=== PATIENT | male | born 1945 | race Caucasian/White ===

== ENCOUNTER → 2020-08-27 10:46 | Outpatient (BNVA) | payer MEDICARE, SELFPAY | PROVIDERS: PCP Internal Medicine; Referring Provider Internal Medicine; Visit Provider Hospitalist | DX: J84.9 Interstitial pulmonary disease, unspecified (principal); R06.00 Dyspnea, unspecified; R91.8 Other nonspecific abnormal finding of lung field; M06.1 Adult-onset Still's disease | CPT/HCPCS: 94618; 99214 ==

== ENCOUNTER 2021-01-03 10:47 | Outpatient (REF) | payer MEDICARE, SELFPAY ==
--- NOTE | 2021-01-03 17:05 | PFT_ITS ---
INDICATION: Interstitial lung disease. SPIROMETRY: The FEV1 to FVC 86% with an FEV1 of 2.63 L, which is 91% predicted and an FVC of 3.07 L, which is 77% predicted. No significant response to bronchodilators noted. Maximum voluntary ventilation 126% predicted. LUNG VOLUMES: Total lung capacity 72% predicted with an expiratory reserve volume of 37% predicted. DIFFUSION CAPACITY: DLCO 46% predicted. COMPARISONS: PFTs from January 2020. INTERPRETATION: There is no obstructive ventilatory defect. No significant response to bronchodilators noted and normal maximum voluntary ventilation. The patient does have a mild restrictive ventilatory defect in addition to a moderate to severe diffusion impairment. It does correct to 64% predicted when correcting for the alveolar volume. When comparing to January 2020, there is a trend increase in the total lung capacity and the trend increase in the diffusion capacity. Clinical correlation warranted. MD ANDRE Hall/MODL / [id number]
== END 2021-01-03 10:48 | disposition home or self-care (01) ==
LOC: HO.RESP 10:47
PROVIDERS: Visit Provider Hospitalist
DX: J84.9 Interstitial pulmonary disease, unspecified (principal)
CPT/HCPCS: 94060; 94727; 94729; 99212

== ENCOUNTER → 2021-08-25 10:42 | Outpatient (BNVA) | payer MEDICARE, SELFPAY | PROVIDERS: PCP Internal Medicine; Visit Provider Hospitalist | DX: J84.9 Interstitial pulmonary disease, unspecified (principal); R91.8 Other nonspecific abnormal finding of lung field; R06.00 Dyspnea, unspecified; M06.1 Adult-onset Still's disease | CPT/HCPCS: 99212 ==

== ENCOUNTER → 2022-02-10 09:14 | Outpatient (BNVA) | payer MEDICARE, SELFPAY | PROVIDERS: PCP Internal Medicine; Visit Provider Hospitalist | DX: J84.9 Interstitial pulmonary disease, unspecified (principal); R91.8 Other nonspecific abnormal finding of lung field; R06.00 Dyspnea, unspecified; M06.1 Adult-onset Still's disease | CPT/HCPCS: 99212 ==

== ENCOUNTER → 2022-05-10 09:48 | Outpatient (BNVA) | payer MEDICARE, SELFPAY | PROVIDERS: PCP Internal Medicine; Visit Provider Hospitalist | DX: J84.9 Interstitial pulmonary disease, unspecified (principal); R91.8 Other nonspecific abnormal finding of lung field; R06.00 Dyspnea, unspecified; M06.1 Adult-onset Still's disease | CPT/HCPCS: 99212 ==

== ENCOUNTER 2023-05-22 09:34 | Outpatient (AMB) | payer MEDICARE, SELFPAY ==
[2023-05-22 09:38] VITALS: BP 128/64; PULSE 54; O2SAT 94; BMI 29.7
--- NOTE | 2023-05-22 09:38 | MHC.OFFVIS ---
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 He had developed significant pleuritis with a pleural effusion in significant pleuritic pain. At that time he responded well to prednisone. He was then tried on an IL 1 inhibitor. After no significant improvement he was referred to [facility]. There he had had a gamma testing including CT scans and PFTs which I do not have the results. But the recommendation was for him to start methotrexate. The patient has been on methotrexate 6 tablets weekly and has felt much better. Recently signs histotechnologist supervisor and he was able to decrease his prednisone from 5 mg to 2.5. The last time that he had a CT scan available that I could appreciate was back in April 2018. It did demonstrate evidence of ground-glass opacities and interstitial lung disease. At this point the patient is re-imaging and further lung testing to assess his lung capacity. His chest pain overall is a lot better. 11/06/2019. The patient is here for pulmonary follow-up visit. Overall doing well. Continues on the methotrexate 6 tablets weekly. Today his histotechnologist supervisor decrease his prednisone from 2.5-1 mg. His chest discomfort is a lot better. Still having some pleuritic discomfort mild in severity. He is also getting some shortness of breath with increased activity specially when going up a couple flights of stairs. We did review his CT scan of the chest from 2017 in out November 04, 2019. There's significant interval improvement of the airspace disease it interstitial lung disease at the bases. His pleural thickening appears to be also decreasing thickness which is reassuring. No evidence of any effusions. Still pulmonary nodules measuring 2 mm in diameter still present. No significant changes. To do need follow-up. Otherwise the patient is without any other complaints. He did not have his pulmonary function studies. However, will plan to do them prior to his next visit and around 6-8 months. 05/2020 The patient is here for pulmonary follow-up visit. Since we last spoke he does state that he has been a little more short of breath with activity. His also complains that he has been coughing more. [id number] severity. His pleuritic chest pain has subsided to some degree. He still continues on the 6 tablets of methotrexate without any difficulties. He recently saw his histotechnologist supervisor felt that his blood work was reassuring that he was tolerating the medicine well. We did briefly talk about the side effects of methotrexate 1 being cough and interstitial lung disease. But, we looked at his CT scan of the chest that he had back in October 2019 it was reassuring that the interstitial lung conditions and pneumonitis that he has has really stabilized. Unfortunate with worsening symptoms he did have pulmonary function studies and appears that his total lung capacity decreased to 65% predicted. His diffusing capacity also decreased to 41% predicted. The patient has also gained some weight in the march as well. At this time will have him continue the current therapy with increased exercise and try to have some weight management. Plan to repeat the CT scan in October unless the patient's symptoms do not improve or if they worsen or there is any other concerning symptoms. 08/27/2020 the patient is here for pulmonary follow-up visit. He has been complaining of worsening dyspnea on exertion moderate severity. Apparently back in July he was found to have coronary artery disease and underwent a cardiac bypass surgery at [facility]. The surgery went well without any complications. 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 While the prednisone he did feel better. Subsequently after that the symptoms returned. He has been noticing worsening pleuritic discomfort primarily to the right chest and also shortness of breath. He did undergo a repeat CT scan of the chest in August demonstrating interval worsening of the interstitial lung disease at the bases compared to previous. No significant effusions noted. It is likely that the surgery aggravated his underlying interstitial lung process. He still on the methotrexate. Will go ahead and treat him with prednisone at this time. He did have a 6 minutes walk test in the office in the patient did desaturate down to 92% with activity, but, does not require oxygen at this time. 01/03/2021 the patient is here for pulmonary follow-up visit. Overall the patient has been doing well. He has been exercising regularly and walking up to 1.5 miles daily. He is also doing weight training. He is able to lose weight which has been intentional. His cardiac status has been stable after his bypass surgery. The patient did have pulmonary function studies today. We did compared to them to the previous pulmonary function studies from last year. It appears that he had a trend improvement in his total lung capacity and a slight improvement in his diffusing capacity. No evidence of obstruction. Overall the patient has been doing well from a respiratory status. Wean although his CT scan of the chest from the fall 2019 demonstrating some interval worsening of the interstitial lung process. However, the fact that he is feeling clinically well and the fact that his PFTs were reassuring I am hoping that the CT scans actually stabilizes or improved. Will plan to repeat the CT scan the fall 2020. In the meantime he continues with the methotrexate. He continues with other respiratory medications. If the patient has any issues between the patient is to call for an appointment otherwise will follow up after the CT scan in the fall. 08/25/2021 the patient is here for a pulmonary follow-up visit. Overall he continues to do very well. He still continues to recover from his cardiac bypass surgery. The patient has continued to use the methotrexate medication as prescribed by Rheumatology and recommended from [facility]. This is treating the adult onset Still's disease. It appears to be providing him some relief no significant pleuritic discomfort. He did have a recent CT scan of the chest done [facility] July 2021 that appears to that show stable pulmonary nodules and interstitial basilar changes when compared to 2017. Therefore this point there appears to be stability of disease and we will not continue to get serial CT scans unless the patient develops any worsening symptoms. Will have the patient return in a year's time with pulmonary function studies. Is any new or worsening symptoms arise the patient is to call quickly so we can further address those issues. The patient needs to follow-up with his histotechnologist supervisor regarding the possibility of weaning down some of the methotrexate to the lowest most effective dose. 02/10/2022 the patient is here for a pulmonary follow-up visit. Overall the patient has been doing well. Denies any shortness of breath or cough. He denies any further pleuritic discomfort which was 1 of his major symptoms when he was having significant pleuritis with evidence of pleural effusion in addition to the interstitial lung conditions. The patient did undergo bronchoscopy with transbronchial biopsy demonstrating areas of nonspecific inflammation. 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 While on the methotrexate the patient has been doing much better. The patient has not had any evidence of active disease. He is taking 6 tablets of the methotrexate. He is wondering if he can cut down. In the meantime he did undergo a recent cardiac CT for further evaluation from a cardiac standpoint. He was reassuring that his static aorta was stable. Although date did comment on his areas of ground-glass densities in addition to the interstitial changes in addition to the pulmonary nodules. One of the nodules was documented to be 8 mm in size. We did review previous CAT scans where the nodule had been 6 mm in size. He had other stable nodules. Unfortunately these to CT scans were not compared [id number] it is unclear if they were the same way. Therefore, I will request CT images from both CT scans from 2021 and also 2020 to be able to compared [id number] this nodule. In the meantime in view of the enlarging 8 mm nodule will repeat the CT scan in 3 months time with hopes that it does not continue to increase. If this nodule increases in size, then additional diagnostic interventions will be warranted. 05/10/2022 the patient is here for a pulmonary follow-up visit. Overall the patient has been doing well. Denies any significant chest discomfort or shortness of breath. Denies any significant coughing. He is hoping to meet his new histotechnologist supervisor soon. He continues on the methotrexate 6 tablets weekly. His primary care doctor has been prescribing it for now. The methotrexate appears to be hoping with the pleuritic discomfort that he had in the past suggesting that it was also related to the inflammatory process. In addition to that he did have a repeat CT scan of the chest done at [facility]. This CT scan was compared to a CT scan had back in July 2021. There appears that he has multiple pulmonary nodules in based on therapies his P has been 2020 there is no significant changes in the pulmonary nodules measuring 7 mm. Initially had a cardiac CT scan demonstrating a pulmonary nodule measuring 8 mm. Therefore likely that this was all related to the technique and the measuring of the nodules. Ideally a volumetric approach we more effective. 05/22/2023 the patient is here for pulmonary follow-up visit. It has been bout a year since we last spoke. The patient describes dyspnea on exertion. [id number] severity. Specially with going up a flight of stairs. He does continue on the methotrexate for his Still's disease. The patient did have crackles before examination he still has not. We did go for brief walking oximetry is oxygen did drop to the low 90s on 91-92% with activity. It quickly improves when he rested. His last CT scan of the chest was done at [facility] demonstrating interstitial changes at the bases. The patient also has pulmonary nodules. Will go ahead and repeat his CT scan now in view of the worsening symptoms. In addition to that will go ahead and request pulmonary function studies to further address his lung capacity at this time. [facility] Medical History (Updated 02/10/22 @ 11:13 by Aleshia Tejada PA-C) CAD (coronary artery disease) CMML (chronic myelomonocytic leukemia) (~2013) Dyspnea HLD (hyperlipidemia) HTN (hypertension) ILD (interstitial lung disease) Personal history of nicotine dependence Pulmonary nodules Still's disease of adult (~2017) Thoracic aortic aneurysm Surgical History (Updated 02/10/22 @ 11:09 by Aleshia Tejada PA-C) History of coronary artery bypass graft x 3 (~2019) Social History Patient Tobacco Use Status: Former Tobacco user Tobacco use type: Cigarette Years Smoked: 15 years Review of Systems Const Denies night sweats ENT Denies change in voice, Denies mouth pain, Reports nasal congestion and Reports nasal discharge Card Denies chest pain and Reports dyspnea on exertion Resp Reports cough, Denies pain on inspiration and Reports dyspnea on exertion GI Denies abdominal pain Musc Denies no additional complaints Neuro Denies Neuro-related abnormal movements Psych Denies no additional complaints Chris/Lymph Denies easy bleeding and Denies lymphadenopathy Physical Exam Vital Signs: Last Vital Signs Pulse 54 05/22/23 09:38 BP 128/64 05/22/23 09:38 Pulse Ox 94 05/22/23 09:38 Oxygen Delivery Method Room Air 05/22/23 09:38 BMI result Body Mass Index 29.7 Const General: alert Neck Neck: Yes normal visual inspection, Yes full ROM and Yes no lymphadenopathy Chest Chest palpation & inspection: normal inspection of the chest Resp Auscultation: crackles bilateral at the base and diminished lung sounds Cardio Rate: regular rate Rhythm: regular rhythm Heart sounds: S1 normal heart sound present and S2 normal heart sound present GI Palpation (GI): Soft to palpation and nontender Auscultation: normal bowel sounds General: Yes no CVA tenderness Back/Spine/Pelvis Back: no CVA tenderness Skin General skin exam: rashes and/or lesions noted Office Procedures 6 Minute Walk Time:: 22:15 SPO2 % at rest: 96 Pulse at rest: 89 SPO2 % during excercise: 91 Pulse during excercise: 105 Distance in yards walked: 300 Heather Score: 5 [id number] - 6 Minute Walk Assessment & Plan Assessment & Plan (1) Pulmonary nodules: Code(s): R91.8 - Other nonspecific abnormal finding of lung field (2) ILD (interstitial lung disease): Comment: Interval worsening after his CABG Code(s): J84.9 - Interstitial pulmonary disease, unspecified (3) Dyspnea: Code(s): R06.00 - Dyspnea, unspecified Qualifiers: Dyspnea type: dyspnea on exertion Qualified Code(s): R06.00 - Dyspnea, unspecified (4) Still's disease of adult: Onset Date: ~2017 Code(s): M06.1 - Adult-onset Still's disease Plan PFTs CT chest continue immunomodulator therapy unless evidence of progression on the CT/PFTs Rheumatology Dr Allred Follow-up in 3-4 months Coding Level of Care Code Est Pt Level 4 (40932) Diagnoses Pulmonary nodules R91.8 ILD (interstitial lung disease) J84.9 Dyspnea R06.00 Dyspnea type: dyspnea on exertion Still's disease of adult M06.1 CPT Codes Coding ([id number]) Time Spent (min) 19
[2023-05-22 22:14] VITALS: PULSE 89; O2SAT 96
== END 2023-05-22 10:02 | disposition home or self-care (01) ==
PROVIDERS: PCP Internal Medicine; Visit Provider Hospitalist
DX: R91.8 Other nonspecific abnormal finding of lung field (principal); J84.9 Interstitial pulmonary disease, unspecified; R06.00 Dyspnea, unspecified; M06.1 Adult-onset Still's disease
CPT/HCPCS: 94618; 99214

== ENCOUNTER → 2023-05-22 09:34 | Outpatient (BNVA) | payer MEDICARE, SELFPAY | PROVIDERS: Visit Provider Hospitalist | DX: J44.9 Chronic obstructive pulmonary disease, unspecified (principal); C93.10 Chronic 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; M06.1 Adult-onset Still's disease; J84.9 Interstitial pulmonary disease, unspecified; J90 Pleural effusion, not elsewhere classified; R06.00 Dyspnea, unspecified; R91.8 Other nonspecific abnormal finding of lung field; Z87.891 Personal history of nicotine dependence; Z79.631 Long term (current) use of antimetabolite agent | CPT/HCPCS: 94618; 99212 ==

== ENCOUNTER 2023-07-17 09:17 | Outpatient (REF) | payer MEDICARE, SELFPAY ==
--- NOTE | 2023-07-17 10:10 | PFT_ITS ---
INDICATION: COPD, interstitial lung disease. SPIROMETRY: FEV1 to FVC of 89% with an FEV1 of 2.8 L, which is 96% predicted and FVC of 3.15 L, which is 77% predicted. Maximum voluntary ventilation 114% predicted. LUNG VOLUMES: Total lung capacity 63% predicted. DIFFUSION CAPACITY: DLCO 45% predicted. PFTs comparison from 2020. INTERPRETATION: No obstructive ventilatory defect. No significant response to bronchodilators noted. Normal maximum voluntary ventilation. There is a restrictive ventilatory defect consistent with moderate restrictive lung disease consistent with his underlying interstitial lung disease. He also has a moderate to severe diffusion impairment. When compared to 2020, there is a trend increase in the FVC and trend increasing the FEV1, significant decreased in the total lung capacity and no significant change in the diffusion capacity. Clinical correlation warranted. Matthew Fonseca MD MR/MODL / [id number]
== END 2023-07-17 09:18 | disposition home or self-care (01) ==
LOC: HO.RESP 09:17
PROVIDERS: PCP Internal Medicine; Visit Provider Hospitalist
DX: R91.8 Other nonspecific abnormal finding of lung field (principal); J84.9 Interstitial pulmonary disease, unspecified; R06.00 Dyspnea, unspecified
CPT/HCPCS: 94010; 94727; 94729

== ENCOUNTER → 2023-07-17 10:10 | Outpatient (BNV) | payer MEDICARE, SELFPAY | PROVIDERS: PCP Internal Medicine; Visit Provider Hospitalist | DX: J44.9 Chronic obstructive pulmonary disease, unspecified (principal) | CPT/HCPCS: 94060; 94727; 94729 ==

== ENCOUNTER 2023-08-22 09:37 | Outpatient (AMB) | payer MEDICARE, SELFPAY ==
--- NOTE | 2023-08-22 09:48 | A.OFFVIS_ITS ---
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 He had de veloped significant pleuritis with a pleural effusion in significant pleuritic pain. At that time he responded well to prednisone. He was then tried on an IL 1 inhibitor. After no significant improvement he was referred to [facility]. There he had had a gamma testing including CT scans and PFTs which I do not have the results. But the recommendation was for him to start methotrexate. The patient has been on methotrexate 6 tablets weekly and has felt much better. Recently signs event promotions coordinator and he was able to decrease his prednisone from 5 mg to 2.5. The last time that he had a CT scan available that I could appreciate was back in April 2018. It did demonstrate evidence of ground-glass opacities and interstitial lung disease. At this point the patient is re-imaging and further lung testing to assess his lung capacity. His chest pain overall is a lot better. 11/06/2019. The patient is here for pulmonary follow-up visit. Overall doing well. Continues on the methotrexate 6 tablets weekly. Today his event promotions coordinator decrease his prednisone from 2.5-1 mg. His chest discomfort is a lot better. Still having some pleuritic discomfort mild in severity. He is also getting some shortness of breath with increased activity specially when going up a couple flights of stairs. We did review his CT scan of the chest from 2017 in out November 04, 2019. There's significant interval improvement of the airspace disease it interstitial lung disease at the bases. His pleural thickening appears to be also decreasing thickness which is reassuring. No evidence of any effusions. Still pulmonary nodules measuring 2 mm in diameter still present. No significant changes. To do need follow-up. Otherwise the patient is without any other complaints. He did not have his pulmonary function studies. However, will plan to do them prior to his next visit and around 6-8 months. 05/2020 The patient is here for pulmonary follow-up visit. Since we last spoke he does state that he has been a little more short of breath with activity. His also complains that he has been coughing more. [id number] severity. His pleuritic chest pain has subsided to some degree. He still continues on the 6 tablets of methotrexate without any difficulties. He recently saw his event promotions coordinator felt that his blood work was reassuring that he was tolerating the medicine well. We did briefly talk about the side effects of methotrexate 1 being cough and interstitial lung disease. But, we looked at his CT scan of the chest that he had back in October 2019 it was reassuring that the interstitial lung conditions and pneumonitis that he has has really stabilized. Unfortunate with worsening symptoms he did have pulmonary function studies and appears that his total lung capacity decreased to 65% predicted. His diffusing capacity also decreased to 41% predicted. The patient has also gained some weight in the march as well. At this time will have him continue the current therapy with increased exercise and try to have some weight management. Plan to repeat the CT scan in October unless the patient's symptoms do not improve or if they worsen or there is any other concerning symptoms. 08/27/2020 the patient is here for pulmonary follow-up visit. He has been complaining of worsening dyspnea on exertion moderate severity. Apparently back in July he was found to have coronary artery disease and underwent a cardiac bypass surgery at [facility]. The surgery went well without any complications. 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 While the prednisone he did feel better. Subsequently after that the symptoms returned. He has been noticing worsening pleuritic discomfort primarily to the right chest and also shortness of breath. He did undergo a repeat CT scan of the chest in August demonstrating interval worsening of the interstitial lung disease at the bases compared to previous. No significant effusions noted. It is likely that the surgery aggravated his underlying interstitial lung process. He still on the methotrexate. Will go ahead and treat him with prednisone at this time. He did have a 6 minutes walk test in the office in the patient did desaturate down to 92% with activity, but, does not require oxygen at this time. 01/03/2021 the patient is here for pulmonary follow-up visit. Overall the patient has been doing well. He has been exercising regularly and walking up to 1.5 miles daily. He is also doing weight training. He is able to lose weight which has been intentional. His cardiac status has been stable after his bypass surgery. The patient did have pulmonary function studies today. We did compared to them to the previous pulmonary function studies from last year. It appears that he had a trend improvement in his total lung capacity and a slight improvement in his diffusing capacity. No evidence of obstruction. Overall the patient has been doing well from a respiratory status. Wean although his CT scan of the chest from the fall 2019 demonstrating some interval worsening of the interstitial lung process. However, the fact that he is feeling clinically well and the fact that his PFTs were reassuring I am hoping that the CT scans actually stabilizes or improved. Will plan to repeat the CT scan the fall 2020. In the meantime he continues with the methotrexate. He continues with other respiratory medications. If the patient has any issues between the patient is to call for an appointment otherwise will follow up after the CT scan in the fall. 08/25/2021 the patient is here for a pulmonary follow-up visit. Overall he continues to do very well. He still continues to recover from his cardiac bypass surgery. The patient has continued to use the methotrexate medication as prescribed by Rheumatology and recommended from [facility]. This is treating the adult onset Still's disease. It appears to be providing him some relief no significant pleuritic discomfort. He did have a recent CT scan of the chest done [facility] July 2021 that appears to that show stable pulmonary nodules and interstitial basilar changes when compared to 2017. Therefore this point there appears to be stability of disease and we will not continue to get serial CT scans unless the patient develops any worsening symptoms. Will have the patient return in a year's time with pulmonary function studies. Is any new or worsening symptoms arise the patient is to call quickly so we can further address those issues. The patient needs to follow-up with his event promotions coordinator regarding the possibility of weaning down some of the methotrexate to the lowest most effective dose. 02/10/2022 the patient is here for a pulmonary follow-up visit. Overall the patient has been doing well. Denies any shortness of breath or cough. He denies any further pleuritic discomfort which was 1 of his major symptoms when he was having significant pleuritis with evidence of pleural effusion in addition to the interstitial lung conditions. The patient did undergo bronchoscopy with transbronchial biopsy demonstrating areas of nonspecific inflammation. 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 While on the methotrexate the patient has been doing much better. The patient has not had any evidence of active disease. He is taking 6 tablets of the methotrexate. He is wondering if he can cut down. In the meantime he did undergo a recent cardiac CT for further evaluation from a cardiac standpoint. He was reassuring that his static aorta was stable. Although date did comment on his areas of ground-glass densities in addition to the interstitial changes in addition to the pulmonary nodules. One of the nodules was documented to be 8 mm in size. We did review previous CAT scans where the nodule had been 6 mm in size. He had other stable nodules. Unfortunately these to CT scans were not compared [id number] it is unclear if they were the same way. Therefore, I will request CT images from both CT scans from 2021 and also 2020 to be able to compared [id number] this nodule. In the meantime in view of the enlarging 8 mm nodule will repeat the CT scan in 3 months time with hopes that it does not continue to increase. If this nodule increases in size, then additional diagnostic interventions will be warranted. 05/10/2022 the patient is here for a pulmonary follow-up visit. Overall the patient has been doing well. Denies any significant chest discomfort or shortness of breath. Denies any significant coughing. He is hoping to meet his new event promotions coordinator soon. He continues on the methotrexate 6 tablets weekly. His primary care doctor has been prescribing it for now. The methotrexate appears to be hoping with the pleuritic discomfort that he had in the past suggesting that it was also related to the inflammatory process. In addition to that he did have a repeat CT scan of the chest done at [facility]. This CT scan was compared to a CT scan had back in July 2021. There appears that he has multiple pulmonary nodules in based on therapies his P has been 2020 there is no significant changes in the pulmonary nodules measuring 7 mm. Initially had a cardiac CT scan demonstrating a pulmonary nodule measuring 8 mm. Therefore likely that this was all related to the technique and the measuring of the nodules. Ideally a volumetric approach we more effective. 05/22/2023 the patient is here for pulmonary follow-up visit. It has been bout a year since we last spoke. The patient describes dyspnea on exertion. [id number] severity. Specially with going up a flight of stairs. He does continue on the methotrexate for his Still's disease. The patient did have crackles before examination he still has not. We did go for brief walking oximetry is oxygen did drop to the low 90s on 91-92% with activity. It quickly improves when he rested. His last CT scan of the chest was done at [facility] demonstrating interstitial changes at the bases. The patient also has pulmonary nodules. Will go ahead and repeat his CT scan now in view of the worsening symptoms. In addition to that will go ahead and request pulmonary function studies to further address his lung capacity at this time. 08/22/2023 the patient is here for pulmonary follow-up visit. The patient continues to be about the same. Still complaining of dyspnea on exertion. Moderate severity. He does not use any inhalers. The patient did undergo pulmonary function studies. Demonstrates that he has a slight interval worsening of the restrictive ventilatory defect. He did have a CT scan of the chest demonstrating that his pulmonary fibrosis has not progressed which is reassuring. Still with worsening findings on PFTs need to monitor closely. He is on the methotrexate that he uses for his inflammatory arthritis. No evidence of any methotrexate induced pulmonary toxicity. Then be a component of body habitus as he is gained weight and that possibly is also affecting his total lung capacity. Still the patient will benefit from pulmonary rehabilitation. He is willing to start rehab at this time. Although he is driving from [place] so he rather go to [facility]. Will also provide him with a short- acting beta agonist that he can use as needed. [facility] Medical History (Updated 02/10/22 @ 11:13 by Aleshia Tejada PA-C) Personal history of nicotine dependence Thoracic aortic aneurysm HLD (hyperlipidemia) HTN (hypertension) CAD (coronary artery disease) CMML (chronic myelomonocytic leukemia) (~2013) Still's disease of adult (~2018) Dyspnea Pulmonary nodules ILD (interstitial lung disease) Surgical History (Updated 02/10/22 @ 11:09 by Aleshia Tejada PA-C) History of coronary artery bypass graft x 3 (~2019) Social History Patient Tobacco Use Status: Former Tobacco user Tobacco use type: Cigarette Years Smoked: 15 years Review of Systems Const Denies night sweats ENT Denies change in voice, Denies mouth pain, Reports nasal congestion and Reports nasal discharge Card Denies chest pain and Reports dyspnea on exertion Resp Reports cough, Denies pain on inspiration and Reports dyspnea on exertion GI Denies abdominal pain Musc Denies no additional complaints Neuro Denies Neuro-related abnormal movements Psych Denies no additional complaints Chris/Lymph Denies easy bleeding and Denies lymphadenopathy Physical Exam Vital Signs: Last Vital Signs Pulse 60 08/22/23 09:49 Pulse Ox 93 08/22/23 09:49 Oxygen Delivery Method Room Air 08/22/23 09:49 BMI result Body Mass Index 29.7 Const General: alert Neck Neck: Yes normal visual inspection, Yes full ROM and Yes no lymphadenopathy Chest Chest palpation & inspection: normal inspection of the chest Resp Effort & Inspection: normal respiratory effort Auscultation: crackles bilateral at the base and diminished lung sounds Cardio Rate: regular rate Rhythm: regular rhythm Heart sounds: S1 normal heart sound present and S2 normal heart sound present GI Palpation (GI): Soft to palpation and nontender Auscultation: normal bowel sounds General: Yes no CVA tenderness Back/Spine/Pelvis Back: no CVA tenderness Skin General skin exam: rashes and/or lesions noted Assessment & Plan Assessment & Plan (1) Pulmonary nodules: Code(s): R91.8 - Other nonspecific abnormal finding of lung field (2) ILD (interstitial lung disease): Comment: Interval worsening after his CABG Code(s): J84.9 - Interstitial pulmonary disease, unspecified (3) Dyspnea: Code(s): R06.00 - Dyspnea, unspecified Qualifiers: Dyspnea type: dyspnea on exertion Qualified Code(s): R06.00 - Dyspnea, unspecified (4) Still's disease of adult: Onset Date: ~2017 Code(s): M06.1 - Adult-onset Still's disease Plan start MARQUES as needed start Pulmonary rehab ([facility]) CT chest 07/2023 unchanged continue immunomodulator therapy Rheumatology Dr Allred Follow-up in 6 months Orders: Orders Pulmonary Rehab Today J84.9 - Interstitial pulmonary disease, unspecified Medications: New albuterol sulfate 90 mcg/actuation 2 inhalations inhalation Q6H 30 days PRN 18 grams 12RF shortness of breath or wheezing J44.9 - Chronic obstructive pulmonary disease, unspecified Coding Level of Care Code Est Pt Level 4 (01232) Diagnoses Pulmonary nodules R91.8 ILD (interstitial lung disease) J84.9 Dyspnea on exertion R06.00 Dyspnea type: dyspnea on exertion Still's disease of adult M06.1 Time Spent (min) 18
[2023-08-22 09:49] VITALS: PULSE 60; O2SAT 93; BMI 29.7
== END 2023-08-22 10:09 | disposition home or self-care (01) ==
PROVIDERS: PCP Internal Medicine; Visit Provider Hospitalist
DX: R91.8 Other nonspecific abnormal finding of lung field (principal); J84.9 Interstitial pulmonary disease, unspecified; R06.00 Dyspnea, unspecified; M06.1 Adult-onset Still's disease
CPT/HCPCS: 99214

== ENCOUNTER → 2023-08-22 09:37 | Outpatient (BNVA) | payer MEDICARE, SELFPAY | PROVIDERS: PCP Internal Medicine; Visit Provider Hospitalist | DX: R91.8 Other nonspecific abnormal finding of lung field (principal); J84.9 Interstitial pulmonary disease, unspecified; R06.00 Dyspnea, unspecified; M06.1 Adult-onset Still's disease | CPT/HCPCS: 99212 ==

== ENCOUNTER 2023-10-08 13:04 | Outpatient (AMB) | payer MEDICARE, SELFPAY ==
--- NOTE | 2023-10-08 13:18 | A.OFFVIS_ITS ---
Intake Vital Signs 10/08/23 13:21 Height 5 ft 9 in Weight 202 lb BMI 29.8 Pulse 71 Pulse Source Pulse Oximeter Pulse Oximetry (%) 94 Oxygen Delivery Method Room Air Intake Visit Reasons: COPD/Hosp DC Follow Up ([facility]) Objective C Developer Required: No Allergies aspirin Allergy (Mild, Verified 10/08/23 13:22) Swollen HPI HPI Comments History of Present Illness Details The patient is a 77-year-old gentleman known CMML in addition to adult onset Still's disease with some underlying interstitial lung disease. He had developed significant pleuritis with a pleural effusion in significant pleuritic pain. At that time he responded well to prednisone. He was then tried on an IL 1 inhibitor. After no significant improvement he was referred to [place]. There he had had a gamma testing including CT scans and PFTs which I do not have the results. But the recommendation was for him to start methotrexate. The patient has been on methotrexate 6 tablets weekly and has felt much better. Recently signs computer repair engineer and he was able to decrease his prednisone from 5 mg to 2.5. The last time that he had a CT scan available that I could appreciate was back in April 2018. It did demonstrate evidence of ground-glass opacities and interstitial lung disease. At this point the patient is re-imaging and further lung testing to assess his lung capacity. His chest pain overall is a lot better. 05/10/2022 the patient is here for a pulmo nary follow-up visit. Overall the patient has been doing well. Denies any significant chest discomfort or shortness of breath. Denies any significant coughing. He is hoping to meet his new computer repair engineer soon. He continues on the methotrexate 6 tablets weekly. His primary care doctor has been prescribing it for now. The methotrexate appears to be hoping with the pleuritic discomfort that he had in the past suggesting that it was also related to the inflammatory process. In addition to that he did have a repeat CT scan of the chest done at [facility]. This CT scan was compared to a CT scan had back in July 2021. There appears that he has multiple pulmonary nodules in based on therapies his P has been 2020 there is no significant changes in the pulmonary nodules measuring 7 mm. Initially had a cardiac CT scan demonstrating a pulmonary nodule measuring 8 mm. Therefore likely that this was all related to the technique and the measuring of the nodules. Ideally a volumetric approach we more effective. 05/22/2023 the patient is here for puljayde pierce follow-up visit. It has been bout a year since we last spoke. The patient describes dyspnea on exertion. Kvep-av-kiubbhbj severity. Specially with going up a flight of stairs. He does continue on the methotrexate for his Still's disease. The patient did have crackles before examination he still has not. We did go for brief walking oximetry is oxygen did drop to the low 90s on 91-92% with activity. It quickly improves when he rested. His last CT scan of the chest was done at [facility] demonstrating interstitial changes at the bases. The patient also has pulmonary nodules. Will go ahead and repeat his CT scan now in view of the worsening symptoms. In addition to that will go ahead and request pulmonary function studies to further address his lung capacity at this time. 08/22/2023 the patient is here for pultai dacosta follow-up visit. The patient continues to be about the same. Still complaining of dyspnea on exertion. Moderate severity. He does not use any inhalers. The patient did undergo pulmonary function studies. Demonstrates that he has a slight interval worsening of the restrictive ventilatory defect. He did have a CT scan of the chest demonstrating that his pulmonary fibrosis has not progressed which is reassuring. Still with worsening findings on PFTs need to monitor closely. He is on the methotrexate that he uses for his inflammatory arthritis. No evidence of any methotrexate induced pulmonary toxicity. Then be a component of body habitus as he is gained weight and that possibly is also affecting his total lung capacity. Still the patient will benefit from pulmonary rehabilitation. He is willing to start rehab at this time. Although he is driving from [place] so he rather go to [facility]. Will also provide him with a short- acting beta agonist that he can use as needed. 10/08/2023 the patient is here for hospit al follow-up visit. The patient has been doing well. We had evaluated him just in August and he was at baseline. Have been new methotrexate. Unfortunately developed acute respiratory failure. The patient was taken to [facility] where he was admitted to the hospital requiring oxygen. The patient did have a CT scan of the chest demonstrating significant ground-glass opacities consistent with an alveolar filling process. He did undergo an echocardiogram with a dilated left atrium although normal ejection fraction. The patient was evaluated by Pulmonary and also Infectious Disease. The question of Pneumocystis pulmonary infection was brought up. Although felt to be less likely. An LDH was done in a beta D glucan was also checked although I do not have those results. The patient was placed on prednisone taper in addition to Levaquin. He was subsequently discharged on room air. He still feels short of breath and winded. During the evaluation he was also noted to be anemic. Therefore he will be following up with his practical nurse and I believe he is going to undergo a bone marrow biopsy to make sure that there is no worsening of the CMML. on further questioning he was exposed to sick contacts. My suspicion that based on the reports that this is likely viral syndrome that manifested with significant viral pneumonitis. Clinically the patient has been improving. We did go for brief walking oximetry the patient does not require any additional oxygen supplementation at this time I do believe that he is getting better. He does have some lower extremity edema. 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 After the diuresis and additional prednisone I did request the patient get an x-ray done next week. If there is any persistent opacities or any worsening opacities further intervention should take place. Otherwise if things are getting better likely this was just an infectious process that resulted in the acute changes. 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) Dyspnea Pulmonary nodules ILD (interstitial lung disease) Surgical History (Updated 02/10/22 @ 11:09 by Aleshia Tejada PA-C) History of coronary artery bypass graft x 3 (~2019) Social History Patient Tobacco Use Status: Former Tobacco user Tobacco use type: Cigarette Years Smoked: 15 years Review of Systems Const Reports fatigue and Denies night sweats ENT Denies change in voice, Denies mouth pain, Reports nasal congestion and Reports nasal discharge Card Denies chest pain and Reports dyspnea on exertion Resp Reports cough, Denies pain on inspiration and Reports dyspnea on exertion GI Denies abdominal pain Musc Denies no additional complaints Neuro Denies Neuro-related abnormal movements Psych Denies no additional complaints Endo Reports fatigue Chris/Lymph Denies easy bleeding and Denies lymphadenopathy Physical Exam Vital Signs: Last Vital Signs Pulse 71 10/08/23 13:21 Pulse Ox 94 10/08/23 13:21 Oxygen Delivery Method Room Air 10/08/23 13:21 BMI result Body Mass Index 29.8 Const General: alert Neck Neck: Yes normal visual inspection, Yes full ROM and Yes no lymphadenopathy Chest Chest palpation & inspection: normal inspection of the chest Resp Effort & Inspection: normal respiratory effort Auscultation: crackles bilateral at the base and diminished lung sounds Cardio Rate: regular rate Rhythm: regular rhythm Heart sounds: S1 normal heart sound present and S2 normal heart sound present GI Palpation (GI): Soft to palpation and nontender Auscultation: normal bowel sounds General: Yes no CVA tenderness Back/Spine/Pelvis Back: no CVA tenderness Skin General skin exam: rashes and/or lesions noted Results Reviewed Results Reviewed: Personally reviewed echocardiogram demonstrating normal EF but a very severe left atrium. Personally reviewed the CT scan of the chest reported demonstrating new evidence of ground-glass opacities throughout Assessment & Plan Assessment & Plan (1) Pneumonitis: Code(s): J98.4 - Other disorders of lung (2) Pulmonary nodules: Code(s): R91.8 - Other nonspecific abnormal finding of lung field (3) ILD (interstitial lung disease): Comment: Interval worsening after his CABG Code(s): J84.9 - Interstitial pulmonary disease, unspecified (4) Dyspnea: Code(s): R06.00 - Dyspnea, unspecified Qualifiers: Dyspnea type: dyspnea on exertion Qualified Code(s): R06.00 - Dyspnea, unspecified (5) Still's disease of adult: Onset Date: ~2017 Code(s): M06.1 - Adult-onset Still's disease Plan lasix x 3 days continue prednisone taper complete abx CXR next week MARQUES as needed Pulmonary rehab ([facility]) continue immunomodulator therapy F/U with heme/onc re: anemia Follow-up in 2 months Orders: Orders XR chest 2V Today J98.4 - Other disorders of lung Medications: New furosemide (Lasix) 20 mg PO DAILY 3 days 3 tabs 0RF prednisone 10 mg PO DAILY 10 days 10 tabs 0RF Coding Level of Care Code Est Pt Level 5 (21934) Diagnoses Pneumonitis J98.4 Pulmonary nodules R91.8 ILD (interstitial lung disease) J84.9 Dyspnea on exertion R06.00 Dyspnea type: dyspnea on exertion Still's disease of adult M06.1 Time Spent (min) 35
[2023-10-08 13:21] VITALS: PULSE 71; O2SAT 94; BMI 29.8
== END 2023-10-08 13:59 | disposition home or self-care (01) ==
PROVIDERS: PCP Internal Medicine; Visit Provider Hospitalist
DX: J98.4 Other disorders of lung (principal); R91.8 Other nonspecific abnormal finding of lung field; J84.9 Interstitial pulmonary disease, unspecified; M06.1 Adult-onset Still's disease
CPT/HCPCS: 99214

== ENCOUNTER → 2023-10-08 13:04 | Outpatient (BNVA) | payer MEDICARE, SELFPAY | PROVIDERS: PCP Internal Medicine; Visit Provider Hospitalist | DX: J98.4 Other disorders of lung (principal); R91.8 Other nonspecific abnormal finding of lung field; J84.9 Interstitial pulmonary disease, unspecified; R06.00 Dyspnea, unspecified; M06.1 Adult-onset Still's disease; C93.10 Chronic 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 | CPT/HCPCS: 99212 ==

== ENCOUNTER 2024-01-07 13:46 | Outpatient (AMB) | payer MEDICARE, SELFPAY ==
--- NOTE | 2024-01-07 13:55 | MHC.OFFVIS ---
Intake Vital Signs 01/07/24 13:56 Height 5 ft 9 in Weight 200 lb BMI 29.5 BP 132/70 Blood Pressure Location Lt brachial Position Sitting Pulse 71 Pulse Source Pulse Oximeter Pulse Oximetry (%) 96 Oxygen Delivery Method Room Air Intake Visit Reasons: persistent cough Developmental Writing Instructor Required: No Allergies aspirin Allergy (Mild, Verified 01/07/24 13:58) Swollen HPI HPI Comments History of Present Illness Details The patient is a 78-year-old gentleman known CMML in addition to adult onset Still's disease with some underlying interstitial lung disease. He had developed significant pleuritis with a pleural effusion in significant pleuritic pain. At that time he responded well to prednisone. He was then tried on an IL 1 inhibitor. After no significant improvement he was referred to [place]. There he had had a gamma testing including CT scans and PFTs which I do not have the results. But the recommendation was for him to start methotrexate. The patient has been on methotrexate 6 tablets weekly and has felt much better. Recently signs pyridine recovery operator and he was able to decrease his prednisone from 5 mg to 2.5. The last time that he had a CT scan available that I could appreciate was back in April 2018. It did demonstrate evidence of ground-glass opacities and interstitial lung disease. At this point the patient is re-imaging and further lung testing to assess his lung capacity. His chest pain overall is a lot better. 05/10/2022 the patient is here for a pulmonary follow-up visit. Overall the patient has been doing well. Denies any significant chest discomfort or shortness of breath. Denies any significant coughing. He is hoping to meet his new pyridine recovery operator soon. He continues on the methotrexate 6 tablets weekly. His primary care doctor has been prescribing it for now. The methotrexate appears to be hoping with the pleuritic discomfort that he had in the past suggesting that it was also related to the inflammatory process. In addition to that he did have a repeat CT scan of the chest done at [facility]. This CT scan was compared to a CT scan had back in July 2021. There appears that he has multiple pulmonary nodules in based on therapies his P has been 2020 there is no significant changes in the pulmonary nodules measuring 7 mm. Initially had a cardiac CT scan demonstrating a pulmonary nodule measuring 8 mm. Therefore likely that this was all related to the technique and the measuring of the nodules. Ideally a volumetric approach we more effective. 05/22/2023 the patient is here for pulmonary follow-up visit. It has been bout a year since we last spoke. The patient describes dyspnea on exertion. Kdkm-oa-[id number] severity. Specially with going up a flight of stairs. He does continue on the methotrexate for his Still's disease. The patient did have crackles before examination he still has not. We did go for brief walking oximetry is oxygen did drop to the low 90s on 91-92% with activity. It quickly improves when he rested. His last CT scan of the chest was done at [facility] demonstrating interstitial changes at the bases. The patient also has pulmonary nodules. Will go ahead and repeat his CT scan now in view of the worsening symptoms. In addition to that will go ahead and request pulmonary function studies to further address his lung capacity at this time. 08/22/2023 the patient is here for pulmonary follow-up visit. The patient continues to be about the same. Still complaining of dyspnea on exertion. Moderate severity. He does not use any inhalers. The patient did undergo pulmonary function studies. Demonstrates that he has a slight interval worsening of the restrictive ventilatory defect. He did have a CT scan of the chest demonstrating that his pulmonary fibrosis has not progressed which is reassuring. Still with worsening findings on PFTs need to monitor closely. He is on the methotrexate that he uses for his inflammatory arthritis. No evidence of any methotrexate induced pulmonary toxicity. Then be a component of body habitus as he is gained weight and that possibly is also affecting his total lung capacity. Still the patient will benefit from pulmonary rehabilitation. He is willing to start rehab at this time. Although he is driving from [place] so he rather go to [facility]. Will also provide him with a short-acting beta agonist that he can use as needed. 10/08/2023 the patient is here for hospital follow-up visit. The patient has been doing well. We had evaluated him just in August and he was at baseline. Have been new methotrexate. Unfortunately developed acute respiratory failure. The patient was taken to [facility] where he was admitted to the hospital requiring oxygen. The patient did have a CT scan of the chest demonstrating significant ground-glass opacities consistent with an alveolar filling process. He did undergo an echocardiogram with a dilated left atrium although normal ejection fraction. The patient was evaluated by Pulmonary and also Infectious Disease. The question of Pneumocystis pulmonary infection was brought up. Although felt to be less likely. An LDH was done in a beta D glucan was also checked although I do not have those results. The patient was placed on prednisone taper in addition to Levaquin. He was subsequently discharged on room air. He still feels short of breath and winded. During the evaluation he was also noted to be anemic. Therefore he will be following up with his oracle adf developer and I believe he is going to undergo a bone marrow biopsy to make sure that there is no worsening of the CMML. on further questioning he was exposed to sick contacts. My suspicion that based on the reports that this is likely viral syndrome that manifested with significant viral pneumonitis. Clinically the patient has been improving. We did go for brief walking oximetry the patient does not require any additional oxygen supplementation at this time I do believe that he is getting better. He does have some lower extremity edema. 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 After the diuresis and additional prednisone I did request the patient get an x-ray done next week. If there is any persistent opacities or any worsening opacities further intervention should take place. Otherwise if things are getting better likely this was just an infectious process that resulted in the acute changes. 01/07/2024 the patient is here for A sick visit apparently couple weeks ago he started developing worsening cough chest congestion. He was seen by his primary care doctor in prescribed prednisone and antibiotics for what was likely lower respiratory infection. Unfortunately symptoms continued to get worse. Started getting some increased shortness of breath chest tightness and he went to the ER. There he had nasal swabs done was positive for influenza A. I do not have the report%. He was given Tamiflu although because of his renal insufficiency was given a low dose and was actually already after the therapeutic window. Therefore he really did not have any significant improvement. He did call the office to be evaluated however, we could not fit him in last week so he is presenting today. Already starting to feel better. His cough significantly better. Chest congestion is better the chest tightness is also improving. He does have dyspnea on exertion mild in severity. He is feels tired weak. He still has some hoarseness. On examination he does have his stable fine rales at the bases. However, appears to have more coarse crackles in the left mid lung area. This suggest a possibility of bronchopneumonia. Based on the fact that he just had flu will go ahead and give him doxycycline to treat him for postviral bacterial infection to treat both staph aureus and Streptococcus. The patient otherwise does not need any additional prednisone which is reassuring. He is reluctant to do so. On further questioning he is dealing with gout. We did go over the low purine diet to minimize on the uric acid buildup. He is also taking medications for. The patient also continues on the methotrexate for his underlying connective tissue disease. In regards of his leukemia appears to be stable although he is going to be referred to [facility] [place] to start prophylactic treatment in view of his ongoing findings of anemia and other risk factors. 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) Dyspnea Pulmonary nodules ILD (interstitial lung disease) Surgical History (Updated 02/10/22 @ 11:09 by Aleshia Tejada PA-C) History of coronary artery bypass graft x 3 (~2019) Social History Patient Tobacco Use Status: Former Tobacco user Tobacco use type: Cigarette Years Smoked: 15 years Review of Systems Const Reports fatigue and Denies night sweats ENT Denies change in voice, Reports hoarseness, Denies mouth pain, Reports nasal congestion and Reports nasal discharge Card Denies chest pain and Reports dyspnea on exertion Resp Reports chest congestion, Reports cough, Denies pain on inspiration and Reports dyspnea on exertion GI Denies abdominal pain Musc Denies no additional complaints Neuro Denies Neuro-related abnormal movements Psych Denies no additional complaints Endo Reports fatigue Chris/Lymph Denies easy bleeding and Denies lymphadenopathy Physical Exam Vital Signs: Last Vital Signs Pulse 71 01/07/24 13:56 BP 132/70 01/07/24 13:56 Pulse Ox 96 01/07/24 13:56 Oxygen Delivery Method Room Air 01/07/24 13:56 BMI result Body Mass Index 29.5 Const General: alert Neck Neck: Yes normal visual inspection, Yes full ROM and Yes no lymphadenopathy Chest Chest palpation & inspection: normal inspection of the chest Resp Effort & Inspection: normal respiratory effort Auscultation: crackles on the left in the mid lung rachel, rales bilateral at the base and diminished lung sounds Cardio Rate: regular rate Rhythm: regular rhythm Heart sounds: S1 normal heart sound present and S2 normal heart sound present GI Palpation (GI): Soft to palpation and nontender Auscultation: normal bowel sounds General: Yes no CVA tenderness Back/Spine/Pelvis Back: no CVA tenderness Skin General skin exam: rashes and/or lesions noted Assessment & Plan Assessment & Plan (1) Pneumonitis: Code(s): J98.4 - Other disorders of lung (2) Pulmonary nodules: Code(s): R91.8 - Other nonspecific abnormal finding of lung field (3) ILD (interstitial lung disease): Comment: Interval worsening after his CABG Code(s): J84.9 - Interstitial pulmonary disease, unspecified (4) Dyspnea: Code(s): R06.00 - Dyspnea, unspecified Qualifiers: Dyspnea type: dyspnea on exertion Qualified Code(s): R06.00 - Dyspnea, unspecified (5) Still's disease of adult: Onset Date: ~2017 Code(s): M06.1 - Adult-onset Still's disease (6) Pneumonia: Code(s): J18.9 - Pneumonia, unspecified organism Qualifiers: Pneumonia type: due to unspecified organism Laterality: left Lung location: unspecified part of lung Qualified Code(s): J18.9 - Pneumonia, unspecified organism Plan repeat CXR Start Doxycycline MARQUES as needed Pulmonary rehab ([facility]) continue immunomodulator therapy F/U with heme/onc re: anemia will be going to [facility] for further treatment options Follow-up in 3-4 months Orders: Orders XR chest 2V Today J18.9 - Pneumonia, unspecified organism Medications: New doxycycline monohydrate 100 mg PO BID 14 days 28 tabs 0RF Coding Level of Care Code Est Pt Level 4 (00668) Diagnoses Pneumonitis J98.4 Pulmonary nodules R91.8 ILD (interstitial lung disease) J84.9 Dyspnea on exertion R06.00 Dyspnea type: dyspnea on exertion Still's disease of adult M06.1 Pneumonia of left lung due to infectious organism, unspecified part of lung J18.9 Pneumonia type: due to unspecified organism Laterality: left Lung location: unspecified part of lung Time Spent (min) 18
[2024-01-07 13:56] VITALS: BP 132/70; PULSE 71; O2SAT 96; BMI 29.5
== END 2024-01-07 14:26 | disposition home or self-care (01) ==
PROVIDERS: PCP Internal Medicine; Visit Provider Hospitalist
DX: J98.4 Other disorders of lung (principal); R91.8 Other nonspecific abnormal finding of lung field; J84.9 Interstitial pulmonary disease, unspecified; M06.1 Adult-onset Still's disease; J18.9 Pneumonia, unspecified organism
CPT/HCPCS: 99214

== ENCOUNTER → 2024-01-07 13:46 | Outpatient (BNVA) | payer MEDICARE, SELFPAY | PROVIDERS: PCP Internal Medicine; Visit Provider Hospitalist | DX: J98.4 Other disorders of lung (principal); R91.8 Other nonspecific abnormal finding of lung field; J84.9 Interstitial pulmonary disease, unspecified; J18.9 Pneumonia, unspecified organism; M06.1 Adult-onset Still's disease; R06.00 Dyspnea, unspecified | CPT/HCPCS: 99212 ==

== ENCOUNTER 2024-07-09 09:46 | Outpatient (AMB) | payer MEDICARE, SELFPAY ==
[2024-07-09 10:11] VITALS: BP 138/70; PULSE 83; O2SAT 97; BMI 26.5
--- NOTE | 2024-07-09 10:11 | A.OFFVIS_ITS ---
Vital Signs 07/09/24 10:11 Height 5 ft 9 in Weight 179 lb 10.828 oz BMI 26.5 BP 138/70 Blood Pressure Location Rt brachial Position Sitting Pulse 83 Pulse Source Pulse Oximeter Pulse Oximetry (%) 97 Oxygen Delivery Method Room Air Intake Visit Reasons: persistent cough Allergies aspirin Allergy (Mild, Verified 07/09/24 10:13) Swollen HPI Comments Details: The patient is a 78-year-old gentleman known CMML in addition to adult onset Still's disease with some underlying interstitial lung disease. He had developed significant pleuritis with a pleural effusion in significant pleuritic pain. At that time he responded well to prednisone. He was then tried on an IL 1 inhibitor. After no significant improvement he was referred to [facility]. There he had had a gamma testing including CT scans and PFTs which I do not have the results. But the recommendation was for him to start methotrexate. The patient has been on methotrexate 6 tablets weekly and has felt much better. 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 The last time that he had a CT scan available that I could appreciate was back in April 2018. It did demonstrate evidence of ground-glass opacities and interstitial lung disease. At this point the patient is re-imaging and further lung testing to assess his lung capacity. His chest pain overall is a lot better. 05/10/2022 the patient is here for a pulmonary follow-up visit. Overall the patient has been doing well. Denies any significant chest discomfort or shortness of breath. Denies any significant coughing. He is hoping to meet his new washer repairman soon. He continues on the methotrexate 6 tablets weekly. His primary care doctor has been prescribing it for now. The methotrexate appears to be hoping with the pleuritic discomfort that he had in the past suggesting that it was also related to the inflammatory process. In addition to that he did have a repeat CT scan of the chest done at [facility]. This CT scan was compared to a CT scan had back in July 2021. There appears that he has multiple pulmonary nodules in based on therapies his P has been 2020 there is no significant changes in the pulmonary nodules measuring 7 mm. Initially had a cardiac CT scan demonstrating a pulmonary nodule measuring 8 mm. Therefore likely that this was all related to the technique and the measuring of the nodules. Ideally a volumetric approach we more effective. 05/22/2023 the patient is here for pulmonary follow-up visit. It has been bout a year since we last spoke. The patient describes dyspnea on exertion. [id number] severity. Specially with going up a flight of stairs. He does continue on the methotrexate for his Still's disease. The patient did have crackles before examination he still has not. We did go for brief walking oximetry is oxygen did drop to the low 90s on 91-92% with activity. It quickly improves when he rested. His last CT scan of the chest was done at [facility] demonstrating interstitial changes at the bases. The patient also has pulmonary nodules. Will go ahead and repeat his CT scan now in view of the worsening symptoms. In addition to that will go ahead and request pulmonary function studies to further address his lung capacity at this time. 08/22/2023 the patient is here for pulmonary follow-up visit. The patient continues to be about the same. Still complaining of dyspnea on exertion. Moderate severity. He does not use any inhalers. The patient did undergo pulmonary function studies. Demonstrates that he has a slight interval worsening of the restrictive ventilatory defect. He did have a CT scan of the chest demonstrating that his pulmonary fibrosis has not progressed which is reassuring. Still with worsening findings on PFTs need to monitor closely. He is on the methotrexate that he uses for his inflammatory arthritis. No evidence of any methotrexate induced pulmonary toxicity. Then be a component of body habitus as he is gained weight and that possibly is also affecting his total lung capacity. Still the patient will benefit from pulmonary rehabilitation. He is willing to start rehab at this time. Although he is driving from [place] so he rather go to [facility]. Will also provide him with a short- acting beta agonist that he can use as needed. 10/08/2023 the patient is here for hospital follow-up visit. The patient has been doing well. We had evaluated him just in August and he was at baseline. Have been new methotrexate. Unfortunately developed acute respiratory failure. The patient was taken to [facility] where he was admitted to the hospital requiring oxygen. The patient did have a CT scan of the chest demonstrating significant ground-glass opacities consistent with an alveolar filling process. He did undergo an echocardiogram with a dilated left atrium although normal ejection fraction. The patient was evaluated by Pulmonary and also Infectious Disease. The question of Pneumocystis pulmonary infection was brought up. Although felt to be less likely. An LDH was done in a beta D glucan was also checked although I do not have those results. The patient was placed on prednisone taper in addition to Levaquin. He was subsequently discharged on room air. He still feels short of breath and winded. During the evaluation he was also noted to be anemic. Therefore he will be following up with his sugar grinder and I believe he is going to undergo a bone marrow biopsy to make sure that there is no worsening of the CMML. on further questioning he was exposed to sick contacts. My suspicion that based on the reports that this is likely viral syndrome that manifested with significant viral pneumonitis. Clinically the patient has been improving. We did go for brief walking oximetry the patient does not require any additional oxygen supplementation at this time I do believe that he is getting better. He does have some lower extremity edema. 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 After the diuresis and additional prednisone I did request the patient get an x-ray done next week. If there is any persistent opacities or any worsening opacities further intervention should take place. Otherwise if things are getting better likely this was just an infectious process that resulted in the acute changes. 01/07/2024 the patient is here for A sick visit apparently couple weeks ago he started developing worsening cough chest congestion. He was seen by his primary care doctor in prescribed prednisone and antibiotics for what was likely lower respiratory infection. Unfortunately symptoms continued to get worse. Started getting some increased shortness of breath chest tightness and he went to the ER. There he had nasal swabs done was positive for influenza A. I do not have the report%. He was given Tamiflu although because of his renal insufficiency was given a low dose and was actually already after the therapeutic window. Therefore he really did not have any significant improvement. He did call the office to be evaluated however, we could not fit him in last week so he is presenting today. Already starting to feel better. His cough significantly better. Chest congestion is better the chest tightness is also improving. He does have dyspnea on exertion mild in severity. He is feels tired weak. He still has some hoarseness. On examination he does have his stable fine rales at the bases. However, appears to have more coarse crackles in the left mid lung area. This suggest a possibility of bronchopneumonia. Based on the fact that he just had flu will go ahead and give him doxycycline to treat him for postviral bacterial infection to treat both staph aureus and Streptococcus. The patient otherwise does not need any additional prednisone which is reassuring. He is reluctant to do so. On further questioning he is dealing with gout. We did go over the low purine diet to minimize on the uric acid buildup. He is als o taking medications for. The patient also continues on the methotrexate for his underlying connective tissue disease. In regards of his leukemia appears to be stable although he is going to be referred to [facility] to start prophylactic treatment in view of his ongoing findings of anemia and other risk factors. 07/09/2024 the patient is here for a pulmonary follow-up visit. The patient has been complaining of significant back pain. Initially he underwent kyphoplasty but it did not help him. Now he is scheduled to undergo back surgery at [facility] in the coming weeks. In the meantime he was diagnosed with pneumonia several months ago. He did have a chest x-ray as an outpatient. I do not have those results. He was treated as an outpatient and did not have to be admitted to the hospital. He is feeling better although he still having some chest congestion. Also noticed to have some shortness of breath with activity. But a lot of it has to do with deconditioning. He has also lost significant amount of weight because of the back pain. From a hematological standpoint the patient has followed closely with oncology. No evidence of any active issue per report. In regards to the pulmonary fibrosis the patient continues to have crackles on examination which is chronic for him. We did go for brief walking oximetry in the office in his oxygenation was 98% with activity which is extremely reassuring. We will start respiratory inhalers see if this provides some relief prior to surgery. [facility] Medical History (Updated 01/07/24 @ 22:12 by Matthew Fonseca MD) Pneumonia Pneumonitis Personal history of nicotine dependence Thoracic aortic aneurysm HLD (hyperlipidemia) HTN (hypertension) CAD (coronary artery disease) CMML (chronic myelomonocytic leukemia) (~2013) Still's disease of adult (~2018) Dyspnea Pulmonary nodules ILD (interstitial lung disease) Surgical History (Updated 02/10/22 @ 11:09 by Aleshia Tejada PA-C) History of coronary artery bypass graft x 3 (~2019) Social History Patient Tobacco Use Status: Former Tobacco user Tobacco use type: Cigarette Years Smoked: 15 years Review of Systems Const Reports fatigue and Denies night sweats ENT Denies change in voice, Reports hoarseness, Denies mouth pain, Reports nasal congestion and Reports nasal discharge Card Denies chest pain and Reports dyspnea on exertion Resp Reports cough, Denies pain on inspiration and Reports dyspnea on exertion GI Denies abdominal pain Musc Denies no additional complaints Neuro Denies Neuro-related abnormal movements Psych Denies no additional complaints Endo Reports fatigue Chris/Lymph Denies easy bleeding and Denies lymphadenopathy Physical Exam Vital Signs: Last Vital Signs Pulse 83 07/09/24 10:11 BP 138/70 07/09/24 10:11 Pulse Ox 97 07/09/24 10:11 Oxygen Delivery Method Room Air 07/09/24 10:11 BMI result Body Mass Index 26.5 Const General: alert Neck Neck: Yes normal visual inspection, Yes full ROM and Yes no lymphadenopathy Chest Chest palpation & inspection: normal inspection of the chest Resp Effort & Inspection: normal respiratory effort Auscultation: crackles on the left in the mid lung rachel, rales bilateral at the base and diminished lung sounds Cardio Rate: regular rate Rhythm: regular rhythm Heart sounds: S1 normal heart sound present and S2 normal heart sound present GI Palpation (GI): Soft to palpation and nontender Auscultation: normal bowel sounds General: Yes no CVA tenderness Back/Spine/Pelvis Back: no CVA tenderness Skin General skin exam: rashes and/or lesions noted Assessment & Plan Assessment & Plan (1) Pneumonitis: Code(s): J98.4 - Other disorders of lung Category: Medical (2) Pulmonary nodules: Code(s): R91.8 - Other nonspecific abnormal finding of lung field Category: Medical (3) ILD (interstitial lung disease): Comment: Interval worsening after his CABG Code(s): J84.9 - Interstitial pulmonary disease, unspecified Category: Medical (4) Dyspnea: Code(s): R06.00 - Dyspnea, unspecified Category: Medical Qualifiers: Dyspnea type: dyspnea on exertion Qualified Code(s): R06.00 - Dyspnea, unspecified (5) Still's disease of adult: Onset Date: ~2017 Code(s): M06.1 - Adult-onset Still's disease Category: Medical (6) Pneumonia: Code(s): J18.9 - Pneumonia, unspecified organism Category: Medical Qualifiers: Laterality: left Lung location: unspecified part of lung Pneumonia type: due to unspecified organism Qualified Code(s): J18.9 - Pneumonia, unspecified organism Plan MARQUES as needed start Symbicort Back surgery at [facility] continue immunomodulator therapy F/U with heme/onc re: anemia and CMML will need imaging studies with his next visit Follow-up in 3-4 months Medications: New budesonide-formoterol 160-4.5 mcg/actuation (Symbicort) 2 puffs inhalation BID 10.2 grams 11RF 30 days J44.89 - Other specified chronic obstructive pulmonary disease Refilled albuterol sulfate 90 mcg/actuation 2 inhalations inhalation Q6H PRN 18 grams 12RF shortness of breath or wheezing 30 days J44.9 - Chronic obstructive pulmonary disease, unspecified Coding Level of Care Code Est Pt Level 4 (17441) Complex EM visit Add On G2211 Diagnoses Pneumonitis J98.4 Pulmonary nodules R91.8 ILD (interstitial lung disease) J84.9 Dyspnea on exertion R06.00 Dyspnea type: dyspnea on exertion Still's disease of adult M06.1 Pneumonia of left lung due to infectious organism, unspecified part of lung J18.9 Laterality: left Lung location: unspecified part of lung Pneumonia type: due to unspecified organism Time Spent (min) 17
== END 2024-07-09 10:39 | disposition home or self-care (01) ==
PROVIDERS: PCP Internal Medicine; Visit Provider Hospitalist
DX: J98.4 Other disorders of lung (principal); R91.8 Other nonspecific abnormal finding of lung field; J84.9 Interstitial pulmonary disease, unspecified; R06.00 Dyspnea, unspecified; M06.1 Adult-onset Still's disease; J18.9 Pneumonia, unspecified organism
CPT/HCPCS: 99214; G2211

== ENCOUNTER → 2024-07-09 09:46 | Outpatient (BNVA) | payer MEDICARE, SELFPAY | PROVIDERS: PCP Internal Medicine; Visit Provider Hospitalist | DX: J98.4 Other disorders of lung (principal); J84.9 Interstitial pulmonary disease, unspecified; J18.9 Pneumonia, unspecified organism; R91.8 Other nonspecific abnormal finding of lung field; M06.1 Adult-onset Still's disease | CPT/HCPCS: 99212 ==

== ENCOUNTER 2024-09-19 10:53 | Outpatient (AMB) | payer MEDICARE, SELFPAY ==
--- NOTE | 2024-09-19 11:08 | MHC.OFFVIS ---
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: No Client Customer Manager: Client Customer Manager offered & declined Accompanied by: Self / Same As Patient Allergies aspirin Allergy (Mild, Verified 07/09/24 10:13) Swollen Medication List - Last Reconciled 09/19/24 by Tessa Valentine LPN acetaminophen (Tylenol Extra Strength) 500 mg PO Q6H PRN albuterol sulfate 90 mcg/actuation 2 inhalations inhalation Q6H PRN 30 days allopurinol 100 mg PO DAILY amlodipine 10 mg PO DAILY atorvastatin 80 mg PO BEDTIME budesonide-formoterol 160-4.5 mcg/actuation (Symbicort) 2 puffs inhalation BID 30 days cholecalciferol (vitamin D3) 25 mcg PO DAILY clopidogrel 75 mg PO DAILY colchicine mg PO escitalopram oxalate 10 mg PO DAILY flu vac 2019 [id number](PF) 60 mcg (15 mcg x 4)/0.5 mL IM folic acid 1 mg PO DAILY glipizide 10 mg PO DAILY methotrexate sodium 15 mg PO QWEEK metoprolol tartrate 25 mg PO BID HPI Comments Details: The patient is a 78-year-old gentleman known CMML in addition to adult onset Still's disease with some underlying interstitial lung disease. He had developed significant pleuritis with a pleural effusion in significant pleuritic pain. At that time he responded well to prednisone. He was then tried on an IL 1 inhibitor. After no significant improvement he was referred to [facility]. There he had had a gamma testing including CT scans and PFTs which I do not have the results. But the recommendation was for him to start methotrexate. The patient has been on methotrexate 6 tablets weekly and has felt much better. Recently signs steel hanger and he was able to decrease his prednisone from 5 mg to 2.5. The last time that he had a CT scan available that I could appreciate was back in April 2018. It did demonstrate evidence of ground-glass opacities and interstitial lung disease. At this point the patient is re-imaging and further lung testing to assess his lung capacity. His chest pain overall is a lot better. 05/10/2022 the patient is here for a pulmonary follow-up visit. Overall the patient has been doing well. Denies any significant chest discomfort or shortness of breath. Denies any significant coughing. He is hoping to meet his new steel hanger soon. He continues on the methotrexate 6 tablets weekly. His primary care doctor has been prescribing it for now. The methotrexate appears to be hoping with the pleuritic discomfort that he had in the past suggesting that it was also related to the inflammatory process. In addition to that he did have a repeat CT scan of the chest done at [facility]. This CT scan was compared to a CT scan had back in July 2021. There appears that he has multiple pulmonary nodules in based on therapies his P has been 2020 there is no significant changes in the pulmonary nodules measuring 7 mm. Initially had a cardiac CT scan demonstrating a pulmonary nodule measuring 8 mm. Therefore likely that this was all related to the technique and the measuring of the nodules. Ideally a volumetric approach we more effective. 05/22/2023 the patient is here for pulmonary follow-up visit. It has been bout a year since we last spoke. The patient describes dyspnea on exertion. [id number] severity. Specially with going up a flight of stairs. He does continue on the methotrexate for his Still's disease. The patient did have crackles before examination he still has not. We did go for brief walking oximetry is oxygen did drop to the low 90s on 91-92% with activity. It quickly improves when he rested. His last CT scan of the chest was done at [facility] demonstrating interstitial changes at the bases. The patient also has pulmonary nodules. Will go ahead and repeat his CT scan now in view of the worsening symptoms. In addition to that will go ahead and request pulmonary function studies to further address his lung capacity at this time. 08/22/2023 the patient is here for pulmonary follow-up visit. The patient continues to be about the same. Still complaining of dyspnea on exertion. Moderate severity. He does not use any inhalers. The patient did undergo pulmonary function studies. Demonstrates that he has a slight interval worsening of the restrictive ventilatory defect. He did have a CT scan of the chest demonstrating that his pulmonary fibrosis has not progressed which is reassuring. Still with worsening findings on PFTs need to monitor closely. He is on the methotrexate that he uses for his inflammatory arthritis. No evidence of any methotrexate induced pulmonary toxicity. Then be a component of body habitus as he is gained weight and that possibly is also affecting his total lung capacity. Still the patient will benefit from pulmonary rehabilitation. He is willing to start rehab at this time. Although he is driving from [place] so he rather go to [facility]. Will also provide him with a short-acting beta agonist that he can use as needed. 10/08/2023 the patient is here for hospital follow-up visit. The patient has been doing well. We had evaluated him just in August and he was at baseline. Have been new methotrexate. Unfortunately developed acute respiratory failure. The patient was taken to [facility] where he was admitted to the hospital requiring oxygen. The patient did have a CT scan of the chest demonstrating significant ground-glass opacities consistent with an alveolar filling process. He did undergo an echocardiogram with a dilated left atrium although normal ejection fraction. The patient was evaluated by Pulmonary and also Infectious Disease. The question of Pneumocystis pulmonary infection was brought up. Although felt to be less likely. An LDH was done in a beta D glucan was also checked although I do not have those results. The patient was placed on prednisone taper in addition to Levaquin. He was subsequently discharged on room air. He still feels short of breath and winded. During the evaluation he was also noted to be anemic. Therefore he will be following up with his department mgr and I believe he is going to undergo a bone marrow biopsy to make sure that there is no worsening of the CMML. on further questioning he was exposed to sick contacts. My suspicion that based on the reports that this is likely viral syndrome that manifested with significant viral pneumonitis. Clinically the patient has been improving. We did go for brief walking oximetry the patient does not require any additional oxygen supplementation at this time I do believe that he is getting better. He does have some lower extremity edema. 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 After the diuresis and additional prednisone I did request the patient get an x-ray done next week. If there is any persistent opacities or any worsening opacities further intervention should take place. Otherwise if things are getting better likely this was just an infectious process that resulted in the acute changes. 01/07/2024 the patient is here for A sick visit apparently couple weeks ago he started developing worsening cough chest congestion. He was seen by his primary care doctor in prescribed prednisone and antibiotics for what was likely lower respiratory infection. Unfortunately symptoms continued to get worse. Started getting some increased shortness of breath chest tightness and he went to the ER. There he had nasal swabs done was positive for influenza A. I do not have the report%. He was given Tamiflu although because of his renal insufficiency was given a low dose and was actually already after the therapeutic window. Therefore he really did not have any significant improvement. He did call the office to be evaluated however, we could not fit him in last week so he is presenting today. Already starting to feel better. His cough significantly better. Chest congestion is better the chest tightness is also improving. He does have dyspnea on exertion mild in severity. He is feels tired weak. He still has some hoarseness. On examination he does have his stable fine rales at the bases. However, appears to have more coarse crackles in the left mid lung area. This suggest a possibility of bronchopneumonia. Based on the fact that he just had flu will go ahead and give him doxycycline to treat him for postviral bacterial infection to treat both staph aureus and Streptococcus. The patient otherwise does not need any additional prednisone which is reassuring. He is reluctant to do so. On further questioning he is dealing with gout. We did go over the low purine diet to minimize on the uric acid buildup. He is also taking medications for. The patient also continues on the methotrexate for his underlying connective tissue disease. In regards of his leukemia appears to be stable although he is going to be referred to [facility] to start prophylactic treatment in view of his ongoing findings of anemia and other risk factors. 07/09/2024 the patient is here for a pulmonary follow-up visit. The patient has been complaining of significant back pain. Initially he underwent kyphoplasty but it did not help him. Now he is scheduled to undergo [place] [facility] [place] coming [place]. In the meantime he was diagnosed with pneumonia several months ago. He did have a chest x-ray as an outpatient. I do not have those results. He was treated as an outpatient and did not have to be admitted to the hospital. He is feeling better although he still having some chest congestion. Also noticed to have some shortness of breath with activity. But a lot of it has to do with deconditioning. He has also lost significant amount of weight because of the back pain. From a hematological standpoint the patient has followed closely with oncology. No evidence of any active issue per report. In regards to the pulmonary fibrosis the patient continues to have crackles on examination which is chronic for him. We did go for brief walking oximetry in the office in his oxygenation was 98% with activity which is extremely reassuring. We will start respiratory inhalers see if this provides some relief prior to surgery. 09/19/2024 the patient is here for a pulmonary follow-up visit. Since we last spoke the patient did undergo kyphoplasty and also a pain stimulator for his back. After this the procedure the patient is started developing worsening shortness of breath. He was initially placed on Symbicort and also rescue inhaler in his breathing did get a little better. Ultimately still had shortness of breath with activity. Moderate severity. He had a full cardiac workup including a transesophageal echo to further address the aortic valve disease. [place] that it was moderate severity but did not need surgery. During the office we did a walking oximetry again in his oxygen did drop to about 94% this time. He did have a CTA done on 09/15/2024. I do not have the images just the report. Appears that he has multiple defects suggesting small peripheral subsegmental pulmonary emboli. Ultimately underwent ultrasounds of the lower extremities ruled out DVT no other evidence of disease. The clots were from to be too small to likely be contributing to his symptoms. Although likely is multifactorial. My suspicion is that he could have had cement related pulmonary emboli from his kyphoplasty. Based on the CTA report was more awake question was not completely clear if indeed that was the case. Therefore will go ahead and request an urgent V/Q scan to better assess if there is any evidence of any significant V/Q mismatch to suggest more inclination to treat him with anticoagulation. If he is treated with anticoagulation would only be for 3 months and then reassess with a repeat V/Q scan. In the meantime since he responded well to the Symbicort will go ahead and add in additional long-acting bronchodilator, Spiriva. I did teach him how to use it. He will start using it to see if this provides some additional relief. He continues on the methotrexate. He has already had issues with compression fractures will hold off on prednisone at this time. [facility] Medical History (Updated 09/21/24 @ 19:17 by Matthew Fonseca MD) Pulmonary emboli Pneumonia Pneumonitis Personal history of nicotine dependence Thoracic aortic aneurysm HLD (hyperlipidemia) HTN (hypertension) CAD (coronary artery disease) CMML (chronic myelomonocytic leukemia) (~2013) Still's disease of adult (~2018) Dyspnea Pulmonary nodules ILD (interstitial lung disease) Surgical History (Updated 02/10/22 @ 11:09 by Aleshia Tejada PA-C) History of coronary artery bypass graft x 3 (~2019) Social History (Updated 09/19/24 @ 11:18 by Tessa Valentine LPN) Patient Tobacco Use Status: Former Tobacco user Tobacco use type: Cigarette Years Smoked: 15 years Review of Systems Const Reports fatigue and Denies night sweats ENT Denies change in voice, Reports hoarseness, Denies mouth pain, Reports nasal congestion and Reports nasal discharge Card Denies chest pain, Reports dyspnea and Reports dyspnea on exertion Resp Reports cough, Denies pain on inspiration, Reports dyspnea and Reports dyspnea on exertion GI Denies abdominal pain Musc Denies no additional complaints Neuro Denies Neuro-related abnormal movements Psych Denies no additional complaints Endo Reports fatigue Chris/Lymph Denies easy bleeding and Denies lymphadenopathy Physical Exam Vital Signs: Last Vital Signs Pulse 58 09/19/24 11:09 BP 124/70 09/19/24 11:09 Pulse Ox 96 09/19/24 11:09 Oxygen Delivery Method Room Air 09/19/24 11:09 BMI result Body Mass Index 26.4 Results Reviewed Results Reviewed: CTA 09/15 +small/tiny defects in the periphery tiny pulmonary emboli Assessment & Plan Assessment & Plan (1) Pneumonitis: Code(s): J98.4 - Other disorders of lung Category: Medical (2) Pulmonary nodules: Code(s): R91.8 - Other nonspecific abnormal finding of lung field Category: Medical (3) ILD (interstitial lung disease): Comment: Interval worsening after his CABG Code(s): J84.9 - Interstitial pulmonary disease, unspecified Category: Medical (4) Dyspnea: Code(s): R06.00 - Dyspnea, unspecified Category: Medical Qualifiers: Dyspnea type: dyspnea on exertion Qualified Code(s): R06.00 - Dyspnea, unspecified (5) Still's disease of adult: Onset Date: ~2017 Code(s): M06.1 - Adult-onset Still's disease Category: Medical (6) Pulmonary emboli: Comment: 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 Now symptoms worsened after his vertebroplasty. CTA with a question of pulmonary emboli in the periphery, but not definitive. The timing is consistent with cement pulmonary emboli. At times one may determine the cement emoli on the imaging, but would be difficult with the small size of the defects. MARQUES as needed continue Symbicort start Spiriva VQ scan, if abnormal will consider 3months of anticoagulation continue immunomodulator therapy F/U with heme/onc re: anemia and CMML Follow-up in 2-4 weeks Orders: Orders XR chest 2V 09/19/24 I26.99 - Other pulmonary embolism without acute cor pulmonale NM pul vent and perfuse 09/19/24 I26.99 - Other pulmonary embolism without acute cor pulmonale Medications: New tiotropium bromide 2.5 mcg/actuation (Spiriva Respimat) 2 puffs inhalation DAILY 1 ea 11RF 30 days Refilled budesonide-formoterol 160-4.5 mcg/actuation (Symbicort) 2 puffs inhalation BID 10.2 grams 11RF 30 days J44.89 - Other specified chronic obstructive pulmonary disease Coding Level of Care Code Est Pt Level 5 (27625) Complex EM visit Add On G2211 Diagnoses Pneumonitis J98.4 Pulmonary nodules R91.8 ILD (interstitial lung disease) J84.9 Dyspnea on exertion R06.00 Dyspnea type: dyspnea on exertion Still's disease of adult M06.1 Pulmonary embolism without acute cor pulmonale, unspecified chronicity, unspecified pulmonary embolism type I26.99 Pulmonary embolism type: unspecified Acute cor pulmonale presence: without acute cor pulmonale Chronicity: unspecified Time Spent (min) 45
[2024-09-19 11:09] VITALS: BP 124/70; PULSE 58; O2SAT 96; BMI 26.4
== END 2024-09-19 11:53 | disposition home or self-care (01) ==
PROVIDERS: PCP Internal Medicine; Visit Provider Hospitalist
DX: J98.4 Other disorders of lung (principal); R91.8 Other nonspecific abnormal finding of lung field; J84.9 Interstitial pulmonary disease, unspecified; M06.1 Adult-onset Still's disease; I26.99 Other pulmonary embolism without acute cor pulmonale
CPT/HCPCS: 99215; G2211

== ENCOUNTER → 2024-09-19 10:53 | Outpatient (BNVA) | payer MEDICARE, SELFPAY | PROVIDERS: PCP Internal Medicine; Visit Provider Hospitalist | DX: J98.4 Other disorders of lung (principal); J84.9 Interstitial pulmonary disease, unspecified; R91.8 Other nonspecific abnormal finding of lung field; R06.00 Dyspnea, unspecified; M06.1 Adult-onset Still's disease; I26.99 Other pulmonary embolism without acute cor pulmonale | CPT/HCPCS: 99212 ==

== ENCOUNTER 2024-11-12 08:43 | Outpatient (REF) | payer MEDICARE, SELFPAY ==
--- OUTSIDE RECORDS SUMMARY | 2024-11-12 08:48 | XMS_ITS | Patient Health Record ---
Author Organization [facility] Address [address] [place] [address] Care Team Providers Care Recorder [employer] Name Role Phone LALO HERNANDEZ Unavailable [phone] REASON FOR REFERRAL No Information PROBLEMS Problem Type ICD Code Onset Dates Problem Status W/U Status Risk SNOMED Code Notes Problem 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 (C93.10) Active confirmed Problem Monoclonal gammopathy (D47.2) Active confirmed Monoclonal gammopathy (12373659) Problem Overweight (E66.3) Active confirmed Overweight (469578819) Problem 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 (274404579) Problem Gout, unspecified (M10.9) Active confirmed Gout (95336024) Problem Coronary artery disease without angina pectoris, unspecified vessel or lesion type, unspecified whether [place] or transplanted heart (I25.10) Active confirmed Atherosclerot ic heart disease of [place] coronary artery without angina pectoris (430235331580821) Problem Pulmonary fibrosis (J84.10) Active confirmed Pulmonary fibrosis (71339660) Problem Compression fracture of L1 vertebra, sequela (S32.010S) Active confirmed Late effect of fracture of spine AND/OR trunk without spinal cord lesion (3031983) Problem Spinal stenosis at L4-L5 level (M48.061) Active confirmed Spinal stenosis of lumbar region (94437340) Problem Hyperlipidemia (E78.5) Active confirmed Hyperlipidemia (29098055) Problem Diabetes mellitus without complication (E11.9) Active confirmed Diabetes mellit us without complication (458210777) Encounters Encounter Location Date Provider Diagnosis [facility] [address] [place] [address] 06/16/2024 LALO HERNANDEZ PLAN OF TREATMENT No Information Insurance Providers Payer Name Payer Address Payer Phone Subscriber Number Group Number Insured Name Patient Relationship to Insured Coverage Start Date Coverage End Date [facility] [address] [place] [address] [id number] Chuck Harmon Self - patient is the insured
--- OUTSIDE RECORDS SUMMARY | 2024-11-12 08:48 | XMS_ITS | Continuity of Care Document ---
Author Organization [facility] [employer], Main Office Address [address] [place] [address] Care Team Providers Care Behavioral Geneticist Name Role Phone ECTOR JARA Primary Care Provider Assessment Encounter Date Assessment Date Assessment LastModified by Organization Details LastModified Time 08/25/2024 08/25/2024 This is a 78-year-old gentleman status a month from L2-3 and L3-4 lateral lumbar interbody fusion with posterior stabilization and fusion. He has a previous history of osteopenia. He is quite comfortable now. I have requested x-rays of the lumbar spine. I have also given him a bone stimulator to improve the fusion at L2-3 and L3-4. We fitted this to him today. I will see him again in about 2 months. Not available 08/25/2024 10:15:40 Plan of Treatment Reminders Order Date Submit Date Provider Last Modified By Organization Details Last Modified Time Details Appointments FOLLOW UP 30 2024 10:30A M Rafael Estevez MD Not available Not available Not available Lab None recorded . Referral None recorded . Procedures None recorded . Surgeries None recorded . Imaging XR, lumbar spine 2023 024 [email or web address] [facility] ([facility]), [address], [place], [address], 08/26/2024 17:21:09 Medication Orders None recorded . Patient TargetsNo targets recorded. Patient InstructionsNo instructions recorded. Reason for Referral None Reported. Results Created Date Observation Date Name Description Value Unit Range Abnormal Flag Note LastModifiedBy Organization Detail LastModifiedTime 07/29/20 24 07/29/2024 fluor oscop y less than one hour Exam is non-re portab le. 0.[address] ([facility]) [address] [place], [address], 08/11/2024 10:19:16 07/29/20 24 07/29/2024 xr lumba r spine AP & lat TECHNI QUE:Li mited intrao perati ve lumbar spine 2 views HISTOR Y: Fusion FINDIN GS: Fluoro scopy time 0.5 minute s. Freeze -frame images in AP and latera l views demons trate osteop lasty at L1. There are inters pace body cages are seen at L2-3 and L3-4. Partia l inclus ion of osteop lasty at L5 IMPRES SUSIE: Images obtain ed during lumbar fusion Report review ed and signed by : Dr. Luis Armando Louis on 024 4:01 PM. Workst ation Name - [id number] [address] ([facility]) [address] [place], [address], 08/11/2024 10:19:17 07/29/20 24 07/29/2024 CT airo lumba r spine witho ut IV contr ast See notes tab of Epic Chart Review for Final Report . [address] ([facility]) [address] [place] [address], [address], 08/11/2024 10:19:17 07/30/20 24 07/29/2024 xr lumba r spine AP & lat TECHNI QUE:Ratna mbar spine 2 views HISTOR Y: Status post L2-4 fusion COMPAR MARTA: x-rays . MRI 024 FINDIN GS: Status post osteop lasty within the compre ssed L1 fractu re is unchan ged. Interv al osteop lasty L5. Severe narrow ing L5-S1 disc space with 12 mm of anteri or sublux ation is simila r. Interv al pedicl e screws with vertic al stabil izing bars and interb nelson fusion cages L2-3-4 . Mild compre ssion fractu re of the superi or endpla te of L2 is new or progre ssed since the MR exam Hardwa re is intact . Simila r modera te compre ssion fractu re of the T12 body. IMPRES SUSIE: 1. Mild L2 compre ssion fractu re which is new or progre ssed since recent study 2. Status post L2-L4 fusion 3. No osteop lasty L5 with grade 2 spondy lolist hesis. Report review ed and signed by : Dr. Luis Armando Louis on 11:26 AM. [facility]st [facility] [employer] [facility] [address] ([facility]) [address] [place] [address], [id number], 08/11/2024 10:19:18 07/30/20 24 07/29/2024 xr chest AP and lat EXAM PERFOR MED: XR CHEST AP AND LAT REASON FOR EXAM: Cough COMPAR MARTA: FINDIN GS: Status post sterno christine. Low lung volume s. Increa se in Modera te bilate ral diffus e reticu lar opacit ies is seen. No airspa ce consol idatio n. Mild cardia c enlarg ement There is no pneumo thorax . Latera l view is very limite d due to rotati on of the patien t and underp enetra tion. No defini te pleura l effusi on. IMPRES SUSIE: Increa sing diffus e reticu lar opacit ies bilate rally. This may be partia lly accent uated by the low lung volume s howeve r vascul ar disten tion is possib le Report review ed and signed by : Dr. Luis Armando Louis on 2:08 PM. [facility]st [facility] [address] ([facility]) [address] [place] [address], [id number], 08/11/2024 10:19:18 07/31/20 24 07/29/2024 CT, abdom en, w/o contr ast EXAMIN ATION: CT ABDOME N WITHOU T CONTRA ST - INDICA TION: retrop eriton eal bleed TECHNI QUE: A CT of the abdome n was obtain ed only, with sagitt al and saldana l recons tructi on views. A radiat ion dose optimi zation techni que was used for this scan. No IV contra st given. Oral contra st: None. COMPAR MARTA: 2014. __ FINDIN GS: LOWER CHEST: There is severe hypove ntilat ion of the lower lobes, worse in the right diaphr agm is more elevat ed than the left with atelec tasis in the lower lobe. Heart is enlarg ed. There is severe calcif icatio n of the left anteri or descen ding and modera te calcif icatio n of the other saldana ry arteri es. There are midlin e sterno christine wires as the patien t may have had a saldana ry artery bypass graft. LIVER: The liver is normal densit y and size. No mass is identi fied. GALLBL ADDER: No abnorm alitie s. SPLEEN : Normal . PANCRE : Modera te atroph y the pancre as which is otherw ise normal . ADRENA L GLANDS : Normal . KIDNEY S AND URETER S: The kidney s are normal size and shape. No hydron ephros is or nephro lithia sis. There is breath ing motion artifa ct in the lower half of the kidney s. There is a 4 cm diamet er exophy tic mass with a densit y of 16 Hounsf ield units consis tent with a slight ly hyperd ense cyst. STOMAC H: The stomac h is disten ded with gas and fluid. No gastri c wall abnorm alitie s. VISUAL IZED BOWEL: Mild disten tion of the small bowel with some air-fl uid levels in the mid and distal bowel. APPEND IX: Not visual ized. AORTA/ IVC: Dense calcif ic athero matous diseas e of the aorta includ ing the aortic branch es. No aneury smal change s. The IVC is normal . RETROP ERITON EUM: No retrop eriton eal hemorr ayse. Howeve r I believ e there is been penetr ating trauma to the left flank, where there is some bleedi ng in the retrop eriton eal fat inferi or to the kidney , adjace nt to the left psoas muscle where there could be some bleedi ng in the psoas muscle as well. There is gas bubble s within these retrop eriton eal tissue s from likely penetr ating trauma . I was not given any pertin ent histor y. ABDOMI NAL WALL: There is edema in the subcut aneous fat along the left flank as well as some gas. The anteri or abdomi nal wall is normal . BONES: Severe osteop enia with eviden ce of kyphop lasty of L5 and L1. There are pedicl e screw pairs at L2, L3 and L4 and some flatte majo of T12 and T11, all felt to be old. IMPRES SUSIE: I was not given any histor y per se, but there appear s to be penetr ating trauma in the left flank with gas in the subcut aneous soft tissue s where there is also edema or bleedi ng. Howeve r there is chetan us gas bubble s in the retrop eriton eal fat inferi or to the left kidney and latera l to the psoas muscle where there is some hemato ma. Some this hemato ma believ e involv es the psoas muscle . The collec tion of fluid is not that large with sierra l transv erse and AP diamet er is about 6.5 x 4.9 cm. There is dense athero sclero tic diseas e of the aorta withou t aneury smal change s. Modera te to severe hepati c steato sis. Severe osteop enia with kyphop lasty at L1 and L5 and some old compre ssion deform ities of T11 and T12. Report review ed and signed by : Dr. Delfino Goldstein on 024 1:33 PM. Workst ation Name - [id number] [facility] ([facility]) [address] [facility], [place], [address], 08/11/2024 10:19:19 07/31/2007/29/2024 CT pelvi s witho ut contr ast (IV or oral) CT PELVIS NONCON TRAST HISTOR Y: Retrop eriton eal hemato ma COMPAR MARTA: Pelvic CT 023 FINDIN GS: Noncon trast pelvis CT was perfor med. There is interv al postop erativ e change s in this lumbar spine with bilate ral pedicl e screws and vertic al fixati on hardwa re with degene rative disc spacer s shawn sing the visual ized L2-L4 levels . There is a new L5 compre ssion fractu re with augmen tation sequel a. There is chroni c L5 bilate ral pars fractu res with grade 2 sanjuana listhe sis of L5 on S1. Vascul ar calcif icatio n within the abdomi nal aorta and iliac arteri es. There is a retrop eriton eal collec tion measur ing 5.5 x 10 x 8.2 cm (anter oposte rior x transv erse x caudoc ranial dimens ions) adjace nt to the left psoas, elevator technician ior to the left kidney , tracki ng inferi zainab, with extens ion the left flank contai majo multip le air bubble s presen t. IMPRES SUSIE: Left retrop eriton eal collec tion sugges ting hemato ma with air bubble s presen t. Recomm end clinic al follow -up to exclud e underl cesar infect ion. Postop erativ e and degene rative change s as above. Report review ed and signed by : Dr. Arron Hardy MD on 024 5:01 PM. Workst ation Name - [id number] [facility] ([facility]) [address] [facility], [place], [address], 08/11/2024 10:19:19 08/25/20 24 08/25/2024 xr lumba r spine AP & lat EXAM: XR LUMBAR SPINE AP & LAT HISTOR Y: Arthro desis status FINDIN GS: Examin ation of the lumbar spine compar ed to prior study. There is been a elevator technician ior fusion L2-L4. Surgic al hardwa re is intact . Prior kyphop lasty identi fied at L5 and L1. This compre ssion of the superi or endpla te of T12. IMPRES SUSIE: 1. Stable postop erativ e change s of the spine. Perman ent images were obtain ed. Report review ed and signed by : Dr. Dustin alexis MD on 2023 4:39 PM. Workst ation Name - [id number] [facility] ([facility]) [address] [facility], [place], [address], 08/27/2024 14:06:24 11/03/20 24 11/03/2024 XR, lumba r spine No observ ation record ed. [facility] ([facility]) [address] [facility] [address], [place], [address], 11/06/2024 12:55:32 Result Notes None recorded. Problems Name Problem SNOMED Code Status Onset Date Resolution Date Notes Provider Name and Address Organization Details Recorded Time History of lumbar fusion 2548521745070 6 Active 2023 Rafael Estevez MD [address] [place] [address], [phone], [place] [facility] 10:14:25 Spinal stenosis of lumbar region 89585428 Active 2023 Rafael Estevez MD [address] [place] [address], [phone], [place] [facility] 4 09:14:48 Compression fracture of thoracic vertebra 1195424852020 Active 2023 Rafael Estevez MD [address] [place] [address], [phone], [place] [facility] 4 09:14:50 Back problem 971658980 Active 2023 Rafael Estevez MD [address] [place] [address], [phone], [place] [facility] 4 09:14:51 Degeneratio n of lumbar interverteb ral disc 66291359 Active 2023 Rafael Estevez MD [address] [place] [address], [phone] 4, [place] [facility] 09:14:55 Compression fracture of lumbar spine 284846455 Active 2023 Rafael Estevez MD [address] [place] [address], [phone], [place] [facility] 09:14:59 Problem Notes None recorded. Procedures Surgical History Date Name Laterality Status Provider Name and Address Organization Details Recorded Time lumbar spinal fusion completed Rafael Estevez MD [address] [place] [address], [phone], [place] [facility] 08/25/2024 10:13:01 coronary artery bypass graft completed Rafael Estevez MD [address] [place] [address], [phone], [place] [facility] 05/21/2024 09:05:22 appendectomy completed Rafael Estevez MD [address] [place] [address], [phone], [place] [facility] 05/21/2024 09:05:30 balloon kyphoplasty of fracture of spine completed Rafael Estevez MD [address] [place] [address], [address], [place] [facility] 05/21/2024 09:06:04 Imaging Results None recorded. Procedure Notes None recorded. Medical Equipment None Reported. Allergies Allergen ID Allergen Name Allergen Category Reaction Reaction Severity Criticality Documentation Date Start Date Code Code System Note Provider Name and Address Organization Details Recorded Time 681 aspirin medicatio n angioedem a Not available Not available 05/21/2024 1191 RxNorm Rafael Estevez MD [address] [place] [address], [phone], [place] [facility] 09:00:53 Medications Name Sig Start Date Stop Date Status Note LastModified by Organization Details LastModified Time freestyle lancets misc active Not Available Not Available Not Available cyclobenzapr ine 10 mg tablet TAKE 1 TABLET BY MOUTH THREE TIMES A DAY active Not Available Not Available Not Available atorvastatin 80 mg tablet active Not Available Not Available Not Available prednisone 10 mg tablet TAKE 6 TABLETS FOR 3 DAYS, TAKE 4 TABS FOR 3 DAYS, TAKE 2 TABS FOR 3 DAYS AND 1 FOR 3 DAYS active Not Available Not Available No t Available doxycycline hyclate 100 mg capsule TAKE 1 CAPSULE BY MOUTH EVERY 12 HOURS active Not Available Not Available No t Available azithromycin 250 mg tablet TAKE 2 TABLETS BY MOUTH TODAY, THEN TAKE 1 TABLET DAILY FOR 4 DAYS DIRECTED active Not Available Not Available No t Available benzonatate 200 mg capsule TAKE 1 CAPSULE BY MOUTH THREE TIMES A DAY NEEDED active Not Available Not Available No t Available glipizide ER 10 mg tablet, extended release 24 hr TAKE 1 TABLET BY MOUTH EVERY DAY active Not Available Not Available No t Available FreeStyle Lancets 28 gauge FOR BLOOD GLUCOSE MONITORING TO PRICK FINGER active Not Available Not Available No t Available prednisone 20 mg tablet TAKE 2 TABLETS BY MOUTH DAILY FOR 5 DAYS active Not Available Not Available N ot Available clopidogrel 75 mg tablet active Not Available Not Available Not Available allopurinol 100 mg tablet Take 1 tablet every day by oral route. active Not Available Not Available No t Available doxycycline monohydrate 100 mg tablet TAKE 1 TABLET BY MOUTH 2 TIMES A DAY FOR 14 DAYS active Not Available Not Available Not Available tramadol 50 mg tablet TAKE 1 TAB BY MOUTH EVERY 8 HOURS NEEDED FOR MODERATE TO SEVERE PAIN active Not Available Not Available Not Available hydromorphon e 2 mg tablet TAKE 1 TABLET BY MOUTH EVERY 6 HOURS NEEDED FOR PAIN. active Not Available Not Available No t Available pravastatin 80 mg tablet Take 1 tablet every day by oral route. active Not Available Not Available No t Available methocarbamo l 750 mg tablet TAKE 1 TABLET BY MOUTH 3 TIMES DAILY NEEDED FOR UP TO 15 DAYS active Not Available Not Available No t Available methotrexate sodium 2.5 mg tablet active Not Available Not Available No t Available meclizine 25 mg tablet TAKE 1 TABLET BY MOUTH EVERY 8 HOURS active Not Available Not Available No t Available amlodipine 10 mg tablet Take 1 tablet every day by oral route. active Not Available Not Available No t Available cephalexin 500 mg capsule TAKE 1 CAPSULE BY MOUTH 3 TIMES A DAY FOR 5 DAYS. active Not Available Not Available Not Available pantoprazole 40 mg tablet,delay ed release TAKE 1 TABLET BY MOUTH EVERY DAY active Not Available Not Available No t Available lidocaine 5 % topical patch APPLY 1 PATCH BY TOPICAL ROUTE ONCE DAILY (MAY WEAR UP TO 12HOURS PER 24 HOURS) active Not Available Not Available No t Available polymyxin B sulfate 10,000 unit-trimeth oprim 1 mg/mL eye drops INSTILL 1 DROP INTO AFFECTED EYE EVERY 3 HOURS FOR 7 DAYS active Not Available Not Available No t Available folic acid 1 mg tablet Take 1 tablet every day by oral route. active Not Available Not Available No t Available furosemide 20 mg tablet TAKE 1 TABLET BY MOUTH DAILY FOR 3 DAYS active Not Available Not Available N ot Available levofloxacin 500 mg tablet TAKE 1 TABLET BY MOUTH EVERY DAY active Not Available Not Available No t Available methylpredni solone 4 mg tablets in a dose pack TAKE 6 TABLETS ON DAY 1 DIRECTED ON PACKAGE AND DECREASE BY 1 TAB EACH DAY FOR A TOTAL OF 6 DAYS active Not Available Not Available No t Available albuterol sulfate HFA 90 mcg/actuatio n aerosol inhaler 2 PUFSF INHALED EVERY 6 HOURS NEEDED FOR SHORTNESS OF BREATH OR WHEEZING FOR 30 DAYS active Not Available Not Available Not Available colchicine 0.6 mg tablet TAKE 1 TAB BY MOUTH EVERY THIRD DAY OR DIRECTED active Not Available Not Available No t Available ondansetron 4 mg disintegrati ng tablet TAKE 1 TABLET TWICE A DAY active Not Available Not Available Not Available fluticasone propionate 50 mcg/actuatio n nasal spray,suspen susie DISPENSE 1 SPRAY PER NOSTRIL TWICE A DAY active Not Available Not Available Not Available doxycycline hyclate 100 mg tablet TAKE 1 TABLET BY MOUTH TWICE A DAY active Not Available Not Available No t Available oxycodone 5 mg tablet TAKE 1 TABLET BY MOUTH EVERY 4 HOURS FOR 7 DAYS active Not Available Not Available No t Available escitalopram 10 mg tablet active Not Available Not Available Not Available cyclobenzapr ine 5 mg tablet TAKE 1 TABLET BY MOUTH THREE TIMES A DAY FOR 30 DAYS active Not Available Not Available Not Available metoprolol tartrate 25 mg tablet Take 1 tablet twice a day by oral route. active Not Available Not Available No t Available methotrexate 15 mg active Not Available Not Available Not Available Robaxin-750 active Not Available Not A vailable Not Available Dilaudid 2 mg active Not Available Not Avai lable Not Available Vitamin D3 active Not Available Not Av ailable Not Available Symbicort 160 mcg-4.5 mcg/actuatio n HFA aerosol inhaler 2 PUFF INHALED 2 TIMES A DAY FOR 30 DAYS active Not Available Not Available Not Available oseltamivir 30 mg capsule TAKE 1 CAPSULE TWICE A DAY active Not Available Not Available Not Available glipizide ER 10 mg 24 hr tablet,exten ded release Take 1 tablet every day by oral route. active Not Available Not Available No t Available Laxative Stool Softener With Senna 8.6 mg-50 mg tablet Take 2 tablets every day by oral route for 15 days. 2023 active Not Available Not Available Not Avai lable OneTouch Verio test strips USE 1 STRIP VIA METER THREE TIMES A DAY active Not Available Not Available No t Available Spiriva Respimat 2.5 mcg/actuatio n solution for inhalation 2 PUFF INHALED DAILY FOR 30 DAYS active Not Available Not Available No t Available Trelegy Ellipta 200 mcg-62.5 mcg-25 mcg powder for inhalation active Not Available Not Available N ot Available Paxlovid 300 mg (150 mg x 2)-100 mg tablets in a dose pack TAKE 3 TABS BY MOUTH TWIOCE DAILY FOR 5 DAYS DIRECTED, HOLD CHOLESTEROL MED DIRECTED active Not Available Not Available No t Available Vitals Date Recorded Body height Body mass index (BMI) Body weight Provider Name and Address Organization Details Last Updated DateTime 08/25/2024 170.18 cm 26.6 kg/m2 13737.7 g Rafael Estevez MD [address] [place] [address], [phone], [place] [facility] 08/25/2024 10:12:40 Social History Question Answer Notes LastModified by Organizat ion Details LastModified Time Tobacco Smoking Status Former Smoker Rafael Estevez MD [address] [place] [address], [phone], [place] [facility] 05/21/2024 09:04:47 What Is Your Level Of Alcohol Consumption? Occasional Information not available 05/21/2024 How Many Times Per Week Do You Consume Alcohol? Less Than 1 Time Per Week Information not available 05/21/2024 Are You Blind Or Do You Have Difficulty Seeing? No Information not available 05/21/2024 Are You Currently Employed? No Information not available 05/21/2024 Are You Deaf Or Do You Have Serious Difficulty Hearing? No Information not available 05/21/2024 What Is Your Occupation? Retired [email or web address] Information not available 05/21/2024 When Did You Quit Smoking? 16+yearssincela stcigarette Information not available 05/21/2024 What Was The Date Of Your Most Recent Tobacco Screening? 11/03/2024 Information not available 11/03/2024 Do You Or Have You Ever Used Any Nicotine-free Cigarettes, Vape, Or Chewing Tobacco? No Information not available 05/21/2024 What Is Your Current Pack Years? 10packyears Information not available 05/21/2024 How Much Tobacco Do You Smoke? No Information not available 05/21/2024 Has Tobacco Cessation Counseling Been Provided? Yes Information not available 05/21/2024 On What Date Was Tobacco Cessation Counseling Provided? 11/03/2024 Information not available 11/03/2024 How Many Years Have You Smoked Tobacco? 10 Information not available 05/21/2024 Are You Currently In School? No Information not available 05/21/2024 Do You Or Have You Ever Used Any Other Forms Of Tobacco Or Nicotine? No Information not available 05/21/2024 Sex: Unknown Functional Status Question Answer Note LastModified by Organizat ion Details LastModified Time Do you have difficulty walking or climbing stairs? Yes Information not available 05/21/2024 Do you have transportation difficulties? Yes Information not available 05/21/2024 Are you able to walk? YESASSIST Information not available 05/21/2024 Do you have difficulty doing errands alone? No Information not available 05/21/2024 Are you able to care for yourself? No Information not available 05/21/2024 Do you have difficulty dressing or bathing? Yes Information not available 05/21/2024 Mental Status Question Answer Note LastModified by Organization D etails LastModified Time Do you have difficulty concentrating, remembering or making decisions? No Information no t available 05/21/2024 Family History Nothing Reported. Medical History Condition Response Coronary Artery Disease Y Heart Problems Y Gout Y Anxiety/Depression Y Diabetes Y Arthritis Y Cancer Y High Cholesterol Y Hypertension Y Osteoporosis Y Kidney Disease Y Past Encounters Encounter ID Performer Location Encounter Start Date Encounter Closed Date Diagnosis/Indication Diagnosis SNOMED-CT Code Diagnosis ICD10 Code Diagnosis Note [id number] Rafael Estevez MD Main Office [address] [place] [phone] 08/25/2024 09:59:13 08/26/2024 17:21:08 Spinal stenosis of lumbar region 08882171 M48.062 Degenerati on of lumbar intervertebral disc 04129552 M51.369 History of lumbar fusion 0107715689 9106 Z98.1 Health Concerns Section Related Observation LastModified by Organization Detai ls LastModified Time None Recorded Concern Status LastModified by Organization Details LastModified Time None Recorded Payers Encounter Date Sequence Insurance Name Policy Number Policy Kirkpatrick Covered Member ID Kirkpatrick Member ID Guarantor Name 08/25/2024 1 [facility] (MEDICARE REPLACEMENT/A DVANTAGE - HMO) [id number] Chuck Harmon [id number] Chuck Harmon Notes Date Note Type Note Provider Name and Address Organization Details Recorded Time 08/25/2024 text/html This is a 78-year-old gentleman status approximately a month from L2-3 and L3-4 lateral lumbar interbody fusion. He is doing very well after the surgery his pain has gone away and he is needing minimal pain medications. Rafael Estevez MD [address] [place] [address], [phone], [place] [facility] 08/25/2024 10:17:22
--- OUTSIDE RECORDS SUMMARY | 2024-11-12 08:48 | XMS_ITS | Continuity of Care Document ---
Author Organization [facility] [employer] [facility], Main Office Address [address] [place] [address] Care Team Providers Care Gluer Name Role Phone ECTOR JARA Primary Care Provider [phone] Assessment Encounter Date Assessment Date Assessment LastModified by Organization Details LastModified Time 11/03/2024 11/03/2024 This is a 78-year-old gentleman with a history of L2-3 and L3-4 fusion about 3 months ago. He is doing very well. He has been using a bone stimulator. His pain has significantly improved. I looked at his x-rays from August which shows satisfactory alignment with the hardware in place. We know that he has a spondylolisthesis at L5-S1. In general we are very satisfied with his progress. I have given him some exercises to do at home. He would like to go back to the gym and I have advised him to be careful with excessive bending or twisting. I will see him again in another 3 months. Total time 30 minutes were spent reviewing patient's chart imaging examining the patient and discussing treatment plan. During the day of the visit, time was spent including the following: Examining the patient Chart review in preparation for the visit Documenting in the patient record Reviewing radiology Discussing treatment plan. Not available 11/03/2024 10:40:06 Plan of Treatment Reminders Order Date Submit Date Provider Last Modified By Organization Details Last Modified Time Details Appointments FOLLOW UP 2024 10:30A M Rafael Estevez MD Not available Not available Not available Lab None recorded . Referral None recorded . Procedures None recorded . Surgeries None recorded . Imaging XR, lumbar spine 2023 024 [email or web address] [facility] ([facility]), [address], [place], [address], 11/04/2024 09:46:47 Medication Orders None recorded . Patient TargetsNo targets recorded. Patient Instructions Encounter Date Encounter Id Patient Instructions Last Modified By Organization Details Last Modified Time 11/03/2024 [id number] Lumbar Spine Exercises Lumbar Stretch (Flexibility) ? ? Lie on your back on the floor, with your knees bent and your feet flat on the floor. Don? t press your neck or lower back to the floor. ? ? Pull one knee up toward your chest. Clasp your hands under your thigh to help pull. ? ? Hold for 30 to 60 seconds. Lower your leg back down to the floor. ? ? Repeat 2 times, or as instructed. ? ? Switch legs and repeat. Lumbar Extension (Flexibility) ? ? Lie face down on your belly, forehead on the floor. You can lie on a mat or towel. ? ? Bend your arms next to your body and lift your upper body up onto your forearms. Your palms and forearms should be flat on the floor. Keep your belly and hips on the floor. ? ? Hold your upper body up with your forearms for 20 seconds, or as instructed. Then slowly lower back down to the floor. ? ? Repeat 2 times, or as instructed. Lumbar Flexion (Flexibility) ? ? Lie on your back on the floor, with your knees bent and your feet flat on the floor. ? ? Gently pull your knees up toward your chest. Put your hands under your thighs to help pull your knees up. ? ? Press your low back down to the floor. You should feel a stretch across your back. Hold for 15 seconds, or as instructed. ? ? Lower your legs back down to the floor and relax. ? ? Repeat 2 times, or as instructed. Lumbar Rotation ? ? Lie on your back on the floor, with your knees bent and your feet flat on the floor. Don? t press your neck or lower back to the floor. ? ? Lean both of your knees to one side. Turn your head in the opposite direction. Keep your shoulders flat on the floor. Be gentle and don? t push through pain. ? ? Hold for 20 seconds, or as instructed. Then slowly move your knees and head in the other direction. ? ? Repeat 2 to 5 times, or as instructed. [email or web address] Not available 11/03/2024 10:32:24 Reason for Referral None Reported. Results Created Date Observation Date Name Description Value Unit Range Abnormal Flag Note LastModifiedBy Organization Detail LastModifiedTime 11/03/20 24 11/03/2024 XR, lumba r spine No observ ation record ed. [facility] ([facility]) [address], [place], [address], 11/06/2024 12:55:32 Result Notes None recorded. Problems Name Problem SNOMED Code Status Onset Date Resolution Date Notes Provider Name and Address Organization Details Recorded Time History of lumbar fusion 9850935490499 6 Active 2023 Rafael Estevez MD [address] [place] [address], [phone], [place] [facility] 4 10:14:25 Spinal stenosis of lumbar region 86646716 Active 2023 Rafael Estevez MD [address] [place] [address], [phone], [place] [facility] 4 09:14:48 Compression fracture of thoracic vertebra 8572160931578 Active 2023 Rafael Estevez MD [address] [place] [address], [address], [place] [facility] 4 09:14:50 Back problem 528466701 Active 2023 Rafael Estevez MD [address] [place] [address], [phone], [place] [facility] 4 09:14:51 Degeneratio n of lumbar interverteb ral disc 89464051 Active 2023 Rafael Estevez MD [address] [place] [address], [address], [place] [facility] 4 09:14:55 Compression fracture of lumbar spine 939319288 Active 2023 Rafael Estevez MD [address] [place] [address], [address], [place] [facility] 4 09:14:59 Problem Notes None recorded. Procedures Surgical History Date Name Laterality Status Provider Name and Address Organization Details Recorded Time lumbar spinal fusion completed Rafael Estevez MD [address] [place] [address], [address], [place] [facility] 08/25/2024 10:13:01 coronary artery bypass graft completed Rafael Estevez MD [address] [place] [address], [address], [place] [facility] 05/21/2024 09:05:22 appendectomy completed Rafael Estevez MD [address] [place] [address], [address], [place] [facility] 05/21/2024 09:05:30 balloon kyphoplasty of fracture of spine completed Rafael Estevez MD [address] [place] [address], [address], [place] [facility] 05/21/2024 09:06:04 Imaging Results None recorded. Procedure Notes None recorded. Medical Equipment None Reported. Allergies Allergen ID Allergen Name Allergen Category Reaction Reaction Severity Criticality Documentation Date Start Date Code Code System Note Provider Name and Address Organization Details Recorded Time 681 aspirin medicatio n angioedem a Not available Not available 05/21/2024 1191 RxNorm Rafael Estevez MD [address] [place] [address], [address], [place] [facility] 09:00:53 Medications Name Sig Start Date Stop [...] fluticasone propionate 50 mcg/actuatio n nasal spray,suspen abhi DISPENSE 1 SPRAY PER NOSTRIL TWICE A [...] and Address Organization Details Last Updated DateTime 11/03/2024 170.18 cm 26.6 kg/m2 32549.7 g Rafael Estevez MD [address] [place], [address], [place] [facility] 11/03/2024 10:26:55 Social History Question Answer Notes LastModified by Organizat ion Details LastModified Time Tobacco Smoking Status Former Smoker Rafael Estevez MD [address] [place], [address], [place] [facility] 05/21/2024 09:04:47 What Is Your Level Of [...] available 05/21/2024 When Did You Quit Smoking? 18+year[age]inteddy oliver Information not available 05/21/2024 What Was The [...] History Condition Response Coronary Artery Disease Y Gout Y Anxiety/Depression Y Arthritis Y Cancer Y High Cholesterol Y Kidney Disease Y Heart Problems Y Diabetes Y Hypertension Y Osteoporosis Y Past Encounters Encounter ID Performer Location Encounter Start Date Encounter Closed Date Diagnosis/Indication Diagnosis SNOMED-CT Code Diagnosis ICD10 Code Diagnosis Note [id number] Rafael Estevez MD Main Office [address] [place] [phone] 11/03/2024 10:09:44 11/04/2024 09:46:47 Spinal stenosis of lumbar region 01897833 M48.062 Degenerati on of lumbar intervertebral disc 17347730 M51.369 Back problem 595570313 M 53.9 Health Concerns Section Related Observation LastModified by Organization Jesse ls LastModified Time None Recorded Concern Status LastModified by Organization Details LastModified Time None Recorded Payers Encounter Date Sequence Insurance Name Policy Number Policy Kirkpatrick Covered Member ID Kirkpatrick Member ID Guarantor Name 11/03/2024 1 [facility] (MEDICARE REPLACEMENT/A DVANTAGE - HMO) [id number] Chuck Harmon [id number] Chuck Harmon Notes Date Note Type Note Provider Name and Address Organization Details Recorded Time 11/03/2024 text/html This is a 78-year-old gentleman status 3 months from his L2-3 and L3-4 lateral lumbar interbody fusion and posterior decompression and fusion. He is doing very well and his pain has significantly improved. He occasionally has pain when he is standing for a long time. He does not report any new neurologic symptoms since his last visit. Rafael Estevez MD [address] [place] [address], [phone], [place] [facility] 11/03/2024 10:40:33
--- OUTSIDE RECORDS SUMMARY | 2024-11-12 08:48 | XMS_ITS | Data Portability ---
Author Organization [facility], Main Office Address [address] [place] [address] Care Team Providers Care Break Up Worker Name Role Phone CHRISTELECTOR MASCORRO Primary Care Provider Assessment Encounter Date Assessment Date Assessment LastModified by Organization Details LastModified Time 06/02/2024 06/02/2024 This is a 78-year-old gentleman status post lumbar kyphoplasty but also with history of lumbar spinal stenosis at L2-3 and L3-4 as well as spondylolisthesis at L5-S1 he has severe lumbar degenerative disc disease. He has severe pain in the low back and is having difficulty in walking without support. 2 of his kyphoplasty's have given him relief only for 2 days with increasing pain subsequent to the kyphoplasty. I believe his pain is coming from his lumbar spondylosis and even more likely coming from the L5-S1 spondylolisthesis. The patient is very anxious and would like to get the surgery done immediately. However I had to spend a substantial amount of time explaining to him and his family members who accompanied him that in case we consider the spondylolisthesis and the lumbar degenerative disc to be the cause of his pain, we should treat that with initial nonoperative treatment, failing which we can definitely consider doing a surgical intervention. There is an indication for doing an anterior lumbar interbody fusion at L5-S1 as well as posterior fusion from L2-S1. Currently I am going to give him pain medications and asked him to ambulate and do physical therapy and follow-up with me in another 2 weeks. In case his symptoms get worse, he can call sooner. I spent about 40 minutes discussing the management plan and explaining the findings and the relevance of the findings. Not available 06/02/2024 10:31:48 06/18/2024 06/18/2024 This is a 78-year-old gentleman with a history of thoracic and lumbar kyphoplasty. He also has L2-3 and L3-4 foraminal stenosis and spinal stenosis as well as lumbar disc degeneration and endplate changes. This is likely the cause of his severe back pain. He is indicating the area of pain to be around the upper lumbar spine. He also has spondylolisthesis of L5-S1 which seems to have been asymptomatic. He is now feeling a little bit better and doing outpatient physical therapy in addition to the home physical therapy program. I plan to see him back in another 2 weeks. He is a candidate for L2-3 and L3-4 anterior lumbar interbody fusion through a lateral approach with posterior stabilization if needed. Not available 06/18/2024 10:37:08 07/02/2024 07/02/2024 This is a 78-year-old gentleman with multilevel spinal issues follow-up previous vertebral compression fractures treated with kyphoplasty at L1 and 5. He benefited from both of those kyphoplasties and his unbearable pain went back to his baseline pain. For those vertebral compression fractures. His MRI shows spondylolisthesis at L5-S1 but it also shows severe disc degeneration at L2-3 and L3-4 with Modic type changes. He also has foraminal stenosis at both levels. His pain is correlating more with the findings of the upper lumbar spine. We have discussed the option of lateral lumbar interbody fusion in the past. He has tried physical therapy as well as pain management intervention within the last 6 months. He is not getting any better and after discussing the nonoperative treatment options lifestyle modification, continue with physical therapy and pain management, we have agreed to proceed with a surgical intervention in the form of L2-3 and L3-4 lateral lumbar interbody fusion with posterior fusion which we intend to do percutaneously. We will get medical clearance and stop his Plavix approximately week to 10 days before his proposed surgery. Total time 40 minutes were spent reviewing patient's chart imaging examining the patient and discussing treatment plan. During the day of the visit, time was spent including the following: Examining the patient Chart review in preparation for the visit Documenting in the patient record Reviewing radiology Discussing treatment plan. Reviewed surgical procedure risk benefits alternatives and rationale. Not available 07/02/2024 11:21:28 08/25/2024 08/25/2024 This is a 78-year-old gentleman [...] about 2 months. Not available 08/25/2024 10:15:40 11/03/2024 11/03/2024 This is a 78-year-old gentleman [...] Details Appointments FOLLOW UP 30 2024 10:30A Hayes Estevez MD Not available Not available Not available Lab None recorded. Referral None recorded. Procedures None recorded. Surgeries None recorded. Imaging XR, lumbar spine 2023 024 [email or web address] [facility] ([facility]), [address] [place] [address], [place], [address], 08/26/2024 17:21:09 XR, lumbar spine 2023 024 [email or web address] [facility] ([facility]), [address] [facility], [address], [place], [address], 11/04/2024 09:46:47 Medication Orders oxycodone 5 mg tablet 2023 024 [facility] #[id number], [address] [place] [address], [place], [address], 06/02/2024 10:30:17 Patient TargetsNo targets recorded. Patient Instructions Encounter Date Encounter Id Patient Instructions Last Modified By Organization Details Last Modified Time 06/02/2024 917 Lumbar Spine Exercises Lumbar Stretch (Flexibility) ? [...] 2 to 5 times, or as instructed. Not available 06/02/2024 10:30:23 06/18/2024 993 Lumbar Spine Exercises Lumbar Stretch (Flexibility) ? [...] 2 to 5 times, or as instructed. Not available 06/18/2024 10:37:22 07/02/2024 1032 We talked about surgical risks including infection, instrumentation failure, and neurologic injury. We discussed possibility of paralysis and neurologic deficits including permanent deficits, either resulting from surgery or positioning. We reviewed risks of nonunion, risk for screw or omayra breakage and the potential need for revision surgery. We talked about bone graft options, including iliac crest bone grafting, allograft, bone graft substitutes and BMP. We reviewed the risk of adjacent level disease. We also reviewed the risks of the anterior procedure, including great vessel injury, significant bleeding and bowel injury. I reviewed the risks of the surgical procedure including , pulmonary embolus, DVT, UTI, myocardial infarction, bleeding, stroke, paralysis and blood clots. I reviewed risk of blindness. We discussed the prolonged postoperative recovery. I have answered all the patient's questions and we understand the procedure fully. Not available 07/02/2024 11:19:34 11/03/2024 1475 Lumbar Spine Exercises Lumbar Stretch (Flexibility) ? [...] 2 to 5 times, or as instructed. [email or web address] Not available 11/03/2024 10:32:24 Reason for Referral None Reported. Results Created Date Observation Date Name Description Value Unit Range Abnormal Flag Note LastModifiedBy Organization Detail LastModifiedTime 05/13/20 24 05/09/2024 fluor oscop y less than one hour Exam is non-re portab le. 0 116mGy [facility] ([facility]) [address] [place], [address], 07/02/2024 14:37:37 05/14/20 24 05/09/2024 xr lumba r spine AP & lat TECHNI QUE:Ratna mbar spine 2 intrao perati ve views HISTOR Y: Kyphop lasty FINDIN GS: 2 freeze -frame images in the operat ing room are submit caitie sanchez an osteop lasty in a decomp ressed lumbar body which appear s to be 1. IMPRES SUSIE: Images obtain ed during osteop lasty. Report review ed and signed by : Dr. Luis Armando Louis on 024 8:03 AM. Workst ation Name - CHINEDU OCX0 1 [facility] ([facility]) [address] [place], [address], 07/02/2024 14:37:38 05/21/20 24 05/21/2024 xr lumba r spine AP & lat Exam: X-ray lumbar spine COMPAR MARTA: 2021 There is compre ssion fractu re with verteb ral plasty change s L1. There is compre ssion fractu re at T11-T1 2 which is new since previo us exam. Multil evel disc space narrow ing which appear s severe at L2-L3 and modera te L3-L4. Mild narrow ing L4-L5. Severe narrow ing L5-S1 with sanjuana listhe sis measur ing about 14 mm simila r to previo us exam likely result ing in neural canal stenos is. There may be associ ated pars intera rticul chang defect . Diffus e endpla te prolif erativ e change s. Aortic athero sclero sis IMPRES SUSIE: Compre ssion fractu res. See above Electr onical ly signed by Fernando Arechiga MD [facility] Report review ed and signed by : Dr. Fernando Arechiga on 024 10:54 AM. Workst ation Name - RACODIVN READ04 Pt compla ins of lower back pain. Pt had surger y last Tuesda y ( 4) and believ es the pain could be becaus e of it. Pt had a button on pants as seen in latera l XR. [facility] ([facility]) [address], [place], [address], 06/02/2024 10:44:30 05/26/20 24 05/24/2024 MRI, lumba r spine , w/o contr ast MRI LUMBAR SPINE withou t contra st CONTRA ST: None. COMPAR MARTA: Lumbar spine plain films of [address]/MRI from 2023. HISTOR Y: Severe lumbos acral pain, evalua te for disc hernia tion, spinal stenos is fractu re, unresp onsive to pain, patien t had facet inject ion Multip lanar images were acquir ed throug h the lumbar spine. Mild chroni c compre ssion fractu res at T11 and T12. Modera te subacu te compre ssion fractu re at L1, status post kyphop lasty. Stable verteb ral body height . No retrop ulsion . Severe disc space degene ration at L2-3 and L3-4 with degene rative endpla te signal change s. Mild centra l superi or endpla te compre ssion fractu re at L5, new since the recent MRI. Low-gr kraig marrow edema. Chroni c sanjuana listhe sis of L5 on S1 by 11 mm relate d to a known pars defect s. Extens jose de jesus replac ement of the normal expect ed fatty marrow on T1-kyaw ghted imagin g. Mild chroni c spinal stenos is at T12-L1 and L1-2. Modera te to severe spinal stenos is at L2-3. Severe spinal stenos is at L3-4. Modera te spinal stenos is at L5-S1. Diffus e bilate ral neural forami nal narrow ing. This is severe at L5-S1. Left renal cysts. CONCLU SUSIE: 1. Chroni c compre ssion fractu res of mild severi ty at T11 and T12. 2. Modera te subacu te compre ssion fractu re at L1, status post kyphop lasty. 3. Mild superi or endpla te compre ssion fractu re at L5, new since 2023. 4. Spondy losis, spondy lolist hesis and spondy lolysi s, result ing in severe spinal and forami nal stenos is as detail ed above. 5. Extens jose de jesus red marrow reconv ersion . Correl ate clinic ally for potent ial etiolo gies includ ing anemia or neopla stic infilt ration of the bone marrow . Report review ed and signed by : Dr. Carlos Kelley MD on 024 10:48 AM. Workst ation Name - [facility] READ01 ARRAY( 0x58e6 4eb0) ARRAY( 0x58db 1058) ARRAY( 8t7430 2af8) ARRAY( 0x78b6 9de8) ARRAY( 0l110y b3b0) ARRAY( 0x58dc 2980) ARRAY( 0x6e7c c0d8) ARRAY( 0x78ae 0b68) ARRAY( 4m445k b7e8) ARRAY( 5w7380 dc70) [address] ([facility]) [address] [place], [address], 05/26/2024 15:23:09 05/29/20 24 05/26/2024 fluor oscop y less than one hour Exam is non-re portab le. 0.27 3.9 mGy ARRAY( 0x5a3e c7b8) ARRAY( 0x76c1 e788) ARRAY( 9m0688 2018) ARRAY( 0x5b4b 1230) ARRAY( 0x5a37 c6e8) ARRAY( 0x5a46 6478) ARRAY( 4k5477 b968) ARRAY( 0x5a4a cad0) ARRAY( 0x5a45 7c38) [address] ([facility]) [address] [place] [address], [address], 06/02/2024 10:44:31 05/29/20 24 05/26/2024 xr lumba r spine AP & lat TECHNI QUE:In traope rative lumbar spine 2 views HISTOR Y: Pain FINDIN GS: AP and latera l freeze -frame images over the lumbar spine are submit caitie. Images demons trate 2 cannul as for osteop lasty was inject ed opaque cement at L5. Grade 1 spondy lolist hesis of L5 with narrow ing of the L5-S1 disc space IMPRES SUSIE: Images obtain ed during osteop lasty Report review ed and signed by : Dr. Luis Armando Louis on 024 3:31 PM. Workst ation Name - [facility] CREAD0 1 ARRAY( 0x7b35 1518) ARRAY( 0z3539 6488) ARRAY( 0x7ae5 ca18) ARRAY( 5q1694 1368) ARRAY( 8z2825 88d8) ARRAY( 0x7b72 82b8) ARRAY( 2x9322 ece0) ARRAY( 0x5b1a 1e00) ARRAY( 2u678p c098) [address] ([facility]) [address] [place], [address], 06/02/2024 10:44:31 07/18/20 24 05/10/2024 MRI, lumba r spine , w/o contr ast No observ ation record ed. [email or web address] [facility] ([facility]) [address], [place], [address], 07/18/2024 12:53:39 07/29/20 24 07/29/2024 fluor oscop y less than one hour Exam is non-re portab le. 0.[address] ([facility]) [address] [place], [address], 08/11/2024 10:19:16 07/29/20 24 07/29/2024 xr lumba [...] Workst ation Name - CHINEDU COX0 [address] ([facility]) [address] [place], [address], 08/11/2024 10:19:17 07/29/20 24 07/29/2024 CT airo lumba r spine witho ut IV contr ast See notes tab of Epic Chart Review for Final Report . [address] ([facility]) [address] [place], [address], 08/11/2024 10:19:17 07/30/20 24 07/29/2024 xr lumba r spine AP & lat TECHNI QUE:Ratna mbar spine 2 views HISTOR Y: Status post L2-4 fusion COMPAR MARTA: x-rays . MRI FINDIN GS: Status post osteop lasty within [...] Luis Armando Louis on 11:26 AM. Workst ation Name - CHINEDU COX0 1 [facility] ([facility]) [address] [place] [address], [address], 08/11/2024 10:19:18 07/30/20 24 07/29/2024 xr chest [...] by : Dr. Luis Armando Louis on 9/25/2 024 2:08 PM. Workst ation Name - CHINEDU COX0 1 [facility] ([facility]) [address] [facility], [place], [address], 08/11/2024 10:19:18 07/31/20 24 07/29/2024 CT, abdom [...] 1:33 PM. Workst ation Name - 005RAH [email or web address] ([facility]) [address] [place] [address], [address], 08/11/2024 10:19:19 07/31/20 24 07/29/2024 CT pelvi s witho ut contr ast [...] ions) adjace nt to the left psoas, doctor of nurse anesthesia practice ior to the left kidney , tracki [...] PM. Workst ation Name - RAH-7P [id number] [facility] ([facility]) [address] [place], [address], 08/11/2024 10:19:19 08/25/20 24 08/25/2024 xr lumba r spine AP & lat EXAM: XR LUMBAR SPINE AP & LAT HISTOR Y: Arthro desis status FINDIN GS: Examin ation of the lumbar spine compar ed to prior study. There is been a doctor of nurse anesthesia practice ior fusion L2-L4. Surgic al hardwa re [...] Workst ation Name - DESKTO P-[id number] LUQ [facility] ([facility]) [address] [place], [address], 08/27/2024 14:06:24 11/03/20 24 11/03/2024 XR, lumba r spine No observ ation record ed. [facility] ([facility]) [address] [place] [address], [address], 11/06/2024 12:55:32 Result Notes None recorded. Problems Name Problem SNOMED Code Status Onset Date Resolution Date Notes Provider Name and Address Organization Details Recorded Time History of lumbar fusion 7146340797479 6 Active 2023 Rafael Estevez MD [address] [place] [address], [address], [place] [facility] 10:14:25 Spinal stenosis of lumbar region 69017020 Active 2023 Rafael Estevez MD [address] [place] [address], [address] 4, [place] [facility] 4 09:14:48 Compression fracture of thoracic vertebra 8128505300883 Active 2023 Rafael Estevez MD [address] [place] [address], [address], [place] [facility] 09:14:50 Back problem 572409418 Active 2023 Rafael Estevez MD [address] [place] [address], [address] 4, [place] [facility] 09:14:51 Degeneratio n of lumbar interverteb ral disc 85488002 Active 2023 Rafael Estevez MD [address] [place] [address], [address], [place] [facility] 09:14:55 Compression fracture of lumbar spine 361662780 Active 2023 Rafael Estevez MD [address] [place] [address], [address], [place] [facility] 09:14:59 Problem Notes None recorded. Procedures Surgical History Date Name Laterality Status Provider Name and Address Organization Details Recorded Time lumbar spinal fusion completed Rafael Estevez MD [address] [place] [address], [address], [place] [facility] 08/25/2024 10:13:01 coronary artery bypass graft completed Rafael Estevez MD [address] [place] [address], [address], [place] [facility] 05/21/2024 09:05:22 appendectomy completed Rafael Estevez MD [address] [place] [address], [address], [place] [facility] 05/21/2024 09:05:30 balloon kyphoplasty of fracture of spine completed Rafael Estevez MD [address] [place] [address], [address], [place] [facility] 05/21/2024 09:06:04 Imaging Results Imaging Date Name Status LastModified by Organiz ation Details LastModified Time 05/09/2024 fluoroscopy less than one hour completed [email or web address] [place] [address] ([facility]) [address] [facility], [place], [address], 07/02/2024 14:37:37 05/09/2024 xr lumbar spine AP & lat completed [address] ([facility]) [address] [place], [address], 07/02/2024 14:37:38 05/21/2024 xr lumbar spine AP & lat completed [address] ([facility]) [address] [place], [address], 06/02/2024 10:44:30 05/24/2024 MRI, lumbar spine, w/o contrast completed [address] ([facility]) [address] [place], [address], 05/26/2024 15:23:09 05/26/2024 fluoroscopy less than one hour completed [address] ([facility]) [address] [place], [address], 06/02/2024 10:44:31 05/26/2024 xr lumbar spine AP & lat completed [address] ([facility]) [address] [place], [address], 06/02/2024 10:44:31 05/10/2024 MRI, lumbar spine, w/o contrast completed [email or web address] [facility] ([facility]) [address] [place] [address], [address], 07/18/2024 12:53:39 07/29/2024 fluoroscopy less than one hour completed [address] ([facility]) [address] [place], [address], 08/11/2024 10:19:16 07/29/2024 xr lumbar spine AP & lat completed [address] ([facility]) [address] [place], [address], 08/11/2024 10:19:17 07/29/2024 CT airo lumbar spine without IV contrast completed [address] ([facility]) [address] [place], [address], 08/11/2024 10:19:17 07/29/2024 xr lumbar spine AP & lat completed [address] ([facility]) [address] [place], [address], 08/11/2024 10:19:18 07/29/2024 xr chest AP and lat completed [address] ([facility]) [address] [place], [address], 08/11/2024 10:19:18 07/29/2024 CT, abdomen, w/o contrast completed [address] ([facility]) [address] [place] [address], [address], 08/11/2024 10:19:19 07/29/2024 CT pelvis without contrast (IV or oral) completed [address] ([facility]) [address] [place], [address], 08/11/2024 10:19:19 08/25/2024 xr lumbar spine AP & lat completed [address] ([facility]) [address] [place] [address], [address], 08/27/2024 14:06:24 11/03/2024 XR, lumbar spine completed [email or web address] [facility] ([facility]) [address] [place] [address], [address], 11/06/2024 12:55:32 Procedure Notes None recorded. Medical Equipment None Reported. Allergies Allergen ID Allergen Name Allergen Category Reaction Reaction Severity Criticality Documentation Date Start Date Code Code System Note Provider Name and Address Organization Details Recorded Time 681 aspirin medicatio n angioedem a Not available Not available 05/21/2024 1191 RxNorm Rafael Estevez MD [address] [place] [address], [address] , [place] [facility] 4 09:00:53 Medications Name Sig Start Date Stop [...] and Address Organization Details Last Updated DateTime 06/02/2024 170.18 cm 26.6 kg/m2 93779.7 g Rafael Estevez MD [address] [place] [address], [address], [place] [facility] 06/02/2024 10:24:02 Date Recorded Body height Body mass index (BMI) Body weight Provider Name and Address Organization Details Last Updated DateTime 06/18/2024 170.18 cm 26.6 kg/m2 60169.7 daniel Estevez MD [address] [place] [address], [address], [facility] 06/18/2024 10:32:51 Date Recorded Body height Body mass index (BMI) Body weight Provider Name and Address Organization Details Last Updated DateTime 07/02/2024 170.18 cm 26.6 kg/m2 41134.7 daniel Estevez MD [address] [place] [address], [address], [place] [facility] 07/02/2024 11:13:56 Date Recorded Body height Body mass index (BMI) Body weight Provider Name and Address Organization Details Last Updated DateTime 08/25/2024 170.18 cm 26.6 kg/m2 42575.7 g Rafael Estevez MD [address] [place], [address], [place] [facility] 08/25/2024 10:12:40 Date Recorded Body height Body mass index (BMI) Body weight Provider Name and Address Organization Details Last Updated DateTime 11/03/2024 170.18 cm 26.6 kg/m2 95816.7 g Rafael Estevez MD [address] [place] [address], [address], [place] [facility] 11/03/2024 10:26:55 Social History Question Answer Notes LastModified by Organizat ion Details LastModified Time Tobacco Smoking Status Former Smoker Rafael Estevez MD [address] [place] [address], [address], [place] [facility] 05/21/2024 09:04:47 What Is Your Level Of [...] available 05/21/2024 When Did You Quit Smoking? 18+yearsmichelle oliver Information not available 05/21/2024 What Was [...] SNOMED-CT Code Diagnosis ICD10 Code Diagnosis Note 874 Rafael Estevez MD Main Office [address] [place] [address] 05/21/2024 08:07:25 05/30/2024 08:51:41 Back problem 743406751 M53.9 Degenerati on of lumbar intervertebral disc 28475587 M51.36 Compressio n fracture of lumbar spine 899305665 M48.56XD Compressio n fracture of thoracic vertebra 5838008220 104 M48.54XD Spinal fabio nosis of lumbar region 67840991 M48.062 917 Rafael Estevez MD Main Office [address] [place], [place] [address] 06/02/2024 09:35:40 06/04/2024 09:42:53 Spinal stenosis of lumbar region 40994729 M48.062 Degenerati on of lumbar intervertebral disc 96235373 M51.36 Back problem 746738767 M 53.9 Compressio n fracture of lumbar spine 734390566 M48.56XD Isthmic spondylolisthesis 170696182 M43.10 993 Rafael Estevez MD Main Office [address] [place], [place] [address] 06/18/2024 10:10:40 07/02/2024 09:44:28 Spinal stenosis of lumbar region 79717490 M48.062 Degenerati on of lumbar intervertebral disc 30461398 M51.36 Back problem 244751115 M 53.9 1032 Rafael Estevez MD Main Office [address] [place], [place] [address] 07/02/2024 09:52:20 09/29/2024 15:26:11 Spinal stenosis of lumbar region 77859245 M48.062 Degenerati on of lumbar intervertebral disc 03872902 M51.36 Back problem 085690375 M 53.9 1232 Rafael Estevez MD Main Office [address] [place], [place] [address] 08/25/2024 09:59:13 08/26/2024 17:21:08 Spinal stenosis of lumbar region 49784636 M48.062 Degenerati on of lumbar intervertebral disc 11758138 M51.369 History of lumbar fusion 2357705338 9106 Z98.1 1475 Rafael Estevez MD Main Office [address] [place], [place] [address] 11/03/2024 10:09:44 11/04/2024 09:46:47 Spinal stenosis of lumbar region 79308394 M48.062 Degenerati on of lumbar intervertebral disc 77663345 M51.369 Back problem 221370676 M 53.9 Health Concerns Section Related Observation LastModified by Organization Detai ls LastModified Time None Recorded Concern Status LastModified by Organization Details LastModified Time None Recorded Advance Directives Directive None Recorded Payers Encounter Date Sequence Insurance Name Policy Number Policy [place] Covered Member ID [id number] Member ID Guarantor Name 06/02/2024 1 [facility] (MEDICARE REPLACEMENT/A DVANTAGE - HMO) [id number] Chuck Harmon [id number] Chuck Harmon 06/18/2024 1 [facility] (MEDICARE REPLACEMENT/A DVANTAGE - HMO) [id number] Chuck Harmon [id number] Chuck Harmon 07/02/2024 1 [facility] (MEDICARE REPLACEMENT/A DVANTAGE - HMO) [id number] Chuck Harmon [id number] Chuck Harmon 08/25/2024 1 [facility] (MEDICARE REPLACEMENT/A DVANTAGE - HMO) [id number] Chuck Harmon [id number] Chuck Harmon 11/03/2024 1 [facility] (MEDICARE REPLACEMENT/A DVANTAGE - HMO) [id number] Chuck Harmon [id number] Chuck Harmon Notes Date Note Type Note Provider Name and Address Organization Details Recorded Time 06/02/2024 text/html This is a 78-yea r-old gentleman who has a history of lumbar spinal stenosis at L2-3 and L3-4 with severe disc degeneration as well as spondylolisthesis at L5-S1 incidentally he has osteoporotic compression fractures at L1 and L5 which have recently been treated with kyphoplasty. His more recent kyphoplasty was done last week. Both the kyphoplasty this had improvement for the first 2 to 3 days with recurrence of increasing pain in the low back. Currently reports severe low back pain with no significant radicular symptoms. Rafael Estevez MD [address] [place] [address], [phone], [facility] 06/02/2024 10:32:11 06/18/2024 text/html This is a 78-yea r-old gentleman status post kyphoplasty of thoracic and lumbar spine fractures. He has significant pain in the back which is likely coming from the L2-3 and L3-4 disc spaces. He also has spinal stenosis in those areas. He has started doing physical therapy and his pain has improved a little since his last visit. He does not report any new neurologic symptoms Rafael Estevez MD [address] [place] [address], [phone], [facility] 06/18/2024 10:37:48 07/02/2024 text/html This is a 78-yea r-old gentleman with a history of midline back pain for the last many years. We know that he has spinal stenosis and severe endplate changes at L2-3 and L3-4 he has also pain management intervention as well as physical therapy. He also had fairly recent kyphoplasty done which relieved his pain off acute nature. He does not report any new neurologic symptoms. Rafael Estevez MD [address] [place] [address], [phone], [facility] 07/02/2024 16:24:17 08/25/2024 text/html This is a 78-yea r-old gentleman status approximately a month from L2-3 and L3-4 lateral lumbar interbody fusion. He is doing very well after the surgery his pain has gone away and he is needing minimal pain medications. Rafael Estevez MD [address] [place] [address], [phone], [facility] 08/25/2024 10:17:22 11/03/2024 text/html This is a 78-yea r-old gentleman status 3 months from his L2-3 and L3-4 lateral lumbar interbody fusion and posterior decompression and fusion. He is doing very well and his pain has significantly improved. He occasionally has pain when he is standing for a long time. He does not report any new neurologic symptoms since his last visit. Rafael Estevez MD [address] [place] [address], [phone], [facility] 11/03/2024 10:40:33
--- OUTSIDE RECORDS SUMMARY | 2024-11-12 08:48 | XMS_ITS ---
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) Active confirmed Problem Monoclonal gammopathy (D47.2) Active confirmed Monoclonal gammopathy (22204519) Problem Coronary artery disease without angina pectoris, unspecified vessel or lesion type, unspecified whether [place] or transplanted heart (I25.10) Active confirmed Atherosclerot ic heart disease of [place] coronary artery without angina pectoris (059618518468964) Problem Hyperlipidemia (E78.5) Active confirmed Hyperlipidemia (37248503) Problem Spinal stenosis at L4-L5 level (M48.061) Active confirmed Spinal stenosis of lumbar region (57520877) Problem Compression fracture of L1 vertebra, sequela (S32.010S) Active confirmed Late effect of fracture of spine AND/OR trunk without spinal cord lesion (1572231) Problem Gout, unspecified (M10.9) Active confirmed Gout (23329672) Problem 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 (137066340) Problem Pulmonary fibrosis (J84.10) Active confirmed Pulmonary fibrosis (68507919) Problem Overweight (E66.3) Active confirmed Overweight (504299342) Encounters Encounter Location Date Provider Diagnosis [facility] [address] [place] [address] 06/16/2024 VIELKA CHEN PLAN OF TREATMENT No Information Progress Notes * Chuck HOUDOJanna:1945 (78 yo M)Acc No.[id number]:06/16/2024 Progress Notes Patient:??Chuck HOU Provider:??Vielka Chen MD :1945?Age:78 Y?Sex:Ma le Date:06/16/2024 Address:[address] [place] [address] , [id number] Subjective: * Chief Complaints: * ? * Medical History:?? Objective: Assessment: Plan: * Treatment: * Images: Billing Information: * Visit Code:?? * Procedure Codes:?? * Sign off status: Pending * Provider:??Vielka Chen MD Date:??06/16
--- OUTSIDE RECORDS SUMMARY | 2024-11-12 08:49 | XMS_ITS ---
Author Name [facility] Organization Unknown Results Test Name/Text Value Interpretation Date Range Source DIFFERENTIAL TYPE MANUAL Normal [id number] [facility] HYPOCHROMIA PRESENT Normal [id number] [facility] PLATELET ESTIMATE ADEQUATE Normal [id number] [facility] MICROCYTES PRESENT Normal [id number] [facility] MACROCYTES PRESENT Normal [id number] [facility] BASOPHILIC STIPPLING PRESENT Normal [id number] [facility] METAMYELOCYTES NFR BLD MANUAL 1% Normal [id number] [facility] MONOCYTES NFR BLD MANUAL 40% Above high normal 059701202641 2 - 12 [facility] POLYS NFR BLD MANUAL 47% Normal [id number] 44 - 74 [facility] MYELOCYTES NFR BLD MANUAL 1% Normal [id number] [facility] LYMPHOCYTES NFR BLD MANUAL 8% Below low normal [id number] 20 - 48 [facility] NEUTS BAND NFR BLD MANUAL 3% Normal [id number] 0 - 15 [facility] GLUCOSE BLDC GLUCOMTR MCNC 106mg/dL Normal [id number] 70 - 199 [facility] MAGNESIUM SERPL [facility]NC 2.4mg/dL Normal [id number] 1.7 - 2.8 [facility] CREAT SERPL [facility] 1.3mg/dL Normal [id number] 0.7 - 1.3 [facility] SODIUM SERPL SCNC 134mmol/L Below low normal [id number] 13 5 - 145 [facility] GLUCOSE SERPL MCNC 94mg/dL Normal [id number] 70 - 199 [facility] Glomerular filtration rate/1.73 sq M. predicted 57 Below low normal [id number] 60 - [facility] CHLORIDE SERPL SCNC 98mmol/L Normal [id number] 98 - 107 [facility] HCO3 SER SCNC 27mmol/L Normal [id number] 24 - 32 [facility] POTASSIUM SERPL SCNC 3.4mmol/L Below low normal [id number] 3.5 - 5.1 [facility] ANION GAP SERPL SCNC 9mmol/L Normal [id number] 5 - 14 [facility] BUN SERPL MCNC 23mg/dL Above high normal [id number] 9 - 20 [facility] CALCIUM SERPL MCNC 8.3mg/dL Below low normal [id number] 7 8.4 - 10.2 [facility] HCT VFR BLD AUTO 26.5% Below low normal [id number] 40 - 54 [facility] RDW RBC AUTO RTO 17.3% Normal [id number] 12.1 - 17.7 [facility] PLATELET NO. BLD AUTO 190K/uL Normal [id number] 150 - 450 [facility] RBC NO. BLD AUTO 2.94M/uL Below low normal [id number] 4.7 - 6 [facility] MCH RBC QN AUTO 29.7pg Normal [id number] 25 - 33 [facility] MCHC RBC AUTO MCNC 33g/dL Normal [id number] 32 - 36 [facility] HGB BLD MCNC 8.7g/dL Below low normal [id number] 13.5 - 18 [facility] WBC NO. BLD AUTO 21.5K/uL Above high normal [id number] 4 - 10.5 [facility] MCV RBC AUTO 90.1fL Normal [id number] 78 - 100 [facility] PMV BLD AUTO 10.5fL Normal [id number] 7.4 - 11.4 [facility] GLUCOSE BLDC GLUCOMTR MCNC 101mg/dL Normal [id number] 70 - 199 [facility] GLUCOSE BLDC GLUCOMTR MCNC 120mg/dL Normal [id number] 70 - 199 [facility] GLUCOSE BLDC GLUCOMTR MCNC 127mg/dL Normal [id number] 70 - 199 [facility] DIFFERENTIAL TYPE MANUAL Normal [id number] [facility] PLATELET ESTIMATE ADEQUATE Normal [id number] [facility] MICROCYTES PRESENT Normal [id number] [facility] MACROCYTES PRESENT Normal [id number] [facility] METAMYELOCYTES NFR BLD MANUAL 3% Normal [id number] [facility] MONOCYTES NFR BLD MANUAL 55% Above high normal [id number] 2 - 12 [facility] POLYS NFR BLD MANUAL 31% Below low normal [id number] 44 - 74 [facility] MYELOCYTES NFR BLD MANUAL 1% Normal [id number] [facility] LYMPHOCYTES NFR BLD MANUAL 7% Below low normal [id number] 20 - 48 [facility] NEUTS BAND NFR BLD MANUAL 3% Normal [id number] 0 - 15 [facility] GLUCOSE BLDC GLUCOMTR MCNC 119mg/dL Normal [id number] 70 - 199 [facility] CREAT SERPL MCNC 1.4mg/dL Above high normal [id number] 0. 7 - 1.3 [facility] SODIUM SERPL SCNC 134mmol/L Below low normal [id number] 13 5 - 145 [facility] GLUCOSE SERPL MCNC 104mg/dL Normal [id number] 70 - 199 [facility] Glomerular filtration rate/1.73 sq M. predicted 52 Below low normal [id number] 60 - [facility] CHLORIDE SERPL SCNC 100mmol/L Normal [id number] 98 - 107 [facility] HCO3 SER SCNC 24mmol/L Normal [id number] 24 - 32 [facility] POTASSIUM SERPL SCNC 3.9mmol/L Normal [id number] 3.5 - 5.1 [facility] ANION GAP SERPL SCNC 10mmol/L Normal [id number] 5 - 14 [facility] BUN SERPL MCNC 28mg/dL Above high normal [id number] 9 - 20 [facility] CALCIUM SERPL MCNC 8.5mg/dL Normal [id number] 8.4 - 10.2 [facility] MAGNESIUM SERPL MCNC 2.2mg/dL Normal [id number] 1.7 - 2.8 [facility] HCT VFR BLD AUTO 27.4% Below low normal [id number] 40 - 54 [facility] RDW RBC AUTO RTO 17.6% Normal [id number] 12.1 - 17.7 [facility] PLATELET NO. BLD AUTO 159K/uL Normal [id number] 150 - 450 [facility] RBC NO. BLD AUTO 3.01M/uL Below low normal [id number] 4.7 - 6 [facility] MCH RBC QN AUTO 29.4pg Normal [id number] 25 - 33 [facility] MCHC RBC AUTO MCNC 32.3g/dL Normal [id number] 32 - 36 [facility] HGB BLD MCNC 8.8g/dL Below low normal [id number] 13.5 - 18 [facility] WBC NO. BLD AUTO 24.8K/uL Above high normal [id number] 4 - 10.5 [facility] MCV RBC AUTO 90.9fL Normal [id number] 78 - 100 [facility] PMV BLD AUTO 11.2fL Normal [id number] 7.4 - 11.4 [facility] Service Cmmt XXX-Imp After Meal Normal [id number] [facility] GLUCOSE BLDC GLUCOMTR MCNC 118mg/dL Normal [id number] 70 - 199 [facility] GLUCOSE BLDC GLUCOMTR MCNC 130mg/dL Normal [id number] 70 - 199 [facility] GLUCOSE BLDC GLUCOMTR MCNC 109mg/dL Normal [id number] 70 - 199 [facility] POLYCHROMASIA OCCASIONAL Normal [id number] [facility] DIFFERENTIAL TYPE MANUAL Normal [id number] [facility] HYPOCHROMIA PRESENT Normal [id number] [facility] PLATELET ESTIMATE DECREASED Normal [id number] [facility] MACROCYTES PRESENT Normal [id number] [facility] ELLIPTOCYTES OCCASIONAL Normal [id number] [facility] METAMYELOCYTES NFR BLD MANUAL 1% Normal [id number] [facility] MONOCYTES NFR BLD MANUAL 67% Above high normal [id number] 2 - 12 [facility] POLYS NFR BLD MANUAL 28% Below low normal [id number] 44 - 74 [facility] LYMPHOCYTES NFR BLD MANUAL 2% Below low normal [id number] 20 - 48 [facility] NEUTS BAND NFR BLD MANUAL 2% Normal [id number] 0 - 15 [facility] HCT VFR BLD AUTO 25.7% Below low normal [id number] 40 - 54 [facility] RDW RBC AUTO RTO 17.8% Above high normal [id number] 12.1 - 17.7 [facility] PLATELET NO. BLD AUTO 96K/uL Below low normal [id number] 150 - 450 [facility] RBC NO. BLD AUTO 2.84M/uL Below low normal [id number] 4.7 - 6 [facility] MCH RBC QN AUTO 29.8pg Normal [id number] 25 - 33 C [facility] MCHC RBC AUTO MCNC 32.9g/dL Normal [id number] 32 - 36 [facility] HGB BLD MCNC 8.5g/dL Below low normal [id number] 13.5 - 18 [facility] WBC NO. BLD AUTO 29.5K/uL Above high normal [id number] 4 - 10.5 [facility] MCV RBC AUTO 90.5fL Normal [id number] 78 - 100 [facility] PMV BLD AUTO 11fL Normal [id number] 7.4 - 11.4 [facility] MAGNESIUM SERPL MCNC 2.2mg/dL Normal [id number] 1.7 - 2.8 [facility] CREAT SERPL MCNC 1.6mg/dL Above high normal [id number] 0. 7 - 1.3 [facility] SODIUM SERPL SCNC 134mmol/L Below low normal [id number] 13 5 - 145 [facility] GLUCOSE SERPL MCNC 112mg/dL Normal [id number] 70 - 199 [facility] Glomerular filtration rate/1.73 sq M. predicted 44 Below low normal [id number] 60 - [facility] CHLORIDE SERPL SCNC 100mmol/L Normal [id number] 98 - 107 [facility] HCO3 SER SCNC 26mmol/L Normal [id number] 24 - 32 [facility] POTASSIUM SERPL SCNC 3.6mmol/L Normal [id number] 3.5 - 5.1 [facility] ANION GAP SERPL SCNC 8mmol/L Normal [id number] 5 - 14 [facility] BUN SERPL MCNC 28mg/dL Above high normal [id number] 9 - 20 [facility] CALCIUM SERPL MCNC 8.2mg/dL Below low normal [id number] 0 8.4 - 10.2 [facility] GLUCOSE BLDC GLUCOMTR MCNC 141mg/dL Normal [id number] 70 - 199 [facility] CREAT SERPL MCNC 1.7mg/dL Above high normal 0. 7 - 1.3 [facility] SODIUM SERPL SCNC 132mmol/L Below low normal 13 5 - 145 [facility] GLUCOSE SERPL MCNC 143mg/dL Normal 70 - 199 [facility] Glomerular filtration rate/1.73 sq M. predicted 41 Below low normal 60 - [facility] CHLORIDE SERPL SCNC 98mmol/L Normal 98 - 107 [facility] HCO3 SER SCNC 26mmol/L Normal 24 - 32 [facility] POTASSIUM SERPL SCNC 3.9mmol/L Normal 3.5 - 5.1 [facility] ANION GAP SERPL SCNC 8mmol/L Normal 5 - 14 [facility] BUN SERPL MCNC 28mg/dL Above high normal 9 - 20 [facility] CALCIUM SERPL MCNC 8.2mg/dL Below low normal 9 8.4 - 10.2 [facility] GLUCOSE BLDC GLUCOMTR MCNC 132mg/dL Normal 70 - 199 [facility] HGB BLD MCNC 9.3g/dL Below low normal 13.5 - 18 [facility] HCT VFR BLD AUTO 28.6% Below low normal 40 - 54 [facility] RETICS/100 RBC NFR AUTO 3.3% Above high normal 0.7 - 1.7 [facility] HAPTOGLOB SERPL NEPH MCNC 80mg/dL Normal [id number] 44 - 215 [facility] GLUCOSE BLDC GLUCOMTR MCNC 122mg/dL Normal 70 - 199 [facility] LDH SERPL L TO P CCNC 271U/L Above high normal 125 - 220 [facility] CREAT SERPL MCNC 1.6mg/dL Above high normal 0. 7 - 1.3 [facility] SODIUM SERPL SCNC 132mmol/L Below low normal [id number] 13 5 - 145 [facility] GLUCOSE SERPL MCNC 134mg/dL Normal 70 - 199 [facility] Glomerular filtration rate/1.73 sq M. predicted 44 Below low normal [id number] 60 - [facility] CHLORIDE SERPL SCNC 99mmol/L Normal 98 - 107 [facility] HCO3 SER SCNC 25mmol/L Normal 24 - 32 [facility] POTASSIUM SERPL SCNC 3.7mmol/L Normal 3.5 - 5.1 [facility] ANION GAP SERPL SCNC 8mmol/L Normal 5 - 14 [facility] BUN SERPL MCNC 28mg/dL Above high normal 9 - 20 [facility] CALCIUM SERPL MCNC 8.1mg/dL Below low normal 2 8.4 - 10.2 [facility] URATE SERPL MCNC 6.8mg/dL Normal 3.5 - 8.5 [facility] HGB BLD MCNC 8.7g/dL Below low normal [id number] 13.5 - 18 [facility] HCT VFR BLD AUTO 26.5% Below low normal [id number] 40 - 54 [facility] GLUCOSE BLDC GLUCOMTR MCNC 114mg/dL Normal 70 - 199 [facility] RBC NO. BLD AUTO 3.14M/uL Below low normal [id number] 4.7 - 6 [facility] MCH RBC QN AUTO 29.6pg Normal [id number] 25 - 33 C [facility] MCHC RBC AUTO MCNC 32.5g/dL Normal [id number] 32 - 36 [facility] HGB BLD MCNC 9.3g/dL Below low normal [id number] 13.5 - 18 [facility] WBC NO. BLD AUTO 47K/uL Above high normal [id number] 4 - 10.5 [facility] HCT VFR BLD AUTO 28.6% Below low normal [id number] 40 - 54 [facility] MCV RBC AUTO 91.1fL Normal [id number] 78 - 100 [facility] RDW RBC AUTO RTO 17.9% Above high normal [id number] 12.1 - 17.7 [facility] PLATELET NO. BLD AUTO 102K/uL Below low normal [id number] 150 - 450 [facility] PMV BLD AUTO 11.3fL Normal [id number] 7.4 - 11.4 [facility] BLOOD BANK CMNT PATIENT-IMP Normal [id number] [facility] ABO+RH GP BLD Normal [id number] [facility] BLD GP AB SCN SERPL QL Normal [id number] [facility] GLUCOSE BLDC GLUCOMTR MCNC 102mg/dL Normal [id number] 70 - 199 [facility] RBC NO. BLD AUTO 2.86M/uL Below low normal [id number] 4.7 - 6 [facility] MCH RBC QN AUTO 30pg Normal [id number] 25 - 33 C [facility] MCHC RBC AUTO MCNC 33.1g/dL Normal [id number] 32 - 36 [facility] HGB BLD MCNC 8.6g/dL Below low normal [id number] 13.5 - 18 [facility] WBC NO. BLD AUTO 42.5K/uL Above high normal [id number] 4 - 10.5 [facility] HCT VFR BLD AUTO 26% Below low normal [id number] 40 - 54 [facility] MCV RBC AUTO 90.8fL Normal [id number] 78 - 100 [facility] RDW RBC AUTO RTO 17.8% Above high normal [id number] 12.1 - 17.7 [facility] PLATELET NO. BLD AUTO 106K/uL Below low normal [id number] 150 - 450 [facility] PMV BLD AUTO 11.5fL Above high normal [id number] 7.4 - 11.4 [facility] UUN UR MCNC 505mg/dL Normal [id number] [facility] POTASSIUM UR SCNC 35mmol/L Normal [id number] [facility] SODIUM UR SCNC 15mmol/L Normal [id number] [facility] GLUCOSE BLDC GLUCOMTR MCNC 75mg/dL Normal [id number] 70 - 199 [facility] TRANS NUM UNITS PACKED RBC Normal [id number] [facility] GLUCOSE BLDC GLUCOMTR MCNC 77mg/dL Normal [id number] 70 - 199 [facility] GLUCOSE BLDC GLUCOMTR MCNC 63mg/dL Below low normal [id number] 70 - 199 [facility] GLUCOSE BLDC GLUCOMTR MCNC 59mg/dL Below low normal [id number] 70 - 199 [facility] PHOSPHATE SERPL MCNC 4.6mg/dL Above high normal [id number] 2.5 - 4.5 [facility] URATE SERPL MCNC 6.5mg/dL Normal [id number] 3.5 - 8.5 [facility] LDH SERPL L TO P CCNC 233U/L Above high normal [id number] 125 - 220 [facility] CREAT SERPL MCNC 2.1mg/dL Above high normal [id number] 0. 7 - 1.3 [facility] SODIUM SERPL SCNC 134mmol/L Below low normal [id number] 13 5 - 145 [facility] GLUCOSE SERPL MCNC 108mg/dL Normal [id number] 70 - 199 [facility] Glomerular filtration rate/1.73 sq M. predicted 32 Below low normal [id number] 60 - [facility] CHLORIDE SERPL SCNC 101mmol/L Normal [id number] 98 - 107 [facility] HCO3 SER SCNC 24mmol/L Normal [id number] 24 - 32 [facility] POTASSIUM SERPL SCNC 4mmol/L Normal [id number] 3.5 - 5.1 [facility] ANION GAP SERPL SCNC 9mmol/L Normal [id number] 5 - 14 [facility] BUN SERPL MCNC 36mg/dL Above high normal [id number] 9 - 20 [facility] CALCIUM SERPL MCNC 8.1mg/dL Below low normal [id number] 8 8.4 - 10.2 [facility] BLD PROD DISPOSITION BPU Normal [id number] [facility] GLUCOSE BLDC GLUCOMTR MCNC 71mg/dL Normal [id number] 70 - 199 [facility] GLUCOSE BLDC GLUCOMTR MCNC 69mg/dL Below low normal [id number] 70 - 199 [facility] RBC NO. BLD AUTO 2.66M/uL Below low normal [id number] 4.7 - 6 [facility] MCH RBC QN AUTO 29.4pg Normal [id number] 25 - 33 C [facility] MCHC RBC AUTO MCNC 32.6g/dL Normal [id number] 32 - 36 [facility] HGB BLD MCNC 7.8g/dL Below low normal [id number] 13.5 - 18 [facility] WBC NO. BLD AUTO 51.4K/uL Above high normal [id number] 4 - 10.5 [facility] HCT VFR BLD AUTO 24.1% Below low normal [id number] 40 - 54 [facility] MCV RBC AUTO 90.4fL Normal [id number] 78 - 100 [facility] RDW RBC AUTO RTO 17.9% Above high normal [id number] 12.1 - 17.7 [facility] PLATELET NO. BLD AUTO 113K/uL Below low normal [id number] 150 - 450 [facility] PMV BLD AUTO 10.9fL Normal [id number] 7.4 - 11.4 [facility] GLUCOSE BLDC GLUCOMTR MCNC 84mg/dL Normal [id number] 70 - 199 [facility] CREAT SERPL MCNC 1.9mg/dL Above high normal [id number] 0. 7 - 1.3 [facility] SODIUM SERPL SCNC 132mmol/L Below low normal [id number] 13 5 - 145 [facility] GLUCOSE SERPL MCNC 86mg/dL Normal [id number] 70 - 199 [facility] Glomerular filtration rate/1.73 sq M. predicted 36 Below low normal [id number] 60 - [facility] CHLORIDE SERPL SCNC 101mmol/L Normal [id number] 98 - 107 [facility] HCO3 SER SCNC 20mmol/L Below low normal [id number] 24 - 3 2 [facility] POTASSIUM SERPL SCNC 4.2mmol/L Normal [id number] 3.5 - 5.1 [facility] ANION GAP SERPL SCNC 11mmol/L Normal [id number] 5 - 14 [facility] BUN SERPL MCNC 30mg/dL Above high normal [id number] 9 - 20 [facility] CALCIUM SERPL MCNC 7.6mg/dL Below low normal [id number] 1 8.4 - 10.2 [facility] HCO3 BLDA SCNC 21.9mmol/L Below low normal [id number] 22 - 26 [facility] PO2 BLDA 58mmHg Below low normal [id number] 80 - 105 [facility] PCO2 BLDA 38mmHg Normal [id number] 35 - 45 [facility] PH BLDA 7.36 Normal [id number] 7.35 - 7.45 [facility] BASE DEFICIT BLDA SCNC 3.6mmol/L Above high normal [id number] 0 - 2 [facility] SAO2% BLDA 91.4% Below low normal [id number] 95 - 98 [facility] GLUCOSE BLDC GLUCOMTR MCNC 121mg/dL Normal [id number] 70 - 199 [facility] SPECIMEN TYPE ARTERIAL Normal [id number] [facility] BPU ID [id number] Normal [id number] [facility] E CODE =<[id number] Normal [id number] [facility] AIDAN XM SERPL-IMP Normal [id number] [facility] BLD PROD TYP BPU Normal [id number] [facility] OTHER BLD PROD BPU 0 Normal [id number] [facility] TRANSFUSION STATUS PATIENT QL Normal [id number] [facility] TRANS NUM UNITS PACKED RBC Normal [id number] [facility] RBC NO. BLD AUTO 2.6M/uL Below low normal [id number] 4.7 - 6 [facility] MCH RBC QN AUTO 29.2pg Normal [id number] 25 - 33 C [facility] MCHC RBC AUTO MCNC 31.9g/dL Below low normal [id number] 3 2 - 36 [facility] HGB BLD MCNC 7.6g/dL Below low normal [id number] 13.5 - 18 [facility] WBC NO. BLD AUTO 50K/uL Above high normal [id number] 4 - 10.5 [facility] HCT VFR BLD AUTO 23.8% Below low normal [id number] 40 - 54 [facility] MCV RBC AUTO 91.6fL Normal [id number] 78 - 100 [facility] RDW RBC AUTO RTO 18.2% Above high normal [id number] 12.1 - 17.7 [facility] PLATELET NO. BLD AUTO 107K/uL Below low normal [id number] 150 - 450 [facility] PMV BLD AUTO 11.2fL Normal [id number] 7.4 - 11.4 [facility] DIFFERENTIAL TYPE MANUAL Normal [facility] HYPOCHROMIA PRESENT Normal [facility] PLATELET ESTIMATE DECREASED Normal [facility] MICROCYTES PRESENT Normal [facility] MACROCYTES OCCASIONAL Normal [facility] ELLIPTOCYTES OCCASIONAL Normal [facility] OVALOCYTES PRESENT Normal [facility] MONOCYTES NFR BLD MANUAL 44% Above high normal 2 - 12 [facility] POLYS NFR BLD MANUAL 48% Normal [id number] 44 - 74 [facility] LYMPHOCYTES NFR BLD MANUAL 1% Below low normal [id number] 20 - 48 [facility] NEUTS BAND NFR BLD MANUAL 7% Normal [id number] 0 - 15 [facility] HCT VFR BLD AUTO 24.1% Below low normal [id number] 40 - 54 [facility] RDW RBC AUTO RTO 18.6% Above high normal [id number] 12.1 - 17.7 [facility] PLATELET NO. BLD AUTO 103K/uL Below low normal [id number] 150 - 450 [facility] RBC NO. BLD AUTO 2.63M/uL Below low normal [id number] 4.7 - 6 [facility] MCH RBC QN AUTO 29.5pg Normal [id number] 25 - 33 C [facility] MCHC RBC AUTO MCNC 32.2g/dL Normal [id number] 32 - 36 [facility] HGB BLD MCNC 7.8g/dL Below low normal [id number] 13.5 - 18 [facility] WBC NO. BLD AUTO 47.6K/uL Above high normal [id number] 4 - 10.5 [facility] MCV RBC AUTO 91.8fL Normal [id number] 78 - 100 [facility] PMV BLD AUTO 10.9fL Normal [id number] 7.4 - 11.4 [facility] DIFFERENTIAL TYPE AUTOMATED Normal [id number] [facility] NEUTROPHILS NFR BLD AUTO 66.4% Normal [id number] 44 - 74 [facility] BASOPHILS NFR BLD AUTO 0.3% Normal [id number] 0 - 2 [facility] MONOCYTES NFR BLD AUTO 28.8% Above high normal [id number] 2 - 12 [facility] MONOCYTES NO. BLD AUTO 7.7K/uL Above high normal [id number] 0 - 0.8 [facility] EOSINOPHIL NO. BLD AUTO 0K/uL Normal [id number] 0 - 0.5 [facility] BASOPHILS IN BLOOD BY AUTOMATED COUNT 0.1K/uL Normal [id number] 0 - 0.2 [facility] EOSINOPHIL NFR BLD AUTO 0% Normal [id number] 0 - 6 [facility] LYMPHOCYTES NFR BLD AUTO 4.5% Below low normal [id number] 20 - 48 [facility] NEUTROPHILS NO. BLD AUTO 17.7K/uL Above high normal [id number] 1.8 - 7.8 [facility] LYMPHOCYTES NO. BLD AUTO 1.2K/uL Normal [id number] 1 - 3.2 [facility] HCT VFR BLD AUTO 25% Below low normal [id number] 40 - 54 [facility] RDW RBC AUTO RTO 18% Above high normal [id number] 12.1 - 17.7 [facility] PLATELET NO. BLD AUTO 106K/uL Below low normal [id number] 150 - 450 [facility] RBC NO. BLD AUTO 2.74M/uL Below low normal [id number] 4.7 - 6 [facility] MCH RBC QN AUTO 29.7pg Normal [id number] 25 - 33 C [facility] MCHC RBC AUTO MCNC 32.5g/dL Normal [id number] 32 - 36 [facility] HGB BLD MCNC 8.1g/dL Below low normal [id number] 13.5 - 18 [facility] WBC NO. BLD AUTO 26.7K/uL Above high normal [id number] 4 - 10.5 [facility] MCV RBC AUTO 91.4fL Normal [id number] 78 - 100 [facility] PMV BLD AUTO 10.6fL Normal [id number] 7.4 - 11.4 [facility] GLUCOSE BLDC GLUCOMTR MCNC 199mg/dL Normal [id number] 70 - 199 [facility] Normal [id number] [facility] ABO+RH GP BLD Normal [id number] [facility] BLD GP AB SCN SERPL QL Normal [id number] [facility] BLOOD BANK [facility] PATIENT-IMP Normal [id number] [facility] ABO+RH GP BLD Normal [id number] [facility] BLD GP AB SCN SERPL QL Normal [id number] [facility] GLUCOSE BLDC GLUCOMTR MCNC 98mg/dL Normal [id number] 70 - 199 [facility] DIFFERENTIAL TYPE MANUAL Normal 660915052119 [facility] PLATELET ESTIMATE DECREASED Normal 250922401001 [facility] SCHISTOCYTES OCCASIONAL Normal 428697933933 [facility] MACROCYTES PRESENT Normal 307584405248 [facility] ELLIPTOCYTES PRESENT Normal [id number] [facility] TEARDROP CELLS PRESENT Normal 623939709304 [facility] MONOCYTES NFR BLD MANUAL 49% Above high normal [id number] 2 - 12 [facility] POLYS NFR BLD MANUAL 40% Below low normal [id number] 44 - 74 [facility] MYELOCYTES NFR BLD MANUAL 1% Normal [id number] [facility] LYMPHOCYTES NFR BLD MANUAL 10% Below low normal [id number] 20 - 48 [facility] Hgb A1c MFr Bld HPLC 5.9% Above high normal 816290927613 - 5.7 [facility] HCT VFR BLD AUTO 34.9% Below low normal 565392330603 40 - 54 [facility] RDW RBC AUTO RTO 18.5% Above high normal [id number] 12.1 - 17.7 [facility] PLATELET NO. BLD AUTO 122K/uL Below low normal [id number] 150 - 450 [facility] RBC NO. BLD AUTO 3.87M/uL Below low normal [id number] 4.7 - 6 [facility] MCH RBC QN AUTO 30.2pg Normal [id number] 25 - 33 C [facility] MCHC RBC AUTO MCNC 33.5g/dL Normal [id number] 32 - 36 [facility] HGB BLD MCNC 11.7g/dL Below low normal [id number] 13.5 - 18 [facility] WBC NO. BLD AUTO 7.6K/uL Normal [id number] 4 - 10.5 [facility] MCV RBC AUTO 90.3fL Normal [id number] 78 - 100 [facility] PMV BLD AUTO 11fL Normal [id number] 7.4 - 11.4 [facility] PREALB SERPL NEPH MCNC 21.5mg/dL Normal [id number] 17 - 34 [facility] CREAT SERPL MCNC 1.5mg/dL Above high normal [id number] 0. 7 - 1.3 [facility] BILIRUB SERPL MCNC 0.6mg/dL Normal [id number] 0.3 - 1 [facility] AST SERPL CCNC 17U/L Normal [id number] 5 - 40 [facility] Glomerular filtration rate/1.73 sq M. predicted 48 Below low normal [id number] 60 - [facility] HCO3 SER SCNC 26mmol/L Normal [id number] 24 - 32 [facility] POTASSIUM SERPL SCNC 3.9mmol/L Normal [id number] 3.5 - 5.1 [facility] ANION GAP SERPL SCNC 8mmol/L Normal [id number] 5 - 14 [facility] PROT SERPL MCNC 8.5g/dL Normal [id number] 6.4 - 8.5 [facility] CALCIUM SERPL MCNC 9.5mg/dL Normal [id number] 8.4 - 10.2 [facility] ALP SERPL-CCNC 87U/L Normal [id number] 34 - 104 [facility] SODIUM SERPL SCNC 135mmol/L Normal [id number] 135 - 145 [facility] GLUCOSE P FAST SERPL MCNC 118mg/dL Above high normal [id number] 70 - 99 [facility] ALBUMIN SERPL BCG MCNC 3.8g/dL Normal [id number] 3.5 - 5 [facility] CHLORIDE SERPL SCNC 101mmol/L Normal [id number] 98 - 107 [facility] ALT SERPL CCNC 13U/L Normal [id number] 7 - 52 [facility] BUN SERPL MCNC 32mg/dL Above high normal [id number] 9 - 20 [facility] GLUCOSE BLDC GLUCOMTR MCNC 144mg/dL Normal [id number] 70 - 199 [facility] GLUCOSE BLDC GLUCOMTR MCNC 119mg/dL Normal [id number] 70 - 199 [facility] GLUCOSE BLDC GLUCOMTR MCNC 128mg/dL Normal [id number] 70 - 199 [facility] GLUCOSE BLDC GLUCOMTR MCNC 170mg/dL Normal [id number] 70 - 199 [facility] GLUCOSE BLDC GLUCOMTR MCNC 206mg/dL Above high normal [id number] 70 - 199 [facility] GLUCOSE BLDC GLUCOMTR MCNC 113mg/dL Normal [id number] 70 - 199 [facility] CREAT SERPL MCNC 1.3mg/dL Normal [id number] 0.7 - 1.3 [facility] SODIUM SERPL SCNC 136mmol/L Normal [id number] 135 - 145 [facility] GLUCOSE P FAST SERPL MCNC 120mg/dL Above high normal [id number] 70 - 99 [facility] Glomerular filtration rate/1.73 sq M. predicted 57 Below low normal [id number] 60 - [facility] CHLORIDE SERPL SCNC 103mmol/L Normal [id number] 98 - 107 [facility] HCO3 SER SCNC 26mmol/L Normal [id number] 24 - 32 [facility] POTASSIUM SERPL SCNC 3.8mmol/L Normal [id number] 3.5 - 5.1 [facility] ANION GAP SERPL SCNC 7mmol/L Normal [id number] 5 - 14 [facility] BUN SERPL MCNC 23mg/dL Above high normal [id number] 9 - 20 [facility] CALCIUM SERPL MCNC 9mg/dL Normal [id number] 8.4 - 10.2 [facility] GLUCOSE BLDC GLUCOMTR MCNC 162mg/dL Normal [id number] 70 - 199 [facility] GLUCOSE BLDC GLUCOMTR MCNC 121mg/dL Normal [id number] 70 - 199 [facility] SODIUM SERPL SCNC 132mmol/L Below low normal [id number] 13 5 - 145 [facility] CHLORIDE SERPL SCNC 100mmol/L Normal [id number] 98 - 107 [facility] POTASSIUM SERPL SCNC 3.4mmol/L Below low normal [id number] 3.5 - 5.1 [facility] ANION GAP SERPL SCNC 8mmol/L Normal [id number] 5 - 14 [facility] CREAT SERPL MCNC 1.3mg/dL Normal [id number] 0.7 - 1.3 [facility] GLUCOSE SERPL MCNC 127mg/dL Normal [id number] 70 - 199 [facility] Glomerular filtration rate/1.73 sq M. predicted 57 Below low normal [id number] 60 - [facility] HCO3 SER SCNC 25mmol/L Normal [id number] 24 - 32 [facility] BUN SERPL MCNC 24mg/dL Above high normal [id number] 9 - 20 [facility] CALCIUM SERPL MCNC 8.8mg/dL Normal [id number] 8.4 - 10.2 [facility] PT TIME PPP 14.7sec Above high normal [id number] 10.5 - 13.3 [facility] INR PPP 1.2 Above high normal [id number] 0.8 - 1.1 [facility] RBC NO. BLD AUTO 3.46M/uL Below low normal [id number] 4.7 - 6 [facility] MCH RBC QN AUTO 29.9pg Normal [id number] 25 - 33 C [facility] MCHC RBC AUTO MCNC 33.5g/dL Normal [id number] 32 - 36 [facility] HGB BLD MCNC 10.4g/dL Below low normal [id number] 13.5 - 18 [facility] WBC NO. BLD AUTO 9.6K/uL Normal [id number] 4 - 10.5 [facility] HCT VFR BLD AUTO 30.9% Below low normal [id number] 40 - 54 [facility] MCV RBC AUTO 89.3fL Normal [id number] 78 - 100 [facility] RDW RBC AUTO RTO 18.5% Above high normal [id number] 12.1 - 17.7 [facility] PLATELET NO. BLD AUTO 110K/uL Below low normal [id number] 150 - 450 [facility] PMV BLD AUTO 11.1fL Normal [id number] 7.4 - 11.4 [facility] GLUCOSE BLDC GLUCOMTR MCNC 130mg/dL Normal [id number] 70 - 199 [facility] GLUCOSE BLDC GLUCOMTR MCNC 113mg/dL Normal [id number] 70 - 199 [facility] GLUCOSE BLDC GLUCOMTR MCNC 105mg/dL Normal [id number] 70 - 199 [facility] GLUCOSE BLDC GLUCOMTR MCNC 176mg/dL Normal [id number] 70 - 199 [facility] GLUCOSE BLDC GLUCOMTR MCNC 92mg/dL Normal [id number] 70 - 199 [facility] GLUCOSE BLDC GLUCOMTR MCNC 96mg/dL Normal [id number] 70 - 199 [facility] POLYCHROMASIA OCCASIONAL Normal [id number] [facility] DIFFERENTIAL TYPE MANUAL Normal [id number] [facility] HYPOCHROMIA PRESENT Normal [id number] [facility] PLATELET ESTIMATE DECREASED Normal [id number] [facility] MICROCYTES OCCASIONAL Normal [id number] [facility] MACROCYTES OCCASIONAL Normal [id number] [facility] ELLIPTOCYTES OCCASIONAL Normal [id number] [facility] OVALOCYTES OCCASIONAL Normal 153952055807 [facility] METAMYELOCYTES NFR BLD MANUAL 1% Normal [id number] [facility] MONOCYTES NFR BLD MANUAL 48% Above high normal 782983388958 2 - 12 [facility] POLYS NFR BLD MANUAL 40% Below low normal [id number] 44 - 74 [facility] MYELOCYTES NFR BLD MANUAL 1% Normal [id number] [facility] LYMPHOCYTES NFR BLD MANUAL 9% Below low normal [id number] 20 - 48 [facility] NEUTS BAND NFR BLD MANUAL 1% Normal [id number] 0 - 15 [facility] CREAT SERPL MCNC 1.4mg/dL Above high normal [id number] 0. 7 - 1.3 [facility] SODIUM SERPL SCNC 135mmol/L Normal [id number] 135 - 145 [facility] GLUCOSE SERPL MCNC 94mg/dL Normal [id number] 70 - 199 [facility] Glomerular filtration rate/1.73 sq M. predicted 52 Below low normal 60 - [facility] CHLORIDE SERPL SCNC 104mmol/L Normal 98 - 107 [facility] HCO3 SER SCNC 26mmol/L Normal 24 - 32 [facility] POTASSIUM SERPL SCNC 4.2mmol/L Normal 3.5 - 5.1 [facility] ANION GAP SERPL SCNC 5mmol/L Normal 5 - 14 [facility] BUN SERPL MCNC 29mg/dL Above high normal 9 - 20 [facility] CALCIUM SERPL MCNC 8.9mg/dL Normal 8.4 - 10.2 [facility] MAGNESIUM SERPL MCNC 2mg/dL Normal 1.7 - 2.8 [facility] PHOSPHATE SERPL MCNC 4.4mg/dL Normal 2.5 - 4.5 [facility] HCT VFR BLD AUTO 30.5% Below low normal 40 - 54 [facility] RDW RBC AUTO RTO 19.1% Above high normal 12.1 - 17.7 [facility] PLATELET NO. BLD AUTO 92K/uL Below low normal 150 - 450 [facility] RBC NO. BLD AUTO 3.4M/uL Below low normal 4.7 - 6 [facility] MCH RBC QN AUTO 30.6pg Normal 25 - 33 [facility] MCHC RBC AUTO MCNC 34.1g/dL Normal 32 - 36 [facility] HGB BLD MCNC 10.4g/dL Below low normal 13.5 - 18 [facility] WBC NO. BLD AUTO 7.2K/uL Normal 4 - 10.5 [facility] MCV RBC AUTO 89.7fL Normal 78 - 100 [facility] PMV BLD AUTO 10.8fL Normal 7.4 - 11.4 [facility] GLUCOSE BLDC GLUCOMTR MCNC 108mg/dL Normal [id number] 70 - 199 [facility] BLOOD BANK CMNT PATIENT-IMP Normal [id number] [facility] ABO+RH GP BLD Normal [id number] [facility] BLD GP AB SCN SERPL QL Normal [id number] [facility] POLYCHROMASIA OCCASIONAL Normal [id number] [facility] DIFFERENTIAL TYPE MANUAL Normal [id number] [facility] HYPOCHROMIA PRESENT Normal 537459425594 [facility] PLATELET ESTIMATE DECREASED Normal [id number] [facility] MICROCYTES OCCASIONAL Normal [id number] [facility] MACROCYTES OCCASIONAL Normal 185156537524 [facility] ELLIPTOCYTES OCCASIONAL Normal 523322353998 [facility] TEARDROP CELLS OCCASIONAL Normal 413303674976 [facility] OVALOCYTES OCCASIONAL Normal [id number] [facility] METAMYELOCYTES NFR BLD MANUAL 2% Normal 161962516106 [facility] MONOCYTES NFR BLD MANUAL 48% Above high normal 527723053098 2 - 12 [facility] POLYS NFR BLD MANUAL 43% Below low normal [id number] 44 - 74 [facility] MYELOCYTES NFR BLD MANUAL 1% Normal [id number] [facility] LYMPHOCYTES NFR BLD MANUAL 4% Below low normal [id number] 20 - 48 [facility] NEUTS BAND NFR BLD MANUAL 2% Normal [id number] 0 - 15 [facility] PLATELET NO. BLD AUTO 95K/uL Below low normal [id number] 150 - 450 [facility] PMV BLD AUTO 11.2fL Normal [id number] 7.4 - 11.4 [facility] PT TIME PPP 14.3sec Above high normal [id number] 10.5 - 13.3 [facility] INR PPP 1.2 Above high normal [id number] 0.8 - 1.1 [facility] APTT TIME PPP 42sec Above high normal [id number] 25 - 37 [facility] CREAT SERPL MCNC 1.5mg/dL Above high normal [id number] 0. 7 - 1.3 [facility] SODIUM SERPL SCNC 136mmol/L Normal [id number] 135 - 145 [facility] GLUCOSE SERPL MCNC 88mg/dL Normal [id number] 70 - 199 [facility] Glomerular filtration rate/1.73 sq M. predicted 48 Below low normal [id number] 60 - [facility] CHLORIDE SERPL SCNC 101mmol/L Normal [id number] 98 - 107 [facility] HCO3 SER SCNC 23mmol/L Below low normal [id number] 24 - 3 2 [facility] POTASSIUM SERPL SCNC 4mmol/L Normal [id number] 3.5 - 5.1 [facility] ANION GAP SERPL SCNC 12mmol/L Normal [id number] 5 - 14 [facility] BUN SERPL MCNC 35mg/dL Above high normal [id number] 9 - 20 [facility] CALCIUM SERPL MCNC 9.2mg/dL Normal [id number] 8.4 - 10.2 [facility] HCT VFR BLD AUTO 32.6% Below low normal [id number] 40 - 54 [facility] RDW RBC AUTO RTO 19.2% Above high normal [id number] 12.1 - 17.7 [facility] RBC NO. BLD AUTO 3.64M/uL Below low normal [id number] 4.7 - 6 [facility] MCH RBC QN AUTO 30.5pg Normal [id number] 25 - 33 [facility] MCHC RBC AUTO MCNC 34g/dL Normal [id number] 32 - 36 [facility] HGB BLD MCNC 11.1g/dL Below low normal [id number] 13.5 - 18 [facility] WBC NO. BLD AUTO 9.2K/uL Normal [id number] 4 - 10.5 [facility] MCV RBC AUTO 89.7fL Normal [id number] 78 - 100 [facility] [place]ains 3.18 Above high normal 437498089622 [facility] Free [place] Light Chains 3.8 Above high normal 510239612586 [facility] K/L FLC Ratio 0.84 Normal [id number] [facility] ALBUMIN % 46.1 Below low normal [id number] [facility] GAMMA % 33.2 Above high normal [id number] [facility] GAMMA G/DL 2.7 Above high normal [id number] [facility] ALPHA 2 % 8.9 Normal [id number] [facility] BETA G/DL 0.6 Normal 793408744816 [facility] ALPHA 1 % 3.8 Normal [id number] [facility] ALPHA 2 G/DL 0.7 Normal [id number] [facility] ALPHA 1 G/DL 0.3 Normal 795865793703 [facility] TOTAL PROTEIN 8.1 Normal 566178205563 [facility] ALBUMIN G/DL 3.7 Normal 967855523660 [facility] BETA % 8 Below low normal 268390454254 [facility] DIFFERENTIAL TYPE AUTOMATED Normal [id number] [facility] NEUTROPHILS NFR BLD AUTO 51.2% Normal [id number] 44 - 74 [facility] BASOPHILS NFR BLD AUTO 0.1% Normal [id number] 0 - 2 [facility] MONOCYTES NFR BLD AUTO 47.1% Above high normal [id number] 2 - 12 [facility] MONOCYTES NO. BLD AUTO 28.8K/uL Above high normal [id number] 0 - 0.8 [facility] EOSINOPHIL NO. BLD AUTO 0K/uL Normal [id number] 0 - 0.5 [facility] BASOPHILS IN BLOOD BY AUTOMATED COUNT 0.1K/uL Normal [id number] 0 - 0.2 [facility] EOSINOPHIL NFR BLD AUTO 0% Normal [id number] 0 - 6 [facility] LYMPHOCYTES NFR BLD AUTO 1.6% Below low normal [id number] 20 - 48 [facility] NEUTROPHILS NO. BLD AUTO 31.2K/uL Above high normal [id number] 1.8 - 7.8 [facility] LYMPHOCYTES NO. BLD AUTO 1K/uL Normal [id number] 1 - 3.2 [facility] GLUCOSE BLDC GLUCOMTR MCNC 184mg/dL Normal [id number] 70 - 199 [facility] CREAT SERPL MCNC 1.3mg/dL Normal [id number] 0.7 - 1.3 [facility] BILIRUB SERPL MCNC 0.5mg/dL Normal [id number] 0.3 - 1 [facility] AST SERPL CCNC 12U/L Normal [id number] 5 - 40 [facility] Glomerular filtration rate/1.73 sq M. predicted 57 Below low normal [id number] 60 - [facility] HCO3 SER SCNC 26mmol/L Normal [id number] 24 - 32 [facility] POTASSIUM SERPL SCNC 4.1mmol/L Normal [id number] 3.5 - 5.1 [facility] ANION GAP SERPL SCNC 9mmol/L Normal [id number] 5 - 14 [facility] PROT SERPL MCNC 7.4g/dL Normal [id number] 6.4 - 8.5 [facility] CALCIUM SERPL MCNC 8.8mg/dL Normal [id number] 8.4 - 10.2 [facility] ALP SERPL-CCNC 88U/L Normal [id number] 34 - 104 [facility] SODIUM SERPL SCNC 137mmol/L Normal [id number] 135 - 145 [facility] GLUCOSE SERPL MCNC 201mg/dL Above high normal [id number] 70 - 199 [facility] ALBUMIN SERPL BCG MCNC 3.4g/dL Below low normal [id number] 3.5 - 5 [facility] CHLORIDE SERPL SCNC 102mmol/L Normal [id number] 98 - 107 [facility] ALT SERPL CCNC 17U/L Normal [id number] 7 - 52 [facility] BUN SERPL MCNC 42mg/dL Above high normal [id number] 9 - 20 [facility] MAGNESIUM SERPL MCNC 2.1mg/dL Normal [id number] 1.7 - 2.8 [facility] HCT VFR BLD AUTO 37.8% Below low normal [id number] 40 - 54 [facility] RDW RBC AUTO RTO 18.3% Above high normal [id number] 12.1 - 17.7 [facility] PLATELET NO. BLD AUTO 101K/uL Below low normal [id number] 150 - 450 [facility] RBC NO. BLD AUTO 4.24M/uL Below low normal [id number] 4.7 - 6 [facility] MCH RBC QN AUTO 29pg Normal [id number] 25 - 33 C [facility] MCHC RBC AUTO MCNC 32.5g/dL Normal [id number] 32 - 36 [facility] HGB BLD MCNC 12.3g/dL Below low normal [id number] 13.5 - 18 [facility] WBC NO. BLD AUTO 61K/uL Above high normal [id number] 4 - 10.5 [facility] MCV RBC AUTO 89.2fL Normal [id number] 78 - 100 [facility] PMV BLD AUTO 11.6fL Above high normal [id number] 7.4 - 11.4 [facility] GLUCOSE BLDC GLUCOMTR MCNC 220mg/dL Above high normal [id number] 70 - 199 [facility] GLUCOSE BLDC GLUCOMTR MCNC 171mg/dL Normal [id number] 70 - 199 [facility] GLUCOSE BLDC GLUCOMTR MCNC 316mg/dL Above high normal [id number] 70 - 199 [facility] GLUCOSE BLDC GLUCOMTR MCNC 180mg/dL Normal [id number] 70 - 199 [facility] GLUCOSE BLDC GLUCOMTR MCNC 165mg/dL Normal [id number] 70 - 199 [facility] DIFFERENTIAL TYPE MANUAL Normal [id number] [facility] HYPOCHROMIA OCCASIONAL Normal [id number] [facility] PLATELET ESTIMATE DECREASED PLATELETS SEEN ON SMEAR Normal [id number] [facility] MACROCYTES PRESENT Normal [id number] [facility] METAMYELOCYTES NFR BLD MANUAL 1% Normal [id number] [facility] MONOCYTES NFR BLD MANUAL 42% Above high normal [id number] 2 - 12 [facility] POLYS NFR BLD MANUAL 50% Normal [id number] 44 - 74 [facility] MYELOCYTES NFR BLD MANUAL 1% Normal [id number] [facility] LYMPHOCYTES NFR BLD MANUAL 3% Below low normal [id number] 20 - 48 [facility] NEUTS BAND NFR BLD MANUAL 3% Normal [id number] 0 - 15 [facility] MAGNESIUM SERPL MCNC 2mg/dL Normal [id number] 1.7 - 2.8 [facility] CREAT SERPL MCNC 1.3mg/dL Normal [id number] 0.7 - 1.3 [facility] BILIRUB SERPL MCNC 0.6mg/dL Normal [id number] 0.3 - 1 [facility] AST SERPL CCNC 10U/L Normal [id number] 5 - 40 [facility] Glomerular filtration rate/1.73 sq M. predicted 57 Below low normal [id number] 60 - [facility] HCO3 SER SCNC 24mmol/L Normal [id number] 24 - 32 [facility] POTASSIUM SERPL SCNC 4.3mmol/L Normal [id number] 3.5 - 5.1 [facility] ANION GAP SERPL SCNC 9mmol/L Normal [id number] 5 - 14 [facility] PROT SERPL MCNC 7.5g/dL Normal [id number] 6.4 - 8.5 C [facility] CALCIUM SERPL MCNC 9mg/dL Normal [id number] 8.4 - 10.2 [facility] ALP SERPL-CCNC 96U/L Normal [id number] 34 - 104 [facility] SODIUM SERPL SCNC 134mmol/L Below low normal [id number] 13 5 - 145 [facility] GLUCOSE SERPL MCNC 221mg/dL Above high normal [id number] 70 - 199 [facility] ALBUMIN SERPL BCG MCNC 3.6g/dL Normal [id number] 3.5 - 5 [facility] CHLORIDE SERPL SCNC 101mmol/L Normal [id number] 98 - 107 [facility] ALT SERPL CCNC 15U/L Normal [id number] 7 - 52 [facility] BUN SERPL MCNC 39mg/dL Above high normal [id number] 9 - 20 [facility] HCT VFR BLD AUTO 38.9% Below low normal [id number] 40 - 54 [facility] RDW RBC AUTO RTO 18.5% Above high normal [id number] 12.1 - 17.7 [facility] PLATELET NO. BLD AUTO 107K/uL Below low normal [id number] 150 - 450 [facility] RBC NO. BLD AUTO 4.4M/uL Below low normal [id number] 4.7 - 6 [facility] MCH RBC QN AUTO 28.7pg Normal [id number] 25 - 33 C [facility] MCHC RBC AUTO MCNC 32.4g/dL Normal [id number] 32 - 36 [facility] HGB BLD MCNC 12.6g/dL Below low normal [id number] 13.5 - 18 [facility] WBC NO. BLD AUTO 58.2K/uL Above high normal [id number] 4 - 10.5 [facility] MCV RBC AUTO 88.5fL Normal [id number] 78 - 100 [facility] PMV BLD AUTO 11.2fL Normal [id number] 7.4 - 11.4 [facility] GLUCOSE BLDC GLUCOMTR MCNC 185mg/dL Normal [id number] 70 - 199 [facility] GLUCOSE BLDC GLUCOMTR MCNC 278mg/dL Above high normal [id number] 70 - 199 [facility] GLUCOSE BLDC GLUCOMTR MCNC 182mg/dL Normal [id number] 70 - 199 [facility] Hgb A1c MFr Bld HPLC 9.2% Above high normal [id number] - 5.7 [facility] Procalcitonin SerPl IA-mCnc 0.17ng/mL Above high normal 807941921030 - 0.05 [facility] LDH SERPL L TO P CCNC 290U/L Above high normal [id number] 125 - 220 [facility] IGM SER MCNC 154mg/dL Normal [id number] 45 - 281 [facility] IGG SERPL-MCNC 2578mg/dL Above high normal [id number] 6 35 - 1741 [facility] IGA SERPL-MCNC 177mg/dL Normal [id number] 66 - 433 [facility] URATE SERPL MCNC 5.5mg/dL Normal [id number] 3.5 - 8.5 [facility] ESR Bld Qn Photometric 16mm/h Above high normal [id number] 0 - 15 [facility] DIFFERENTIAL TYPE MANUAL Normal [id number] [facility] HYPOCHROMIA OCCASIONAL Normal [id number] [facility] PLATELET ESTIMATE DECREASED Normal [id number] [facility] MACROCYTES PRESENT Normal 820281105677 [facility] ELLIPTOCYTES OCCASIONAL Normal 513912554702 [facility] METAMYELOCYTES NFR BLD MANUAL 3% Normal 851931275058 [facility] MONOCYTES NFR BLD MANUAL 26% Above high normal [id number] 2 - 12 [facility] POLYS NFR BLD MANUAL 61% Normal [id number] 44 - 74 [facility] MYELOCYTES NFR BLD MANUAL 2% Normal [id number] [facility] LYMPHOCYTES NFR BLD MANUAL 2% Below low normal [id number] 20 - 48 [facility] NEUTS BAND NFR BLD MANUAL 6% Normal [id number] 0 - 15 [facility] CREAT SERPL MCNC 1.3mg/dL Normal [id number] 0.7 - 1.3 [facility] BILIRUB SERPL MCNC 0.6mg/dL Normal [id number] 0.3 - 1 [facility] AST SERPL CCNC 9U/L Normal [id number] 5 - 40 [facility] Glomerular filtration rate/1.73 sq M. predicted 57 Below low normal [id number] 60 - [facility] HCO3 SER SCNC 27mmol/L Normal [id number] 24 - 32 [facility] POTASSIUM SERPL SCNC 4.6mmol/L Normal [id number] 3.5 - 5.1 [facility] ANION GAP SERPL SCNC 7mmol/L Normal [id number] 5 - 14 [facility] PROT SERPL MCNC 7.7g/dL Normal [id number] 6.4 - 8.5 C [facility] CALCIUM SERPL MCNC 9.1mg/dL Normal [id number] 8.4 - 10.2 [facility] ALP SERPL-CCNC 96U/L Normal [id number] 34 - 104 [facility] SODIUM SERPL SCNC 131mmol/L Below low normal [id number] 13 5 - 145 [facility] GLUCOSE SERPL MCNC 272mg/dL Above high normal [id number] 70 - 199 [facility] ALBUMIN SERPL BCG MCNC 3.7g/dL Normal [id number] 3.5 - 5 [facility] CHLORIDE SERPL SCNC 97mmol/L Below low normal [id number] 98 - 107 [facility] ALT SERPL CCNC 15U/L Normal [id number] 7 - 52 [facility] BUN SERPL MCNC 38mg/dL Above high normal [id number] 9 - 20 [facility] MAGNESIUM SERPL MCNC 2mg/dL Normal [id number] 1.7 - 2.8 [facility] HCT VFR BLD AUTO 37.8% Below low normal [id number] 40 - 54 [facility] RDW RBC AUTO RTO 18.2% Above high normal [id number] 12.1 - 17.7 [facility] PLATELET NO. BLD AUTO 108K/uL Below low normal [id number] 150 - 450 [facility] RBC NO. BLD AUTO 4.21M/uL Below low normal [id number] 4.7 - 6 [facility] MCH RBC QN AUTO 29.1pg Normal [id number] 25 - 33 C [facility] MCHC RBC AUTO MCNC 32.4g/dL Normal [id number] 32 - 36 [facility] HGB BLD MCNC 12.2g/dL Below low normal [id number] 13.5 - 18 [facility] WBC NO. BLD AUTO 61.6K/uL Above high normal [id number] 4 - 10.5 [facility] MCV RBC AUTO 89.8fL Normal [id number] 78 - 100 [facility] PMV BLD AUTO 11.4fL Normal [id number] 7.4 - 11.4 [facility] Glucose Ur Ql Strip.auto >=500 Abnormal [id number] - [facility] RBC number/area UrnS Auto <1 Normal [id number] 0 - 3 [facility] Nitrite Ur Ql Strip.auto NEGATIVE Normal [id number] - [facility] Hgb Ur Ql Strip.auto SMALL Abnormal [id number] - [facility] Leukocyte esterase Ur Ql Strip.auto NEGATIVE Normal [id number] - [facility] Clarity Ur Refract.auto CLEAR Normal [id number] [facility] Ketones Ur Ql Strip.auto NEGATIVE Normal [id number] - [facility] Color Ur Auto YELLOW Normal [id number] [facility] Mucous Threads Ur Ql Auto PRESENT Abnormal [id number] - [facility] Prot Ur Ql Strip.auto 100mg/dL Abnormal [id number] - [facility] Squamous number/area UrnS Auto 0/LFP Normal [id number] 0 - 5 [facility] pH Ur Strip.auto 6 Normal [id number] 4.5 - 8 [facility] WBC number/area UrnS Auto 1/HPF Normal [id number] 0 - 5 [facility] Sp Gr Ur Strip.auto 1.016 Normal [id number] 1.005 - 1.03 [facility] SPECIMEN SOURCE XXX URINE CLEAN CATCH Normal [id number] [facility] GLUCOSE BLDC GLUCOMTR MCNC 357mg/dL Above high normal 549047547646 70 - 199 [facility] DIFFERENTIAL TYPE AUTOMATED Normal [id number] [facility] NEUTROPHILS NFR BLD AUTO 74% Normal [id number] 44 - 74 [facility] BASOPHILS NFR BLD AUTO 0.4% Normal [id number] 0 - 2 [facility] MONOCYTES NFR BLD AUTO 22.7% Above high normal [id number] 2 - 12 [facility] MONOCYTES NO. BLD AUTO 9.7K/uL Above high normal [id number] 0 - 0.8 [facility] EOSINOPHIL NO. BLD AUTO 0K/uL Normal [id number] 0 - 0.5 [facility] BASOPHILS IN BLOOD BY AUTOMATED COUNT 0.2K/uL Normal [id number] 0 - 0.2 [facility] EOSINOPHIL NFR BLD AUTO 0% Normal [id number] 0 - 6 [facility] LYMPHOCYTES NFR BLD AUTO 2.9% Below low normal [id number] 20 - 48 [facility] NEUTROPHILS NO. BLD AUTO 31.5K/uL Above high normal [id number] 1.8 - 7.8 [facility] LYMPHOCYTES NO. BLD AUTO 1.2K/uL Normal [id number] 1 - 3.2 [facility] HCT VFR BLD AUTO 38.1% Below low normal [id number] 40 - 54 [facility] RDW RBC AUTO RTO 18.2% Above high normal [id number] 12.1 - 17.7 [facility] PLATELET NO. BLD AUTO 106K/uL Below low normal [id number] 150 - 450 [facility] RBC NO. BLD AUTO 4.19M/uL Below low normal [id number] 4.7 - 6 [facility] MCH RBC QN AUTO 29.6pg Normal [id number] 25 - 33 C [facility] MCHC RBC AUTO MCNC 32.6g/dL Normal [id number] 32 - 36 [facility] HGB BLD MCNC 12.4g/dL Below low normal [id number] 13.5 - 18 [facility] WBC NO. BLD AUTO 42.6K/uL Above high normal [id number] 4 - 10.5 [facility] MCV RBC AUTO 91fL Normal [id number] 78 - 100 [facility] PMV BLD AUTO 12.7fL Above high normal [id number] 7.4 - 11.4 [facility] CREAT SERPL MCNC 1.3mg/dL Normal [id number] 0.7 - 1.3 [facility] BILIRUB SERPL MCNC 0.5mg/dL Normal [id number] 0.3 - 1 [facility] AST SERPL CCNC 12U/L Normal [id number] 5 - 40 [facility] Glomerular filtration rate/1.73 sq M. predicted 57 Below low normal [id number] 60 - [facility] HCO3 SER SCNC 25mmol/L Normal [id number] 24 - 32 [facility] POTASSIUM SERPL SCNC 4.5mmol/L Normal [id number] 3.5 - 5.1 [facility] ANION GAP SERPL SCNC 10mmol/L Normal [id number] 5 - 14 [facility] PROT SERPL MCNC 7.9g/dL Normal [id number] 6.4 - 8.5 C [facility] CALCIUM SERPL MCNC 9.2mg/dL Normal [id number] 8.4 - 10.2 [facility] ALP SERPL-CCNC 92U/L Normal [id number] 34 - 104 [facility] SODIUM SERPL SCNC 132mmol/L Below low normal 368948404958 13 5 - 145 [facility] GLUCOSE P FAST SERPL MCNC 402mg/dL Above high normal [id number] 70 - 99 [facility] ALBUMIN SERPL BCG MCNC 3.6g/dL Normal [id number] 3.5 - 5 [facility] CHLORIDE SERPL SCNC 97mmol/L Below low normal [id number] 98 - 107 [facility] ALT SERPL CCNC 19U/L Normal [id number] 7 - 52 [facility] BUN SERPL MCNC 41mg/dL Above high normal [id number] 9 - 20 [facility] MAGNESIUM SERPL MCNC 2.1mg/dL Normal [id number] 1.7 - 2.8 [facility] DIFFERENTIAL TYPE MANUAL Normal 519124471729 [facility] HYPOCHROMIA OCCASIONAL Normal [id number] [facility] MICROCYTES OCCASIONAL Normal [id number] [facility] MACROCYTES PRESENT Normal 679623464373 [facility] ELLIPTOCYTES OCCASIONAL Normal 899835680898 [facility] METAMYELOCYTES NFR BLD MANUAL 1% Normal [id number] [facility] MONOCYTES NFR BLD MANUAL 46% Above high normal [id number] 2 - 12 [facility] POLYS NFR BLD MANUAL 49% Normal [id number] 44 - 74 [facility] MYELOCYTES NFR BLD MANUAL 1% Normal [id number] [facility] LYMPHOCYTES NFR BLD MANUAL 3% Below low normal [id number] 20 - 48 [facility] PLATELET NO. BLD AUTO 80K/uL Below low normal [id number] 150 - 450 [facility] PMV BLD AUTO 11.9fL Above high normal [id number] 7.4 - 11.4 [facility] HCT VFR BLD AUTO 34.4% Below low normal [id number] 40 - 54 [facility] RDW RBC AUTO RTO 18.1% Above high normal [id number] 12.1 - 17.7 [facility] RBC NO. BLD AUTO 3.83M/uL Below low normal [id number] 4.7 - 6 [facility] MCH RBC QN AUTO 28.8pg Normal [id number] 25 - 33 C [facility] MCHC RBC AUTO MCNC 32g/dL Normal [id number] 32 - 36 [facility] HGB BLD MCNC 11g/dL Below low normal [id number] 13.5 - 18 [facility] WBC NO. BLD AUTO 49.5K/uL Above high normal [id number] 4 - 10.5 [facility] MCV RBC AUTO 89.9fL Normal [id number] 78 - 100 [facility] CREAT SERPL MCNC 1.4mg/dL Above high normal [id number] 0. 7 - 1.3 [facility] SODIUM SERPL SCNC 134mmol/L Below low normal [id number] 13 5 - 145 [facility] GLUCOSE SERPL MCNC 279mg/dL Above high normal [id number] 70 - 199 [facility] Glomerular filtration rate/1.73 sq M. predicted 52 Below low normal [id number] 60 - [facility] CHLORIDE SERPL SCNC 102mmol/L Normal [id number] 98 - 107 [facility] HCO3 SER SCNC 25mmol/L Normal [id number] 24 - 32 [facility] POTASSIUM SERPL SCNC 4mmol/L Normal [id number] 3.5 - 5.1 [facility] ANION GAP SERPL SCNC 7mmol/L Normal [id number] 5 - 14 [facility] BUN SERPL MCNC 40mg/dL Above high normal [id number] 9 - 20 [facility] CALCIUM SERPL MCNC 8.5mg/dL Normal [id number] 8.4 - 10.2 [facility] CREAT SERPL MCNC 1.4mg/dL Above high normal [id number] 0. 7 - 1.3 [facility] CALCIUM SERPL MCNC 8.6mg/dL Normal [id number] 8.4 - 10.2 [facility] SODIUM SERPL SCNC 137mmol/L Normal [id number] 135 - 145 [facility] ANION GAP SERPL SCNC 10mmol/L Normal [id number] 5 - 14 [facility] Glomerular filtration rate/1.73 sq M. predicted 52 Below low normal [id number] 60 - [facility] HCO3 SER SCNC 25mmol/L Normal [id number] 24 - 32 [facility] GLUCOSE P FAST SERPL MCNC 128mg/dL Above high normal [id number] 70 - 99 [facility] BUN SERPL MCNC 31mg/dL Above high normal [id number] 9 - 20 [facility] CHLORIDE SERPL SCNC 102mmol/L Normal [id number] 98 - 107 [facility] POTASSIUM SERPL SCNC 3.8mmol/L Normal [id number] 3.5 - 5.1 [facility] DIAGNOSIS COMMENT Received from [facility], [address], [place] [address], are one slide and one block labeled [id number] , which are retained for our files. Normal [id number] [facility] GROSS DESCRIPTION Received in formalin is an irregularly shaped fragment of skin measuring 1.2 x 0.8 x 0.1 cm. The specimen is serially sectioned and submitted entirely in one cassette. (Gross description performed by [facility].) Normal [id number] [facility] CLINICAL INFORMATION DSAP vs PN vs SCC Normal [id number] [facility] History of Medication Use Medication Directions Dispensed Refills Start Date End Date Stat Trelegy Ellipta 200-62.5-25 MCG/ACT inhaler Inhale 1 puff daily. 10/27/2024 9 active Symbicort 160-4.5 MCG/ACT inhaler 2 PUFF INHALED 2 TIMES A DAY FOR 30 DAYS 09/21/2024 9 active lactated ringers infusion 100 mL/hr, Intravenous, Continuous, Starting on Sun07/29/24 at 0515, Pre-op 08/06/2024 aborted acetaminophen (TYLENOL EXTRA STRENGTH) 500 MG tablet 1,000 mg 1,000 mg, Oral, Once, On Sun07/29/24 at 0515, For 1 dose, Pre-opDo not administer to patients with abnormal LFTS.??Do Not exceed 3000 mg in 24 hours. 08/06/2024 completed amLODIPine (NORVASC) tablet 5 mg 5 mg, Oral, Daily, First dose (after last modification) on Sun08/01/24 at 0900Hold for sbp <100 08/06/2024 active lactated ringers infusion 75 mL/hr, Intravenous, Continuous, Starting on Sun08/01/24 at 2230 08/06/2024 aborted bisacodyl (DULCOLAX) suppository 10 mg 10 mg, Rectal, Daily as needed, constipation, Starting on Sun08/03/24 at 1037 08/06/2024 active ceFAZolin (ANCEF) injection 1 g 1 g, Intravenous, Every 8 hours, First dose on Sun07/29/24 at 1700, For 1 doseFor Adults, if ordered IV then reconstitute each 1GM vial with 10mL sterile water or normal saline and administer IV Push over 3-5 minutes. 08/06/2024 completed magnesium hydroxide (MILK OF MAGNESIA) 400 MG/5ML suspension 30 mL 30 mL, Oral, Daily, First dose on Sun07/30/24 at 1400Start @ 2pm POD #1.??Hold for patients with history of IBS, IBO, Ileostomy. 08/06/2024 active oxyCODONE (ROXICODONE) 5 MG immediate release tablet 10 mg 10 mg, Oral, Every 4 hours PRN, severe pain (7-10), Starting on Sun07/29/24 at 1555 08/06/2024 aborted methocarbamol (ROBAXIN) tablet 500 mg 500 mg, Oral, 4 times daily PRN, muscle spasms, Starting on Sun07/30/24 at 1444 08/06/2024 active oxyCODONE HCl ER (OxyCONTIN) controlled release tablet 10 mg 10 mg, Oral, Once, On Sun07/29/24 at 1600, For 1 doseTo be administered at 1800 on POD#0 (or arrival to the floor)??Hold for patients > 75 yrs old??Do not crush or chew tablet 08/06/2024 completed glipiZIDE (GLUCOTROL XL) 24 hr tablet 10 mg 10 mg, Oral, Daily, First dose on Sun07/30/24 at 0900DO NOT CRUSH; MEAL CRITICAL MEDICATION 08/06/2024 aborted ondansetron (ZOFRAN) injection 4 mg 4 mg, Intravenous, Every 6 hours PRN, nausea, vomiting, Starting on Sun07/29/24 at 1552, PACU/FloorTo be given first. 08/06/2024 active Cholecalciferol (VITAMIN D3 PO) Take 1 tablet by mouth daily. 08/06/2024 active diazePAM (VALIUM) tablet 5 mg 5 mg, Oral, Every 6 hours PRN, muscle spasms, Starting on Sun07/29/24 at 1555Hold other muscle relaxants 08/06/2024 aborted dextrose 5 % infusion 75 mL/hr, Intravenous, Continuous, Starting on [place] 9/26/24 at 1345 08/06/2024 aborted metoclopramide (REGLAN) injection 10 mg 10 mg, Intravenous, Every 6 hours PRN, nausea, vomiting, Starting on Sun07/29/24 at 1552, PACU/FloorTo be given if zofran is ineffective. 08/06/2024 active levoFLOXacin (LEVAQUIN) 500 MG tablet Take 1 tablet (500 mg total) by mouth daily. 08/06/2024 aborted naloxone (NARCAN) injection 0.4 mg 0.4 mg, Intravenous, As needed, opioid reversal, respiratory depression, Starting on Sun07/30/24 at 1058 08/06/2024 active Alcohol Swabs 70 % PADS Use to clean finger prior to blood glucose monitoring 07/26/2024 active polyethylene glycol (MIRALAX) 17 g packet Take 17 g by mouth daily as needed (CONSTIPATION). 07/25/2024 aborted Lancets (freestyle) lancets For blood glucose monitoring to prick finger 07/26/2024 active glipiZIDE (GLUCOTROL XL) ER 24 hr tablet 10 mg Take 1 tablet (10 mg total) by mouth daily. 07/26/2024 active senna-docusate (PERICOLACE) 8.6-50 MG Take 1 tablet by mouth 2 (two) times a day as needed for constipation. 07/26/2024 aborted acetaminophen (TYLENOL) 325 MG tablet Take 3 tablets (975 mg total) by mouth 3 (three) times a day as needed for pain. 07/25/2024 active Cholecalciferol (VITAMIN D3 PO) Take 1 tablet by mouth daily. 07/25/2024 active glipiZIDE (GLUCOTROL XL) 10 mg 24 hr tablet Take 1 tablet (10 mg total) by mouth daily. 07/20/2024 active polyethylene glycol (MIRALAX) 17 g packet Take 17 g by mouth daily as needed (CONSTIPATION). 07/03/2024 active senna-docusate (PERICOLACE) 8.6-50 MG Take 1 tablet by mouth 2 (two) times a day as needed for constipation. 07/03/2024 active Alcohol Swabs 70 % PADS Use to clean finger prior to blood glucose monitoring 07/03/2024 active colchicine 0.6 MG tablet Take 1 tablet (0.6 mg total) by mouth daily. 07/03/2024 active acetaminophen (TYLENOL) 325 MG tablet Take 3 tablets (975 mg total) by mouth 3 (three) times a day as needed for pain. 07/03/2024 active allopurinol (ZYLOPRIM) 100 MG tablet Take 1 tablet (100 mg total) by mouth daily. 07/02/2024 active Lancets (freestyle) lancets For blood glucose monitoring to prick finger 07/01/2024 active Continuous Glucose Sensor ([employer] G7 Sensor) MISC 1 each by Does not apply route every 14 (fourteen) days. 07/02/2024 active HYDROmorphone (Dilaudid) 2 MG tablet Take 1 tablet (2 mg total) by mouth every 6 (six) hours as needed for pain. 07/02/2024 active glipiZIDE (GLUCOTROL XL) ER 24 hr tablet 10 mg Take 1 tablet (10 mg total) by mouth daily. 07/02/2024 active acetaminophen (TYLENOL) 500 MG tablet Take 500 mg by mouth 4 times daily (every 6 hours) as needed for mild pain. 06/24/2024 active glipiZIDE (GLUCOTROL XL) 10 mg 24 hr tablet Take 1 tablet by mouth daily. 06/24/2024 active SITagliptin-metFORMIN (Janumet) 50-500 MG per tablet Take 1 tablet by mouth 2 (two) times a day with meals. 06/02/2024 aborted oxyCODONE (ROXICODONE) 5 MG immediate release tablet 5 mg 5 mg, Oral, Every 4 hours PRN, moderate pain (4-6), Starting on Sun05/28/24 at 1227 06/02/2024 active Lidocaine 4 % 1 patch 1 patch, Transdermal, Daily, First dose on Sun05/27/24 at 0900Apply to lower back??APPLY IN AM- REMOVE AFTER 12 HRS-MAY CUT...Apply patch to intact skin to cover the most painful area. 06/02/2024 active sodium chloride 0.9% bolus (NS) 500 mL 500 mL, Intravenous, at 500 mL/hr, Once, On Sun05/26/24 at 1930, For 1 dose 06/02/2024 completed bisacodyl (DULCOLAX) EC tablet 5 mg 5 mg, Oral, Daily as needed, constipation, Starting on Sun05/26/24 at 200006/02/2024 active colchicine (MITIGARE) capsule 0.6 mg 0.6 mg, Oral, Daily, First dose on Sun05/27/24 at 0900Reproductive/ Breast Feeding Risk: Use appropriate precautions for handling and disposal. 06/02/2024 active acetaminophen (TYLENOL) tablet 650 mg 650 mg, Oral, Every 6 hours PRN, mild pain (1-3), Starting on Sun05/26/24 at 200006/02/2024 active guaiFENesin-dextromet horphan (ROBITUSSIN DM) 100-10 MG/5ML liquid 5 mL 5 mL, Oral, Once, On Sun05/30/24 at 0445, For 1 dose 06/02/2024 completed glipiZIDE (GLUCOTROL XL) ER 24 hr tablet 10 mg Take 1 tablet (10 mg total) by mouth daily. 06/02/2024 active Continuous Glucose Sensor ([employer] G7 Sensor) MISC 1 each by Does not apply route every 14 (fourteen) days. 05/31/2024 suspended Alcohol Swabs 70 % PADS Use to clean finger prior to blood glucose monitoring 05/31/2024 suspended Lancets (freestyle) lancets For blood glucose monitoring to prick finger 05/31/2024 suspended methocarbamol (ROBAXIN) 750 MG tablet Take 1 tablet (750 mg total) by mouth 3 (three) times a day as needed for up to 15 days. 05/15/2024 active enoxaparin (LOVENOX) syringe 40 mg 40 mg, Subcutaneous, Every 24 hours scheduled (Daily), First dose on Sun05/10/24 at 0900Administer in abdomen (at least 2 inches from navel) 05/15/2024 active sodium chloride 0.9% (NS) infusion 50 mL/hr, Intravenous, Continuous, Starting on Sun05/12/24 at 0000, For 10 hours 05/15/2024 completed HYDROmorphone (DILAUDID) split tablet 3 mg 3 mg, Oral, Every 3 hours PRN, moderate pain (4-6), Starting on Sun05/11/24 at 0749 05/15/2024 active allopurinol (ZYLOPRIM) 100 MG tablet Take 1 tablet (100 mg total) by mouth daily. 05/15/2024 active escitalopram (LEXAPRO) tablet 10 mg Take 1 tablet (10 mg total) by mouth daily. 05/15/2024 active metoprolol tartrate (LOPRESSOR) tablet 25 mg 25 mg, Oral, 2 times daily, First dose on 05/10/24 at 0900 05/15/2024 active senna-docusate (PERICOLACE) 8.6-50 MG 1 tablet 1 tablet, Oral, 2 times daily PRN, constipation, Starting on 05/11/24 at 0746 05/15/2024 active dexamethasone (DECADRON) 4 MG/ML injection Starting on 05/10/24 at 0022, For 1 doseGabriela Rubio: cabinet override 05/15/2024 completed methotrexate 2.5 MG tablet Take 6 tablets (15 mg total) by mouth every 7 days. 05/15/2024 active folic acid (FOLVITE) tablet 1 mg 1 mg, Oral, Daily, First dose on 05/10/24 at 0900 05/15/2024 active polyethylene glycol (MIRALAX) packet 17 g 17 g, Oral, Daily as needed, other, CONSTIPATION, Starting on 05/11/24 at 0746Dissolve in 8oz of H2O, juice,soda or coffee 05/15/2024 active colchicine 0.6 MG tablet Take 1 tablet (0.6 mg total) by mouth daily. 05/15/2024 active acetaminophen (TYLENOL) 325 MG tablet Take 3 tablets (975 mg total) by mouth 3 (three) times a day as needed for pain. 05/15/2024 active dextrose (D10W) 10% bolus 125 mL [Order 1 Start] Name: dextrose (D10W) 10% bolus 125 mL Signed Summary: 125 mL, Intravenous, Administer over 10 Minutes, at 750 mL/hr, As needed, low blood sugar, Starting on 05/11/24 at 1021Hypoglycemia defined as FSG<70mg/dl. ??Use for responsive patients?WITH IV access AND unable to tolerate PO 05/15/2024 active clopidogrel (PLAVIX) 75 MG tablet TAKE 1 TABLET BY MOUTH EVERY DAY 05/15/2024 active HYDROmorphone (DILAUDID) injection 0.5 mg 0.5 mg, Intravenous, Every 3 hours PRN, severe pain (7-10), Starting on 05/10/24 at 1216Administer IV push over 2-3 minutes. 05/15/2024 active baclofen (LIORESAL) tablet 10 mg 10 mg, Oral, Once, On Sun05/09/24 at 2245, For 1 dose 05/15/2024 completed HYDROmorphone (DILAUDID) injection 1 mg 1 mg, Intravenous, Every 3 hours PRN, severe pain (7-10), Starting on Sun05/10/24 at 1216Administer IV push over 2-3 minutes. 05/15/2024 active clopidogrel (PLAVIX) tablet 75 mg 75 mg, Oral, Daily, First dose on Sun05/10/24 at 0900 05/15/2024 aborted dexamethasone (DECADRON) injection 8 mg 8 mg, Intravenous, Once, On Sun05/09/24 at 2245, For 1 dose 05/15/2024 completed HYDROmorphone (Dilaudid) 2 MG tablet Take 1 tablet (2 mg total) by mouth every 6 (six) hours as needed for pain. 05/15/2024 active Cholecalciferol (VITAMIN D-3) 1000 UNITS CAPS Vitamin D-3 1000 UNIT Oral Capsule TAKE 1 CAPSULE DAILY Refills: 0 Active 05/15/2024 aborted morphine sulfate injection 4 mg 4 mg, Intravenous, Every 4 hours PRN, severe pain (7-10), Starting on 05/10/24 at 0407 05/15/2024 aborted atorvastatin (LIPITOR) tablet 80 mg Take 1 tablet (80 mg total) by mouth every evening. 05/15/2024 active oxyCODONE (ROXICODONE) 5 MG immediate release tablet TAKE 1-2 TAB BY MOUTH UP TO EVERY 6-8 HOURS NEEDED FOR SEVERE PAIN. MAY PARTIAL FILL 05/15/2024 aborted insulin Lispro (HumaLOG) injection 1-6 Units 1-6 Units, Subcutaneous, 3 times daily before meals, First dose on 05/11/24 at 1130LOW CORRECTIONAL DOSE?? ------??(Elderly or insulin sensitive patient or ??insulin TDD is less than 43 units )?? ---??Blood Gluc 05/15/2024 active methocarbamol (ROBAXIN) tablet 750 mg 750 mg, Oral, 3 times daily PRN, muscle spasms, Starting on 05/10/24 at 0630 05/15/2024 active sodium chloride 0.9% (NS) infusion 75 mL/hr, Intravenous, Continuous, Starting on 05/10/24 at 1230, For 12 hours 05/15/2024 completed amLODIPine (NORVASC) tablet 10 mg Take 1 tablet (10 mg total) by mouth daily. 05/15/2024 active cephalexin (Keflex) capsule 500 mg 500 mg, oral, Once, On 04/08/24 at 1133, For 1 dose, Indication: Other, Specify: open fx, Type of Therapy: New Therapy 04/10/2024 completed cephalexin (Keflex) 500 mg capsule Take 1 capsule (500 mg total) by mouth 3 (three) times a day for 5 days. 04/10/2024 active traMADol (ULTRAM) 50 MG tablet 03/29/2024 active doxycycline (ADOXA) 100 MG tablet TAKE 1 TABLET BY MOUTH 2 TIMES A DAY FOR 14 DAYS 03/29/2024 active allopurinol (ZYLOPRIM) 100 MG tablet Take 1 tablet (100 mg total) by mouth daily. 01/26/2024 active colchicine 0.6 MG tablet Take 1 tablet (0.6 mg total) by mouth daily. 01/26/2024 active folic acid (FOLVITE) 1 MG tablet Take 1 tablet (1,000 mcg total) by mouth daily. 03/19/2023 active clopidogrel (PLAVIX) 75 MG tablet Take 1 tablet (75 mg total) by mouth daily. 01/02/2024 active atorvastatin (LIPITOR) tablet 80 mg Take 1 tablet (80 mg total) by mouth every evening. 10/19/2023 active predniSONE (DELTASONE) 10 MG tablet 20 mg po every day for 2 days, 15 mg po every day for 2 days, 10 mg po every day for 14 days 10/22/2023 active methotrexate (RHEUMATREX) 2.5 mg tablet TAKE 6 TABLETS BY MOUTH WEEKLY 09/10/2022 active escitalopram (LEXAPRO) 10 MG tablet Take 1 tablet (10 mg total) by mouth daily. 03/14/2023 active Cholecalciferol (VITAMIN D-3) 1000 UNITS CAPS Vitamin D-3 1000 UNIT Oral Capsule TAKE 1 CAPSULE DAILY Refills: 0 Active 10/19/2023 active atorvastatin (LIPITOR) tablet 80 mg Take 1 tablet (80 mg total) by mouth every evening. 09/10/2023 active folic acid (FOLVITE) 1 MG tablet Take 1 tablet by mouth daily. 03/14/2023 active allopurinol (ZYLOPRIM) 100 mg tablet 100 mg po qd 09/16/2023 active clopidogrel (PLAVIX) 75 MG tablet TAKE 1 TABLET BY MOUTH DAILY 09/10/2022 aborted methotrexate 2.5 MG tablet Take 6 tablets (15 mg total) by mouth every 7 days. 09/10/2023 active Cholecalciferol (VITAMIN D-3) 1000 UNITS CAPS Vitamin D-3 1000 UNIT Oral Capsule TAKE 1 CAPSULE DAILY Refills: 0 Active 10/19/2023 active atorvastatin (LIPITOR) tablet 80 mg Take 1 tablet (80 mg total) by mouth every evening. 09/10/2023 active acetaminophen (TYLENOL) 325 MG tablet Take 650 mg by mouth as needed. 09/10/2022 active amLODIPine (NORVASC) 10 MG tablet Take 1 tablet (10 mg total) by mouth daily. 09/10/2022 active amLODIPine (NORVASC) 10 MG tablet TAKE 1 TABLET BY MOUTH DAILY 01/03/2023 aborted fluticasone (FloNASE) 50 mcg/spray nasal spray DISPENSE 1 SPRAY PER NOSTRIL TWICE A DAY 07/18/2023 aborted escitalopram (LEXAPRO) tablet 10 mg Take 1 tablet (10 mg total) by mouth daily. 09/10/2023 active escitalopram (LEXAPRO) tablet 10 mg Take 1 tablet (10 mg total) by mouth daily. 10/19/2023 active amLODIPine (NORVASC) tablet 10 mg Take 1 tablet (10 mg total) by mouth daily. 09/10/2023 active folic acid (FOLVITE) tablet 1 mg Take 1 tablet (1 mg total) by mouth daily. 10/19/2023 active methotrexate 2.5 MG tablet Take 6 tablets (15 mg total) by mouth every 7 days. 10/19/2023 active folic acid (FOLVITE) tablet 1 mg Take 1 tablet (1 mg total) by mouth daily. 09/10/2023 active albuterol (PROVENTIL HFA; VENTOLIN HFA) 108 (90 Base) MCG/ACT inhaler 2 INH INHALED EVERY 6 HOURS NEEDED FOR SHORTNESS OF BREATH OR WHEEZING FOR 30 DAYS 09/16/2023 active metoPROLOL TARTRATE (LOPRESSOR) 25 MG tablet Take 1 tablet (25 mg total) by mouth 2 (two) times a day. 02/10/2023 active metoPROLOL TARTRATE (LOPRESSOR) 25 MG tablet TAKE 1 TABLET BY MOUTH TWICE DAILY 09/10/2022 aborted colchicine (COLCRYS) 0.6 mg tablet 0.6 mg po q third day or as directed 11/04/2023 active atorvastatin (LIPITOR) 80 MG tablet TAKE 1 TABLET BY MOUTH IN THE EVENING 09/10/2022 active amLODIPine (NORVASC) tablet 10 mg Take 1 tablet (10 mg total) by mouth daily. 10/19/2023 active metoprolol tartrate (LOPRESSOR) 25 MG tablet Take 1 tablet (25 mg total) by mouth 2 (two) times a day. 10/19/2023 active Cholecalciferol (VITAMIN D-3) 1000 UNITS CAPS Vitamin D-3 1000 UNIT Oral Capsule TAKE 1 CAPSULE DAILY Refills: 0 Active 09/10/2023 active cholecalciferol (VITAMIN D3) 1000 units capsule Vitamin D-3 1000 UNIT Oral Capsule TAKE 1 CAPSULE DAILY Refills: 0 Active 09/10/2022 active clopidogrel (PLAVIX) 75 MG tablet TAKE 1 TABLET BY MOUTH EVERY DAY 10/19/2023 active clopidogrel (PLAVIX) 75 MG tablet TAKE 1 TABLET BY MOUTH EVERY DAY 09/10/2023 active metoprolol tartrate (LOPRESSOR) 25 MG tablet Take 1 tablet (25 mg total) by mouth 2 (two) times a day. 09/10/2023 active folic acid (FOLVITE) 1 MG tablet TAKE 1 TABLET BY MOUTH DAILY 09/10/2022 active escitalopram (LEXAPRO) 10 MG tablet 09/10/2022 active Problems Problem Status Onset Date Problem Type Date of Resolution Source Open displaced fracture of distal phalanx of left index finger, initial encounter active EncounterDiagnosisAct CTMDSX H Type 2 diabetes mellitus active 2024-07-20 ProblemAct CTTHNEMG Inadequate oral intake active EncounterDiagnosi sAct CTTHNEMG Anemia active EncounterDiagnosisAct CTTHNEMG Spondylolisthesis of lumbar region active EncounterDiagnosisAct CTTHN EMG Elevated random blood glucose level active EncounterDiagnosisAct CTTHN EMG Weight loss active 2021-04-15 ProblemAct CTTHSF RAN Thoracic ascending aortic aneurysm active 2017-12-06 ProblemAct CTTHSFRAN Arrhythmia active ProblemAct CTTHSFRA N Hyperlipidemia active ProblemAct CTTH SFRAN 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 active ProblemAct CTTHSFRAN Nocturia active ProblemAct CTTHSFRAN Impaired fasting glucose active 2015-03-25 ProblemAct CTTHSFRAN Localized osteoporosis with current pathological fracture with delayed healing active 2024-07-20 ProblemAct CTTHSFR AN Stage 3 chronic kidney disease active 2020-07-11 ProblemAct CTTHSFRAN Gout active 2024-07-20 ProblemAct CTTHSFRA N MGUS (monoclonal gammopathy of unknown significance) active 2015-03-25 ProblemAct CTTHSFRAN Gynecomastia, male active 2022-04-14 ProblemAct CTTHSFRAN Tinnitus active ProblemAct CTTHSFRAN Abnormal blood chemistry active 2015-03-25 ProblemAct CTTHSFRAN Myelodysplastic syndrome active 2014-09-18 ProblemAct CTTHSFRAN Intractable pain active 2024-05-26 ProblemAct C TTHSFRAN Acute respiratory failure with hypoxia active 2020-07-09 ProblemAct CTTHSFR AN Disorder of skin and subcutaneous tissue active 2015-03-25 ProblemAct CTTHSFRA N Interstitial lung disease active 2024-07-20 ProblemAct CTTHSFRAN 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-30 ProblemAct CTTHSFRAN Epistaxis active 2018-02-19 ProblemAct CTTHSFRA N Atherosclerotic heart disease of [place] coronary artery without angina pectoris active 2024-07-30 ProblemAct CTTHSFRAN Hypertension active 2015-03-25 ProblemAct CTTHS SALVADOR Bilateral hand swelling active 2017-01-01 ProblemAct CTTHSFRAN Impotence of organic origin active 2015-03-25 ProblemAct CTTHSFRAN Back pain of thoracolumbar region active 2024-05-10 ProblemAct CTTHSFR AN Diabetes mellitus without complication active 2024-07-30 ProblemAct CTTHSFR AN Obstructive sleep apnea active 2019-10-31 ProblemAct CTTHSFRAN 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 ProblemAct CTTHSFRAN Spinal stenosis active 2024-07-29 ProblemAct [address] THSFRAN Back pain active 2024-05-26 ProblemAct CTTHSFRA N Aortic regurgitation active 2024-07-20 ProblemAct CTTHSFRAN Inflammatory arthritis active 2020-04-30 ProblemAct CTTHSFRAN Thrombocytopenia active 2024-07-23 ProblemAct C TTHSFRAN Lung nodule active 2017-02-14 ProblemAct CTTHSF RAN GERD (gastroesophageal reflux disease) active 2024-07-30 ProblemAct CTTHSFRAN Hypertension active 2014-09-18 ProblemAct [facility] Obstructive sleep apnea syndrome active 2014-09-18 ProblemAct [facility] Still's disease active 2023-03-09 ProblemAct [facility] Chronic myelomonocytic leukemia in remission active 2023-03-10 ProblemAct [facility] Gout, unspecified cause, unspecified chronicity, unspecified site active EncounterDiagnosisAct [facility] AVD (aortic valve disease) active 2017-12-06 ProblemAct [facility] Immunosuppression active 2023-07-13 ProblemAct [facility] Osteoporosis, unspecified osteoporosis type, unspecified pathological fracture presence active EncounterDiagnosisAct [facility] Thoracic ascending aortic aneurysm active 2017-03-23 ProblemAct [facility] Renal insufficiency active EncounterDiagnosisAc t [facility] High risk medication use active EncounterDiagnosisAct [facility] Interstitial lung disease active 2023-03-10 ProblemAct [facility] Presence of aortocoronary bypass graft active 2020-07-09 ProblemAct [facility] 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
--- NOTE | 2024-11-12 08:51 | PFT_ITS ---
Flows: FEV1: 98 % of predicted at 2.65 L FVC: 86 % of predicted at 3.10 L FEV1/FVC: 86 % Bronchodilator response: Absent Volumes: Total lung capacity: 65 % of predicted at 4.15 L Residual volume: 43 % of predicted at 1.05 L Slow vital capacity: 82 % of predicted at 3.10 L Expiratory reserve volume: 47 % of predicted at 0.49 L Diffusion capacity: Moderately decreased, adjusts to being mildly decreased after correction for alveolar ventilation. Impression: Mild restrictive ventilatory defect with no bronchodilator response. Decreased expiratory reserve volume suggests extrathoracic restriction likely secondary to abdominal obesity. Combination of restrictive ventilatory defect with decreased diffusion capacity suggests underlying pulmonary parenchymal disease. Clinical correlation is advised. MTDD
== END 2024-11-12 08:44 | disposition home or self-care (01) ==
LOC: HO.RESP 08:43
PROVIDERS: PCP Internal Medicine; Visit Provider Hospitalist
DX: J98.4 Other disorders of lung (principal); R91.8 Other nonspecific abnormal finding of lung field; R06.00 Dyspnea, unspecified
CPT/HCPCS: 94010; 94640; 94727; 94729; 99212

== ENCOUNTER 2024-11-12 09:28 | Outpatient (AMB) | payer MEDICARE, SELFPAY ==
[2024-11-12 09:29] VITALS: BP 140/68; PULSE 62; O2SAT 97; BMI 27.2
--- NOTE | 2024-11-12 09:29 | MHC.OFFVIS ---
Vital Signs 11/12/24 09:29 Height 5 ft 9 in Weight 184 lb 1.376 oz BMI 27.2 BP 140/68 H Blood Pressure Location Rt brachial Position Sitting Pulse 62 Pulse Source Pulse Oximeter Pulse Oximetry (%) 97 Oxygen Delivery Method Room Air Intake Visit Reasons: Cough Allergies aspirin Allergy (Mild, Verified 11/12/24 09:30) Swollen HPI Comments Details: The patient is a 78-year-old gentleman known CMML in addition to adult onset Still's disease with some underlying interstitial lung disease. He had developed significant pleuritis with a pleural effusion in significant pleuritic pain. At that time he responded well to prednisone. He was then tried on an IL 1 inhibitor. After no significant improvement he was referred to [place]. There he had had a gamma testing including CT scans and PFTs which I do not have the results. But the recommendation was for him to start methotrexate. The patient has been on methotrexate 6 tablets weekly and has felt much better. Recently signs instructional interventionist and he was able to decrease his prednisone from 5 mg to 2.5. The last time that he had a CT scan available that I could appreciate was back in April 2018. It did demonstrate evidence of ground-glass opacities and interstitial lung disease. At this point the patient is re-imaging and further lung testing to assess his lung capacity. His chest pain overall is a lot better. 05/10/2022 the patient is here for a pulmonary follow-up visit. Overall the patient has been doing well. Denies any significant chest discomfort or shortness of breath. Denies any significant coughing. He is hoping to meet his new instructional interventionist soon. He continues on the methotrexate 6 tablets weekly. His primary care doctor has been prescribing it for now. The methotrexate appears to be hoping with the pleuritic discomfort that he had in the past suggesting that it was also related to the inflammatory process. In addition to that he did have a repeat CT scan of the chest done at [facility]. This CT scan was compared to a CT scan had back in July 2021. There appears that he has multiple pulmonary nodules in based on therapies his P has been 2020 there is no significant changes in the pulmonary nodules measuring 7 mm. Initially had a cardiac CT scan demonstrating a pulmonary nodule measuring 8 mm. Therefore likely that this was all related to the technique and the measuring of the nodules. Ideally a volumetric approach we more effective. 05/22/2023 the patient is here for pulmonary follow-up visit. It has been bout a year since we last spoke. The patient describes dyspnea on exertion. [id number] severity. Specially with going up a flight of stairs. He does continue on the methotrexate for his Still's disease. The patient did have crackles before examination he still has not. We did go for brief walking oximetry is oxygen did drop to the low 90s on 91-92% with activity. It quickly improves when he rested. His last CT scan of the chest was done at [facility] demonstrating interstitial changes at the bases. The patient also has pulmonary nodules. Will go ahead and repeat his CT scan now in view of the worsening symptoms. In addition to that will go ahead and request pulmonary function studies to further address his lung capacity at this time. 08/22/2023 the patient is here for pulmonary follow-up visit. The patient continues to be about the same. Still complaining of dyspnea on exertion. Moderate severity. He does not use any inhalers. The patient did undergo pulmonary function studies. Demonstrates that he has a slight interval worsening of the restrictive ventilatory defect. He did have a CT scan of the chest demonstrating that his pulmonary fibrosis has not progressed which is reassuring. Still with worsening findings on PFTs need to monitor closely. He is on the methotrexate that he uses for his inflammatory arthritis. No evidence of any methotrexate induced pulmonary toxicity. Then be a component of body habitus as he is gained weight and that possibly is also affecting his total lung capacity. Still the patient will benefit from pulmonary rehabilitation. He is willing to start rehab at this time. Although he is driving from [place] so he rather go to [facility]. Will also provide him with a short-acting beta agonist that he can use as needed. 10/08/2023 the patient is here for hospital follow-up visit. The patient has been doing well. We had evaluated him just in August and he was at baseline. Have been new methotrexate. Unfortunately developed acute respiratory failure. The patient was taken to [facility] where he was admitted to the hospital requiring oxygen. The patient did have a CT scan of the chest demonstrating significant ground-glass opacities consistent with an alveolar filling process. He did undergo an echocardiogram with a dilated left atrium although normal ejection fraction. The patient was evaluated by Pulmonary and also Infectious Disease. The question of Pneumocystis pulmonary infection was brought up. Although felt to be less likely. An LDH was done in a beta D glucan was also checked although I do not have those results. The patient was placed on prednisone taper in addition to Levaquin. He was subsequently discharged on room air. He still feels short of breath and winded. During the evaluation he was also noted to be anemic. Therefore he will be following up with his mental health program specialist and I believe he is going to undergo a bone marrow biopsy to make sure that there is no worsening of the CMML. on further questioning he was exposed to sick contacts. My suspicion that based on the reports that this is likely viral syndrome that manifested with significant viral pneumonitis. Clinically the patient has been improving. We did go for brief walking oximetry the patient does not require any additional oxygen supplementation at this time I do believe that he is getting better. He does have some lower extremity edema. 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 After the diuresis and additional prednisone I did request the patient get an x-ray done next week. If there is any persistent opacities or any worsening opacities further intervention should take place. Otherwise if things are getting better likely this was just an infectious process that resulted in the acute changes. 01/07/2024 the patient is here for A sick visit apparently couple weeks ago he started developing worsening cough chest congestion. He was seen by his primary care doctor in prescribed prednisone and antibiotics for what was likely lower respiratory infection. Unfortunately symptoms continued to get worse. Started getting some increased shortness of breath chest tightness and he went to the ER. There he had nasal swabs done was positive for influenza A. I do not have the report%. He was given Tamiflu although because of his renal insufficiency was given a low dose and was actually already after the therapeutic window. Therefore he really did not have any significant improvement. He did call the office to be evaluated however, we could not fit him in last week so he is presenting today. Already starting to feel better. His cough significantly better. Chest congestion is better the chest tightness is also improving. He does have dyspnea on exertion mild in severity. He is feels tired weak. He still has some hoarseness. On examination he does have his stable fine rales at the bases. However, appears to have more coarse crackles in the left mid lung area. This suggest a possibility of bronchopneumonia. Based on the fact that he just had flu will go ahead and give him doxycycline to treat him for postviral bacterial infection to treat both staph aureus and Streptococcus. The patient otherwise does not need any additional prednisone which is reassuring. He is reluctant to do so. On further questioning he is dealing with gout. We did go over the low purine diet to minimize on the uric acid buildup. He is also taking medications for. The patient also continues on the methotrexate for his underlying connective tissue disease. In regards of his leukemia appears to be stable although he is going to be referred to [place] to start prophylactic treatment in view of his ongoing findings of anemia and other risk factors. 07/09/2024 the patient is here for a pulmonary follow-up visit. The patient has been complaining of significant back pain. Initially he underwent kyphoplasty but it did not help him. Now he is scheduled to undergo back surgery at [facility] in the coming weeks. In the meantime he was diagnosed with pneumonia several months ago. He did have a chest x-ray as an outpatient. I do not have those results. He was treated as an outpatient and did not have to be admitted to the hospital. He is feeling better although he still having some chest congestion. Also noticed to have some shortness of breath with activity. But a lot of it has to do with deconditioning. He has also lost significant amount of weight because of the back pain. From a hematological standpoint the patient has followed closely with oncology. No evidence of any active issue per report. In regards to the pulmonary fibrosis the patient continues to have crackles on examination which is chronic for him. We did go for brief walking oximetry in the office in his oxygenation was 98% with activity which is extremely reassuring. We will start respiratory inhalers see if this provides some relief prior to surgery. 09/19/2024 the patient is here for a pulmonary follow-up visit. Since we last spoke the patient did undergo kyphoplasty and also a pain stimulator for his back. After this the procedure the patient is started developing worsening shortness of breath. He was initially placed on Symbicort and also rescue inhaler in his breathing did get a little better. Ultimately still had shortness of breath with activity. Moderate severity. He had a full cardiac workup including a transesophageal echo to further address the aortic valve disease. [place] that it was moderate severity but did not need surgery. During the office we did a walking oximetry again in his oxygen did drop to about 94% this time. He did have a CTA done on 09/15/2024. I do not have the images just the report. Appears that he has multiple defects suggesting small peripheral subsegmental pulmonary emboli. Ultimately underwent ultrasounds of the lower extremities ruled out DVT no other evidence of disease. The clots were from to be too small to likely be contributing to his symptoms. Although likely is multifactorial. My suspicion is that he could have had cement related pulmonary emboli from his kyphoplasty. Based on the CTA report was more awake question was not completely clear if indeed that was the case. Therefore will go ahead and request an urgent V/Q scan to better assess if there is any evidence of any significant V/Q mismatch to suggest more inclination to treat him with anticoagulation. If he is treated with anticoagulation would only be for 3 months and then reassess with a repeat V/Q scan. In the meantime since he responded well to the Symbicort will go ahead and add in additional long-acting bronchodilator, Spiriva. I did teach him how to use it. He will start using it to see if this provides some additional relief. He continues on the methotrexate. He has already had issues with compression fractures will hold off on prednisone at this time. 11/12/2024 the patient is here for pulmonary follow-up visit. Overall he is feeling a little better. The patient is using the Trelegy inhaler with good effect. Still has not dyspnea on exertion [id number]-[id number] severity. He did undergo the V/Q scan which demonstrated low probability for PE. Therefore no evidence of thromboembolic disease to be concerned about at this time. 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 He did undergo pulmonary function study today which we personally reviewed. There appears that his total lung capacity is stable at 65% for him and his diffusing capacities 47%. This is very consistent with the numbers that he had back couple years ago which is very reassuring. He does have underlying daytime drowsiness. His Adkins score is elevated 09/28. He has cardiovascular risk factors. The patient has had a history of sleep apnea in the past although he no longer uses PAP therapy. Will go ahead and repeat a sleep study to see if he still has underlying sleep apnea and see the severity. If so, we can talk about different alternative therapies. The patient is wondering about the hypoglossal nerve stimulator. He has also tried mandibular devices in the past. In addition to his PAP therapy in the past as well. as so so you very the MBC maybe less is more okay she will in [facility] Medical History (Updated 11/12/24 @ 09:41 by Matthew Fonseca MD) CON (obstructive sleep apnea) Pulmonary emboli Pneumonia Pneumonitis Personal history of nicotine dependence Thoracic aortic aneurysm HLD (hyperlipidemia) HTN (hypertension) CAD (coronary artery disease) CMML (chronic myelomonocytic leukemia) (~2013) Still's disease of adult (~2018) Dyspnea Pulmonary nodules ILD (interstitial lung disease) Surgical History (Updated 02/10/22 @ 11:09 by Aleshia Tejada PA-C) History of coronary artery bypass graft x 3 (~2019) Social History Patient Tobacco Use Status: Former Tobacco user Tobacco use type: Cigarette Years Smoked: 15 years Review of Systems Const Reports fatigue and Denies night sweats ENT Denies change in voice, Reports hoarseness, Denies mouth pain, Reports nasal congestion and Reports nasal discharge Card Denies chest pain, Reports dyspnea and Reports dyspnea on exertion Resp Reports cough, Denies pain on inspiration, Reports dyspnea and Reports dyspnea on exertion GI Denies abdominal pain Musc Denies no additional complaints Neuro Denies Neuro-related abnormal movements Psych Denies no additional complaints Endo Reports fatigue Chris/Lymph Denies easy bleeding and Denies lymphadenopathy Physical Exam Vital Signs: Last Vital Signs Pulse 62 11/12/24 09:29 BP 140/68 H 11/12/24 09:29 Pulse Ox 97 11/12/24 09:29 Oxygen Delivery Method Room Air 11/12/24 09:29 BMI result Body Mass Index 27.2 Const General: alert Neck Neck: Yes normal visual inspection, Yes full ROM and Yes no lymphadenopathy Chest Chest palpation & inspection: normal inspection of the chest Resp Effort & Inspection: normal respiratory effort Auscultation: crackles on the left in the mid lung rachel, rales bilateral at the base and diminished lung sounds Cardio Rate: regular rate Rhythm: regular rhythm Heart sounds: S1 normal heart sound present and S2 normal heart sound present GI Palpation (GI): Soft to palpation and nontender Auscultation: normal bowel sounds General: Yes no CVA tenderness Back/Spine/Pelvis Back: no CVA tenderness Skin General skin exam: rashes and/or lesions noted Assessment & Plan Assessment & Plan (1) Pneumonitis: Code(s): J98.4 - Other disorders of lung Category: Medical (2) Pulmonary nodules: Code(s): R91.8 - Other nonspecific abnormal finding of lung field Category: Medical (3) ILD (interstitial lung disease): Comment: Interval worsening after his CABG Code(s): J84.9 - Interstitial pulmonary disease, unspecified Category: Medical (4) Dyspnea: Code(s): R06.00 - Dyspnea, unspecified Category: Medical Qualifiers: Dyspnea type: dyspnea on exertion Qualified Code(s): R06.00 - Dyspnea, unspecified (5) Still's disease of adult: Onset Date: ~2017 Code(s): M06.1 - Adult-onset Still's disease Category: Medical (6) Pulmonary emboli: Comment: suspect cement pulmonary emboli Code(s): I26.99 - Other pulmonary embolism without acute cor pulmonale Category: Medical Qualifiers: Acute cor pulmonale presence: without acute cor pulmonale Chronicity: unspecified Pulmonary embolism type: unspecified Qualified Code(s): I26.99 - Other pulmonary embolism without acute cor pulmonale Plan MARQUES as needed continue Trelegy VQ scan, low probability continue immunomodulator therapy F/U with heme/onc re: anemia and CMML PSG Follow-up in 4-6 months Orders: Orders RT home sleep study Today G47.33 - Obstructive sleep apnea (adult) (pediatric) Coding Level of Care Code Est Pt Level 4 (39265) Complex EM visit Add On G2211 Diagnoses Pneumonitis J98.4 Pulmonary nodules R91.8 ILD (interstitial lung disease) J84.9 Dyspnea on exertion R06.00 Dyspnea type: dyspnea on exertion Still's disease of adult M06.1 Pulmonary embolism without acute cor pulmonale, unspecified chronicity, unspecified pulmonary embolism type I26.99 Acute cor pulmonale presence: without acute cor pulmonale Chronicity: unspecified Pulmonary embolism type: unspecified Time Spent (min) 17
== END 2024-11-12 09:49 | disposition home or self-care (01) ==
PROVIDERS: PCP Internal Medicine; Visit Provider Hospitalist
DX: J98.4 Other disorders of lung (principal); R91.8 Other nonspecific abnormal finding of lung field; J84.9 Interstitial pulmonary disease, unspecified; R06.00 Dyspnea, unspecified; M06.1 Adult-onset Still's disease; I26.99 Other pulmonary embolism without acute cor pulmonale
CPT/HCPCS: 99214; G2211

== ENCOUNTER → 2024-12-25 09:39 | Outpatient (REF) | payer MEDICARE, SELFPAY ==
--- OUTSIDE RECORDS SUMMARY | 2024-12-25 10:29 | XMS_ITS | Encounter Summary ---
Author Organization [facility] Address [address] [place] [address] Care Team Providers Care Workplace Relations Adviser Name Role Phone Ben Goldsmith Md, MD Primary Care Provider Unav ailable Encounter Details Date Type Department Care Team Description 06/10/2018 Telephone Rheumatology - [address] [address] Elfego Alaniz MD Social History Tobacco Use Types Packs/Day Years Used Date Smoking Tobacco: Former Cigarettes 0.5 40 Smokeless Tobacco: Never Alcohol Use Standard Drinks/Week Comments No 0 (1 standard drink = 0.6 oz pur e alcohol) Sex Assigned at Date Recorded Not on file documented as of this encounter Miscellaneous Notes * Telephone Encounter - Tessa Ravi L.P.N. - 06/10/2018 1:52 PM EDT Spoke with Dr. Alaniz and the patient and he will resume both the plaquenil at 200 mg BID and the prednisone 5 mg BID.. Pt understands this and will call if it is not holding him. * Telephone Encounter - Elfego Alaniz MD - 06/10/2018 10:33 AM EDT I don't think he had been on the hydroxychloroquine long enough to allow it to work. What Is the current dose of prednisone? Dr. Alaniz * Telephone Encounter - Tessa Ravi L.P.N. - 06/10/2018 10:18 AM EDT He said he was taking the plaquenil for a week and a half and had fevers for 3 days. He took tylenol and they went away but he felt he was going backwards and stopped it. He has an appt with you on 06/26 and wonders if you want him to try something new before that visit or just talk then. documented in this encounter Plan of Treatment Not on file documented as of this encounter Visit Diagnoses Not on filedocumented in this encounter Care Teams Workplace Relations Adviser Relationship Specialty Start Date End Date Ben Goldsmith MD, MD PCP - General Internal Medicine 04/03/18 documented as of this encounter
--- OUTSIDE RECORDS SUMMARY | 2024-12-25 10:29 | XMS_ITS | Encounter Summary ---
Author Organization [facility] Address [address] [place] [address] Care Team Providers Care Gallery Or Museum Attendant Name Role Phone Ben Goldsmith Md, MD Primary Care Provider Unav ailable Reason for Visit * Reason Onset Date Comments Orders Call 09/02/2018 APPOINTMENT 09/02/2018 Encounter Details Date Type Department Care Team Description 09/02/2018 Telephone Pulmonology - [address] [place] [address] Matthew Fonseca MD Orders Call; APPOINTMENT Social History Tobacco Use Types Packs/Day Years Used Date Smoking Tobacco: Former Cigarettes 0.5 40 Smokeless Tobacco: Never Alcohol Use Standard Drinks/Week Comments No 0 (1 standard drink = 0.6 oz pur e alcohol) Sex Assigned at Date Recorded Not on file documented as of this encounter Miscellaneous Notes * Telephone Encounter - Beatriz Amezquita - 09/05/2018 10:16 AM EDT Alma Delia routed to wrong provider * Telephone Encounter - Beatriz Amezquita - 09/05/2018 10:11 AM EDT Yes, cat scan scheduled for September 11. Will let pt know. Thank you * Telephone Encounter - Nita Castellanos M.A. - 09/04/2018 3:12 PM EDT Spoke to he said patient does not need ultrasound right now he will just have the Ct done at [facility].Is that still scheduled? * Telephone Encounter - Beatriz Amezquita - 09/04/2018 9:25 AM EDT Called pt to schedule the cat scan and ultrasound. Orders for the ultrasound should be external perultrasound tech. Will call pat in pulmonary to discuss and confirm this. Thank you * Telephone Encounter - Malathi Healy - 09/03/2018 1:02 PM EDT Received call from Radiology dept in [facility] - Beatriz [phone] Spoke with patient regarding ct scan - patient did not know anything about the ct scan, however, knew about U/S order U/S order is for external, questioning this order as it is stated EXTERNAL Please review and call back to Beatriz at [phone] - [facility] * Telephone Encounter - Nita Castellanos M.A. - 09/02/2018 4:57 PM EDT Spoke to patient told him our scheduling dept will contact him to sched CT.he will be away sep 13. * Telephone Encounter - Matthew Fonseca MD - 09/02/2018 4:54 PM EDT Ok we can wait for the CT chest * Telephone Encounter - Guilherme Hartmann - 09/02/2018 2:[address] scan states it is due in September and the U/S order was placed incorrectly. It was placed asexternal and should be placed as internal. * Telephone Encounter - Guilherme Hartmann - 09/02/2018 2:35 PM EDT Patient must contact our radiology department in [place] to schedule. They should have contacted the patient to schedule a while ago. * Telephone Encounter - Nita Castellanos M.A. - 09/02/2018 9:40 AM EDT Orders are in system. * Telephone Encounter - Christian Cruz - 09/02/2018 8:49 AM EDT Please call either [phone] or [phone] * Telephone Encounter - Christian Cruz - 09/02/2018 8:48 AM EDT Chuck is calling in, states that he has been waiting for someone to call about making ultrasound and CT Scan. documented in this encounter Plan of Treatment Not on file documented as of this encounter Visit Diagnoses Not on filedocumented in this encounter Care Teams Gallery Or Museum Attendant Relationship Specialty Start Date End Date Ben Goldsmith MD, MD PCP - General Internal Medicine 04/03/18 documented as of this encounter
--- OUTSIDE RECORDS SUMMARY | 2024-12-25 10:29 | XMS_ITS | Encounter Summary ---
Author Organization [facility] Address [address] [place] [address] Care Team Providers Care Farm Planner Name Role Phone Ben Goldsmith MD Primary Care Provider Encounter Details Date Type Department Care Team (Latest Contact Info) Description 08/26/2024 9:17 AM EDT Hospital Encounter TH HISTORIC ENCOUNTERS EASTERN CONVERSION ONLY Other forms of dyspnea Social History Tobacco Use Types Packs/Day Years Used Date Smoking Tobacco: Former Cigarettes Q uit: 11/05/1994 Smokeless Tobacco: Never Alcohol Use Standard Drinks/Week Comments Yes 0 (1 standard drink = 0.6 oz pur e alcohol) Sex and Gender Information Value Date Recorded Sex Assigned at Male 09/29/2024 10:59 AM EST Legal Sex Male 1:00 PM EST Gender Identity Male 09/29/2024 10:59 AM EST Sexual Orientation Not on file documented as of this encounter Last Filed Vital Signs Vital Sign Reading Time Taken Comments Blood Pressure - - Pulse - - Temperature - - Respiratory Rate - - Oxygen Saturation - - Inhaled Oxygen Concentration - - Weight 78.9 kg (174 lb) 07/29/2024 5:37 AM EDT Height 172.7 cm (5' 8 ) 07/29/2024 5:37 AM EDT Body Mass Index 26.46 07/29/2024 5:37 AM EDT documented in this encounter Plan of Treatment Upcoming Encounters Date Type Department Care Team (Latest Contact Info) Description 02/27/2025 [facility] Hematology Oncology [address] [place] [phone] Wilton Crawford MD [address] [place] [address] 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); MGUS (monoclonal gammopathy of unknown significance) 06/22/2025 9:00 AM EDT Office Visit [facility] Hematology Oncology [address] [place] [address] Wilton Crawford MD [address] [place] [address] documented as of this encounter Procedures Procedure Name Priority Date/Time Associated Diagnosis Comments XR CHEST AP AND LAT Routine 08/26/2024 9 :34 AM EDT Other forms of dyspnea documented in this encounter Results * XR CHEST AP AND LAT (08/26/2024 9:34 AM EDT) Anatomical Region Laterality Modality Radiographic Zee ging 08/26/2024 9:16 AM EDT Narrative 08/26/2024 9:44 AM EDT Exam: X-ray chest 2 views INDICATION: Shortness of breath Patient is status post cardiac surgery. ??Tortuous thoracic aorta. ??Heart size is normal without failure. ??Increased density anteriorly on the lateral view may represent costochondral cartilage. ??Mild thickening of minor fissure. ??Mild pleural thickening. ??Spine shows kyphoplasty and lower thoracic upper lumbar compression fracture. ??Multilevel disc narrowing. ??No large pleural effusions IMPRESSION: No congestive failure visualized. ??See above Report reviewed and signed by : Dr. Fernando Arechiga on 08/26/2024 9:44 AM. Workstation Name - [id number] Procedure Note Fernando Arechiga MD - 09/01/2024 Exam: X-ray chest 2 views INDICATION: Shortness of breath Patient is status post cardiac surgery. Tortuous thoracic aorta. Heartsize is normal without failure. Increased density anteriorly on thelateral view may represent costochondral cartilage. Mild thickening ofminor fissure. Mild pleural thickening. Spine shows kyphoplasty andlower thoracic upper lumbar compression fracture. Multilevel discnarrowing. No large pleural effusions IMPRESSION: No congestive failure visualized. See above Report reviewed and signed by : Dr. 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
--- OUTSIDE RECORDS SUMMARY | 2024-12-25 10:29 | XMS_ITS | Encounter Summary ---
Author Organization [facility] Address [address] [place] [address] Care Team Providers Care Game Developer Name Role Phone Ben Goldsmith MD Primary Care Provider Encounter Details Date Type Department Care Team (Latest Contact Info) Description 08/25/2024 11:29 AM EDT Hospital Encounter TH HISTORIC ENCOUNTERS EASTERN CONVERSION ONLY Arthrodesis status Social History Tobacco Use Types Packs/Day Years [...] Care Team (Latest Contact Info) Description 02/27/2025 [facility] Hematology Oncology [address] [place] [phone] Wilton Crawford MD [address] [place] [address] 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); MGUS (monoclonal gammopathy of unknown significance) 06/22/2025 9:00 AM EDT Office Visit [facility] Hematology Oncology [address] [place] [phone] Wilton Crawford MD [address] [place] [address] documented as of this encounter Procedures Procedure Name Priority Date/Time Associated Diagnosis Comments XR LUMBAR SPINE AP \T\ LAT Routine 08/25/2024 11:54 AM EDT Arthrodesis status documented in this encounter Results * XR LUMBAR SPINE AP \T\ LAT (08/25/2024 11:54 AM EDT) Anatomical Region Laterality Modality Radiographic Zee ging 08/25/2024 11:2 8 AM EDT Narrative 08/25/2024 4:39 PM EDT EXAM: XR LUMBAR SPINE AP & LAT HISTORY: Arthrodesis status FINDINGS: Examination of the lumbar spine compared to prior study. There is been a posterior fusion L2-L4. ??Surgical hardware is intact. Prior kyphoplasty identified at L5 and L1. ??This compression of the superior endplate of T12. IMPRESSION: 1. Stable postoperative changes of the spine. Permanent images were obtained. Report reviewed and signed by : Dr. Dustin Ovalle MD on 08/25/2024 4:39 PM. Workstation Name - [id number] Procedure Note Dustin Ovalle MD - 09/01/2024 EXAM: XR LUMBAR SPINE AP & LAT HISTORY: Arthrodesis status FINDINGS: Examination of the lumbar spine compared to prior study. There is been a posterior fusion L2-L4. Surgical hardware is intact. Prior kyphoplasty identified at L5 and L1. This compression of thesuperior endplate of T12. IMPRESSION: 1. Stable postoperative changes of the spine. Permanent images were obtained. Report reviewed and signed by : Dr. Dustin Ovalle MD on 08/25/2024 4:39PM. 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
--- OUTSIDE RECORDS SUMMARY | 2024-12-25 10:29 | XMS_ITS | Encounter Summary ---
Author Organization [facility] Address [address] [place] [address] Care Team Providers Care Communication Coordinator Name Role Phone Ben Goldsmith MD Primary Care Provider + [phone] Tee Dean MD Unavailable [phone] Rafael Estevez MD Unavailable [phone] Reason for Visit * Reason Comments Other Encounter Details Date Type Department Care Team (Late st Contact Info) Description 07/22/2024 Telephone [facility] Heart & Vascular [place] [address] [place] [phone] Tee Dean MD [address] [place] [address] Other Social History Tobacco Use Types Packs/Day Years Used Date Smoking Tobacco: Former Smokeless Tobacco: Never Alcohol Use Standard Drinks/Week Comments Not Currently 0 (1 standard drink = 0.6 oz pur e alcohol) Sex and Gender Information Value Date Recorded Sex Assigned at Male 02/19/2023 9:05 AM EDT Gender Identity Male 02/19/2023 9:05 AM EDT Sexual Orientation Heterosexual (straight) 02/19 9:05 AM EDT documented as of this encounter Miscellaneous Notes * Telephone Encounter - Karli Quijano - 07/22/2024 12:50 PM EDT Chuck was seen 07/16 with Wanda, in the clearance it says he can hold plavix for 5 days. The spine surgeon would like to know it can be held for 7 days. Please amend the 07/16 note and fax to [facility] [phone] documented in this encounter Plan of Treatment Upcoming Encounters Date Type Department Care Team (Late st Contact Info) Description 01/30/2025 9:20 AM EDT Office Visit [facility] Department of Rheumatology [place] [address] [place] [phone] Natasha Allred MD [address] [place] [address] 03/12/2025 11:20 AM EDT Office Visit [facility] Heart & Vascular [place] [address] [place] [phone] Tee Dean MD [address] [place] [address] documented as of this encounter Visit Diagnoses Not on filedocumented in this encounter Care Teams Communication Coordinator Relationship Specialty Start Date End Date Ben Goldsmith MD [address] [place] [address] PCP - General Internal Medicine 07/12/21 Tee Dean MD [address] [place] [address] Primary Eyewear Consultant Cardiovascular Disease 12/24/23 Rafael Estevez MD [address] [place] [address] Surgeon Surgery, Orthopedic 07/25/24 documented as of this encounter
--- OUTSIDE RECORDS SUMMARY | 2024-12-25 10:29 | XMS_ITS | Encounter Summary ---
Author Organization [facility] Address [address] [place] [address] Care Team Providers Care Auto Winder Name Role Phone Ben Goldsmith MD Primary Care Provider + [phone] Tee Dean MD Unavailable [phone] Rafael Estevez MD Unavailable Reason for Visit * Reason Comments Medication Refill Encounter Details Date Type Department Care Team (Late st Contact Info) Description 06/26/2022 Refill [facility] Heart & Vascular [place] [address] [place] [phone] Kay Hernandez PA [address] [place], [place] [phone] Medication Refill Social History Tobacco Use Types Packs/Day Years [...] AM EDT documented as of this encounter Plan of Treatment Upcoming Encounters Date Type Department Care Team (Late st Contact Info) Description 01/30/2025 9:20 AM EDT Office Visit [facility] Department of Rheumatology [address] [place] [phone] Natasha Allred MD [address] [place], [place] [phone] 03/12/2025 11:20 AM EDT Office Visit [facility] Heart & Vascular [place] [address] [place] [address] Tee Dean MD [address] [place] [address] documented as of this encounter Visit Diagnoses Diagnosis Essential hypertension Unspecified essential hypertension documented in this encounter Care Teams Auto Winder Relationship Specialty Start Date End Date Ben Goldsmith MD [address] [place] [address] PCP - General Internal Medicine 07/12/21 Tee Dean MD [address] [place] [address] Primary Histologic Technician Cardiovascular Disease 12/24/23 Rafael Estevez MD [address] [place] [address] Surgeon Surgery, Orthopedic 07/25/24 documented as of this encounter
--- OUTSIDE RECORDS SUMMARY | 2024-12-25 10:29 | XMS_ITS | Encounter Summary ---
Author Organization [facility] Address [address] [place] [address] Care Team Providers Care Mixing And Dispensing Supervisor Name Role Phone Ben Goldsmith MD Primary Care Provider + [phone] Tee Dean MD Unavailable [phone] Rafael Estevez MD Unavailable [phone] Encounter Details Date Type Department Care Team (Late st Contact Info) Description 10/09/2022 Scanned Document [facility][note 3] Vascular [address] [phone] Rheumatology, Scan Social History Tobacco Use Types Packs/Day Years [...] Office Visit [facility] Department of Rheumatology [address] [place] [phone] Natasha Allred MD [address] [place] [address] [place] [address] 03/12/2025 11:20 AM EDT Office Visit [facility][note 3] Vascular [facility] [address] [place] [address] Tee Dean MD [address] [place] [address] documented as of this encounter Visit Diagnoses Not on filedocumented in this encounter Care Teams Mixing And Dispensing Supervisor Relationship Specialty Start Date End Date Ben Goldsmith MD [address] [place] [address] PCP - General Internal Medicine 07/12/21 Tee Dean MD [address] [place] [address] Primary Library Associate Cardiovascular Disease 12/24/23 Rafael Estevez MD [address] [place] [address] Surgeon Surgery, Orthopedic 07/25/24 documented as of this encounter
--- OUTSIDE RECORDS SUMMARY | 2024-12-25 10:29 | XMS_ITS | Clinical Summary ---
Author Organization [facility] Address [address] [place] [phone] Phone Care Team Providers Care Nursing Information Systems Coordinator Name Role Phone Ben Goldsmith MD Primary Care Provider Allergies Active Allergy Reactions Criticality Noted Date Comments Aspirin Swelling High 09/18/2014 Lip swelling Lip swelling Medications glucose blood test strip FREESTYLE LITE For Home blood glucose monitoring 05/14/20 24 Active freestyle 28 gauge lancets For blood glucose monitoring to prick finger 05/14/20 24 Active acetaminophen (TYLENOL) 325 mg tablet Take 3 tablets (975 mg total) by mouth 3 times daily as needed (pain). 05/13/20 24 Active allopurinoL (ZYLOPRIM) 100 mg tablet Take 1 tablet (100 mg total) by mouth 1 (one) time each day. Active amLODIPine (NORVASC) 10 mg tablet Take 1 tablet (10 mg total) by mouth 1 (one) time each day. 12/27/19 21 Active atorvastatin (LIPITOR) 80 mg tablet Take 1 tablet (80 mg total) by mouth 1 (one) time each day in the evening. 12/03/19 21 Active cholecalcifero l (VITAMIN D-3) 25 mcg (1,000 unit) capsule Take 1 capsule (1,000 Units total) by mouth 1 (one) time each day. Active clopidogreL (PLAVIX) 75 mg tablet Take 1 tablet (75 mg total) by mouth 1 (one) time each day. 11/11/19 21 Active escitalopram (LEXAPRO) 10 mg tablet Take 1 tablet (10 mg total) by mouth 1 (one) time each day. Active folic acid (FOLVITE) 1 mg tablet Take 1 tablet (1 mg total) by mouth 1 (one) time each day. 07/08/20 21 Active methotrexate 2.5 mg tablet Take 6 tablets (15 mg total) by mouth every 7 days. 09/26/20 21 Active metoprolol tartrate (LOPRESSOR) 25 mg tablet Take 1 tablet (25 mg total) by mouth 2 (two) times a day. 08/12/20 20 Active polyethylene glycol (MIRALAX) 17 gram packet Take 17 g by mouth 1 (one) time each day if needed for constipation. 05/13/20 24 Active senna-docusate (PERICOLACE) 8.6-50 mg per tablet Take 1 tablet by mouth 2 times daily as needed for constipation. 05/13/20 24 Active budesonide-for moteroL (SYMBICORT) 160-4.5 mcg/actuation inhaler 2 PUFF INHALED 2 TIMES A DAY FOR 30 DAYS 09/01/20 24 Active fluticasone-um eclidinium-edmundo anterol (TRELEGY ELLIPTA) 200-62.5-25 mcg inhaler 10/14/20 24 Active alcohol swabs pads, medicated Use to clean finger prior to blood glucose monitoring 05/14/20 24 025 Discontinued Active Problems Problem Noted Date Diagnosed Date Erectile disorder due to medical condition in ma le patient 07/21/2024 Tinnitus 07/21/2024 Nocturia 07/21/2024 Type 2 diabetes mellitus 07/21/2024 Gout 07/21/2024 Hyperlipidemia 07/21/2024 Inflammatory arthritis 07/21/2024 Interstitial lung disease 07/21/2024 Back pain 05/26/2024 Intractable pain 05/26/2024 Acute midline low back pain without sciatica 04/2024 Back pain of thoracolumbar region 05/10/2024 Gynecomastia, male 04/14/2022 Weight loss 04/15/2021 Acute diastolic (congestive) heart failure 07/11 Stage 3 chronic kidney disease 07/11/2020 Acute respiratory failure with hypoxia 0 History of coronary artery bypass graft x 3 02/2020 CAD, multiple vessel 07/06/2020 Anemia in stage 3 chronic kidney disease 020 Obstructive sleep apnea 10/31/2019 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 Pos BRIT - negative ANCA, anti-DS DNA, anti-RYDER, Lyme Ab Prednisone and hydroxychloroquine started 05/22 Methotrexate started 03/23 Aneurysm of thoracic aorta 03/23/2017 Lung nodule 02/14/2017 Bilateral hand swelling 12/21/2016 Abnormal blood chemistry 03/25/2015 CMML (chronic myelomonocytic leukemia) 5 Overview (07/21/2024): Dx ~ 2013. No treatment needed so far Disorder of skin and subcutaneous tissue 015 Impotence of organic origin 03/25/2015 Hypertension 03/25/2015 Impaired fasting glucose 03/25/2015 MGUS (monoclonal gammopathy of unknown significa nce) 03/25/2015 Encounters Date Type Department Care Team Description 12/22/2024 10:15 AM EST Office Visit [facility] Hematology Oncology [address] [place] [phone] Idalia-IWilton ashley MD 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) (Primary Dx); MGUS (monoclonal gammopathy of unknown significance); Back pain of thoracolumbar region; Interstitial lung disease (CMS/HCC); Obstructive sleep apnea 12/05/[address] 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 Xray [address] [place] [phone] Other pulmonary embolism without acute cor pulmonale (CMS/HCC) Discharge Disposition: Home or Self Care 09/29/2024 11:03 AM EST - 09/29/2024 11:59 PM EST Hospital Encounter [facility] Nuclear Medicine [address] [place] [phone] Other pulmonary embolism without acute cor pulmonale (CMS/HCC) Discharge Disposition: Home or Self Care from Last 3 Months Immunizations Name Administration Dates Next Due Pfizer SARS-CoV-2 COVID-19, mRNA, LNP-S, preservative free 07/15/2021 Surgical History Surgery Date Site/Laterality Comments APPENDECTOMY 1956 PROCEDURE:APPENDECTOMY COLONOSCOPY 08/24/2016 N/A PROCEDURE:COLONOSCOPY;COMMENT :Procedure: COLONOSCOPY; Surgeon: Dirk Pereyra MD; Location: [facility]; Service: Gastroenterology; Laterality: N/A; CARDIAC CATHETERIZATION 07/06/2020 Right PROCEDURE:CARDIAC CATHETERIZATION;COMMENT:Proce dure: LEFT HEART CATHETERIZATION; Surgeon: Mike Martínez MD; Location: [facility] CARDIAC [facility]; Service: Cardiology; Laterality: Right; CARDIAC CATHETERIZATION 07/06/2020 Right PROCEDURE:CARDIAC CATHETERIZATION;COMMENT:Proce dure: CARDIAC CATHETERIZATION; Surgeon: Mike Martínez MD; Location: [facility] CARDIAC [facility]; Service: Cardiology; Laterality: Right; CORONARY ARTERY BYPASS GRAFT 07/09/2020 Anterior PROCEDURE:CORONARY ARTERY BYPASS GRAFT;COMMENT:Procedure: CORONARY ARTERY BYPASS GRAFTING - ON PUMP X3 STERNOTOMY, RUELAS; Surgeon: Mata Amaral MD; Location: [facility] CARDIAC OPERATING ROOM; Service: Cardiovascular; Laterality: Anterior; OTHER SURGICAL HISTORY 07/09/2020 N/A PROCEDURE:TRANSESOPHAGEAL ECHOCARDIOGRAM (ENID) (CONTRAST/3D PRN);COMMENT:Procedure: TRANSESOPHAGEAL ECHOCARDIOGRAPHY; Surgeon: Mata Amaral MD; Location: [facility] CARDIAC OPERATING ROOM; Service: Cardiovascular; Laterality: N/A; VEIN SURGERY 07/09/2020 Right PROCEDURE:VEIN SURGERY;COMMENT:Procedure: HARVEST SAPHENOUS VEIN Endoscopic; Surgeon: Mata Amaral MD; Location: [facility] CARDIAC OPERATING ROOM; Service: Cardiovascular; Laterality: Right; KYPHOSIS SURGERY 05/13/2024 N/A PROCEDURE:KYPHOSIS SURGERY;COMMENT:Procedure: L 1 KYPHOPLASTY LUMBAR SPINE 1 VERTEBRAL BODY; Surgeon: Rafael Estevez MD; Location: [facility] [place] ([facility]); Service: Spine; Laterality: N/A; LUMBAR FUSION 05/29/2024 PROCEDURE:LUMBAR FUSION;COMMENT:PLANS TO BE DONE ON 07/29/24 Procedure: L 2-3, L3-4 FUSION SPINE LUMBAR POSTERIOR 2 LEVELS; Surgeon: Rafael Estevez MD; Location: [facility] ([facility]); Service: Spine;; LUMBAR FUSION 05/29/2024 PROCEDURE:LUMBAR FUSION;COMMENT:PLANS TO BE DONE ON 07/29/24 KYPHOSIS SURGERY 05/29/2024 Posterior PROCEDURE:KYPHOSIS SURGERY;COMMENT:Procedure: L 5 KYPHOPLASTY LUMBAR SPINE 1 VERTEBRAL BODY; Surgeon: Rafael Estevez MD; Location: [facility] ([facility]); Service: Spine; Laterality: Posterior; CERVICAL LAMINECTOMY 05/29/2024 PROCEDURE:CERVICAL LAMINECTOMY;COMMENT:PATIENT STATES HE HAS NEVER HAD NECK SURGERY. Procedure: LAMINECTOMY, FACETECTOMY, AND FORAMINOTOMY ADDITIONAL VERTEBRAL SEGMENT CERVICAL; Surgeon: Rafael Estevez MD; Location: [facility] ([facility]); Service: Spine;; AUTOGRAFT/SPINE SURGERY 05/29/2024 N/A PROCEDURE:AUTOGRAFT/SPINE SURGERY;COMMENT:Procedure: AUTOGRAFT BONE SPINE; Surgeon: Rafael Estevez MD; Location: [facility] ([facility]); Service: Spine; Laterality: N/A; LUMBAR FUSION 07/29/2024 Left Lateral PROCEDURE:LUMBAR FUSION;COMMENT:Procedure: L2-3, L3-4 FUSION SPINE LUMBAR - DLIF 2 INTERSPACES; Surgeon: Rafael Estevez MD; Location: [facility] ([facility]); Service: Spine; Laterality: Left Lateral; LUMBAR FUSION 07/29/2024 Posterior PROCEDURE:LUMBAR FUSION;COMMENT:Procedure: L2-3, L3-4 FUSION SPINE LUMBAR POSTERIOR MINIMALLY INVASIVE; Surgeon: Rafael Estevez MD; Location: [facility] ([facility]); Service: Spine; Laterality: Posterior; LUMBAR LAMINECTOMY 07/29/2024 Posterior PROCEDURE:LUMBAR LAMINECTOMY;COMMENT:Procedure : L2 - L4 LAMINECTOMY / DECOMPRESSION POSTERIOR LUMBAR 2 LEVELS MINIMALLY INVASIVE; Surgeon: Rafael Estevez MD; Location: [facility] ([facility]); Service: Spine; Laterality: Posterior; Medical History Medical History Date Comments Hypertension DX:Hypertension 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 DX: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 Tinnitus DX:Tinnitus Leukemia ([facility]) 08/18/2014 DX:Leukemia ( [facility]);COMMENT:CMML-2 Vitamin D deficiency DX:Vitamin D deficiency Depression DX:Depression Abnormal ECG DX:Abnormal ECG Aneurysm ([facility]) DX:Aneurysm ( [facility]) Arrhythmia DX:Arrhythmia Coronary artery disease DX:Coron kari artery disease Hyperlipidemia DX:Hyperlipidemi a Sleep apnea DX:Sleep apnea;C OMMENT:not usiing does use mouth peice at night Nocturia DX:Nocturia Interstitial lung disease ([facility]) 07/20/2024 DX:Interstitial lung disease ([facility]) Gout 07/20/2024 DX:Gout Type 2 diabetes mellitus ([facility]) 07/20/2024 DX:Type 2 diabetes mellitus ([facility]) Family History Medical History Relation Name Comments Coronary artery disease Father Diabetes Father Throat cancer Father Hypertension Mother Breast cancer Neg Hx Relation Name Status Comments Father (Age 72) Mother (Age 102) old age Social History Tobacco Use Types Packs/Day Years Used Date Smoking Tobacco: Former Cigarettes Q uit: 11/05/1994 Smokeless Tobacco: Never Tobacco Cessation:Counseling Given: Not Answered Alcohol Use Standard Drinks/Week Comments Yes 0 (1 standard drink = 0.6 oz pur e alcohol) Sex and Gender Information Value Date Recorded Sex Assigned at Male 09/29/2024 10:59 AM EST Legal Sex Male 1:00 PM EST Gender Identity Male 09/29/2024 10:59 AM EST Sexual Orientation Not on file Obstetrics History Last Filed Vital Signs Vital Sign Reading Time Taken Comments Blood Pressure 142/68 12/22/2024 10:15 AM EST Pulse 62 12/22/2024 10:15 AM EST Temperature 36.4 ??C (97.6 ??F) 12/22/2024 10:[address] Respiratory Rate - - Oxygen Saturation 97% 12/22/2024 10:15 AM EST Inhaled Oxygen Concentration - - Weight 86.2 kg (190 lb) 12/22/2024 10:15 AM EST Height 172.7 cm (5' 8 ) 07/29/2024 5:37 AM EDT Body Mass Index 28.89 07/29/2024 5:37 AM EDT Plan of Treatment Upcoming Encounters Date Type Department Care Team (Latest Contact Info) Description 02/27/[address] [facility] Hematology Oncology [address] [place] [phone] Wilton Crawford MD [address] [place] [phone] 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); MGUS (monoclonal gammopathy of unknown significance) 06/22/2025 9:00 AM EDT Office Visit [facility] Hematology Oncology [address] [place] [phone] Wilton Crawford MD [address] [place] [phone] Health Maintenance Due Date Last Done Comments Diabetes: Annual Foot Exam 1957 Diabetes: Annual Retina Eye Exam 1955 DTaP,Tdap,and Td Vaccines (1 - Tdap) 1966 Pneumococcal Vaccine: 50+ Years (1 of 2 - PCV) 1966 Zoster Vaccines (1 of 2) 1966 Depression Screening 10/12/2022 Falls Risk Assessment 10/12/2022 Medicare Annual Wellness Visit 10/12/2022 Social Influencers of Health Screening 10/12/2022 RSV Immunization Patients 60+ Years Old (1 - 1-dose 75+ series) 2022 COVID-19 Vaccine ( season) 2024 04/26/2022, 07/15/2021, 12/09/2020, Additional history exists Influenza Vaccine (#1) 2024 07/23/2020, 2018 Diabetes: Annual Urine Albumin-Creatinine Ratio (uACR) 07/21/2024 Diabetes: Blood Sugar Control Test (HGBA1C) 01/19/2025 07/22/2024, 07/22/2024, 05/11/2024, Additional history exists Diabetes: Annual GFR (Glomerular Filtration Rate) 12/17/2025 12/17/2024, 08/27/2024, 08/04/2024, Additional history exists Hypertension/CHF/CAD Annual BMP Blood Test 12/17/2025 12/17/2024, 08/27/2024, 08/04/2024, Additional history exists Cholesterol Screening (Lipid Panel) 09/11/2028 09/11/2023, 07/07/2020, 03/13/2019, Additional history exists Hepatitis C Screening Completed 09/11/2018 HIB Vaccines Aged Out No longer eligi ble based on patient's age to complete this topic HPV Vaccines Aged Out No longer eligi ble based on patient's age to complete this topic Hepatitis A Vaccines Aged Out No long er eligible based on patient's age to complete this topic Hepatitis B Vaccines Aged Out No long er eligible based on patient's age to complete this topic IPV Vaccines Aged Out No longer eligi ble based on patient's age to complete this topic MMR Vaccines Aged Out No longer eligi ble based on patient's age to complete this topic Meningococcal ACWY Vaccine Aged Out N o longer eligible based on patient's age to complete this topic Meningococcal B Vacine Aged Out No lo nger eligible based on patient's age to complete this topic RSV Immunization Patients Under 20 months Aged Out No longer eligible based on patient's age to complete this topic Varicella Vaccines Aged Out No longer eligible based on patient's age to complete this topic Medical Devices Implanted Type Area Driller And Reamer Device Identifier Shelf Expiration Date Model / Serial / Lot Surgiflo Hemostatic Matrix [facility] [id number] Implanted:Qty: 1 on 07/29/2024 by Rafael Estevez MD Implants Left: Spine Lumbar Imelda [employer] 01/17/2026 [id number] / / [id number] ++Dnu+Disc Use [id number] Hemostat Absorb 2x14in Surgicel [facility] [id number] Implanted:Qty: 1 on 07/29/2024 by Rafael Estevez MD Implants Left: Spine Lumbar JN [employer] 05/04/20261950 / / [id number] Device Angio-Seal Vip .035in 70cm 6fr Valuelink Guidewire - [id number] Implanted:11/2019 (Quantity not on file) [facility] [id number] / / Plate Sternalock Chris Jl 8 Hole Bone Sternum Primary Closure - [id number] Implanted:Qty: 1 on 07/09/2020 by Mata Amaral MD N/A: Chest BIOMET - MICRO FIXATION 73-2645 / / Plate Sternalock Chris 8 Hole Bone Sternum - [id number] Implanted:Qty: 2 on 07/09/2020 by Mata Amaral MD N/A: Chest BIOMET - MICRO FIXATION 73-2623 / / Screw Sternalock Chris 14mm Gold 2.4mm Self Drill Lock Bone - [id number] Implanted:Qty: 13 on 07/09/2020 by Mata Amaral MD N/A: Sternum BIOMET - MICRO FIXATION 73-2414 / / Screw Sternalock Chris 16mm Gold 2.4mm Self Drill Lock Bone - [id number] Implanted:Qty: 11 on 07/09/2020 by Mata Amaral MD N/A: Sternum BIOMET - MICRO FIXATION 73-2416 / / Cement Bone Kyphx Hv-R Medt-Kyph [id number] Implanted:Qty: 1 on 05/13/2024 by Rafael Estevez MD N/A: Spine Lumbar [employer] KYPHON 11/04/2026 C01A / / [id number] Cement Bone Kyphx Hv-R Medt-Kyph [id number] Implanted:Qty: 1 on 05/29/2024 by Rafael Estevez MD N/A: Spine Lumbar [employer] KYPHON 01/02/2027 C01A / / [id number] 22 X 50x 10x 8 Degree Aleutian Spacer Implanted:Qty: 1 on 07/29/2024 by Rafael Estevez MD N/A: Spine Lumbar MANDEEP SPINE [id number] / / Disc Rick Implanted:Qty: 1 on 07/29/2024 by Rafael Estevez MD N/A: Spine Lumbar MANDEEP SPINE [id number] / / Screw Set Brandon Stry-K2m [id number] Implanted:Qty: 6 on 07/29/2024 by Rafael Estevez MD N/A: Spine Lumbar MANDEEP SPINE [id number] / / Screw Suzanne Polyaxial Extended Tab 6.5x50mm Stry-K2m [id number] Implanted:Qty: 6 on 07/29/2024 by Rafael Estevez MD N/A: Spine Lumbar MANDEEP SPINE [id number] / / Clarence Contr Blt Hex 5.5x80mm Stry-K2m [id number] Implanted:Qty: 2 on 07/29/2024 by Rafael Estevez MD N/A: Spine Lumbar MANDEEP SPINE [id number] / / Vesuvius 100 Dbm Bone Putty 10 Stry-K2m [id number] - [id number] Implanted:Qty: 1 on 07/29/2024 by Rafael Estevez MD N/A: Spine Lumbar MANDEEP SPINE 02/02/2027 [id number] DP / [id number] / [id number] Bone Alrgft [facility] Chip 1-8 15cc Stry-Obio [id number] - [id number] Implanted:Qty: 1 on 07/29/2024 by Rafael Estevez MD N/A: Spine Lumbar [employer] 07/03/2028 [id number] / [id number] / Vesuvius 100 Dbm Bone Putty 10 Stry-K2m [id number] - [id number] Implanted:Qty: 1 on 07/29/2024 by Rafael Estevez MD Left: Spine Lumbar MANDEEP SPINE 03/04/2027 [id number] DP / [id number] / [id number] 22 X 50 X 12 X 8 Degree Aleutian Spacer Implanted:Qty: 1 on 07/29/2024 by Rafael Estevez MD N/A: Spine Lumbar MANDEEP SPINE [id number] / / Procedures Procedure Name Priority Date/Time Associated Diagnosis Comments OH PROTEIN ELECTROPHORETIC FRACTIONATION & QUANTITATION SERUM Routine 12/17/2024 11:25 AM EST 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) MGUS (monoclonal gammopathy of unknown significance) RBC MORPHOLOGY REVIEW Routine 12/17/2024 11:25 AM EST 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) MGUS (monoclonal gammopathy of unknown significance) PROTEIN, TOTAL Routine 12/17/2024 11:25 AM EST 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) MGUS (monoclonal gammopathy of unknown significance) CBC WITH AUTO DIFFERENTIAL Routine 12/17/2024 11:25 AM EST 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) MGUS (monoclonal gammopathy of unknown significance) KAPPA-LAMBDA QUANTITATIVE FREE LIGHT CHAINS Routine 12/17/2024 11:25 AM EST Gammopathy, monoclonal CBC AND DIFFERENTIAL Routine 12/17/2024 11:25 AM EST 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) MGUS (monoclonal gammopathy of unknown significance) COMPREHENSIVE METABOLIC PANEL Routine 12/17/2024 11:25 AM EST 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) MGUS (monoclonal gammopathy of unknown significance) LACTATE DEHYDROGENASE Routine 12/17/2024 11:25 AM EST 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) MGUS (monoclonal gammopathy of unknown significance) PROTEIN ELECTROPHORESIS, SERUM Routine 12/17/2024 11:25 AM EST 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) MGUS (monoclonal gammopathy of unknown significance) XR CHEST 2 VIEWS Routine 09/29/2024 12:3 4 PM EST Other pulmonary embolism without acute cor pulmonale (CMS/HCC) NM LUNG PERFUSION IMAGING Routine 09/29/2024 11:51 AM EST Other pulmonary embolism without acute cor pulmonale (CMS/HCC) HEMOGLOBIN A1C Routine 05/11/2024 LIPID PANEL Routine 09/11/2023 HM HEPATITIS C SCREENING Routine 09/11/2018 from Last 3 Months or Most Recently Relevant to Health Maintenance Results * PATHOLOGIST REVIEW PROTEIN ELECTROPHORESIS (12/17/2024 11:25 AM EST) Pathologist Interpretation 12/22/2024 9:12 AM EST [facility] Blood Venous blood specimen / Unknown Venipuncture / Unknown 12/17/2024 11:25 AM EST 12/17/2024 1:39 PM EST Wilton Crawford MD LAB BLOOD ORDERABLE S Final Result [facility] [address] [place] [address], * (ABNORMAL) RBC morphology review (12/17/2024 11:25 AM EST) Rbc Morphology Consistent with indices Consistent with indices, Normal for [place] LAB HEMETOLOGY METHOD 12/17/2024 2:21 PM EST [facility] Platelet Morphology - WAM See Note(A) Normal LAB HEMETOLOGY METHOD 12/17/2024 2:21 PM EST [facility] Comment:PLT: Large platelets seen Blood Venous blood specimen / Unknown Venipuncture / Unknown 12/17/2024 11:25 AM EST 12/17/2024 1:39 PM EST Wilton Crawford MD LAB BLOOD ORDERABLE S Final Result Performing Organization Address [facility]/ZIP Co de Phone Number [facility] [address] [place] [address], * (ABNORMAL) [place]-lambda free light chains, quantitative (12/17/2024 11:25 AM EST) [place] Free Light Chain 5.10(H) 0.33 - 1.94 mg/dL 12/22/2024 1:38 PM EST [facility] Lambda Free Light Chain 4.43(H) 0.57 - 2.63 mg/dL 12/22/2024 1:38 PM EST [facility] [place]/Lambda FLC Ratio 1.15 0.26 - 1.65 12/22/2024 1:38 PM EST [facility] Comment: Test performed at [facility], [address] , [place], [place] ??[address] ? [phone] Valeria Ny MD, PhD - Plaster Form Maker Blood Venous blood specimen / Unknown Venipuncture / Unknown 12/17/2024 11:25 AM EST 12/17/2024 1:39 PM EST Wilton Crawford MD LAB BLOOD ORDERABLE S Final Result Performing Organization Address City/[facility]/ZIP Co de Phone Number [facility] [address] [place] [address] * (ABNORMAL) CBC auto differential (12/17/2024 11:25 AM EST) WBC 9.9 4.8 - 10.8 K/[facility] HEMETOLOGY METHOD 12/17/2024 2:21 PM EST [facility] RBC 4.20(L) 4.50 - 5.50 M/[facility] HEMETOLOGY METHOD 12/17/2024 2:[address] [facility] Hemoglobin 12.2(L) 13.5 - 17.5 g/dL LAB HEMETOLOGY METHOD 12/17/2024 2:[address] [facility] Hematocrit 38.1(L) 42.0 - 54.0 % LAB HEMETOLOGY METHOD 12/17/2024 2:[address] [facility] MCV 90.7 79.0 - 98.0 FL LAB HEMETOLOGY METHOD 12/17/2024 2:[address] [facility] MCH 29.0 27.0 - 32.0 pcg LAB HEMETOLOGY METHOD 12/17/2024 2:[address] [facility] MCHC 32.0 32.0 - 37.0 g/dL LAB HEMETOLOGY METHOD 12/17/2024 2:[address] [facility] RDW 17.9(H) 11.0 - 15.0 % LAB HEMETOLOGY METHOD 12/17/2024 2:[address] [facility] Platelets 130 130 - 400 K/mcL LAB HEMETOLOGY METHOD 12/17/2024 2:[address] [facility] MPV LAB HEMETOLOGY METHOD 12/17/2024 2:[address] [facility] Comment:Not Measured NRBC 0.0 <1.0 % LAB HEMETOLOGY METHOD 12/17/2024 2:[address] [facility] NRBC Absolute 0.00 <0.10 K/mcL LAB HEMETOLOGY METHOD 12/17/2024 2:[address] [facility] Neutrophils Relative 59.1 % LAB HEMETOLOGY METHOD 12/17/2024 2:[address] [facility] Lymphocytes Relative 12.5 % LAB HEMETOLOGY METHOD 12/17/2024 2:[address] [facility] Monocytes Relative 23.6 % LAB HEMETOLOGY METHOD 12/17/2024 2:21 PM EST [facility] Eosinophils Relative 0.1 % LAB HEMETOLOGY METHOD 12/17/2024 2:[address] [facility] Basophils Relative 0.3 % LAB HEMETOLOGY METHOD 12/17/2024 2:[address] [facility] Immature Granulocytes Relative 4.4 % LAB HEMETOLOGY METHOD 12/17/2024 2:21 PM EST [facility] Neutrophils Absolute 5.85 1.50 - 7.00 K/mcL LAB HEMETOLOGY METHOD 12/17/2024 2:[address] [facility] Lymphocytes Absolute 1.24 1.00 - 5.00 K/mcL LAB HEMETOLOGY METHOD 12/17/2024 2:[address] [facility] Monocytes Absolute 2.34(H) 0.20 - 1.00 K/mcL LAB HEMETOLOGY METHOD 12/17/2024 2:21 PM EST [facility] [facility] Eosinophils Absolute 0.01 0.00 - 0.50 K/mcL LAB HEMETOLOGY METHOD 12/17/2024 2:[address] [facility] Basophils Absolute 0.03 0.00 - 0.20 K/mcL LAB HEMETOLOGY METHOD 12/17/2024 2:[address] [facility] Immature Granulocytes Absolute 0.44(H) 0.00 - 0.03 K/mcL LAB HEMETOLOGY METHOD 12/17/2024 2:[address] [facility] Blood Venous blood specimen / Unknown Venipuncture / Unknown 12/17/2024 11:25 AM EST 12/17/2024 1:39 PM EST us Subramciro Crawford MD LAB BLOOD ORDERABLE S Final Result [facility] [address] [place] [address], * (ABNORMAL) Protein electrophoresis, serum (12/17/2024 11:25 AM EST) Total Protein 9.4(H) 6.0 - 8.0 g/dL LAB CHEMISTRY METHOD 12/22/2024 9:[address] [facility] Albumin, Serum 4.2(H) 2.9 - 4.1 g/dL LAB CHEMISTRY METHOD 12/22/2024 9:[address] [facility] Alpha 1 Globulin (g/dL) 0.2 0.1 - 0.5 g/dL LAB CHEMISTRY METHOD 12/22/2024 9:[address] [facility] Alpha 2 Globulin (g/dL) 0.6(L) 0.7 - 1.5 g/dL LAB CHEMISTRY METHOD 12/22/2024 9:[address] [facility] Beta (g/dL) 0.8 0.7 - 1.5 g/dL LAB CHEMISTRY METHOD 12/22/2024 9:[address] [facility] Gamma Globulin (g/dL) 3.6(H) 0.7 - 1.9 g/dL LAB CHEMISTRY METHOD 12/22/2024 9:[address] [facility] PARAPROTEIN 1.6 g/dL LAB CHEMISTRY METHOD 12/22/2024 9:[address] [facility] SPEP Interpretation Monoclonal gammopathy Abnormal pattern with M-spike of gamma globulin mobility. Serum immunofixation previously performed on 02/05/24 demonstrated IgG Lambda monoclonal protein. Increased levels of albumin may be seen in acute dehydration. Decreased alpha-2 globulins May be associated with acute hemolysis or hepatocellular damage. LAB CHEMISTRY METHOD 12/22/2024 9:[address] [facility] Blood Venous blood specimen / Unknown Venipuncture / Unknown 12/17/2024 11:25 AM EST 12/17/2024 1:39 PM EST Wilton Crawford MD LAB BLOOD ORDERABLE S Final Result Performing Organization Address [facility]/ZIP Co de Phone Number [facility] [address] [place] [address], * (ABNORMAL) Protein, total (12/17/2024 11:25 AM EST) [facility] Total Protein 9.4(H) 6.0 - 8.0 g/dL LAB CHEMISTRY METHOD 12/17/2024 1:59 PM EST [facility] Blood Venous blood specimen / Unknown Venipuncture / Unknown 12/17/2024 11:25 AM EST 12/17/2024 1:39 PM EST Wilton Crawford MD LAB BLOOD ORDERABLE S Final Result Performing Organization Address [facility] de Phone Number [facility] [address] [place] [address], * (ABNORMAL) Lactate dehydrogenase (12/17/2024 11:25 AM EST) [facility] LDH 301(H) 120 - 246 unit/L LAB CHEMISTRY METHOD 12/17/2024 1:59 PM EST [facility] Blood Venous blood specimen / Unknown Venipuncture / Unknown 12/17/2024 11:25 AM EST 12/17/2024 1:39 PM EST Wilton Crawford MD LAB BLOOD ORDERABLE S Final Result Performing Organization Address [facility]/ZIP Co de Phone Number [facility] [address] [place] [address], * (ABNORMAL) Comprehensive metabolic panel (12/17/2024 11:25 AM EST) [facility] Sodium 134 133 - 145 mmol/L LAB CHEMISTRY METHOD 12/17/2024 2:00 PM EST [facility] Potassium 4.6 3.5 - 5.5 mmol/L LAB CHEMISTRY METHOD 12/17/2024 2:[address] [facility] Chloride 105 96 - 110 mmol/L LAB CHEMISTRY METHOD 12/17/2024 2:[address] [facility] CO2 26 21 - 32 mmol/L LAB CHEMISTRY METHOD 12/17/2024 2:[address] [facility] Anion Gap 3 3 - 11 LAB CHEMISTRY METHOD 12/17/2024 2:[address] [facility] Glucose 169(H) 70 - 100 mg/dL LAB CHEMISTRY METHOD 12/17/2024 2:[address] [facility] BUN 31(H) 5 - 25 mg/dL LAB CHEMISTRY METHOD 12/17/2024 2:[address] [facility] Creatinine 1.85(H) 0.70 - 1.30 mg/dL LAB CHEMISTRY METHOD 12/17/2024 2:[address] [facility] eGFR 37(L) >=60 mL/min/1. 73m2 LAB CHEMISTRY METHOD 12/17/2024 2:[address] [facility] Comment:Calculation based on the??Chronic Kidney Disease Epidemiology Collaboration (CKD-EPI) equation refit??without adjustment for race. BUN/Creatinine Ratio 16.8 LAB CHEMISTRY METHOD 12/17/2024 2:[address] [facility] Calcium 9.1 8.5 - 10.5 mg/dL LAB CHEMISTRY METHOD 12/17/2024 2:[address] [facility] AST (SGOT) 22 10 - 42 unit/L LAB CHEMISTRY METHOD 12/17/2024 2:[address] [facility] ALT (SGPT) 18 10 - 60 unit/L LAB CHEMISTRY METHOD 12/17/2024 2:[address] [facility] Alkaline Phosphatase 93 42 - 121 unit/L LAB CHEMISTRY METHOD 12/17/2024 2:[address] [facility] Total Protein 9.3(H) 6.0 - 8.0 g/dL LAB CHEMISTRY METHOD 12/17/2024 2:00 PM EST [facility] Albumin 3.8 3.2 - 5.0 g/dL LAB CHEMISTRY METHOD 12/17/2024 2:00 PM EST [facility] Total Bilirubin 0.6 0.0 - 1.4 mg/dL LAB CHEMISTRY METHOD 12/17/2024 2:00 PM EST [facility] Blood Venous blood specimen / Unknown Venipuncture / Unknown 12/17/2024 11:25 AM EST 12/17/2024 1:39 PM EST us Subramony Yvette ISAAC LAB BLOOD ORDERABLE S Final Result [facility] [address] [place] [address], * XR Chest 2 Views (09/29/2024 12:34 PM EST) Anatomical Region Laterality Modality Body Radiographic Zee ging 09/30/2024 10:0 0 AM EST Impressions 09/30/2024 10:03 AM EST Impression: Stable radiographic appearance of the chest. No active pulmonary process identified. -------- FINAL REPORT -------- Dictated By: Meenu Barrera Dictated Date: 09/30/2024 10:00 ET Assigned Physician: Meenu Barrera Reviewed and Electronically Signed By: Meenu Barrera Signed Date: 09/30/2024 10:03 ET Workstation ID: [id number] Transcribed By: Self Edit Transcribed Date: 09/30/2024 10:00 ET Narrative 09/30/2024 10:03 AM EST History: Dyspnea. Comparison: 09/22/24, 12/24/23, thoracic CT 05/22/24, pulmonary perfusion imaging from earlier today. Findings: PA and lateral views. The lung volumes remain low. The cardiac silhouette is normal in size. Sternal sutures and metal plates and mediastinal surgical clips are consistent with previous coronary artery surgery. The lungs are clear. The costophrenic angles are sharp. Postop changes are partially imaged in the lumbar spine, consistent with prior discectomy and fusion. Kyphoplasty sequelae are noted at a single level at the thoracolumbar junction. Mild compression fractures of the 2 vertebra immediately above the kyphoplasty level are without significant change. No retropulsion is seen. Procedure Note Meenu Barrera MD - 09/30/2024 History: Dyspnea. Comparison: 09/22/24, 12/24/23, thoracic CT 05/22/24, pulmonary perfusionimaging from earlier today. Findings: PA and lateral views. The lung volumes remain low. The cardiac silhouetteis normal in size. Sternal sutures and metal plates and mediastinalsurgical clips are consistent with previous coronary artery surgery. Thelungs are clear. The costophrenic angles are sharp. Postop changes are partially imaged in the lumbar spine, consistent withprior discectomy and fusion. Kyphoplasty sequelae are noted at a singlelevel at the thoracolumbar junction. Mild compression fractures of the 2vertebra immediately above the kyphoplasty level are without significantchange. No retropulsion is seen. IMPRESSION: Impression: Stable radiographic appearance of the chest. No active pulmonary processidentified. -------- FINAL REPORT -------- Dictated By: Meenu Barrera Dictated Date: 09/30/2024 10:00 ET Assigned Physician: Meenu Barrera Reviewed and Electronically Signed By: Meenu Barrera Signed Date: 09/30/2024 10:03 ET Workstation ID: [id number] Transcribed By: Self Edit Transcribed Date: 09/30/2024 10:00 ET us Matthew Fonseca MD IMG XR PROCEDURES Final Re sult * NM Lung Perfusion Imaging (09/29/2024 11:51 AM EST) Anatomical Region Laterality Modality Body Nuclear Medicine 09/29/2024 12:1 9 PM EST Impressions 09/29/2024 12:21 PM EST LOW PROBABILITY OF PE. -------- FINAL REPORT -------- Dictated By: JESÚS SHEPPARD Dictated Date: 09/29/2024 12:19 ET Assigned Physician: JESÚS SHEPPARD Reviewed and Electronically Signed By: JESÚS SHEPPARD Signed Date: 09/29/2024 12:21 ET Workstation ID: [id number] Transcribed By: Self Edit Transcribed Date: 09/29/2024 12:19 ET Narrative 09/29/2024 12:21 PM EST PROCEDURE: Nuclear medicine lung perfusion scan INDICATION: Pulmonary embolism TECHNIQUE: ?? * ??Perfusion: Multiple scintigraphs were obtained following the intravenous administration of 5.6mCi technetium 99m MAA. COMPARISON: ??09/22/2024 FINDINGS: Low lung volumes. ??No segmental perfusion defects are detected. Procedure Note Jesús Sheppard MD - 09/29/2024 PROCEDURE: Nuclear medicine lung perfusion scan INDICATION: Pulmonary embolism TECHNIQUE: * Perfusion: Multiple scintigraphs were obtained following theintravenous administration of 5.6mCi technetium 99m MAA. COMPARISON: 09/22/2024 FINDINGS: Low lung volumes. No segmental perfusion defects are detected. IMPRESSION: LOW PROBABILITY OF PE. -------- FINAL REPORT -------- Dictated By: JESÚS SHEPPARD Dictated Date: 09/29/2024 12:19 ET Assigned Physician: JESÚS SHEPPARD Reviewed and Electronically Signed By: JESÚS SHEPPARD Signed Date: 09/29/2024 12:21 ET Workstation ID: [id number] Transcribed By: Self Edit Transcribed Date: 09/29/2024 12:19 ET Matthew Fonseca MD [facility] [place] PROCEDURES Final Re sult * (ABNORMAL) Hemoglobin A1c (05/11/2024) Hemoglobin A1C 9.2(A) <=5.7 % Blood Venous blood specimen / Unknown Historical Provider LAB BLOOD ORDERABLES Nicole l Result * Lipid panel (09/11/2023) Triglycerides 0 mg/dL Comment:Outside System Cholesterol 0 mg/dL Comment:Outside System HDL 0 mg/dL Comment:Outside System LDL Cholesterol 0 mg/dL Comment:Outside System Blood Venous blood specimen / Unknown Historical Provider LAB BLOOD ORDERABLES Nicole l Result * Hepatitis C Screening (09/11/2018) Hepatitis C Screening Abstracted Historical Provider HEALTH MAINTENANCE Final Result from Last 3 Months or Most Recently Relevant to Health Maintenance Insurance [employer] Care Teams Nursing Information Systems Coordinator Relationship Specialty Start Date End Date Ben Goldsmith MD [address] [place] [address] PCP - General Internal Medicine 04/03/18
--- OUTSIDE RECORDS SUMMARY | 2024-12-25 10:29 | XMS_ITS | Clinical Summary ---
Author Organization [facility] Address [address] [place] [address] Care Team Providers Care Custom Feed Corn Operator Name Role Phone Ben Goldsmith MD Primary Care Provider [phone] Tee Dean MD Unavailable [phone] Rafael Estevez MD Unavailable [phone] Allergies Active Allergy Reactions Criticality Noted Date Comments Aspirin Angioedema,Swelling High 09/18/2014 Lip swelling Medications Medication Sig Dispensed Refills Start Date End Date Status acetaminophen (TYLENOL) 325 MG tablet Take 2 tablets (650 mg total) by mouth as needed. 07/17/2020 Active cholecalciferol (VITAMIN D3) 1000 units capsule Vitamin D-3 1000 UNIT Oral Capsule TAKE 1 CAPSULE DAILY Refills: 0 Active Active escitalopram (LEXAPRO) 10 MG tablet Take 1 tablet (10 mg total) by mouth daily. 04/20/2021 Active albuterol (PROVENTIL HFA; VENTOLIN HFA) 108 (90 Base) MCG/ACT inhaler 2 INH INHALED EVERY 6 HOURS NEEDED FOR SHORTNESS OF BREATH OR WHEEZING FOR 30 DAYS 08/22/2023 Active clopidogrel (PLAVIX) 75 MG tabletIndications:Hx of CABG Take 1 tablet (75 mg total) by mouth daily. 90 tablet 3 12/31/2023 Active atorvastatin (LIPITOR) 80 MG tabletIndications:Hx of CABG TAKE 1 TABLET BY MOUTH IN THE EVENING 90 tablet 3 01/04/2024 Active metoPROLOL TARTRATE (LOPRESSOR) 25 MG tabletIndications:Ess ential hypertension TAKE 1 TABLET BY MOUTH TWICE DAILY 200 tablet 3 04/02/2024 Active amLODIPine (NORVASC) 10 MG tabletIndications:Ess ential hypertension TAKE 1 TABLET BY MOUTH DAILY 100 tablet 3 04/02/2024 Active Symbicort 160-4.5 MCG/ACT inhaler 2 PUFF INHALED 2 TIMES A DAY FOR 30 DAYS 09/01/2024 Active Trelegy Ellipta 200-62.5-25 MCG/ACT inhaler Inhale 1 puff daily. 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 07/09/2020 at [place] CAD, multiple vessel 07/06/2020 AVD (aortic valve disease) 12/06/2017 Thoracic ascending aortic aneurysm 03/23/2017 Hypertension 09/18/2014 Overview (07/13/2021): Hypertensive disorder Obstructive sleep apnea syndrome 09/18/2014 Overview (07/13/2021): Obstructive sleep apnea syndrome Encounters Date Type Department Care Team Description 11/27/2024 1:20 PM EST Office Visit LTAC[facility] within [facility] [place] [address] [phone] Tee Dean MD WEBER (dyspnea on exertion) (Primary Dx); Hx of CABG; Aortic valve insufficiency, etiology of cardiac valve disease unspecified; Essential hypertension; Fatigue, unspecified type; Abnormal computed tomography angiography (CTA); Resistant hypertension; Aneurysm of ascending aorta without rupture; Pre-op exam 11/27/2024 Travel 10/24/2024 10:00 AM EST Office Visit [facility] Department of Rheumatology [place] [address] [place] [address] Natasha Allred MD Still's disease (HCC) (Primary Dx); Inflammatory polyarthritis (HCC); Vitamin D insufficiency; High risk medication use; Chronic myelomonocytic leukemia in remission (HCC); Immunosuppression (HCC); Interstitial lung disease (HCC); Osteoporosis, unspecified osteoporosis type, unspecified pathological fracture presence; Gout, unspecified cause, unspecified chronicity, unspecified site; Renal insufficiency 10/24/2024 Orders Only [facility] Department of Rheumatology [place] [address] [place] [address] Natasha Allred MD Still's disease (HCC); Inflammatory polyarthritis (HCC); High risk medication use; Vitamin D insufficiency 10/22/2024 Refill [facility] Department of Rheumatology [address] [address] Natasha Allred MD Inflammatory polyarthritis (HCC) 09/28/2024 Refill [facility] Department Of Rheumatology [address] [place] [address] Natasha Allred MD Inflammatory polyarthritis (HCC) from Last 3 Months Social History Tobacco Use Types Packs/Day Years Used Date Smoking Tobacco: Former Smokeless Tobacco: Never Tobacco Cessation:Counseling Given: Not Answered Alcohol Use Standard Drinks/Week Comments Not Currently 0 (1 standard drink = 0.6 oz pur e alcohol) Sex and Gender Information Value Date Recorded Sex Assigned at Male 02/19/2023 9:05 AM EDT Gender Identity Male 02/19/2023 9:05 AM EDT Sexual Orientation Heterosexual (straight) 02/19 9:05 AM EDT Last Filed Vital Signs Vital Sign Reading Time Taken Comments Blood Pressure 122/64 11/27/2024 1:16 PM EST Pulse 62 09/17/2024 10:16 AM EST Temperature 36.4 ??C (97.6 ??F) 03/09/2023 2:48 PM ED T Respiratory Rate 1 09/17/2024 10:12 AM EST Oxygen Saturation 96% 11/27/2024 1:16 PM EST Inhaled Oxygen Concentration - - Weight 83.5 kg (184 lb) 11/27/2024 1:16 PM EST Height 170.2 cm (5' 7 ) 11/27/2024 1:16 PM EST Body Mass Index 28.82 11/27/2024 1:16 PM EST Plan of Treatment Upcoming Encounters Date Type Department Care Team (Late st Contact Info) Description 01/30/2025 9:20 AM EDT Office Visit [facility] Department of Rheumatology [place] [address] [place] [address] Natasha Allred MD [address] [facility] [address] [place] [address] 03/12/2025 11:20 AM EDT Office Visit [facility] [place] [address] [facility] [address] [place] [phone] Tee Dean MD [address] [place] [address] Health Maintenance Due Date Last Done Comments Hepatitis C Virus Screening 1945 DTaP/Tdap/Td Vaccines (1 - Tdap) 1966 Pneumococcal Vaccines 50+ (1 of 2 - PCV) 1966 Zoster (Shingles) Vaccine (1 of 2) 1966 RSV Vaccine 60 years and older and Patients (1 - 1-dose 75+ series) 2022 Influenza Vaccine 06/05/2024 08/01/2021, , 07/23/2020, Additional history exists COVID-19 Vaccine (6 - 2024-25 season) 2024 08/23/2023, 08/15/2022, 07/15/2021, Additional history exists Hepatitis B Vaccines Aged Out No long er eligible based on patient's age to complete this topic Procedures Procedure Name Priority Date/Time Associated Diagnosis Comments ECG 12-LEAD Routine 11/27/2024 1:18 PM EST Pre-op exam from Last 3 Months Results * ECG 12 lead (11/27/2024 1:18 PM EST) Pathologist [facility] Ventricular rate 61 BPM EKG [facility] Atrial rate 61 BPM EKG [facility] P-R interval 166 ms EKG [facility] QRS duration 108 ms EKG [facility] Q-T interval 492 ms EKG [facility] QTC calculation (Bazett) 496 ms EKG [facility] P axis 9 degrees EKG [facility] R axis -15 degrees EKG [facility] T axis 19 degrees [facility] 11/27/2024 1:18 PM EST Narrative EKG [facility] - 11/27/2024 1:35 PM EST Sinus rhythm with occasional Premature ventricular complexes Nonspecific T wave abnormality Abnormal ECG When compared with ECG of 18-Sep-2024 09:58, Premature ventricular complexes are now Present Confirmed by MD Dean Vincent ([id number]) on 11/27/2024 1:35:12 PM Procedure Note Tee Dean MD - 11/27/2024 Sinus rhythm with occasional Premature ventricular complexes Nonspecific T wave abnormality Abnormal ECG When compared with ECG of 18-Sep-2024 09:58, Premature ventricular complexes are now Present Confirmed by MD Dean Vincent ([id number]) on 11/27/2024 1:35:12 PM Tee Dean MD ECG ORDERABLES [facility] from Last 3 Months Care Teams Custom Feed Corn Operator Relationship Specialty Start Date End Date Ben Goldsmith MD [address] [place] [address] PCP - General Internal Medicine 07/12/21 Tee Dean MD [address] [place] [address] Primary Retail Seasonal Specialist Cardiovascular Disease 12/24/23 Rafael Estevez MD [address] [place] [address] Surgeon Surgery, Orthopedic 07/25/24
--- OUTSIDE RECORDS SUMMARY | 2024-12-25 10:29 | XMS_ITS | Patient Health Record ---
Author Organization [facility] Address [address] [place] [address] Care Team Providers Care Charge Entry Name Role Phone LALO HERNANDEZ Unavailable [phone] REASON FOR REFERRAL No Information PROBLEMS Problem Type ICD Code Onset Dates Problem Status W/U Status Risk SNOMED Code Notes Problem 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 (C93.10) Active confirmed Problem Monoclonal gammopathy (D47.2) Active confirmed Monoclonal gammopathy (91548442) Problem Overweight (E66.3) Active confirmed Overweight (542814233) Problem 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 (122078907) Problem Gout, unspecified (M10.9) Active confirmed Gout (37774872) Problem Coronary artery disease without angina pectoris, unspecified vessel or lesion type, unspecified whether tolowa dee-ni' or transplanted heart (I25.10) Active confirmed Atherosclerot ic heart disease of tolowa dee-ni' coronary artery without angina pectoris (402331896502774) Problem Pulmonary fibrosis (J84.10) Active confirmed Pulmonary fibrosis (06291735) Problem Compression fracture of L1 vertebra, sequela (S32.010S) Active confirmed Late effect of fracture of spine AND/OR trunk without spinal cord lesion (4480119) Problem Spinal stenosis at L4-L5 level (M48.061) Active confirmed Spinal stenosis of lumbar region (67009423) Problem Hyperlipidemia (E78.5) Active confirmed Hyperlipidemia (31394473) Problem Diabetes mellitus without complication (E11.9) Active confirmed Diabetes mellit us without complication (302174968) Encounters Encounter Location Date Provider Diagnosis [facility] [address] [place] [address] 06/16/2024 LALO HERNANDEZ PLAN OF TREATMENT No Information Insurance Providers Payer Name Payer Address Payer Phone Subscriber Number Group Number Insured Name Patient Relationship to Insured Coverage Start Date Coverage End Date [facility] [address] [place] [phone] [id number] Chuck Harmon Self - patient is the insured
--- OUTSIDE RECORDS SUMMARY | 2024-12-25 10:29 | XMS_ITS | Encounter Summary ---
Author Organization [facility] Address [address] [place] [address] Care Team Providers Care Application Development Team Lead Name Role Phone Ben Goldsmith Md, MD Primary Care Provider Unav ailable Reason for Visit * Reason Onset Date Comments Medication 08/26/2018 Encounter Details Date Type Department Care Team Description 08/26/2018 Telephone Rheumatology - [address] [address] Ara Villalba DO Medication Social History Tobacco Use Types Packs/Day Years Used Date Smoking Tobacco: Former Cigarettes 0.5 40 Smokeless Tobacco: Never Alcohol Use Standard Drinks/Week Comments No 0 (1 standard drink = 0.6 oz pur e alcohol) Sex Assigned at Date Recorded Not on file documented as of this encounter Miscellaneous Notes * Telephone Encounter - Lucero Ramos M.A. - 08/27/2018 10:55 AM EDT I spoke with the pt. He states it is not his prednisone he wants adjusted, he was asking about increasing the Plaquenil. He states his Shelter Supervisor thought that increasing the Plaquenil would help him. He would like to wait for Dr. Alaniz to return, and for him to review. * Telephone Encounter - Ara Villalba DO - 08/26/2018 4:05 PM EDT He ([phone] (home) ) can increase his prednisone to 10 mg po 2 x daily for now. Thanks. * Telephone Encounter - Trena Chakraborty L.P.N. - 08/26/2018 2:37 PM EDT Pt has adult stills ,was on high dose of pred ,is on pred 10 mg qd now ,and plaquenil 200 mg bid ,Dr Fonseca ,pulmonary sent enc yesterday 08/25 ,please see,pt is in pain with reduction Of pred ,wants to know if med can be adjusted.please advise documented in this encounter Plan of Treatment Not on file documented as of this encounter Visit Diagnoses Not on filedocumented in this encounter Care Teams Application Development Team Lead Relationship Specialty Start Date End Date Ben Goldsmith MD, MD PCP - General Internal Medicine 04/03/18 documented as of this encounter
--- OUTSIDE RECORDS SUMMARY | 2024-12-25 10:30 | XMS_ITS | Clinical Summary ---
Author Organization [facility] Address [address] [place] [address] Care Team Providers Care Research And Insights Executive Name Role Phone Ben Goldsmith MD Primary Care Provider Allergies Active Allergy Reactions Criticality Noted Date Comments Aspirin Swelling Medium 06/12/2020 Social History Tobacco Use Types Packs/Day Years Used Date Smoking Tobacco: Never Assessed Sex and Gender Information Value Date Recorded Sex Assigned at Male 04/08/2024 10:14 AM EDT Legal Sex Male 1:30 PM EDT Gender Identity Male 04/08/2024 10:14 AM EDT Sexual Orientation Straight 04/08/2024 10 :14 AM EDT Last Filed Vital Signs Vital Sign Reading Time Taken Comments Blood Pressure 149/74 04/08/2024 9:45 AM EDT Pulse 68 04/08/2024 9:45 AM EDT Temperature 36.7 ??C (98.1 ??F) 04/08/2024 9:45 AM ED T Respiratory Rate 18 04/08/2024 9:45 AM EDT Oxygen Saturation 97% 04/08/2024 9:50 AM EDT Inhaled Oxygen Concentration - - Weight 88.6 kg (195 lb 5.2 oz) 04/08/2024 9:45 A M EDT Height 172.7 cm (5' 8 ) 04/08/2024 9:45 AM EDT Body Mass Index 29.7 04/08/2024 9:45 AM EDT Plan of Treatment Health Maintenance Due Date Last Done Comments Hepatitis C Screening 1945 Tdap and Td Vaccines Adult 1964 Zoster Vaccines (1 of 2) 1966 Fall Risk Screening 2012 Pneumococcal Vaccine: 50+ Years (2 of 2 - PPSV23) 11/21/2017 09/26/2017 Medicare Annual Wellness Visit 01/29/2019 01/29/2018, 02/13/2017 Lipid Panel 04/13/2022 04/13/2017 COVID-19 Vaccine ( season) 2024 08/23/2023, 08/15/2022, 12/09/2020, Additional history exists Influenza Vaccine (#1) 2024 , 07/23/2020, 08/29/2019, Additional history exists RSV 60+ Completed 08/27/2023 HIB Vaccines Aged Out No longer eligi [...] patient's age to complete this topic Meningococcal Vaccine Aged Out No kris joey eligible based on patient's age to complete this topic RSV <20 Months Aged Out No longer nolan gible based on patient's age to complete this topic Insurance [place] [id number] Care Teams Research And Insights Executive Relationship Specialty Start Date End Date Ben Goldsmith MD [address] [address] PCP - General Internal Medicine 06/12/20
--- OUTSIDE RECORDS SUMMARY | 2024-12-25 10:30 | XMS_ITS | Encounter Summary ---
Author Organization [facility] Address [address] [place] [id number] Care Team Providers Care Sales And Service Technician Name Role Phone Ben Goldsmith MD Primary Care Provider Tee Dean MD Unavailable [phone] Rafael Estevez MD Unavailable [phone] Encounter Details Date Type Department Care Team (Late st Contact Info) Description 10/31/2023 Scanned Document [facility] Department Of Rheumatology [address] [place] [address] Natasha Allred MD [address] [place] [address] Social History Tobacco Use Types Packs/Day Years [...] Encounters Date Type Department Care Team (Late Contact Info) Description 01/30/2025 9:20 AM EDT Office Visit [facility] Department of Rheumatology [place] [address] [place] [address] Natasha Allred MD [address] [address] 03/12/2025 11:20 AM EDT Office Visit [facility] [place] [address] [place] [id number] Tee Dean MD [address] [place] [address] documented as of this encounter Visit Diagnoses Not on filedocumented in this encounter Care Teams Sales And Service Technician Relationship Specialty Start Date End Date Bne Goldsmith MD [address] [place] [address] PCP - General Internal Medicine 07/12/21 Tee Dean MD [address] [place] [id number] Primary Biology Professor Cardiovascular Disease 12/24/23 Rafael Estevez MD [address] [place] [address] Surgeon Surgery, Orthopedic 07/25/24 documented as of this encounter
--- OUTSIDE RECORDS SUMMARY | 2024-12-25 10:30 | XMS_ITS | Encounter Summary ---
Author Organization [facility] Address [address] [place] [id number] Care Team Providers Care Conservation Specialist Name Role Phone Ben Goldsmith MD Primary Care Provider [phone] Tee Dean MD Unavailable [phone] Rafael Estevez MD Unavailable [phone] Reason for Visit * Reason Comments Follow-up Encounter Details Date Type Department Care Team (Late st Contact Info) Description 11/27/2024 1:20 PM EST Office Visit [facility] [place] [address] [phone] Tee Dean MD [address] [place], [place] [id number] WEBER (dyspnea on exertion) (Primary Dx); Hx of CABG; Aortic valve insufficiency, etiology of cardiac valve disease unspecified; Essential hypertension; Fatigue, unspecified type; Abnormal computed tomography angiography (CTA); Resistant hypertension; Aneurysm of ascending aorta without rupture; Pre-op exam Social History Tobacco Use Types Packs/Day Years [...] AM EDT documented as of this encounter Last Filed Vital Signs Vital Sign Reading Time Taken Comments Blood Pressure 122/64 11/27/2024 1:16 PM EST Pulse - - Temperature - - Respiratory Rate - - Oxygen Saturation 96% 11/27/2024 1:16 PM EST Inhaled Oxygen Concentration - - Weight 83.5 kg (184 lb) 11/27/2024 1:16 PM EST Height 170.2 cm (5' 7 ) 11/27/2024 1:16 PM EST Body Mass Index 28.82 11/27/2024 1:16 PM EST documented in this encounter Progress Notes * Tee Dean MD - 11/27/2024 1:20 PM EST Images from the original note were not included. Cardiology Office Note Encounter Date:11/27/2024 Referring Physician:Agus Cardiac Diagnosis: 1. WEBER (dyspnea on exertion) 2. Hx of CABG 3. Aortic valve insufficiency, etiology of cardiac valve disease unspecified 4. Essential hypertension 5. Fatigue, unspecified type 6. Abnormal computed tomography angiography (CTA) 7. Resistant hypertension 8. Aneurysm of ascending aorta without rupture 9. Pre-op exam ECG 12 lead Chief Complaint: Chief Complaint Patient presents with Follow-up Follow-up history of CABG hypertension thoracic aortic aneurysm Subjective: HPI This patient is a 76-year-old gentleman with a history of hypertension . He had a history of a lungnodule. He had a screening CT scan of the chest which mentioned dilated thoracic aorta of 4.4 cm with atherosclerotic changes. He was referred for cardiovascular evaluation. He was seen by rheumatology during hospital admission. His sed rate at that time was 44. It was a positive BRIT negative rheumatoid factor negative Lyme antibody. He is being worked up for lupus and vasculitis. 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 He was started on Zosyn. He had been on doxycycline treated for Lyme disease troponins were normal. He was supposed to have a CT follow-up for resolution of pulmonary infiltrates Echocardiogram repeated in our office no evidence for pericardial effusion he does have moderate aortic insufficiency and low normal left ventricular systolic function. stress test 05/22/ exercise 10 minutes standard Karan protocol no EKG changes no chest pain negative for ischemia Previous CT scan ascending aorta measured 4.4 cm in January 2017 Moderate atherosclerosis of aorta and its branch vessels noted on CT scan Patient was having symptoms of exertional dyspnea with minimal activity as well as some intermittent episodes of chest discomfort. He had a nonnuclear exercise test which was positive for ischemia by ST segment criteria at 9 minutes standard Karan protocol. A CT coronary calcium score was performed which revealed calcium score 3900 with significant calcification in all 3 coronary arteries including a significant amount of calcification of the left main coronary artery. Due to symptoms, positive stress test and significantly elevated coronary calcium score indicative of underlying diffuse atherosclerotic coronary disease coronary angiography was recommended to evaluate anatomy and guide therapy. Hospital Course: This is a 74 year old male with History of cmml, ckd 3, htn presenting with progressive chest pain requiring coronary angiogram. He was admitted to the hospital on 9/, he was admitted to a medical floor for cardiac work up. He underwent a coronary angiogram and was found to have LM 70%, prox LAD 70%, circ 80%, RCA 70%, Dr. Amaral was consulted for surgical evaluation. He was taken to the operating room and underwent CABG x 3. He tolerated the procedure well. Post operatively he was taken to the CICU. He was allowed to wake from anesthesia, weaned from the ventilator and extubated. He was placed on BIPAP overnight. On POD # 1 he was in NSR and on no inotropic support. He was allowed out of bed and advanced to a heart healthy diet. He was seen by heme/onc for CMML with worsening thrombocytopenia and rising wbc . He was seen by pulmonary for acute hypoxic respiratory failure, he was treated with diuresis, nebulizer treatments, and high flow nasal cannula . He developed post op atrial fibrillation treated with iv amiodarone with subsequent conversion tonsr. His oxygen was weaned and he was later transferred to step down unit. He will be discharged to homewith vna on POD # 5. He will follow in the office with Dr Amaral and Dr Dean. Patient denies chest pain denies palpitations. Patient's since last visit. He still goes to the gym. This last visit no new complaints. He does take his blood pressure at the gym and these have been 130 systolic or less with normal diastolic readings. No complaints of chest pain. Interval history 03/27/2024 Patient injured his back doing some heavy lifting. No complaints of chest pain or palpitations. Interval history 08/26/2024 Patient stated had back surgery in July. Since then he has been extremely short of breath and fatigued with exhaustion. He has dyspnea on exertion. He has dyspnea at rest. He denies any lower extremity edema. He denies fevers or chills. He denies any anginal type chest pain. He stated he had blood transfusions during the hospital admission. His last blood count was in July and it was 26. He has a history of C MML. Interval history 09/18/2024 Since last visit patient had multiple tests done due to exertional dyspnea Blood work revealed moderate anemia hematocrit 32 BNP was low Chest x-ray was unremarkable for infiltrate or heart failure Transesophageal echo revealed moderate aortic insufficiency unchanged in severity with normal ejection fraction Stress test was negative for ischemia D-dimer was mildly elevated CTA chest for pulmonary embolus revealed tiny question incidental pulmonary emboli with 11 mm x 3 mm filling defect third order division of the descending left pulmonary artery 4 mm defect and another third order division of the left descending pulmonary artery. I spoke to the radiologist. He question the significance of these filling defects. We did a follow-up venous duplex lower extremities bilateral negative for DVT. Patient has an appointment with his electric engine mechanic tomorrow Interval history 11/27/2024 Since last visit patient had a ventilation/perfusion lung scan which was low probability for pulmonary embolus. He is scheduled for cataract surgery. He saw his primary care physician yesterday who recommended he be seen today. The patient has chronic dyspnea on exertion nonprogressive No chest pain no PND no orthopnea no lower extremity edema. Today's ECG reveals sinus rhythm with 1 PVC. 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 No pertinent family history. ROS: Constitutional - No fever, chills. No fatigue. No significant weight changes. HEENT - No headache. No visual field changes. No hearing loss. No tinnitus. CVS - please see above HPI Resp dyspnea on exertion GI - No nausea or vomitting. No diarrhea. No jaundice. Skin - No rashes. No concerning skin lesions. Heme - No abnormal clotting. No abnormal bruising or bleeding. Ext - No new joint swelling or pain. Normal ROM. Neuro - No transient weakness, numbness. No tremors. Psych - Stable mood. No depression or anxiety. Medications: Current Outpatient Medications: acetaminophen (TYLENOL) 325 MG tablet, Take 2 tablets (650 mg total) by mouth as needed., Disp: , Rfl: albuterol (PROVENTIL HFA; VENTOLIN HFA) 108 (90 Base) MCG/ACT inhaler, 2 INH INHALED EVERY 6 HOURS NEEDED FOR SHORTNESS OF BREATH OR WHEEZING FOR 30 DAYS, Disp: , Rfl: allopurinol (ZYLOPRIM) 100 mg tablet, TAKE 1 TABLET BY MOUTH DAILY, Disp: 90 tablet, Rfl: 2 amLODIPine (NORVASC) 10 MG tablet, TAKE 1 TABLET BY MOUTH DAILY, Disp: 100 tablet, Rfl: 3 atorvastatin (LIPITOR) 80 MG tablet, TAKE 1 TABLET BY MOUTH IN THE EVENING, Disp: 90 tablet, Rfl: 3 cholecalciferol (VITAMIN D3) 1000 units capsule, Vitamin D-3 1000 UNIT Oral Capsule TAKE 1 CAPSULE DAILY Refills: 0 Active, Disp: , Rfl: clopidogrel (PLAVIX) 75 MG tablet, Take 1 tablet (75 mg total) by mouth daily., Disp: 90 tablet, Rfl: 3 escitalopram (LEXAPRO) 10 MG tablet, Take 1 tablet (10 mg total) by mouth daily., Disp: , Rfl: folic acid (FOLVITE) 1 MG tablet, 1 mg po qd, Disp: 90 tablet, Rfl: 3 methoTREXate (RHEUMATREX) 2.5 mg tablet, TAKE 6 TABLETS BY MOUTH WEEKLY, Disp: 72 tablet, Rfl: 0 metoPROLOL TARTRATE (LOPRESSOR) 25 MG tablet, TAKE 1 TABLET BY MOUTH TWICE DAILY, Disp: 200 tablet,Rfl: 3 Symbicort 160-4.5 MCG/ACT inhaler, 2 PUFF INHALED 2 TIMES A DAY FOR 30 DAYS, Disp: , Rfl: Trelegy Ellipta 200-62.5-25 MCG/ACT inhaler, Inhale 1 puff daily., Disp: , Rfl: Allergies: Allergies Allergen Reactions Aspirin Angioedema and Swelling Lip swelling Vitals: Vitals: 11/27/24 1316 BP: 122/64 SpO2: 96% Weight: 83.5 kg (184 lb) Height: 1.702 m (5' 7 ) Wt Readings from Last 1 Encounters: 11/27/24 83.5 kg (184 lb) Ht Readings from Last 1 Encounters: 11/27/24 1.702 m (5' 7 ) Body mass index is 28.82 kg/m??. Physical Exam: Gen : Appears pale, appears ill. Somewhat dyspneic at rest JVP : Within normal limits no bruit appreciated HEENT: no icterus or pallor, moist oral mucosa Lungs : good inspiratory effort, scattered inspiratory rales at lung bases bilaterally CVS : regular rhythm, normal S1 S2, holodiastolic murmur grade III/ aortic area Sternum stable midline sternal scar Peripheries : warm, normal pulses, no edema Neuro: oriented x3, normal gait/stance Skin: dry, no cyanosis, no rash Labs: Lab Results Component Value Date WBC 7.1 08/27/2024 HGB 10.4 (L) 08/27/2024 HCT 32.8 (L) 08/27/2024 PLT 178 08/27/2024 CHOL 59 09/10/2023 TRIG 85 09/10/2023 HDL 28 (L) 09/10/2023 ALT 14 06/23/2024 AST 18 06/23/2024 NA 135 08/27/2024 K 4.4 08/27/2024 CL 101 08/27/2024 CREAT 1.60 (H) 08/27/2024 BUN 31 (H) 08/27/2024 CO2 25 08/27/2024 TSH 1.47 08/27/2024 HGBA1C 5.9 (H) 07/22/2024 Cholesterol, Total <200 mg/dL 59 HDL Cholesterol > OR = 40 mg/dL 31Low Triglycerides <150 mg/dL 67 LDL-Cholesterol mg/dL (calc) 14 Comment: Reference range: <100 ECG: Recent Results (from the past 8760 hour(s)) ECG 12 lead Collection Time: 11/27/24 1:18 PM Result Value Status Ventricular rate 61 Final Atrial rate 61 Final P-R interval 166 Final QRS duration 108 Final Q-T interval 492 Final QTC calculation (Bazett) 496 Final P axis 9 Final R axis -15 Final T axis 19 Final Narrative Sinus rhythm with occasional Premature ventricular complexes Nonspecific T wave abnormality Abnormal ECG When compared with ECG of 18-Sep-2024 09:58, Premature ventricular complexes are now Present Confirmed by MD Dean Vincent ([id number]) on 11/27/2024 1:35:12 PM ECHO: Interpretation Summary 03/06/2024 There is mild concentric hypertrophy. Left ventricular systolic function is normal with an estimated ejection fraction of 55-59%. No wall motion abnormalities are present. The aortic root is mildly dilated at 3.7 cm (1.8 cm/m2 BSA).The ascending aorta is moderately dilated at 4.5 cm (2.2 cm/m2 BSA). The aortic valve is tricuspid. The aortic valve leaflets are moderately thickened.The aortic valve leaflets are mildly calcified. There is moderate to severe aortic regurgitation with eccentrically directed jet. There is trace mitral regurgitation. Left atrial size is normal. Right ventricular systolic function is normal. Echocardiogram Comprehensive: Result Notes Tee Dean MD 03/06/2024 5:04 PM EDT Known thoracic aortic aneurysm 4.5 cm on last check no significant change in size had moderate aortic insufficiency on previous check as well. Follow-up as scheduled Findings Left Ventricle The left ventricle is normal in size. There is mild concentric hypertrophy. Left ventricular systolic function is normal with an estimated ejection fraction of 55-59%. No wall motion abnormalities are present. There is abnormal relaxation, with elevated left atrial filling pressure. Right Ventricle The right ventricle is normal in size. Right ventricular systolic function is normal. Left Atrium Left atrial size is normal. Right Atrium Right atrial size is normal. Based on IVC diameter and collapse, right atrial pressureis estimated to be normal (3 mmHg). Mitral Valve The mitral valve is structurally normal. There is trace mitral regurgitation. Tricuspid Valve The tricuspid valve is structurally normal. There is trace tricuspid regurgitation.The estimated right ventricular systolic pressure is normal at 28 mmHg. Aortic Valve The aortic valve is tricuspid. The aortic valve leaflets are moderately thickened.The aortic valve leaflets are mildly calcified. There is moderate to severe aortic regurgitation with eccentrically directed jet. There is no aortic valve stenosis. Pulmonic Valve The pulmonic valve is structurally normal. There is trace pulmonic regurgitation. Aorta The aortic root is mildly dilated at 3.7 cm (1.8 cm/m2 BSA).The ascending aorta is moderatelydilated at 4.5 cm (2.2 cm/m2 BSA). Pericardium There is no pericardial effusion 2-D Measurements Dimensions LVIDD (F:3.8-5.2, M:4.2-5.8) 5.3 cm LVIDS (F:2.2-3.5, M:2.5-4.0) 3.4 cm IVS (F:0.6-0.9, M:0.6-1.0) 1.2 cm PW (F:0.6-0.9, M:0.6-1.0) 1.2 cm Volumes LV Mass Index (F:43-95, M:49-115) 125.6 g/m2 LA Volume Index (16-34) 19.9 mL/m2 LV mass 256.6 g LA volume 40.6 mL Aortic Root Ascending aorta 4.5 cm Ascending aorta Index 2.2 cm/m2 Sinuses of Valsalva 3.7 cm Sinuses of Valsalva Index 1.8 cm/m2 Doppler Measurements Aortic Valve - Stenosis LVOT peak chang 1.5 m/s Ao peak chang 2 m/s AV peak gradient 16 mmHg Aortic Valve - Regurgitation AV P Half Time 373 ms RVSP TR Peak Gradient 25 mmHg Est. RA pres 3 mmHg RVSP 28 mmHg Diastolic Filling MV E' Lateral Velocity 7.63 cm/s MV E' Septal Velocity 4.42 cm/s E/E' Lateral 10.3 E/E' Septal 17.7 E/E' Average 14 MV Peak E-Wave 78.3 cm/s MV Peak A-Wave 101 cm/s E/A ratio 0.78 Transthoracic Echocardiogram (TTE) w/Color Flow & Doppler (Contrast/Bubble/3D/Myocardial StrainPRN) Collection Time: 07/10/20 1:31 PM Result Value Ref Range BSA 2.21 m2 Height 68 in BP 115/69 mmHg Weight 3,600 oz Weight 225.00 lb LVIDd 5.6 4.2 - 5.9 cm IVSd 1.6 (A) 0.6 - 1.1 cm LVPWd 1.7 (A) 0.6 - 1.1 cm LVIDs 3.4 2.1 - 4.0 cm Ascending aorta 4.3 cm AORTIC ROOT DIAM INDEX 1.72 AO-PROX ASC INDEX 1.95 E/A ratio 2.5 E wave decelaration time 216.0 msec MV Peak E Chang 1.50 m/s MV Peak A Chang 0.6 m/s Est. RA Pressure 3 mmHg LV E' lateral velocity 12.1 cm/s LV E' septal velocity 9.3 cm/s MV E/e' Septal Ratio 16.1 MV E/e' Lateral Ratio 12.4 Aortic Root Diameter 3.8 cm FS 39 28 - 44 % EF 67 % EF 70 % Global Longitudinal Strain -17.0 % Narrative ?? Moderate left ventricular hypertrophy. ?? Hyperdynamic left ventricular ejection fraction estimated at 65-75%. ?? Normal RV systolic function. ?? Mild aortic insufficiency and aortic root enlargement ?? No significant change from prior echo ETT/PST: 01/22 Patient exercised for 09:24 minutes of the Karan protocol, achieving 86% pmhr. 1mm ST depresssion, resolving within 3 minutes of recovery. No arrythmias in recovery. Patient asymptomatic. Normal hemodynamaics. 10.4 METs, avrage functional capacity. EKG positive Maximal test without symptoms HOLTER MONITOR: CARDIAC CATHETERIZATION: He underwent a coronary angiogram and was found to have LM 70%, prox LAD 70%, circ 80%, RCA 70%, VASCULAR STUDIES: Abdominal ultrasound negative for abdominal aortic aneurysm Carotid Duplex HISTORY: Lightheadedness, preop CABG, hypertension Comparison: None FINDINGS: TECHNIQUE: Grayscale with duplex interrogation, color spectral analysis and bidirectional flow analysis was performed Right carotid: There was a mild amount of atherosclerotic plaque visualized about the carotid bulb. CCA Distal Peak Systolic Velocity: -68.6 (cm/s) End Diastolic Velocity: -17.6 (cm/s) ICA Proximal Peak Systolic Velocity: -65.9 (cm/s) End Diastolic Velocity: -21.1 (cm/s) ICA Mid Long Peak Systolic Velocity: -86.4 (cm/s) End Diastolic Velocity: -30.4 (cm/s) ICA Distal Peak Systolic Velocity: -85.7 (cm/s) End Diastolic Velocity: -24.2 (cm/s) ECA Peak Systolic Velocity: -149 (cm/s) ICA/CCA Ratio ICA/CCA velocity ratio: 1.26 Flow within the right vertebral artery was antegrade. Left carotid: There was a mild amount of atherosclerotic plaque visualized about the carotid bulb. CCA Distal Peak Systolic Velocity: -69.7 (cm/s) End Diastolic Velocity: -15.4 (cm/s) ICA Proximal Peak Systolic Velocity: -58 (cm/s) End Diastolic Velocity: -16.2 (cm/s) ICA Mid Long Peak Systolic Velocity: -76.7 (cm/s) End Diastolic Velocity: -23.6 (cm/s) ICA Distal Peak Systolic Velocity: -63.4 (cm/s) End Diastolic Velocity: -20.6 (cm/s) ECA Peak Systolic Velocity: -93.9 (cm/s) ICA/CCA Ratio ICA/CCA velocity ratio: 1.1 Flow within the left vertebral artery was antegrade. CONCLUSION: No evidence for hemodynamically significant stenosis Validated velocity measurements with angiographic measurements, velocity criteria are extrapolated from diameter data as defined by the Society of Radiologists in Ultrasound consensus Conference Radiology 2003; 229; 340-346 CT/CTA: coronary calcium score without contrast Indication: r/o cad Comparison chest CT of 01/11/2017. An axial gated study was performed to evaluate for coronary artery atherosclerosis. Calcified plaques analyzed utilizing the Agatston scoring system. Coronary calcium scoring: Left main: 247.1 Left anterior descendin.3 Circumflex: 948.7 Right coronary: 1612.7 Visualized mediastinal structures: The ascending aorta is mildly aneurysmal at 4.4 cm, chronic. Thedescending aorta measures 3 cm. Visualized lung rachel: Regions of pleural-parenchymal scarring and groundglass density are noted within both lungs chronic and most consistent with fibrosis. There is a small subpleural nodule in the right middle lobe that measures 8 mm on across its base. This previously measured up to 9 mm. It now has a more wedge-shaped appearance typical of a focus of fibronodular scarring. Visualized chest wall/upper abdomen: Unremarkable. Conclusion: Total calcium score*: 3908.8. 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 There is a chronic subpleural nodular density in the right middle lobe that is stable since 2017. Recommend annual surveillance CT. 4.4 cm aneurysm of the ascending aorta, chronic Exam: CTA CHEST WO W IV CONTRAST History: Aortic disease, nontraumatic, known or suspected - Gated CTA Contrast: 100 mL Isovue 370 IV. 3-D reconstructions with MIP imaging were obtained. Finding: CT angiogram performed without contrast. Thyroid gland is normal. There is no axillary adenopathy. There is no mediastinal or hilar lymphadenopathy. The heart is upper limits normal. There is diffuse coronary calcifications. The ascending aorta measures 4.4 cm in greatest dimension. There is no evidence of dissection. Heavily calcified coronary arteries. Minimally calcified thoracic aorta. The visualized portions of the liver, gallbladder, spleen, pancreas, adrenal glands are normal. There is a left renal cyst. Examination of the lung parenchyma shows some chronic interstitial changes at the bases with some bronchiectasis seen at both bases slightly greater on the right than the left. Some very minimal groundglass haziness seen in the lingula and inferior left upper lobe. Impression: 1. Mild dilatation of the ascending aorta. No evidence of dissection. 2. Diffuse coronary calcifications. 3. Chronic interstitial disease and scarring and bronchiectasis at both bases 08/11/15 The retroperitoneal structures are normal without pathologic adenopathy, there are atherosclerotic changes along the aorta without aneurysm or dissection 02/02/2022 CT chest TECHNIQUE: Multiple axial images were obtained through the chest after the administration of 100 mL of intravenous Omnipaque 300. Images were evaluated on independent dedicated 3-D workstation and 3-D images were reconstructed with concurrent radiologist supervision and subsequently interpreted. This CT examination was performed using dose optimization techniques as appropriate, variously including the following: *Automated exposure control. *Adjustment of mA and/or kV according to patient size (this includes techniques or standardized protocols for targeted exams where dose is matched to indication/reason for exam, i.e., extremities or head). *Use of iterative reconstruction technique. DLP: 313.37 mGy-cm FINDINGS: VASCULAR: Aortic Valve: Trileaflet, 39 x 45 mm. Thoracic Aorta: The mid ascending thoracic aorta measures up to 4.2 x 4.5 cm. The distal ascending thoracic aorta measures up to 3.8 x 4.2 cm. The transverse arch and descending thoracic aorta are normal in caliber. The thoracic aorta is widely patent without evidence of dissection. Subclavian Arteries: Widely patent bilaterally. Carotid and Vertebral Arteries: Not well evaluated due to bolus timing. There is heavy calcification at the origin of both vertebral arteries. Abdominal Aorta: The visualized portion of the abdominal aorta is normal in caliber and demonstrates heavy calcified atherosclerosis. Pulmonary arteries: Patent, normal caliber without evidence of large, central pulmonary embolus All vascular measurements obtained from 3-D reconstructed images are detailed in PACS. NON-VASCULAR: Lungs: There is mild centrilobular emphysema. There is bilateral traction bronchiectasis involving the bilateral lower lobes, the right middle lobe and within the lingula. There are scattered areas of ground-glass attenuation. For example, within the right middle lobe on image 217 of 504 and within the lingula. There is also ground-glass attenuation along the medial right lower lobe. There is significant peribronchiolar soft tissue thickening within the lingula. For example, on image 234 of image 504. There is an 8 mm subpleural nodule within the right middle lobe on image 251/504. Mediastinum: There is evidence of prior sternotomy and CABG. The heart is mildly enlarged. The [place] coronary vessels are severely calcified. There is no pericardial effusion. No bulky adenopathy. Pericardium/Pleura: There is no significant effusion. No pleural mass or thickening. Chest Wall/Axilla: Unremarkable. Upper Abdomen: Unremarkable. Osseous Structures: Unremarkable. IMPRESSION: 1. The mid ascending thoracic aorta is aneurysmal measuring up to 4.5 cm. 2. There is a background of mild centrilobular emphysema as well as multiple areas of ground-glass attenuation throughout both lungs as described above. Additionally, there is significant peribronchiolar soft tissue thickening within the lingula. Findings may reflect underlying infection or inflammation, however, short-term follow up is recommended. 3. There is also an 8 mm subpleural nodule within the right middle lobe. Attention on short-term follow up CT in 3 months. Thank you for referring your patient to us, Nomi Chang MD [phone] (Electronically Signed - 02/05/2022 19:40) Previous CT chest revealed 4.4 cm thoracic aortic aneurysm in 2017 Essentially no major change in thoracic aortic aneurysm Visualized mediastinal structures: The ascending aorta is mildly aneurysmal at 4.4 cm, chronic. Thedescending aorta measures 3 cm. Patient informed no significant change in size of thoracic aorta Lung findings noted on this CAT scan We will forward a copy to primary care patient will also be seeing a electric engine mechanic according to thepatient he was called today and informed of these results that he requires follow-up CAT scan for his lungs. RICKI: Other: INDICATION: Shortness of breath Patient is status post cardiac surgery. Tortuous thoracic aorta. Heart size is normal without failure. Increased density anteriorly on the lateral view may represent costochondral cartilage. Mild thickening of minor fissure. Mild pleural thickening. Spine shows kyphoplasty and lower thoracic upper lumbar compression fracture. Multilevel disc narrowing. No large pleural effusions IMPRESSION: No congestive failure visualized. See above Report reviewed and signed by : Dr. Fernando Arechiga on 08/26/2024 9:44 AM. Workstation Name - TROOPER Problem List Items Addressed This Visit Cardiovascular and Mediastinum Hypertension Thoracic ascending aortic aneurysm Other Visit Diagnoses WEBER (dyspnea on exertion) - Primary Hx of CABG Aortic valve insufficiency, etiology of cardiac valve disease unspecified Essential hypertension Fatigue, unspecified type Abnormal computed tomography angiography (CTA) Pre-op exam Relevant Orders ECG 12 lead (Completed) Assessment: Preop for cataract surgery Patient is an acceptable risk from a cardiovascular viewpoint for proposed surgery. Other than 1 PVCs seen no change on electrocardiogram he had a recent stress test in September 2024 which was negative for ischemia. Patient may proceed with surgery as planned Dyspnea on exertion-nonprogressive Fatigue Aortic insufficiency Anemia Patient has significant AI by exam He has anemia with a history of CMML which likely contributes to dyspnea as well Chest x-ray without failure Transesophageal echo revealed moderate aortic insufficiency normal EF (no features to suggest endocarditis) CBC revealed moderate anemia with hematocrit of 32 BNP was not elevated Sed rate was significantly elevated Blood cultures were negative D-dimer was mildly elevated CTA chest revealed 2 very small filling defects in peripheral pulmonary artery? Incidental pulmonary embolus read by radiology the significance of this was questioned by radiology. Follow-up bilateral venous duplex lower extremities negative for DVT ? Significance of findings on CTA chest Dyspnea likely a combination of underlying chronic pulmonary disease, anemia and moderate aortic insufficiency. No indication for aortic valve replacement at this point in time. Subsequent follow-up ventilation/perfusion lung scan low probability for pulmonary embolus patient treated medically Status post coronary bypass graft surgery x3 07/09/20 ECG unchanged with the exception of 1 PVC Recent pharmacologic stress test 09/12/2024 negative for ischemia normal EF Paroxysmal atrial fibrillation postop Treated with amiodarone postop with return to regular sinus rhythm Off amiodarone and sinus rhythm no recurrence of symptoms Thoracic aortic aneurysm 4.5 cm Last CTA 03/27 Recent echo 03/28-4.5 cm ascending thoracic aorta Screen for abdominal aortic aneurysm was negative For follow-up echocardiogram for aortic root size recently performed unchanged 4.5 cm CMML Interstitial lung disease Essential hypertension BP compensated on present meds Hypercholesterolemia Lipid levels very low continue present meds History of Thrombocytopenia with chronic CML History of Aspirin Allergy with lip swelling On antiplatelet therapy with Plavix Plan: Continue present meds Proceed with cataract surgery as planned Office visit follow-up with us in 4 months Tee Dean MD [facility] Cardiology [address] [place] [address] documented in this encounter Plan of Treatment Upcoming Encounters Date Type Department Care Team (Late st Contact Info) Description 01/30/2025 9:20 AM EDT [facility] Department of Rheumatology [place] [address] [place] [phone] Natasha Allred MD [address] [place] [address] 03/12/2025 11:20 AM EDT Office Visit [facility] [place] [address] [place] [phone] Tee Dean MD [address] [place] [id number] documented as of this encounter Procedures Procedure Name Priority Date/Time Associated Diagnosis Comments ECG 12-LEAD Routine 11/27/2024 1:18 PM EST Pre-op exam documented in this encounter Results * ECG 12 lead (11/27/2024 1:18 PM EST) Ventricular rate 61 BPM EKG [facility] Atrial rate 61 BPM EKG [facility] P-R interval 166 ms EKG [facility] QRS duration 108 ms EKG [facility] Q-T interval 492 ms EKG [facility] QTC calculation (Bazett) 496 ms EKG [facility] P axis [address] [facility] R axis -15 degrees EKG [facility] T axis 19 degrees EKG [facility] 11/27/2024 1:18 PM EST Narrative [facility] - 11/27/2024 1:35 PM EST Sinus rhythm [...] 1:35:12 PM Tee Dean MD ECG ORDERABLES [facility] documented in this encounter Visit Diagnoses Diagnosis WEBER (dyspnea on exertion)- Primary Other dyspnea and respiratory abnormality Hx of CABG Postsurgical aortocoronary bypass status Aortic valve insufficiency, etiology of cardiac valve disease unspecified Essential hypertension Unspecified essential hypertension Fatigue, unspecified type Abnormal computed tomography angiography (CTA) Resistant hypertension Aneurysm of ascending aorta without rupture Pre-op exam documented in this encounter Care Teams Conservation Specialist Relationship Specialty Start Date End Date Ben Goldsmith MD [address] [place] [address] PCP - General Internal Medicine 07/12/21 Tee Dean MD [address] [place] [address] Primary Area Operations Director Cardiovascular Disease 12/24/23 Rafael Estevez MD [address] [place] [address] Surgeon Surgery, Orthopedic 07/25/24 documented as of this encounter
--- OUTSIDE RECORDS SUMMARY | 2024-12-25 10:30 | XMS_ITS | Encounter Summary ---
Author Organization [facility] Address [address] [place] [address] Care Team Providers Care Library Associate Name Role Phone Ben Goldsmith Md, MD Primary Care Provider Unav ailable Reason for Visit * Reason Onset Date Comments Medication 05/27/2018 Encounter Details Date Type Department Care Team Description 05/27/2018 Telephone Rheumatology - [address] [address] Elfego Alaniz MD Medication Social History Tobacco Use Types Packs/Day Years Used Date Smoking Tobacco: Former Cigarettes 0.5 40 Smokeless Tobacco: Never Alcohol Use Standard Drinks/Week Comments No 0 (1 standard drink = 0.6 oz pur e alcohol) Sex Assigned at Date Recorded Not on file documented as of this encounter Miscellaneous Notes * Telephone Encounter - Trena Chakraborty L.P.NMinh - 05/27/2018 12:05 PM EDT Pt saw eye dr ,everything ok ,he can wean off pred and start plaquenil please review and advise documented in this encounter Plan of Treatment Not on file documented as of this encounter Visit Diagnoses Not on filedocumented in this encounter Care Teams Library Associate Relationship Specialty Start Date End Date Ben Goldsmith MD, MD PCP - General Internal Medicine 04/03/18 documented as of this encounter
--- OUTSIDE RECORDS SUMMARY | 2024-12-25 10:30 | XMS_ITS | Encounter Summary ---
Author Organization [facility] Address [address] [place] [address] Care Team Providers Care Drywall Applicator Name Role Phone Ben Goldsmith Md, MD Primary Care Provider Unav ailable Reason for Visit * Reason Onset Date Comments Editor Newspaper Feedback 04/04/2018 CAT Scan of Ches t Encounter Details Date Type Department Care Team Description 04/04/2018 Telephone Pulmonology - [address] [place] [address] Ernestina Bhakta, LAYLA Editor Newspaper Feedback (CAT Scan of Chest) Social History Tobacco Use Types Packs/Day Years Used Date Smoking Tobacco: Former Cigarettes 0.5 40 Smokeless Tobacco: Never Alcohol Use Standard Drinks/Week Comments No 0 (1 standard drink = 0.6 oz pur e alcohol) Sex Assigned at Date Recorded Not on file documented as of this encounter Miscellaneous Notes * Telephone Encounter - Cherelle Hua - 04/04/2018 11:39 AM EDT Notification letter mailed to patient. Office will contact patient to book appointment. Order faxed to Donald at [facility]. Office books with patient and notifies us with appointment. documented in this encounter Plan of Treatment Not on file documented as of this encounter Visit Diagnoses Not on filedocumented in this encounter Care Teams Drywall Applicator Relationship Specialty Start Date End Date Ben Goldsmith MD, MD PCP - General Internal Medicine 04/03/18 documented as of this encounter
--- OUTSIDE RECORDS SUMMARY | 2024-12-25 10:30 | XMS_ITS | Encounter Summary ---
Author Organization [facility] Address [address] [place] [address] Care Team Providers Care Entertainment Musician Name Role Phone Damon Kirk MD Primary Care Provider Ben Cancino Md, MD Primary Care Provider Unav ailable Reason for Visit * Reason Onset Date Comments Testing 03/12/2018 Encounter Details Date Type Department Care Team Description 03/12/2018 Telephone Radiology - [address] [address] Matthew Fonseca MD Testing Social History Tobacco Use Types Packs/Day Years Used Date Smoking Tobacco: Former Cigarettes 0.5 40 Sex Assigned at Date Recorded Not on file documented as of this encounter Miscellaneous Notes * Telephone Encounter - Matthew Fonseca MD - 03/12/2018 5:08 PM EDT ok * Telephone Encounter - Sylvia Moya - 03/12/2018 12:18 PM EDT Called patient to book his cat scan of chest. Patient stated he wants done in [place]. Can you make this an external order please? Thank you documented in this encounter Plan of Treatment Not on file documented as of this encounter Visit Diagnoses Diagnosis Lung nodule- Primary Solitary pulmonary nodule Pneumonitis Pneumonia, organism unspecified documented in this encounter Care Teams Entertainment Musician Relationship Specialty Start Date End Date Damon Kirk MD PCP - General Family Practice 09/21/17 04/02/18 Ben Goldsmith MD, MD PCP - General Internal Medicine 04/03/18 documented as of this encounter
--- OUTSIDE RECORDS SUMMARY | 2024-12-25 10:30 | XMS_ITS | Encounter Summary ---
Author Organization [facility] Address [address] [place] [address] Care Team Providers Care Inspector Sheet Metal Parts Name Role Phone Ben Goldsmith Md, MD Primary Care Provider Unav ailable Encounter Details Date Type Department Care Team Description 02/26/2019 Senior Software Quality Engineer Report Medical Records [address] [place] [id number] Abstract, Provider Social History Tobacco Use Types Packs/Day Years Used Date Smoking Tobacco: Former Cigarettes 0.5 40 Smokeless Tobacco: Never Alcohol Use Standard Drinks/Week Comments No 0 (1 standard drink = 0.6 oz pur e alcohol) Sex Assigned at Date Recorded Not on file documented as of this encounter Plan of Treatment Not on file documented as of this encounter Visit Diagnoses Not on filedocumented in this encounter Care Teams Inspector Sheet Metal Parts Relationship Specialty Start Date End Date Ben Goldsmith MD, MD PCP - General Internal Medicine 04/03/18 documented as of this encounter
--- OUTSIDE RECORDS SUMMARY | 2024-12-25 10:30 | XMS_ITS | Data Portability ---
Author Organization [place] [facility], Main Office Address [address] [place] [address] Care Team Providers Care Body Presser Name Role Phone CHRISTELECTOR MASCORRO Primary Care [...] Time Details Appointments FOLLOW UP 2024 10:30A Hayes Estevez MD Not available Not available Not available Lab None recorded. Referral None recorded. Procedures None recorded. Surgeries None recorded. Imaging XR, lumbar spine 2023 024 [facility] ([facility]), [address], [address], [place], [address], 11/04/2024 09:46:47 XR, lumbar spine 2023 024 [facility] ([facility]), [address], [place], [address], 08/26/2024 17:21:09 Medication Orders oxycodone 5 mg tablet 2023 024 [id number], [address], [place], [address], 06/02/2024 10:30:17 Patient TargetsNo targets recorded. Patient [...] Exam is non-re portab le. [address] 116m[address] [facility] ([facility]) [address] [place], [address], 07/02/2024 14:37:37 05/14/20 24 05/09/2024 xr lumba [...] 8:03 AM. Workst ation Name - CHINEDU COX0 [address] [facility] ([facility]) [address] [place], [address], 07/02/2024 14:37:38 05/21/20 24 05/21/2024 xr lumba [...] pants as seen in latera l XR. [facility] ([facility]) [address], [place], [address], 06/02/2024 10:44:30 05/26/20 24 05/24/2024 MRI, lumba [...] 024 10:48 AM. Workst ation Name - [facility] READ01 ARRAY( 0x58e6 4eb0) ARRAY( 0x58db 1058) ARRAY( 8b0914 2af8) ARRAY( 0x78b6 9de8) ARRAY( 5g784n b3b0) ARRAY( 0x58dc 2980) ARRAY( 0x6e7c c0d8) ARRAY( 0x78ae 0b68) ARRAY( 2i344m b7e8) ARRAY( 4w4717 dc70) [address] ([facility]) [address] [place], [address], 05/26/2024 15:23:09 05/29/20 24 05/26/2024 fluor oscop y less than one hour Exam is non-re portab le. 0.27 3.9 mGy ARRAY( 0x5a3e c7b8) ARRAY( 0x76c1 e788) ARRAY( 5e0754 2018) ARRAY( 0x5b4b 1230) ARRAY( 0x5a37 c6e8) ARRAY( 0x5a46 6478) ARRAY( 9x8371 b968) ARRAY( 0x5a4a cad0) ARRAY( 0x5a45 7c38) [address] ([facility]) [address] [place] [address], [address], 06/02/2024 10:44:31 05/29/20 24 05/26/2024 xr lumba [...] 024 3:31 PM. Workst ation Name - [facility] CREAD0 1 ARRAY( 0x7b35 1518) ARRAY( 7j8904 6488) ARRAY( 0x7ae5 ca18) ARRAY( 7u5333 1368) ARRAY( 3x3941 88d8) ARRAY( 0x7b72 82b8) ARRAY( 6t8266 ece0) ARRAY( 0x5b1a 1e00) ARRAY( 3a569r c098) [address] ([facility]) [address] [place], [address], 06/02/2024 10:44:31 07/18/20 24 05/10/2024 MRI, lumba r spine , w/o contr ast No observ ation record ed. [email or web address] [facility] ([facility]) [address], [place], [address], 07/18/2024 12:53:39 07/29/20 24 07/29/2024 fluor oscop y less than one hour Exam is non-re portab le. 0.[address] ([facility]) [address] [place], [address], 08/11/2024 10:19:16 07/29/20 24 07/29/2024 xr lumba [...] Workst ation Name - CHINEDU COX0 [address] ([facility]) [address] [place], [address], 08/11/2024 10:19:17 07/29/20 24 07/29/2024 CT airo lumba r spine witho ut IV contr ast See notes tab of Epic Chart Review for Final Report . [address] ([facility]) [address] [place], [address], 08/11/2024 10:19:17 07/30/20 24 07/29/2024 xr lumba [...] Workst ation Name - CHINEDU COX0 [address] [facility] ([facility]) [address] [place] [address], [address], 08/11/2024 10:19:18 07/30/20 24 07/29/2024 xr chest [...] Workst ation Name - CHINEDU COX0 [address] [facility] ([facility]) [address] [facility], [place], [address], 08/11/2024 10:19:18 07/31/20 24 07/29/2024 CT, abdom [...] 1:33 PM. Workst ation Name - 005[facility] ([facility]) [address] [place] [address], [address], 08/11/2024 10:19:19 07/31/20 24 07/29/2024 CT pelvi [...] ions) adjace nt to the left psoas, dipper and drier ior to the left kidney , tracki [...] Workst ation Name - RAH-7P YJLM3 [facility] ([facility]) [address] [place], [address], 08/11/2024 10:19:19 08/25/20 24 08/25/2024 xr lumba r spine AP & lat EXAM: XR LUMBAR SPINE AP & LAT HISTOR Y: Arthro desis status FINDIN GS: Examin ation of the lumbar spine compar ed to prior study. There is been a dipper and drier ior fusion L2-L4. Surgic al hardwa re [...] ation Name - DESKTO P-8MUF LUQ [facility] ([facility]) [address] [place], [address], 08/27/2024 14:06:24 11/03/20 24 11/03/2024 XR, lumba r spine No observ ation record ed. [facility] ([facility]) [address] [place] [address], [address], 11/06/2024 12:55:32 Result Notes None recorded. Problems Name Problem SNOMED Code Status Onset Date Resolution Date Notes Provider Name and Address Organization Details Recorded Time History of lumbar fusion 8059397466866 6 Active 2023 Rafael Estevez MD [address] [place] [address], [address], [place] [facility] 10:14:25 Spinal stenosis of lumbar region 65230647 Active 2023 Rafael Estevez MD [address] [place] [address], [address], [place] [facility] 4 09:14:48 Compression fracture of thoracic vertebra 8326629213316 Active 2023 Rafael Estevez MD [address] [place] [address], [address], [place] [facility] 09:14:50 Back problem 853594159 Active 2023 Rafael Estevez MD [address] [place] [address], [address], [place] [facility] 09:14:51 Degeneratio n of lumbar interverteb ral disc 90188525 Active 2023 Rafael Estevez MD [address] [place] [address], [address], [place] [facility] 09:14:55 Compression fracture of lumbar spine 419798924 Active 2023 Rafael Estevez MD [address] [place] [address], [address], [place] [facility] 09:14:59 Problem Notes None recorded. Procedures Surgical History Date Name Laterality Status Provider Name and Address Organization Details Recorded Time lumbar spinal fusion completed Rafael Estevez MD [address] [place] [address], [address], [place] [facility] 08/25/2024 10:13:01 coronary artery bypass graft completed Rafael Estevez MD [address] [place] [address], [address], [place] [facility] 05/21/2024 09:05:22 appendectomy completed Rafael Estevez MD [address] [place] [address], [address], [place] [facility] 05/21/2024 09:05:30 balloon kyphoplasty of fracture of spine completed Rafael Estevez MD [address] [place] [address], [address], [place] [facility] 05/21/2024 09:06:04 Imaging Results Imaging Date Name Status LastModified by Organiz ation Details LastModified Time 05/09/2024 fluoroscopy less than one hour completed [email or web address] [place] [address] ([facility]) [address] [facility], [place], [address], 07/02/2024 14:37:37 05/09/2024 xr lumbar spine AP & lat completed [address] ([facility]) [address] [place], [address], 07/02/2024 14:37:38 05/21/2024 xr lumbar spine AP & lat completed [address] ([facility]) [address] [place], [address], 06/02/2024 10:44:30 05/24/2024 MRI, lumbar spine, w/o contrast completed [address] ([facility]) [address] [place], [address], 05/26/2024 15:23:09 05/26/2024 fluoroscopy less than one hour completed [address] ([facility]) [address] [place], [address], 06/02/2024 10:44:31 05/26/2024 xr lumbar spine AP & lat completed [address] ([facility]) [address] [place], [address], 06/02/2024 10:44:31 05/10/2024 MRI, lumbar spine, w/o contrast completed [email or web address] [facility] ([facility]) [address] [place] [address], [address], 07/18/2024 12:53:39 07/29/2024 fluoroscopy less than one hour completed [address] ([facility]) [address] [place], [address], 08/11/2024 10:19:16 07/29/2024 xr lumbar spine AP & lat completed [address] ([facility]) [address] [place], [address], 08/11/2024 10:19:17 07/29/2024 CT airo lumbar spine without IV contrast completed [address] ([facility]) [address] [place], [address], 08/11/2024 10:19:17 07/29/2024 xr lumbar spine AP & lat completed [address] ([facility]) [address] [place], [address], 08/11/2024 10:19:18 07/29/2024 xr chest AP and lat completed [address] ([facility]) [address] [place], [address], 08/11/2024 10:19:18 07/29/2024 CT, abdomen, w/o contrast completed [address] ([facility]) [address] [place] [address], [address], 08/11/2024 10:19:19 07/29/2024 CT pelvis without contrast (IV or oral) completed [address] ([facility]) [address] [place], [address], 08/11/2024 10:19:19 08/25/2024 xr lumbar spine AP & lat completed [address] ([facility]) [address] [place] [address], [address], 08/27/2024 14:06:24 11/03/2024 XR, lumbar spine [email or web address] [facility] ([facility]) [address] [place] [address], [address], 11/06/2024 12:55:32 Procedure Notes None recorded. Medical Equipment None Reported. Allergies Allergen ID Allergen Name Allergen Category Reaction Reaction Severity Criticality Documentation Date Start Date Code Code System Note Provider Name and Address Organization Details Recorded Time 681 aspirin medicatio n angioedem a Not available Not available 05/21/2024 1191 RxNorm Rafael Estevez MD [address] [place] [address], [address] , [place] [facility] [...] Updated DateTime 06/02/2024 170.18 cm 26.6 kg/m2 20926.7 g Rafael Estevez MD [address] [place] [address], [address], [place] [facility] 06/02/2024 10:24:02 Date Recorded Body height Body mass index (BMI) Body weight Provider Name and Address Organization Details Last Updated DateTime 06/18/2024 170.18 cm 26.6 kg/m2 40534.7 daniel Estevez MD [address] [place] [address], [address], [facility] 06/18/2024 10:32:51 Date Recorded Body height Body mass index (BMI) Body weight Provider Name and Address Organization Details Last Updated DateTime 07/02/2024 170.18 cm 26.6 kg/m2 72501.[address] daniel Estevez MD [address] [place] [address], [address], [place] [facility] 07/02/2024 11:13:56 Date Recorded Body height Body mass index (BMI) Body weight Provider Name and Address Organization Details Last Updated DateTime 08/25/2024 170.18 cm 26.6 kg/m2 92966.7 g Rafael Estevez MD [address] [place], [address], [place] [facility] 08/25/2024 10:12:40 Date Recorded Body height Body mass index (BMI) Body weight Provider Name and Address Organization Details Last Updated DateTime 11/03/2024 170.18 cm 26.6 kg/m2 52210.7 g Rafael Estevez MD [address] [place] [address], [address], [place] [facility] 11/03/2024 10:26:55 Social History Question Answer Notes LastModified by Organizat ion Details LastModified Time Tobacco Smoking Status Former Smoker Rafael Estevez MD [address] [place] [address], [address], [place] [facility] 05/21/2024 [...] History Nothing Reported. Medical History Condition Response Diabetes Y Heart Problems Y Coronary Artery Disease Y Anxiety/Depression Y Gout Y Arthritis Y High Cholesterol Y Cancer Y Hypertension Y Osteoporosis Y Kidney Disease Y Past Encounters Encounter ID Performer Location Encounter Start Date Encounter Closed Date Diagnosis/Indication Diagnosis SNOMED-CT Code Diagnosis ICD10 Code Diagnosis Note [id number] Rafael Estevez MD Main Office [address] [place] [address] 05/21/2024 08:07:25 05/30/2024 08:51:41 Back problem 306798733 M53.9 Degenerati on of lumbar intervertebral disc 96514772 M51.36 Compressio n fracture of lumbar spine 124311021 M48.56XD Compressio n fracture of thoracic vertebra 1685448088 104 M48.54XD Spinal fabio nosis of lumbar region 62210047 M48.062 [id number] Rafael Estevez MD Main Office [address] [place], [place] [address] 06/02/2024 09:35:40 06/04/2024 09:42:53 Spinal stenosis of lumbar region 44601143 M48.062 Degenerati on of lumbar intervertebral disc 68280933 M51.36 Back problem 936243800 M 53.9 Compressio n fracture of lumbar spine 265283116 M48.56XD Isthmic spondylolisthesis 526465098 M43.10 [id number] Rafael Estevez MD Main Office [address] [place], [place] [address] 06/18/2024 10:10:40 07/02/2024 09:44:28 Spinal stenosis of lumbar region 95178694 M48.062 Degenerati on of lumbar intervertebral disc 94821534 M51.36 Back problem 143381845 M 53.9 [id number] Rafael Estevez MD Main Office [address] [place], [place] [address] 07/02/2024 09:52:20 09/29/2024 15:26:11 Spinal stenosis of lumbar region 03155023 M48.062 Degenerati on of lumbar intervertebral disc 25451675 M51.36 Back problem 816308208 M 53.9 [id number] Rafael Estevez MD Main Office [address] [place], [place] [address] 08/25/2024 09:59:13 08/26/2024 17:21:08 Spinal stenosis of lumbar region 75747946 M48.062 Degenerati on of lumbar intervertebral disc 43200510 M51.369 History of lumbar fusion 8550944984 9106 Z98.1 [id number] Rafael Estevez MD Main Office [address] [place], [place] [address] 11/03/2024 10:09:44 11/04/2024 09:46:47 Spinal stenosis of lumbar region 89108874 M48.062 Degenerati on of lumbar intervertebral disc 65532989 M51.369 Back problem 374625184 M 53.9 Health Concerns Section Related Observation LastModified by Organization Detai ls LastModified Time None Recorded Concern Status LastModified by Organization Details LastModified Time None Recorded Advance Directives Directive None Recorded Payers Encounter Date Sequence Insurance Name Policy Number Policy Kirkpatrick Covered Member ID Kirkpatrick Member ID Guarantor Name 06/02/2024 1 [facility] (MEDICARE REPLACEMENT/A DVANTAGE - HMO) [id number] Chuck Harmon [id number] Chuck Harmon 06/18/2024 1 [facility] (MEDICARE REPLACEMENT/A DVANTAGE - HMO) [id number] Chuck Harmon [id number] Chuck Harmon 07/02/2024 1 [facility] (MEDICARE REPLACEMENT/A DVANTAGE - HMO) [id number] Chuck Harmon [id number] Chuck Harmon 08/25/2024 1 [facility] (MEDICARE REPLACEMENT/A DVANTAGE - HMO) [id number] Chuck Harmon [id number] Chuck Harmon 11/03/2024 1 [facility] (MEDICARE REPLACEMENT/A DVANTAGE - HMO) [id number] Chuck Harmon [id number] Chuck Harmon Notes Date Note Type Note [...] no significant radicular symptoms. Rafael Estevez MD [address] [place] [address], [address], [place] [facility] 06/02/2024 [...] any new neurologic symptoms Rafael Estevez MD [address] [place] [address], [address], [facility] 06/18/2024 10:37:48 07/02/2024 text/html This is a [...] does not report any new neurologic symptoms. Raafel Estevez MD [address] [place] [address], [address], [facility] 07/02/2024 16:24:17 08/25/2024 text/html This is a 78-yea r-old gentleman status approximately a month from L2-3 and L3-4 lateral lumbar interbody fusion. He is doing very well after the surgery his pain has gone away and he is needing minimal pain medications. Rafael Estevez MD [address] [place] [address], [address], [facility] 08/25/2024 10:17:22 11/03/2024 text/html This is a [...] since his last visit. Rafael Estevez MD [address] [place] [address], [address], [facility] 11/03/2024 10:40:33
--- OUTSIDE RECORDS SUMMARY | 2024-12-25 10:30 | XMS_ITS | Encounter Summary ---
Author Organization [facility] Address [address] [place] [address] Care Team Providers Care Business Performance Analyst Name Role Phone Ben Goldsmith Md, MD Primary Care Provider Unav ailable Reason for Visit * Reason Onset Date Comments other 02/26/2019 Encounter Details Date Type Department Care Team Description 02/26/2019 Telephone Pulmonology - [address] [place] [address] Matthew Fonseca MD other Social History Tobacco Use Types Packs/Day Years Used Date Smoking Tobacco: Former Cigarettes 0.5 40 Smokeless Tobacco: Never Alcohol Use Standard Drinks/Week Comments No 0 (1 standard drink = 0.6 oz pur e alcohol) Sex Assigned at Date Recorded Not on file documented as of this encounter Miscellaneous Notes * Telephone Encounter - Keesha Fonseca - 02/26/2019 3:[address] Ferreira from [facility] in [place] calling to speak with Dr Fonseca regarding the patient. Please give him a call office [phone] or documented in this encounter Plan of Treatment Not on file documented as of this encounter Visit Diagnoses Not on filedocumented in this encounter Care Teams Business Performance Analyst Relationship Specialty Start Date End Date Ben Goldsmith MD, MD PCP - General Internal Medicine 04/03/18 documented as of this encounter
--- OUTSIDE RECORDS SUMMARY | 2024-12-25 10:30 | XMS_ITS | Encounter Summary ---
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); MGUS (monoclonal gammopathy of unknown significance) Social History Tobacco Use Types Packs/Day Years [...] Care Team (Latest Contact Info) Description 02/27/2025 [facility] Hematology Oncology [address] [place] [address] Wilton Crawford MD [address] [place] [phone] 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); MGUS (monoclonal gammopathy of unknown significance) 06/22/2025 9:00 AM EDT Office Visit [facility] Hematology Oncology [address] [place] [phone] Wilton Crawford MD [address] [place] [phone] documented as of this encounter Visit Diagnoses Diagnosis 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
--- OUTSIDE RECORDS SUMMARY | 2024-12-25 10:30 | XMS_ITS | Encounter Summary ---
Author Organization [facility] Address [address] [place] [address] Care Team Providers Care Washery Boss Name Role Phone Damon Kirk MD Primary Care Provider Unavailwayne e Ben Goldsmith Md, MD Primary Care Provider Unav ailable Encounter Details Date Type Department Care Team Description 03/22/2018 [facility] Medical Records [address] [place] [address] Elfego Alaniz MD Social History Tobacco Use [...] on filedocumented in this encounter Care Teams Washery Boss Relationship Specialty Start Date End Date Damon Kirk MD PCP - General Family Practice 09/21/17 04/02/18 Ben Goldsmith MD, MD PCP - General Internal Medicine 04/03/18 documented as of this encounter
--- OUTSIDE RECORDS SUMMARY | 2024-12-25 10:30 | XMS_ITS | Encounter Summary ---
Author Organization [facility] Address [address] [place] [address] Care Team Providers Care Chainstitch Binder Name Role Phone Ben Goldsmith MD Primary Care Provider + [phone] Tee eDan MD Unavailable [phone] Rafael Estevez MD Unavailable [phone] Encounter Details Date Type Department Care Team (Latest Contact Info) Description 11/27/2024 Travel Social History Tobacco Use Types Packs/Day Years [...] Description 01/30/2025 9:20 AM EDT Office Visit [facility] Department of Rheumatology [place] [address] [place] [phone] Natasha Allred MD [address] [place] [address] 03/12/2025 11:20 AM EDT Office Visit [facility] Heart [facility] V[facility] [place] [address] [place] [phone] Tee Dean MD [address] [place] [address] documented as of this encounter Visit Diagnoses Not on filedocumented in this encounter Care Teams Chainstitch Binder Relationship Specialty Start Date End Date Ben Goldsmith MD [address] [place] [address] PCP - General Internal Medicine 07/12/21 Tee Dean MD [address] [place] [address] Primary Supervisor Accounting [employer] Cardiovascular Disease 12/24/23 Rafael Estevez MD [address] [place] [address] Surgeon Surgery, Orthopedic 07/25/24 documented as of this encounter
--- OUTSIDE RECORDS SUMMARY | 2024-12-25 10:30 | XMS_ITS | Encounter Summary ---
Author Organization [facility] Address [address] [place] [address] Care Team Providers Care Computer Laboratory Technician Name Role Phone Ben Goldsmith Md MD Primary Care Provider Unav ailable Reason for Visit * Reason Onset Date Comments REFERRAL 06/08/2020 Encounter Details Date Type Department Care Team Description 06/08/2020 Telephone Rheumatology - [address] [address] Elfego Alaniz MD REFERRAL Social History Tobacco Use Types Packs/Day Years Used Date Smoking Tobacco: Former Cigarettes 0.5 40 Smokeless Tobacco: Never Alcohol Use Standard Drinks/Week Comments No 0 (1 standard drink = 0.6 oz pur e alcohol) Sex Assigned at Date Recorded Not on file documented as of this encounter Miscellaneous Notes * Telephone Encounter - Yannick Hay - 06/08/2020 11:12 AM EDT Left message for patient to call back and schedule a follow up in the end of August, per documented in this encounter Plan of Treatment Not on file documented as of this encounter Visit Diagnoses Not on filedocumented in this encounter Care Teams Computer Laboratory Technician Relationship Specialty Start Date End Date Ben Goldsmith MD, MD PCP - General Internal Medicine 04/03/18 documented as of this encounter
--- OUTSIDE RECORDS SUMMARY | 2024-12-25 10:30 | XMS_ITS | Encounter Summary ---
Author Organization [facility] Address [address] [place] [address] Care Team Providers Care Centrifugal Extractor Operator Name Role Phone Ben Goldsmith Md, MD Primary Care Provider Unav ailable Encounter Details Date Type Department Care Team Description 06/13/2019 Telephone Adult [address] [address] Elfego lAaniz MD Social History Tobacco Use Types Packs/Day [...] on filedocumented in this encounter Care Teams Centrifugal Extractor Operator Relationship Specialty Start Date End Date Ben Goldsmith MD, MD PCP - General Internal Medicine 04/03/18 documented as of this encounter
--- OUTSIDE RECORDS SUMMARY | 2024-12-25 10:30 | XMS_ITS | Encounter Summary ---
Author Organization [facility] Address [address] [place] [address] Care Team Providers Care Historiography Professor Name Role Phone Damon Kirk MD Primary Care Provider Ben Cancino Md, MD Primary Care Provider Unav ailable Encounter Details Date Type Department Care Team Description 12/10/2017 Pharmacy Picking Technician Report Medical Records [address] [place] [id number] [facility] [place] Social History Tobacco Use Types Packs/Day Years Used Date Smoking Tobacco: Former Cigarettes 0.5 42 Sex Assigned at Date Recorded Not on file documented as of this encounter Plan of Treatment Not on file documented as of this encounter Visit Diagnoses Not on filedocumented in this encounter Care Teams Historiography Professor Relationship Specialty Start Date End Date Damon Kirk MD PCP - General Family Practice 09/21/17 04/02/18 Ben Goldsmith MD, PCP - General Internal Medicine 04/03/18 documented as of this encounter
--- OUTSIDE RECORDS SUMMARY | 2024-12-25 10:30 | XMS_ITS | Encounter Summary ---
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 male. HPI: The patient returns for follow up of CMML, leukocytosis, IgG lambda MGUS For details of initial diagnosis and follow up until SEP 05, 2024- please refer to notes from prior [facility] EMR last note dated 07/01/2024 Patient reports that he has been doing better over the last 3 months. His activity levels are improved. He has mild weakness of the right leg, no falls. Weight is improved. He is awaiting follow-up with rheumatology, continues on methotrexate. He had an episode of bronchitis last week and was started on prednisone that he continues on. He had lab work performed that did show by platelets in the normal range, likely prednisone effect. Renal function- creatinine slightly higher, I reviewed with the patient regarding sufficient hydration, he is going to make an effort. He has follow-up with Dr. Zeb silvestre coming up in January. There is lab work reviewed, monocytes at 2.34, his usual range, and M spike stable in range 1.6, previously 1.3. [place] lambda free light chains are pending, will review once available Hold off further invasive testing and treatment for this time He will continue on every 3 monthly lab work The following is copied, reviewed and edited Cancer Staging No matching staging information was found for the patient. Oncology History No history exists. Dr Truong note -- Antonio Harmon is a 72-year-old white male here for follow up of CMMLand monoclonal gammopathy. He was previously followed by Dr Ruby Carr in [place], care transferred here in March 2018. He was referred to Dr Carr by Dr. Wilson for monocytosis in April 2014. He had had 3 CBCs showing 25-30% monocytes in the prior 3 months. He had been asymptomatic. On 02/17/14 his white blood cell count was 7700 with 29% monocytes, 42% segs and 27% lymphocytes that hemoglobin was 14.2, hematocrit 41.3, MCV 85, and platelet counts was 181,000. Flow cytometry was done on 03/25/14 and did not show any clonal B cells or abnormal. T-cell populations. He had no lymphadenopathy or B symptoms. His hemoglobin was between 13.8 and 14.8. His workup included a negative JAK2 and negative BCR-ABL He had a bone marrow biopsy and aspirate on 07/17/14 that showed variable cellularity (30-80%) Therewere 7-10% monoclonal plasma cells. There were increased iron stores. There was a slight increase in CD138 positive plasma cells with overexpression of lambda. The IGH break apart probe showed 5.5% cells with abnormal monosomy IGH signal pattern with no rearrangement seen. Skeletal survey was negative. Testing in the [facility] laboratory showed the presence of pathogenic mutations in the SRFS2, ASXL1, DNMT3A and the TET2.. He was referred to Dr. Angelica Garza at [facility] and was seen in consultation on 09/18/14. The suspected diagnosis was CMML-2 and MGUS. SURGICAL PATHOLOGY REPORT Name: SAVIANTONIO J Sex: M Service Date: 11/19/23 Hosp#: [id number] Date Reported: 11/28/23 : 1945 Age: 78 A-E. A-E. BONE MARROW-ASPIRATION, CORE BIOPSY, AND CLOT: -HYPERCELLULAR MARROW WITH MONOCYTOSIS, MILD TRILINEAGE DYSPLASIA, 10% BLASTS/BLAST EQUIVALENTS, CONSISTENT WITH KNOWN CHRONIC MYELOMONOCYTIC LEUKEMIA-2, MYELOPROLIFERATIVE SUBTYPE (MP-CMML-2). -PLASMACYTOSIS (10%), PENDING ADDITIONAL STUDIES FOR CLONALITY. SEE COMMENT Comment: This is a markedly hypercellular marrow ( 90-95% overall cellularity) with trilineage hematopoiesis, monocytosis, mild trilineage dysplasia, 10 % blasts/blast equivalents, and mild to moderate reticulin fibrosis (MF-1-2). Flow cytometry shows monocytosis, including an atypical subset with aberrant CD56 and CD2 expression, and dim CD14. No definitive monoclonal plasma cell population detected by flow cytometry. The patient has a history of MGUS and chronic myelomonocytic leukemia/CMML-2 with pathogenic mutations (SRSF2, ASXL1, DNMT3A, TET 2), diagnosed in 2013, and with progressive thrombocytopenia now. The overall morphologic and immunophenotypic findings in the current bone marrow are supportive of a diagnosis of chronic myelomonocytic leukemia-2, myeloproliferative subtype (MP-CMML-2). The bone marrow also shows increased plasma cells, comprising approximately 10% of cellularity and focally forming large aggregates, suspicious for involvement by the patient's known plasma cell neoplasm. SUPPLEMENTAL REPORT: A. By immunostains and in situ hybridization, the plasma cells are lambda monoclonal, SUPPORTING INVOLVEMENT BY PLASMA CELL NEOPLASM. 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 Four cells show a deletion of chromosome 20q. Sixteen remaining cells show a normal karyotype. This anomaly may be observed in myelodysplastic syndromes, myeloproliferative disorders other than CML, and AML. Among the myelodysplastic syndromes, 06/2024 Patient returns accompanied by his brother/ehwhdv-tv-ruv, for an acute visit earlier than planned. He reports new issues ongoing, worsening low back pain over the last few months, fatigue, weight loss, lack of appetite. Gait is unstable, occasional episodes of tripping. Has a walker does not want to use it. Regarding the back pain he had a series of 4 injections and thereafter 4 were repeated at another level to know elevated. Therefore he had imaging studies this were reviewed in detail with him. 05/09/2024-CT U-eedqz-lrpwkrhyovf deformities of T12, superior endplate of L1, new compared to 2021 Suspected acute/subacute fractures 30% height loss T12, 50% height loss L1 05/10/2024-MRI lumbar spine, performed for low back pain-L1 50% height loss, minimal retropulsion, inferior endplate of T12 subacute to chronic appearance. 05/13/2024-kyphoplasty performed ultimately he underwent a kyphoplasty, approximately week ago. There was L1 biopsy performed alongside. He is here to discuss the results. It showed trabecular bone, with few features including remodeling, compatible with prior trauma/fracture. Hypercellular marrow with myeloid left shift and increased myeloid to erythroid ratio. No increase in CD34 positive myeloid blasts and no evidence of metastatic carcinoma. Patient was last seen in clinic here 05/20. Thereafter he had a staging imaging CT chest, abdomen, pelvis on 05/22. This is reviewed in detail with him. Due to worsening back pain he was brought to theemergency room at [facility] 05/26, And he underwent procedure on 05/29-L5 balloon kyphoplasty/biopsy. A more extensive surgery was planned including L2/3 and L3/4 fusion, but was abandoned due to persistent oozing/bleeding from the area. Even after the kyphoplasty patient reports that he has had improvement in the back pain he has been able to wean off the opiates with his wzbefofu-ca-mpy help who gave him a schedule to do that currently using only Tylenol. He is able to walk with some assistance holding onto licea etc. He is awaiting follow-up with the surgeon which was delayed due to insurance appeal well. He has had a biopsyfrom the area that did not reveal any metastatic carcinoma. CT imaging did not reveal any malignancy either, reassured. In the interim his contracted the pneumonia and is currently on levofloxacin. He has a follow-up with the surgeon Dr. Estevez next week and is hopeful that will be able to proceed with the surgery at [facility] There is labs reviewed, CMML appears to be stable, MGUS results pending Reviewed regarding pain control, appears to be doing well on Tylenol Reviewed regarding weight loss, he has lost nearly 30+ pounds in weight, appetite is poor. Revieweduse of Megace. At this time mobility is not ideal, therefore will hold off, he feels that after surgery and when pain control improves and mobility improves he may be able to eat better and gained weight. If he does not, can once his mobility improves, can consider Megace in future Plan continue labs at 3-month interval 09/2024- Since last clinic visit, patient underwent procedure at [facility]. During that time he had lab work performed that showed elevated WBC count. Due to concern for progression of CMML, and recent earlier follow-up was requested. Therefore patient presents for the same. Latest lab work was reviewed, and WBC has improved to 7.1. Patient reports that dyspnea. He is having a follow-up with the cork painter and grader tomorrow. He has been started on inhalers with partial relief. He had cardiology evaluation, CT to rule out PE, and anemia was mentioned as a potential cause, this is stable ROS: GENERAL: No malaise, significant weight loss or fever NECK: No lumps, goiter, pain or significant neck swelling RESPIRATORY: No cough, wheezing or shortness of breath CARDIOVASCULAR: No chest pain, leg swelling or palpitations GI: No abdominal discomfort, blood in stools or black stools MUSCULOSKELETAL: No joint pain or swelling, back pain, or muscle pain. HEMATOLOGY/LYMPHOLOGY No prolonged bleeding, easy bruisability or swollen nodes Other Systems review is non contributory PAST MEDICAL HISTORY: Active Ambulatory Problems Diagnosis Date Noted Abnormal blood chemistry 03/25/2015 Acute diastolic (congestive) heart failure ([facility] 07/11/2020 Acute midline low back pain without sciatica 05/10/2024 Acute respiratory failure with hypoxia (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) 04/30/2020 Stage 3 chronic kidney disease ([facility]) 07/11/2020 CMML (chronic myelomonocytic leukemia) (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 07/21/2024 Impotence of organic origin 03/25/2015 Gynecomastia, male 04/14/2022 History of coronary artery bypass graft x 3 07/09/2020 Hypertension 03/25/2015 Impaired fasting glucose 03/25/2015 Pneumonitis 09/24/2017 Intractable pain 05/26/2024 Lung nodule 02/14/2017 MGUS (monoclonal gammopathy of unknown significance) 03/25/2015 Obstructive sleep apnea 10/31/2019 Tinnitus 07/21/2024 Weight loss 04/15/2021 Aneurysm of thoracic aorta ([facility]) 03/23/2017 Nocturia 07/21/2024 Type 2 diabetes mellitus ([facility]) 07/21/2024 Gout 07/21/2024 Hyperlipidemia 07/21/2024 Inflammatory arthritis 07/21/2024 Interstitial lung disease ([facility]) 07/21/2024 Resolved Ambulatory Problems Diagnosis Date Noted No Resolved Ambulatory Problems Past Medical History: Diagnosis Date Abnormal ECG Aneurysm ([facility]) Arrhythmia Coronary artery disease Depression Leukemia ([facility]) 08/18/2014 Sleep apnea Vitamin D deficiency SOCIAL HISTORY: Social History Tobacco Use Smoking status: Former Current packs/day: 0.00 Types: Cigarettes Quit date: 11/05/1994 Years since quittin.1 Smokeless tobacco: Never Substance Use Topics Alcohol use: Yes FAMILY HISTORY: Family History Problem Relation Name Age of Onset Hypertension Mother Coronary artery disease Father Diabetes Father Throat cancer Father Breast cancer Neg Hx Current Outpatient Medications: acetaminophen (TYLENOL) 325 mg tablet, Take 3 tablets (975 mg total) by mouth 3 times daily as needed (pain)., Disp: , Rfl: alcohol swabs pads, medicated, Use to clean finger prior to blood glucose monitoring, Disp: , Rfl: allopurinoL (ZYLOPRIM) 100 mg tablet, Take 1 tablet (100 mg total) by mouth 1 (one) time each day.,Disp: , Rfl: amLODIPine (NORVASC) 10 mg tablet, Take 1 tablet (10 mg total) by mouth 1 (one) time each day., Disp: , Rfl: atorvastatin (LIPITOR) 80 mg tablet, Take 1 tablet (80 mg total) by mouth 1 (one) time each day in the evening., Disp: , Rfl: budesonide-formoteroL (SYMBICORT) 160-4.5 mcg/actuation inhaler, 2 PUFF INHALED 2 TIMES A DAY FOR 30 DAYS, Disp: , Rfl: cholecalciferol (VITAMIN D-3) 25 mcg (1,000 unit) capsule, Take 1 capsule (1,000 Units total) by mouth 1 (one) time each day., Disp: , Rfl: clopidogreL (PLAVIX) 75 mg tablet, Take 1 tablet (75 mg total) by mouth 1 (one) time each day., Disp: , Rfl: escitalopram (LEXAPRO) 10 mg tablet, Take 1 tablet (10 mg total) by mouth 1 (one) time each day., Disp: , Rfl: wgsaekiitvg-jssgycaaheeb-itxxaukvtm (TRELEGY ELLIPTA) 200-62.5-25 mcg inhaler, , Disp: , Rfl: folic acid (FOLVITE) 1 mg tablet, Take 1 tablet (1 mg total) by mouth 1 (one) time each day., Disp:, Rfl: freestyle 28 gauge lancets, For blood glucose monitoring to prick finger, Disp: , Rfl: glucose blood test strip, FREESTYLE LITE For Home blood glucose monitoring, Disp: , Rfl: methotrexate 2.5 mg tablet, Take 6 tablets (15 mg total) by mouth every 7 days., Disp: , Rfl: metoprolol tartrate (LOPRESSOR) 25 mg tablet, Take 1 tablet (25 mg total) by mouth 2 (two) times a day., Disp: , Rfl: polyethylene glycol (MIRALAX) 17 gram packet, Take 17 g by mouth 1 (one) time each day if needed for constipation., Disp: , Rfl: senna-docusate (PERICOLACE) 8.6-50 mg per tablet, Take 1 tablet by mouth 2 times daily as needed for constipation., Disp: , Rfl: Allergies Allergen Reactions Aspirin Swelling Lip swelling Lip swelling PHYSICAL EXAM: Visit Vitals BP (!) 142/68 (BP Location: Right arm, Patient Position: Sitting, BP Cuff Size: Small adult) Pulse 62 Temp 36.4 ??C (97.6 ??F) (Temporal) Wt 86.2 kg (190 lb) SpO2 97% BMI 28.89 kg/m?? Smoking Status Former BSA 2 m?? APPEARANCE: Alert and in no acute distress EYES: PERRL, conjunctiva pink and sclera are Normal without icterus ORAL CAVITY: No erythema or exudates NECK: Neck supple, no adenopathy, HEART: RRR with normal S1 and S2, no murmurs, no gallops, no JVD appreciated LUNG: clear to auscultation bilaterally Percussion note normal LYMPH NODES: No palpable superficial adenopathy ABDOMEN: Bowel sounds normoactive, no bruits, soft, non-tender, without organomegaly or palpable masses EXTREMITIES: Extremities warm and well perfused without clubbing, cyanosis, rash or edema NEURO: Oriented X 3, no focal weakness; sensation is normal LABS: Review of Lab results , interpreted Lab Results Component Value Date WBC 9.9 12/17/2024 HGB 12.2 (L) 12/17/2024 HCT 38.1 (L) 12/17/2024 MCV 90.7 12/17/2024 PLT 130 12/17/2024 Lab Results Component Value Date NA 134 12/17/2024 K 4.6 12/17/2024 CL 105 12/17/2024 CO2 26 12/17/2024 GLUCOSE 169 (H) 12/17/2024 BUN 31 (H) 12/17/2024 CREATININE 1.85 (H) 12/17/2024 CALCIUM 9.1 12/17/2024 PROT 9.4 (H) 12/17/2024 PROT 9.3 (H) 12/17/2024 PROT 9.4 (H) 12/17/2024 ALBUMIN 3.8 12/17/2024 BILITOT 0.6 12/17/2024 AST 22 12/17/2024 ALT 18 12/17/2024 ALKPHOS 93 12/17/2024 EGFR 37 (L) 12/17/2024 Review of Imaging, interpreted XR Chest 2 Views Narrative: History: Dyspnea. Comparison: 09/22/24, 12/24/23, thoracic CT [...] without significant change. No retropulsion is seen. Impression: Impression: Stable radiographic appearance of the chest. No active pulmonary process identified. -------- FINAL REPORT -------- Dictated By: Meenu Barrera Dictated Date: 09/30/2024 10:00 ET Assigned Physician: Meenu Barrera Reviewed and Electronically Signed By: Meenu Barrera Signed Date: 09/30/2024 10:03 ET Workstation ID: [id number] Transcribed By: Self Edit Transcribed Date: 09/30/2024 10:00 ET Review of External Documentation Notes from PCP office Tests ordered - Every 3 months lab work IMPRESSION: 1. 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 MGUS (monoclonal gammopathy of unknown significance) 3. Back pain of thoracolumbar region 4. Interstitial lung disease (CMS/HCC) 5. Obstructive sleep apnea PLAN: 79-year-old gentleman with CMML, MGUS, initial diagnosis at age 68 #1 CMML, initial diagnosis in 2013, with multiple pathogenic mutations CMML type II, monocytosis and mild anemia, on continued follow-up Previously was seen in [facility], due to indolent disease, plan for allogenic transplant was put on hold Currently on clinical surveillance, and lab surveillance at 6-month interval At this time based on the bone marrow aspiration/biopsy results, appears to have CMML progression, therefore based on standard of care-he would have the option of treatment with hypomethylating agentsuch as Vidaza or decitabine Alone or in combination with medication such as venetoclax. The other alternative is hydroxyurea, and these recommendations were reviewed at the time of secondopinion evaluation with Dr. Montero. Dr. Montero is following him once a year. He has appointment in January at this time recommendation is to hold off treatment and monitor closely for any cytopenias, such as anemia requiring transfusion, or thrombocytopenia that is worsening etc. None currently. Lab work reviewed in detail, continue monitoring at 3-month interval, okay to do prior to next visit in December #2 concerning new symptoms of weight loss, persistent back pain, weakness CT imaging negative for malignancy, reassured, pain seems to improved after the kyphoplasty procedure, awaiting fusion procedure in the next few weeks If weight loss persists after his pain, mobility improved, at the time agrees can see consider in future #3 thrombocytopenia, recurrence in 2020, and now in 2022, and progressive, likely related to CMML progression Latest platelets 130 likely steroid effect Currently stable, no bleeding #3 monoclonal gammopathy --M protein level has improved to 1.1 recheck SPEP at 6-month intervals Plasma cell component, monotypic in the bone marrow around 10%. M spike currently slight increase from 1.3-1.6 most recently latest labs pending Monitor renal function closely, current creatinine 1.85, advised monitoring hydration etc. #4 chronic renal dysfunction-latest creatinine is stable 24-hour urine collection, in 2021, did [facility] any significant light chain disease, therefore renal biopsy was held May need to repeat the 24-hour urine collection Latest creatinine elevated 1.8, and slightly low sodium at 134, encourage patient to maintain hydration, he agrees #5 dyspnea, secondary to CAD/CABG, improved, follows with pulmonary Anemia may also be contributing #6 rheumatological issues, adult onset stills disease, follow-up with rheumatology reviewed methotrexate, reassured that it is a relatively safe long-term medication, as long as he monitors CBC periodically-that may be contributing to the thrombocytopenia as well. Latest platelets is normal at 130, may be due to underlying inflammation and steroid use #7 worsening back pain, reviewed MRI results, improved after spinal fusion procedure #8 anemia possibly contributing to dyspnea, monitor closely, PRBC transfusion if hemoglobin drops below 8 Hold off as latest hemoglobin 12.3 Continue lab work every 3 months, ordered in the [facility] system, and clinic follow- up at 6 months Pain Control--no issues currently, was weaned off narcotics Health Care Proxy--his son Wilton Crawford MD Cc Ben Goldsmith MD documented in this encounter Plan of Treatment Upcoming Encounters Date Type Department Care Team (Latest Contact Info) Description 02/27/2025 Lab [facility] Hematology Oncology [address] [place] [phone] Wilton Crawford MD [address] [place] [phone] 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); MGUS (monoclonal gammopathy of unknown significance) 06/22/2025 9:00 AM EDT Office Visit [facility] Hematology Oncology [address] [place] [phone] Wilton Crawford MD [address] [place] [phone] documented as of this encounter Visit Diagnoses Diagnosis 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)- Primary MGUS (monoclonal gammopathy of unknown significance) Monoclonal paraproteinemia Back pain of thoracolumbar region Interstitial lung disease (CMS/HCC) Postinflammatory pulmonary fibrosis Obstructive sleep apnea Obstructive sleep apnea (adult) (pediatric) 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 fluticasone-umecl idinium-vilantero l (TRELEGY ELLIPTA) 200-62.5-25 mcg inhaler 10/14/2024 budesonide-formot Sukhjinder (SYMBICORT) 160-4.5 mcg/actuation inhaler 2 PUFF INHALED 2 TIMES A DAY FOR 30 DAYS 09/01/2024 added in this encounter Care Teams Delivery Table Feeder Relationship Specialty Start Date End Date Ben Goldsmith MD [address] [place] [address] PCP - General Internal Medicine 04/03/18 documented as of this encounter
--- OUTSIDE RECORDS SUMMARY | 2024-12-25 10:30 | XMS_ITS | Encounter Summary ---
Author Organization [facility] Address [address] [place] [address] Care Team Providers Care Yarn Hauler Name Role Phone Ben Goldsmith Md, MD Primary Care Provider Unav ailable Encounter Details Date Type Department Care Team Description 02/26/2019 Herd Tester Report Medical Records [address] [place] [address] Hospital, [facility] General Social History Tobacco Use Types Packs/Day Years [...] on filedocumented in this encounter Care Teams Yarn Hauler Relationship Specialty Start Date End Date Ben Goldsmith MD, MD PCP - General Internal Medicine 04/03/18 documented as of this encounter
--- OUTSIDE RECORDS SUMMARY | 2024-12-25 10:30 | XMS_ITS | Encounter Summary ---
Author Organization [facility] Address [address] [place] [address] Care Team Providers Care Medical Coordinator Pesticide Use Name Role Phone Ben Goldsmith Md, MD Primary Care Provider Unav ailable Reason for Visit * Reason Onset Date Comments other 04/25/2018 Encounter Details Date Type Department Care Team Description 04/25/2018 Telephone Pulmonology - [address] [place] [address] Matthew Fonseca MD other Social History Tobacco Use Types Packs/Day Years Used Date Smoking Tobacco: Former Cigarettes 0.5 40 Smokeless Tobacco: Never Alcohol Use Standard Drinks/Week Comments No 0 (1 standard drink = 0.6 oz pur e alcohol) Sex Assigned at Date Recorded Not on file documented as of this encounter Miscellaneous Notes * Telephone Encounter - Nita Castellanos M.A. - 04/25/2018 4:37 PM EDT PFT is not in chart yet.mailed CT to his pcp. * Telephone Encounter - Chetna Cummins - 04/25/2018 9:37 AM EDT Pt would like the PFT and Ct that he just had done faxed to his PCP documented in this encounter Plan of Treatment Not on file documented as of this encounter Visit Diagnoses Not on filedocumented in this encounter Care Teams Medical Coordinator Pesticide Use Relationship Specialty Start Date End Date Ben Goldsmith MD, MD PCP - General Internal Medicine 04/03/18 documented as of this encounter
--- OUTSIDE RECORDS SUMMARY | 2024-12-25 10:30 | XMS_ITS | Encounter Summary ---
Author Organization [facility] Address [address] [place] [address] Care Team Providers Care Drip Pumper Name Role Phone Ben Goldsmith MD Primary Care Provider [phone] Tee Dean MD Unavailable [phone] Rafael Estevez MD Unavailable Reason for Visit * Reason Comments Medication Refill Encounter Details Date Type Department Care Team (Late Contact Info) Description 02/15/2023 Refill [facility] Department of Rheumatology [place] [address] [facility] [address] [phone] Natasha Allred MD [address] [address] Inflammatory polyarthritis (HCC) (Primary Dx) Social History Tobacco Use Types Packs/Day Years [...] Description 01/30/2025 9:20 AM EDT Office Visit [facility] Department of Rheumatology [place] [address] [facility] [address] [place] [phone] Natasha Allred MD [address] [place] [address] 03/12/2025 11:20 AM EDT Office Visit [facility] [place] [address] [facility] [address] [place] [phone] Tee Dean MD [address] [place] [address] documented as of this encounter Visit Diagnoses Diagnosis Inflammatory polyarthritis (HCC)- Primary Unspecified inflammatory polyarthropathy documented in this encounter Care Teams Drip Pumper Relationship Specialty Start Date End Date Ben Goldsmith MD [address] [place] [phone] PCP - General Internal Medicine 07/12/21 Tee Dean MD [address] [place] [address] Design Engineer Cardiovascular Disease 12/24/23 Rafael Estevez MD [address] [place] [address] Surgeon Surgery, Orthopedic 07/25/24 documented as of this encounter
--- OUTSIDE RECORDS SUMMARY | 2024-12-25 10:30 | XMS_ITS | Clinical Summary ---
Author Organization [facility] Address [address] [place] [address] Care Team Providers Care Occupational Therapist Assistants Name Role Phone Ben Goldsmith MD Primary Care Provider Unakaye ilable Allergies Active Allergy Reactions Criticality Noted Date Comments Aspirin Swelling High 09/18/2014 Lip swelling Lip swelling Other reaction(s): lip swelling Medications Medication Sig Dispensed Refills Start Date End Date Status escitalopram (LEXAPRO) tablet 10 mg Take 1 tablet (10 mg total) by mouth daily. 0 Active methotrexate 2.5 MG tablet Take 6 tablets (15 mg total) by mouth every 7 days. Fridays 0 Active folic acid (FOLVITE) tablet 1 mg Take 1 tablet (1 mg total) by mouth daily. 0 Active metoprolol tartrate (LOPRESSOR) 25 MG tablet Take 1 tablet (25 mg total) by mouth 2 (two) times a day. 180 tablet 3 08/12/2020 Active clopidogrel (PLAVIX) 75 MG tablet TAKE 1 TABLET BY MOUTH EVERY DAY 90 tablet 3 11/11/2020 Active atorvastatin (LIPITOR) tablet 80 mg Take 1 tablet (80 mg total) by mouth every evening. 90 tablet 3 12/03/2020 Active amLODIPine (NORVASC) tablet 10 mg Take 1 tablet (10 mg total) by mouth daily. 90 tablet 3 12/27/2020 Active colchicine 0.6 MG tablet Take 1 tablet (0.6 mg total) by mouth daily. 0 Active acetaminophen (TYLENOL) 325 MG tablet Take 3 tablets (975 mg total) by mouth 3 (three) times a day as needed for pain. 120 tablet 0 05/13/2024 Active glucose blood (FREESTYLE LITE) test strip For Home blood glucose monitoring 60 each 5 05/14/2024 Active Lancets (freestyle) lancets For blood glucose monitoring to prick finger 60 each 05/14/2024 Active Cholecalciferol (VITAMIN D3 PO) Take 1 tablet by mouth daily. 0 Active methocarbamol (ROBAXIN) 500 MG tablet Take 1 tablet (500 mg total) by mouth 4 (four) times a day as needed (spasms). 60 tablet 0 08/04/2024 Active oxyCODONE (ROXICODONE) 5 MG immediate release tablet Take 1 tablet (5 mg total) by mouth every 3 (three) hours as needed for pain. 42 tablet 0 08/04/2024 Active senna-docusate (PERICOLACE) 8.6-50 MG Take 1 tablet by mouth 2 (two) times a day. 14 tablet 0 08/04/2024 Active insulin lispro (HumaLOG) injection 100 units/mL Inject 1-6 Units under the skin 4 (four) times a day before meals and at bedtime. 10 mL 0 08/04/2024 08/04/2025 Active Active Problems Problem Noted Date Diagnosed Date GERD (gastroesophageal reflux disease) 4 07/30/2024 Atherosclerotic heart diseas e of [place] coronary artery without angina pectoris 07/30/2024 07/30/2024 Diabetes mellitus without complication 4 07/30/2024 Spinal stenosis 07/29/2024 Thrombocytopenia 07/23/2024 Interstitial lung disease 07/20/2024 Overview: Per pulmonary note 07/09/24 Gout 07/20/2024 Localized osteoporosis with current pathological fracture with delayed healing 07/20/2024 Overview: L1 L5 compression fractures with kyphoplasty Aortic regurgitation 07/20/2024 Type 2 diabetes mellitus 07/20/2024 Back pain 05/26/2024 Intractable pain 05/26/2024 Acute midline low back pain without sciatica 04/2024 Back pain of thoracolumbar region 05/10/2024 Gynecomastia, male 04/14/2022 Weight loss 04/15/2021 Acute diastolic (congestive) heart failure 07/11 Stage 3 chronic kidney disease 07/11/2020 S/P CABG x 3 07/09/2020 Acute respiratory failure with hypoxia 0 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 07/09/2020 at [place] 07/2020: failed steress test. 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 No treatment needed so far Dx ~ 2013. No treatment needed so far Myelodysplastic syndrome 09/18/2014 024 Overview: Myelodysplastic syndrome (clinical) Erectile disorder due to medical condition in ma le patient Tinnitus Hyperlipidemia Arrhythmia Nocturia Resolved Problems Problem Noted Date Diagnosed Date Resolved Date Monocytosis (symptomatic) 03/25/2015 Family History Medical History Relation Name Comments Coronary artery disease Father Diabetes Father Throat cancer Father Hypertension Mother Breast cancer Neg Hx Relation Name Status Comments Father (Age 72) Mother (Age 102) old age Social History Tobacco Use Types Packs/Day Years Used Date Smoking Tobacco: Former Cigarettes Q uit: 1994 Smokeless Tobacco: Never Tobacco Cessation:Counseling Given: Not Answered Comments:quit 2009 Alcohol Use Standard Drinks/Week Comments Yes 0 (1 standard drink = 0.6 oz pur e alcohol) occassional Sex and Gender Information Value Date Recorded Sex Assigned at Male 07/05/2020 9:20 AM EDT Gender Identity Male 07/18/2024 2:15 PM EDT Sexual Orientation Not on file Job Start Date Occupation Industry Not on file Not on file Not on file Last Filed Vital Signs Vital Sign Reading Time Taken Comments Blood Pressure 124/55 08/04/2024 7:53 AM EDT Pulse 72 08/04/2024 7:53 AM EDT Temperature 36.6 ??C (97.9 ??F) 08/04/2024 7:53 AM ED T Respiratory Rate 16 08/04/2024 7:53 AM EDT Oxygen Saturation 95% 08/04/2024 7:53 AM EDT Inhaled Oxygen Concentration - - Weight 78.9 kg (174 lb) 07/29/2024 5:37 AM EDT Height 172.7 cm (5' 8 ) 07/29/2024 5:37 AM EDT Body Mass Index 26.46 07/29/2024 5:37 AM EDT Plan of Treatment Health Maintenance Due Date Last Done Comments Depression Screening 1959 BMI Counseling 1965 Tobacco Cessation Counseling 1965 DTap / Tdap / Td (1 - Tdap) 1966 Shingrix-Zoster Vaccine (1 of 2) 1966 Fall Risk Assessment 2012 Pneumococcal Vaccine (2 of 2 - PPSV23 or PCV20) 11/21/2017 09/26/2017 Preventative Health Evaluation 01/29/2019 01/29/2018, 02/13/2017 COVID-19 Vaccine ( season) 2024 08/23/2023, 07/15/2021, 12/09/2020, Additional history exists Influenza Vaccine (#1) 2024 , 07/23/2020, 07/23/2020, Additional history exists Hepatitis C Screening Completed 09/11/2018 RSV Adult > 60+ Yrs or Completed 08/27/2023 Hepatitis B Vaccines Aged Out No long er eligible based on patient's age to complete this topic RSV Ped < 20 months Aged Out No longe r eligible based on patient's age to complete this topic Medical Devices Implanted Type Area Public Relations Intern Device Identifier Shelf Expiration Date Model / Serial / Lot Surgiflo Hemostatic Matrix [employer] [id number] - [id number] Implanted:Qty : 1 on 07/29/2024 by Rafael Estevez [place] [facility] Hemostatic Agent Left Lateral: Spine Lumbar Sprig INC 01/17/2026 2991 / / [id number] ++Dnu+Disc Use [id number] Hemostat Absorb 2x14in Surgicel [employer] [id number] - [id number] Implanted:Qty : 1 on 07/29/2024 by Rafael Estevez MD at [facility] Hemostatic Agent Left Lateral: Spine Lumbar Opara INC 05/04/2026 1951 / / [id number] Device Angio-Seal Vip .035in 70cm 6fr Valuelink Guidewire - [id number] - [id number] Implanted:11/2019 at [facility] (Quantity not on file) [employer] MARII,DAIG DIVISION [id number] / / Plate Sternalock Chris Jl 8 Hole Bone Sternum Primary Closure - [id number] - [id number] Implanted:Qty : 1 on 07/09/2020 by Mata Amaral MD at [facility] Anterior: Chest BIOMET MICRO FIXATION 73-9645 / / Plate Sternalock Chris 8 Hole Bone Sternum - [id number] - [id number] Implanted:Qty : 2 on 07/09/2020 by Mata Amaral MD at [facility] Anterior: Chest BIOMET MICRO FIXATION 73-4291 / / Screw Sternalock Chris 14mm Gold 2.4mm Self Drill Lock Bone - [id number] - [id number] Implanted:Qty : 13 on 07/09/2020 by Mata Amaral MD at [facility] Anterior: Sternum BIOMET MICRO FIXATION 73-2414 / / Screw Sternalock Chris 16mm Gold 2.4mm Self Drill Lock Bone - 691404 - [id number] Implanted:Qty : 11 on 07/09/2020 by Mata Amaral MD at [facility] Anterior: Sternum BIOMET MICRO FIXATION 73-2416 / / Cement Bone Kyphx Hv-R Medt-Kyph [id number] - [id number] Implanted:Qty : 1 on 05/13/2024 by Rafael Estevez MD at [facility] Posterior: Spine Lumbar MEDTRONIC KYPHON 11/04/2026 C01A / / [id number] Cement Bone Kyphx Hv-R Medt-Kyph [id number] - [id number] Implanted:Qty : 1 on 05/29/2024 by Rafael Estevez MD at [facility] Posterior: Spine Lumbar [employer] KYPHON 01/02/2027 C01A / / [id number] 22 X 50 X 12 X 8 Degree [place]ian Spacer Implanted:Qty : 1 on 07/29/2024 by Rafael Estevez MD at [facility] Anterior/ Posterior: Spine Lumbar MANDEEP SPINE [id number] / / 22 X 50x 10x 8 Degree [place] Spacer Implanted:Qty : 1 on 07/29/2024 by Rafael Estevez MD at [facility] Anterior/ Posterior: Spine Lumbar MANDEEP SPINE [id number] / / Disc Rick Implanted:Qty : 1 on 07/29/2024 by Rafael Estevez MD at [facility] Anterior/ Posterior: Spine Lumbar MANDEEP SPINE [id number] / / Screw Set [place] Stry-K2m [id number] - [id number] Implanted:Qty : 6 on 07/29/2024 by Rafael Estevez MD at [facility] Posterior: Spine Lumbar MANDEEP SPINE [id number] 1 / / Screw Suzanne Polyaxial Extended Tab 6.5x50mm Stry-K2m [id number] 84371 - [id number] Implanted:Qty : 6 on 07/29/2024 by Rafael Estevez MD at [facility] Posterior: Spine Lumbar MANDEEP SPINE [id number] / / Clarence Contr Blt Hex 5.5x80mm Stry-K2m 9296-[id number] 8142 - [id number] Implanted:Qty : 2 on 07/29/2024 by Rafael Estevez MD at [facility] Posterior: Spine Lumbar MANDEEP SPINE 1001-[id number] 0 / / Vesuvius 100 Dbm Bone Putty 10 Stry-K2m [id number] [id number] - [id number] Implanted:Qty : 1 on 07/29/2024 by Rafael Estevez MD at [facility] Posterior: Spine Lumbar MANDEEP SPINE 02/02/2027 4104-[id number] 0DP / [id number] / [id number] Bone Alrgft Can Chip 1-8 15cc Stry-Obio [id number] - [id number] Implanted:Qty : 1 on 07/29/2024 by Rafael Estevez MD at [facility] Posterior: Spine Lumbar [employer] 07/03/2028 [id number] / [id number] / Vesuvius 100 Dbm Bone Putty 10 Stry-K2m [id number]- [id number] - [id number] Implanted:Qty : 1 on 07/29/2024 by Rafael Estevez MD at [facility] Left Lateral: Spine Lumbar MANDEEP SPINE 03/04/2027 4104-K510 0DP / [id number] / [id number] Explanted Type Area Public Relations Intern Device Identifier Shelf Expiration Date Model / Serial / Lot 18 X 50 X 10 X 8 Degree [place] Spacer Explanted:Qty: 1 on 07/29/2024 by Rafael Estevez MD at [facility] Anterior/ Posterior: Spine Lumbar MANDEEP SPINE [id number] / / Pin Edcouch Sd [id number] Hlf 30thrd Yoni-Steve [id number] 929 - [id number] Explanted:Qty: 1 on 07/29/2024 by Rafael Estevez MD [place] [facility] Right Posterior: Iliac Crest [employer] 5023-3-120 / / Advance Directives For more information, please contact: [phone] Documents on File Type Date Recorded 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 Code Status History Code Status Date Activated Date Inactivated Comments Full Code 07/29/2024 3:49 PM 07/29/2024 3:55 PM This code status was ascertained in the following way: discussion with patient . Full Code 07/29/2024 5:14 AM 07/29/2024 3:49 PM This code status was ascertained in the following way: discussion with patient . Full Code 05/26/2024 8:01 PM 05/31/2024 7:38 AM This code status was ascertained in the following way: discussion with patient . Full Code 05/10/2024 2:43 AM 05/13/2024 9:45 PM This co de status was ascertained in the following way: discussion with patient . Care Teams Occupational Therapist Assistants Relationship Specialty Start Date End Date Ben Goldsmith MD PCP - General Internal Medicine 04/03/18
--- OUTSIDE RECORDS SUMMARY | 2024-12-25 10:30 | XMS_ITS ---
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 (C93.10) Active confirmed Problem Monoclonal gammopathy (D47.2) Active confirmed Monoclonal gammopathy (21307242) Problem Coronary artery disease without angina pectoris, unspecified vessel or lesion type, unspecified whether [place] or transplanted heart (I25.10) Active confirmed Atherosclerot ic heart disease of [place] coronary artery without angina pectoris (189402558923584) Problem Hyperlipidemia (E78.5) Active confirmed Hyperlipidemia (70170682) Problem Spinal stenosis at L4-L5 level (M48.061) Active confirmed Spinal stenosis of lumbar region (84470580) Problem Compression fracture of L1 vertebra, sequela (S32.010S) Active confirmed Late effect of fracture of spine AND/OR trunk without spinal cord lesion (8287301) Problem Gout, unspecified (M10.9) Active confirmed Gout (03338003) Problem 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 (543695243) Problem Pulmonary fibrosis (J84.10) Active confirmed Pulmonary fibrosis (41905105) Problem Overweight (E66.3) Active confirmed Overweight (952697638) Encounters Encounter Location Date Provider Diagnosis [facility] [address] [place] [address] 06/16/2024 VIELKA CHEN PLAN OF TREATMENT No Information Progress Notes * Chuck HOUDOJanna:1945 (79 yo M)Acc No.[id number]:06/16/2024 Progress Notes Patient:??Chuck HOU Provider:??Vielka Chen MD :1945?Age:78 Y?Sex:Ma le Date:06/16/2024 Address:[address] [place] [address] , [id number] Subjective: * Chief Complaints: * ? * Medical History:?? Objective: Assessment: Plan: * Treatment: * Images: Billing Information: * Visit Code:?? * Procedure Codes:?? * Sign off status: Pending * Provider:??Vielka Chen MD Date:??06/16
--- OUTSIDE RECORDS SUMMARY | 2024-12-25 10:30 | XMS_ITS | Encounter Summary ---
Author Organization [facility] Address [address] [place] [address] Care Team Providers Care Block Sealer Name Role Phone Damon Kirk MD Primary Care Provider Ben Cancino Md, MD Primary Care Provider Unav ailable Encounter Details Date Type Department Care Team Description 03/23/2018 [facility] Medical Records [address] [place] [address] Wilton Crawford MD Social History Tobacco Use Types Packs/Day [...] on filedocumented in this encounter Care Teams Block Sealer Relationship Specialty Start Date End Date Damon Kirk MD PCP - General Family Practice 09/21/17 04/02/18 Ben Goldsmith MD, MD PCP - General Internal Medicine 04/03/18 documented as of this encounter
--- OUTSIDE RECORDS SUMMARY | 2024-12-25 10:30 | XMS_ITS | Encounter Summary ---
Author Organization [facility] Address [address] [place] [address] Care Team Providers Care Capsule Inspector Name Role Phone Ben Goldsmith Md, MD Primary Care Provider Unav ailable Encounter Details Date Type Department Care Team Description 02/26/2019 Electronics Engineering Technologist Report Medical Records [address] [place] [address] Abstract, Provider Social History Tobacco Use Types [...] on filedocumented in this encounter Care Teams Capsule Inspector Relationship Specialty Start Date End Date Ben Goldsmith MD, MD PCP - General Internal Medicine 04/03/18 documented as of this encounter
--- OUTSIDE RECORDS SUMMARY | 2024-12-25 10:30 | XMS_ITS | Encounter Summary ---
Author Organization [facility] Address [address] [place] [address] Care Team Providers Care Doorshaker Name Role Phone Ben Goldsmith Md, MD Primary Care Provider Unav ailable Reason for Visit * Reason Comments E-prescribe Rx Request Encounter Details Date Type Department Care Team Description 11/30/2018 Refill Pulmonology - [address] [place] [address] Matthew Fonseca MD E-prescribe Rx Request Social History Tobacco Use Types Packs/Day Years Used Date Smoking Tobacco: Former Cigarettes 0.5 40 Smokeless Tobacco: Never Alcohol Use Standard Drinks/Week Comments No 0 (1 standard drink = 0.6 oz pur e alcohol) Sex Assigned at Date Recorded Not on file documented as of this encounter Miscellaneous Notes * Telephone Encounter - Malathi Healy - 12/02/2018 8:45 AM EST Patient would like script to be: E-PRESCRIBED/FAXED TO PHARMACY WHEN WAS THE PATIENT'S LAST APPOINTMENT WITH THE PRESCRIBING PROVIDER? 10/21/18 Does patient have an upcoming appointment? Yes 01/20/19 (THE MEDICATION REQUESTED IS ON THE MED LIST ABOVE) All of the medications requested were on the CURRENT MEDS list Did you check the Pharmacy information above?: YES Patient wants: 30 -day supply Is this a mail order prescription request ? NO Patients current insurance carrier is: Payor: [facility] / Plan: [facility] MEDIC[facility] COMPLETE [place]15[place] [facility] [place] [address] / Product Type: [place]PO Aaj-brt-Jrifrbs documented in this encounter Plan of Treatment Not on file documented as of this encounter Visit Diagnoses Not on filedocumented in this encounter Care Teams Doorshaker Relationship Specialty Start Date End Date Ben Goldsmith MD, MD PCP - General Internal Medicine 04/03/18 documented as of this encounter
== END ==
LOC: HO.SL 09:39
PROVIDERS: PCP Internal Medicine; Visit Provider Hospitalist
DX: Z13.89 Encounter for screening for other disorder (principal)

== ENCOUNTER 2025-01-28 13:47 | Outpatient (AMB) | payer MEDICARE, SELFPAY ==
--- NOTE | 2025-01-28 13:50 | MHC.OFFVIS ---
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 Director Of Engineering: Director Of Engineering offered & declined Accompanied by: Self / Same As Patient Allergies aspirin Allergy (Mild, Verified 01/28/25 13:58) Swollen Medication List - Last Reconciled 01/28/25 by Tessa Valentine LPN acetaminophen (Tylenol Extra Strength) 500 mg PO Q6H PRN albuterol sulfate 90 mcg/actuation 2 inhalations inhalation Q6H PRN 30 days allopurinol 100 mg PO DAILY amlodipine 10 mg PO DAILY atorvastatin 80 mg PO BEDTIME cholecalciferol (vitamin D3) 25 mcg PO DAILY clopidogrel 75 mg PO DAILY colchicine mg PO escitalopram oxalate 10 mg PO DAILY flu vac 2020 [id number](PF) 60 mcg (15 mcg x 4)/0.5 mL IM [id number] 200-62.5-25 mcg (Trelegy Ellipta) 1 inh inhalation DAILY 90 days folic acid 1 mg PO DAILY glipizide 10 mg PO DAILY methotrexate sodium 15 mg PO QWEEK metoprolol tartrate 25 mg PO BID HPI HPI Cough: Details: Chuck is pleasant 79 year old male, former smoker, with 15 pack year history with underlying ILD, CON and pulmonary nodules. At baseline, he is moderately controlled on Trelegy and albuterol MDI. He is under the care of Dr. Fonseca and presents today for an acute visit. He reports three week history of progressively worsening productive cough with yellow sputum, wheezing and dyspnea with chills. Denies fever or sick contacts. 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) Dyspnea Pulmonary nodules ILD (interstitial lung disease) Surgical History (Updated 02/10/22 @ 11:09 by Aleshia Tejada PA-C) History of coronary artery bypass graft x 3 (~2019) Social History Patient Tobacco Use Status: Former Tobacco user Tobacco use type: Cigarette Years Smoked: 15 years Review of Systems Const Denies excessive sweating, Denies fever(s), Denies headache(s) and Denies night sweats Eyes Denies dry eyes, Denies irritation and Denies itchy eyes ENT Reports Normal hearing present, Denies headache(s), Denies nasal congestion, Denies nasal discharge, Denies post nasal drip and Denies sore throat Card Denies chest pain, Denies chest pain at rest, Denies chest pain with activity, Denies claudication, Denies leg edema, Reports dyspnea on exertion, Denies orthopnea and Denies paroxysmal nocturnal dyspnea Resp Reports change in phlegm color, Reports chest congestion, Reports cough, Denies hemoptysis, Denies excessive phlegm production, Denies pain on inspiration, Denies pain with cough, Reports dyspnea on exertion, Denies stridor and Reports wheezing Musc Denies myalgias Neuro Reports Normal hearing present and Denies headache(s) Endo Denies excessive sweating Chris/Lymph Denies lymphadenopathy Aller/Immun Denies itchy eyes, Denies seasonal rhinorrhea and Reports wheezing Physical Exam Vital Signs: Last Vital Signs Pulse 72 01/28/25 13:57 BP 116/64 01/28/25 13:57 Pulse Ox 95 01/28/25 13:57 Oxygen Delivery Method Room Air 01/28/25 13:57 BMI result Body Mass Index 28.4 Const General: cooperative, healthy appearing, comfortable, no acute distress, well developed and alert Nutritional Appearance: obese Orientation/consciousness: patient oriented x3 Limitations: no limitations HEENT Head: Yes normal to inspection, Yes normocephalic and Yes atraumatic Ears: hearing grossly normal bilaterally and external ears normal Eyes General: appearance normal, both eyes and all related structures Eyelids: Yes eyelids normal Sclerae: sclerae normal EOM: EOMs intact bilaterally Neck Neck: Yes normal visual inspection and Yes no lymphadenopathy Lymphatic: no lymphadenopathy noted Chest Chest palpation & inspection: normal inspection of the chest Resp Effort & Inspection: normal respiratory effort, able to speak in complete sentences, no audible wheezes, Actively coughing, no stridor, not tachypneic, no tripod positioning and no use of accessory muscles Auscultation: crackles (bibasilar coarse crackles L>R) and wheezes Cardio Jugular venous distension: no JVD Rate: regular rate Rhythm: regular rhythm Heart sounds: S1 normal heart sound present and S2 normal heart sound present GI Palpation (GI): Soft to palpation and nontender Auscultation: normal bowel sounds General: Yes no CVA tenderness Back/Spine/Pelvis Back: no CVA tenderness Skin Other: warm, dry General skin exam: no rashes or lesions noted Neuro General: patient oriented x3 Cranial nerves: Yes Normal hearing present Cognition (Neuro): normal cognition Gait exam (Neuro): Normal gait present Extrem General: Yes normal to inspection, Yes capillary refill normal, Yes no clubbing, cyanosis or edema and Yes no pedal edema Psych Appearance: grossly normal and well kempt Speech and movement: Normal speech and movement present and Clear speech present Affect: normal affect Attitude: cooperative Thought process: Normal thought process present Thought content: Normal thought content present Insight: Good insight present (Psych) Judgement: Good judgement present (Psych) Assessment & Plan Assessment & Plan (1) ILD (interstitial lung disease): Comment: Interval worsening after his CABG Code(s): J84.9 - Interstitial pulmonary disease, unspecified Category: Medical (2) Pulmonary nodules: Code(s): R91.8 - Other nonspecific abnormal finding of lung field Category: Medical (3) Dyspnea: Code(s): R06.00 - Dyspnea, unspecified Category: Medical Qualifiers: Dyspnea type: dyspnea on exertion Qualified Code(s): R06.00 - Dyspnea, unspecified Plan Will treat bronchitic symptoms with Augmentin and prednisone. He is aware to call if symptoms do not improve and seek emergent care if symptoms worsen. All questions were answered and patient is in agreement of plan. Will follow up for regularly scheduled appointment with Dr. Fonseca or sooner if needed. Medications: New amoxicillin-pot clavulanate 875-125 mg 1 tab PO Q12H 20 tabs 0RF prednisone see taper instructions; 40 mg Daily x3 days, 30 mg daily x3 days, 20 mg daily x3 days, 10 mg daily x3 days 10 mg PO DIRECTED 30 tabs 0RF Coding Level of Care Code Est Pt Level 4 (05209) Diagnoses ILD (interstitial lung disease) J84.9 Pulmonary nodules R91.8 Dyspnea on exertion R06.00 Dyspnea type: dyspnea on exertion
[2025-01-28 13:57] VITALS: BP 116/64; PULSE 72; O2SAT 95; BMI 28.4
== END 2025-01-28 14:25 | disposition home or self-care (01) ==
PROVIDERS: PCP Internal Medicine; Visit Provider Nurse Practitioner Family
DX: J84.9 Interstitial pulmonary disease, unspecified (principal); R91.8 Other nonspecific abnormal finding of lung field; R06.00 Dyspnea, unspecified
CPT/HCPCS: 99214

== ENCOUNTER → 2025-01-28 13:47 | Outpatient (BNVA) | payer MEDICARE, SELFPAY | PROVIDERS: PCP Internal Medicine; Visit Provider Nurse Practitioner Family | DX: G47.33 Obstructive sleep apnea (adult) (pediatric) (principal); J84.9 Interstitial pulmonary disease, unspecified; R91.8 Other nonspecific abnormal finding of lung field; R06.00 Dyspnea, unspecified; Z87.891 Personal history of nicotine dependence | CPT/HCPCS: 99212 ==

== ENCOUNTER → 2025-02-24 10:06 | Outpatient (REF) | payer MEDICARE, SELFPAY ==
--- OUTSIDE RECORDS SUMMARY | 2025-02-24 11:30 | XMS_ITS | Encounter Summary ---
Author Organization [facility] Address [address] [place] [address] Care Team Providers Care Music Copyist Name Role Phone Ben Goldsmith MD Primary Care Provider + [phone] Tee Dean MD Unavailable [phone] Rafael Estevez MD Unavailable [phone] Encounter Details Date Type Department Care Team (Late st Contact Info) Description 10/09/2022 Scanned Document [facility] [address] [phone] Rheumatology, Scan Social History Tobacco Use Types Packs/Day Years Used Date Smoking Tobacco: Former Smokeless Tobacco: Never Alcohol Use Standard Drinks/Week Comments Not Currently 0 (1 standard drink = 0.6 oz pur e alcohol) Sex and Gender Information Value Date Recorded Sex Assigned at Male 02/19/2023 9:05 AM EDT Legal Sex Male 7:07 PM EST Gender Identity Male 02/19/2023 9:05 AM EDT Sexual Orientation Heterosexual (straight) 02/19 9:05 AM EDT documented as of this encounter Plan of Treatment Upcoming Encounters Date Type Department Care Team (Late st Contact Info) Description 03/12/2025 11:20 AM EDT Office Visit [facility] [address] [phone] Tee Dean MD [address] [place] [id number] 04/17/2025 1:40 PM EDT Office Visit [facility] Department of Rheumatology [place] [address] [place] [address] Natasha Allred MD [address] [place] [address] documented as of this encounter Visit Diagnoses Not on filedocumented in this encounter Care Teams Music Copyist Relationship Specialty Start Date End Date Ben Goldsmith MD [address] [place] [phone] PCP - General Internal Medicine 07/12/21 Tee Dean MD [address] [place] [id number] Primary Maintenance Pipefitter Cardiovascular Disease 12/24/23 Rafael Estevez MD [address] [place] [id number] Surgeon Surgery, Orthopedic 07/25/24 documented as of this encounter
--- OUTSIDE RECORDS SUMMARY | 2025-02-24 11:30 | XMS_ITS | Encounter Summary ---
Author Organization [facility] Address [address] [place] [address] Care Team Providers Care Color Stripper Name Role Phone Ben Goldsmith MD Primary Care Provider + [phone] Tee Dean MD Unavailable [phone] Rafael Estevez MD Unavailable [phone] Reason for Visit * Reason Comments Medication Refill Encounter Details Date Type Department Care Team (Late st Contact Info) Description 06/26/2022 Refill [facility] [address] [place] [phone] Kay Hernandez, ISAAC [address] [phone] Medication Refill Social History Tobacco Use Types [...] Description 03/12/2025 11:20 AM EDT Office Visit [facility] [address] [phone] Tee Dean MD [address] [place] [address] 04/17/2025 1:40 PM EDT Office Visit [facility] Department of Rheumatology [place] [address] [place] [address] Natasha Allred MD [address] [place] [address] documented as of this encounter Visit Diagnoses Diagnosis Essential hypertension Unspecified essential hypertension documented in this encounter Care Teams Color Stripper Relationship Specialty Start Date End Date Ben Goldsmith MD [address] [place] [address] PCP - General Internal Medicine 07/12/21 Tee Dean MD [address] [place] [address] Primary Precision Lathe Operator Cardiovascular Disease 12/24/23 Rafael Estevez MD [address] [place] [address] Surgeon Surgery, Orthopedic 07/25/24 documented as of this encounter
--- OUTSIDE RECORDS SUMMARY | 2025-02-24 11:30 | XMS_ITS | Encounter Summary ---
Author Organization [facility] Address [address] [place] [address] Care Team Providers Care Resource Development Director Name Role Phone Ben Goldsmith MD Primary Care Provider [phone] Tee Dean MD Unavailable [phone] Rafael Estevez MD Unavailable [phone] Reason for Visit * Reason Comments Other Encounter Details Date Type Department Care Team (Late st Contact Info) Description 07/22/2024 Telephone [facility] [place] [address] [place] [phone] Tee Dean MD [address] [place] [address] Other Social History Tobacco Use Types Packs/Day [...] amend the 07/16 note and fax to D[facility] [phone] documented in this encounter Plan of Treatment Upcoming Encounters Date Type Department Care Team (Late st Contact Info) Description 03/12/2025 11:20 AM EDT Office Visit [facility] [place] [address] [place] [phone] Tee Dean MD [address] [place] [address] 04/17/2025 1:40 PM EDT Office Visit [facility] Department of Rheumatology [place] [address] [place] [phone] Natasha Allred MD [address] [place] [address] documented as of this encounter Visit Diagnoses Not on filedocumented in this encounter Care Teams Resource Development Director Relationship Specialty Start Date End Date Ben Goldsmith MD [address] [place] [address] PCP - General Internal Medicine 07/12/21 Tee Dean MD [address] [place] [id number] Primary Manager Machine Cardiovascular Disease 12/24/23 Rafael Estevez MD [address] [place] [address] Surgeon Surgery, Orthopedic 07/25/24 documented as of this encounter
--- OUTSIDE RECORDS SUMMARY | 2025-02-24 11:30 | XMS_ITS | Clinical Summary ---
Author Organization [facility] Address [address] [place] [address] Care Team Providers Care Plumber Assistant Name Role Phone Ben Goldsmith Md, MD Primary Care Provider Unav ailable Allergies Active Allergy Reactions Severity Noted Date Comments Aspirin 03/23/2017 Medications Medication Sig Dispensed Refills Start Date End Date Status Vitamin D, Cholecalciferol, 1000 UNITS Cap Take by mouth. 0 Active escitalopram (LEXAPRO) 10 MG tablet Take 10 mg by mouth daily. 0 Active atorvastatin (LIPITOR) 80 MG tablet Take 80 mg by mouth daily. 0 Active clopidogrel (PLAVIX) 75 MG tablet Take 75 mg by mouth daily. 0 Active metoprolol (LOPRESSOR) 25 MG tablet Take 25 mg by mouth 2 times daily. 0 Active amlodipine (NORVASC) 10 MG tablet Take 10 mg by mouth daily. 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 No treatment needed so far Inflammatory arthritis 05/13/2018 Overview: Onset March 2018: synovitis in hands, pleuritis, pulmonary infiltrates, fever, pericarditis. Pos BRIT - negative ANCA, anti-DS DNA, anti-RYDER, Lyme Ab Prednisone and hydroxychloroquine started 05/22 Methotrexate started 03/23 Hiatal hernia 09/24/2017 Oropharyngeal dysphagia 09/24/2017 Pneumonitis 09/24/2017 Lung nodule 09/08/2017 Aneurysm of thoracic aorta 03/23/2017 Immunizations Name Administration Dates Next Due COVID-19 (Pfizer) Pt Reported 12/09/2020, 021 Influenza vaccine high dose age 65 and over 07/06,08/28/2019 Social History Tobacco Use Types Packs/Day Years Used Date Smoking Tobacco: Former Cigarettes 0.5 40 Smokeless Tobacco: Never Alcohol Use Standard Drinks/Week Comments No 0 (1 standard drink = 0.6 oz pur e alcohol) Sex Assigned at Date Recorded Not on file Last Filed Vital Signs Vital Sign Reading Time Taken Comments Blood Pressure 124/76 07/06/2021 8:58 AM EDT Pulse 60 03/02/2021 8:58 AM EDT Temperature 36.6 ??C (97.8 ??F) 11/02/2020 8:10 AM ES T Respiratory Rate 14 07/06/2021 8:58 AM EDT Oxygen Saturation 96% 11/06/2019 10:16 AM EST Inhaled Oxygen Concentration - - Weight 89.4 kg (197 lb) 07/06/2021 8:58 AM EDT Height 175.3 cm (5' 9 ) 07/06/2021 8:58 AM EDT Body Mass Index 29.09 07/06/2021 8:58 AM EDT Plan of Treatment Health Maintenance Due Date Last Done Comments DTAP/TDAP/TD (1 - Tdap) 1966 CHOLESTEROL SCREENING 1967 SHINGLES VACCINE (1 of 2) 1997 PNEUMOCOCCAL VACCINE (1 - PCV) 2012 Covid-19 Vaccine (3 - 2022-2 4 season) 2024 12/09/2020, 11/22/2020 BMI CHECK/ADVISE 11/05/2024 07/06/2021, , 11/02/2020, Additional history exists INFLUENZA (Season Ended) 2025 07/23/2020, 08/06 HEPATITIS C SCREENING Completed 09/11/2018 Care Teams Plumber Assistant Relationship Specialty Start Date End Date Ben Goldsmith MD, MD PCP - General Internal Medicine 04/03/18
--- OUTSIDE RECORDS SUMMARY | 2025-02-24 11:31 | XMS_ITS | Clinical Summary ---
Author Organization [employer] Address [address] [place] [address] Care Team Providers Care Annual Giving Director Name Role Phone Ben Goldsmith MD [...] 08/15/2022, 12/09/2020, Additional history exists Influenza Vaccine (Season Ended) 2025 08/01/2021, 07/23/2020, 08/29/2019, Additional history exists RSV 60+ [...] patient's age to complete this topic Insurance [place] [id number] Care Teams Annual Giving Director Relationship Specialty Start Date End Date Ben Goldsmith MD [address] [address] PCP - General Internal Medicine 06/12/20
--- OUTSIDE RECORDS SUMMARY | 2025-02-24 11:31 | XMS_ITS | Patient Health Record ---
Author Organization [facility] Address [address] [place] [address] Care Team Providers Care Temperature Logging Operator Name Role Phone LALO HERNANDEZ Unavailable [phone] REASON FOR REFERRAL No Information PROBLEMS Problem Type ICD Code Onset Dates Problem Status W/U Status Risk SNOMED Code Notes Problem Diabetes mellitus without complication (E11.9) Active confirmed Type II diabete s mellitus without complication (903671896) Problem Hyperlipidemia (E78.5) Active confirmed Hyperlipidemia (41676374) Problem Spinal stenosis at L4-L5 level (M48.061) Active confirmed Spinal stenosis of lumbar region (80753943) Problem Compression fracture of L1 vertebra, sequela (S32.010S) Active confirmed Late effect of fracture of spine AND/OR trunk without spinal cord lesion (8383295) Problem Pulmonary fibrosis (J84.10) Active confirmed Pulmonary fibrosis (10212098) Problem Coronary artery disease without angina pectoris, unspecified vessel or lesion type, unspecified whether [place] or transplanted heart (I25.10) Active confirmed Atherosclerot ic heart disease of [place] coronary artery without angina pectoris (446524149697647) Problem Gout, unspecified (M10.9) Active confirmed Gout (59389312) Problem 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 (397145301) Problem Overweight (E66.3) Active confirmed Overweight (622739211) Problem Monoclonal gammopathy (D47.2) Active confirmed Monoclonal gammopathy (05970578) Problem 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 (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
--- OUTSIDE RECORDS SUMMARY | 2025-02-24 11:31 | XMS_ITS | Encounter Summary ---
Author Organization [facility] [address] Address [address] [place] [address] Care Team Providers Care Storage Engineer Name Role Phone Ben Goldsmith MD Primary [...] Care Team (Latest Contact Info) Description 02/27/2025 [facility] Hematology Oncology [address] [place] [phone] Wilton Crawford MD [address] [place] [address] 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 V24, CMS/HCC V28); MGUS (monoclonal gammopathy of unknown significance) 06/22/2025 9:00 AM EDT Office Visit [facility] Hematology Oncology [address] [place] [phone] Wilton Crawford MD [address] [place] [address] documented as of this encounter [...] 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 V24, CMS/HCC V28) MGUS (monoclonal gammopathy of unknown significance) Monoclonal paraproteinemia documented in this encounter Care Teams Storage Engineer Relationship Specialty Start Date End Date Ben Goldsmith MD [address] [address] PCP - General Internal Medicine 04/03/18 documented as of this encounter
--- OUTSIDE RECORDS SUMMARY | 2025-02-24 11:31 | XMS_ITS | Encounter Summary ---
Author Organization [facility] Address [address] [place] [address] Care Team Providers Care Ream Cutter Name Role Phone Ben Goldsmith Md, MD Primary Care Provider Unav ailable Reason for Visit * Reason Onset Date Comments other 04/25/2018 Encounter Details Date Type Department Care Team Description 04/25/2018 Telephone Pulmonology - [address] [place] [address] Matthew Fonseca MD other Social [...] on filedocumented in this encounter Care Teams Ream Cutter Relationship Specialty Start Date End Date Ben Goldsmith MD, MD PCP - General Internal Medicine 04/03/18 documented as of this encounter
--- OUTSIDE RECORDS SUMMARY | 2025-02-24 11:31 | XMS_ITS | Data Portability ---
Author Organization [facility], Main Office Address [address] [place] [address] Care Team Providers Care Monument Installer Name Role Phone CHRISTELMATTHEW MASCORROUR Primary Care Provider Assessment Encounter Date Assessment Date Assessment LastModified by Organization Details LastModified Time 06/18/2024 06/18/2024 This is a 78-year-old gentleman [...] Discussing treatment plan. Not available 11/03/2024 10:40:06 02/18/2025 02/18/2025 This is a 79-year-old gentleman with a history of L2-3 and L3-4 fusion and kyphoplasty's for osteoporotic vertebral compression fractures. His pain has significantly been relieved and he continues to try well. He does have some occasional issues with low back pain but generally he is doing well. He does not report any pain and therefore I have advised him to continue to do home physical therapy program and follow-up with me as needed. Not available 02/18/2025 09:20:29 Plan of Treatment Reminders Order Date Submit Date Provider Last Modified By Organization Details Last Modified Time Details Appointments None recorded . Lab None recorded . Referral None recorded . Procedures None recorded . Surgeries None recorded . Imaging XR, lumbar spine 024 11/03/20 [facility] ([facility]), [address] [facility], [address], [place], [address], 4 09:46:47 XR, lumbar spine 024 08/25/20 24 [place] [address] [facility] ([facility]), [address] [facility], [place], [address], 4 17:21:09 Medication Orders None recorded . Patient TargetsNo targets recorded. Patient Instructions Encounter Date Encounter Id Patient Instructions Last Modified By Organization Details Last Modified Time 06/18/2024 [id number] Lumbar Spine Exercises Lumbar Stretch (Flexibility) ? Lie on your back on the floor, with your knees bent and your feet flat on the floor. Don? t press your neck or lower back to the floor. ? Pull one knee up toward your chest. Clasp your hands under your thigh to help pull. ? Hold for 30 to 60 seconds. Lower your leg back down to the floor. ? Repeat 2 times, or as instructed. ? Switch legs and repeat. Lumbar Extension (Flexibility) ? Lie face down on your belly, forehead on the floor. You can lie on a mat or towel. ? Bend your arms next to your body and lift your upper body up onto your forearms. Your palms and forearms should be flat on the floor. Keep your belly and hips on the floor. ? Hold your upper body up with your forearms for 20 seconds, or as instructed. Then slowly lower back down to the floor. ? Repeat 2 times, or as instructed. Lumbar Flexion (Flexibility) ? Lie on your back on the floor, with your knees bent and your feet flat on the floor. ? Gently pull your knees up toward your chest. Put your hands under your thighs to help pull your knees up. ? Press your low back down to the floor. You should feel a stretch across your back. Hold for 15 seconds, or as instructed. ? Lower your legs back down to the floor and relax. ? Repeat 2 times, or as instructed. Lumbar Rotation ? Lie on your back on the floor, with your knees bent and your feet flat on the floor. Don? t press your neck or lower back to the floor. ? Lean both of your knees to one side. Turn your head in the opposite direction. Keep your shoulders flat on the floor. Be gentle and don? t push through pain. ? Hold for 20 seconds, or as instructed. Then slowly move your knees and head in the other direction. ? Repeat 2 to 5 times, or [...] Lumbar Spine Exercises Lumbar Stretch (Flexibility) ? Lie on your back on the floor, with your knees bent and your feet flat on the floor. Don? t press your neck or lower back to the floor. ? Pull one knee up toward your chest. Clasp your hands under your thigh to help pull. ? Hold for 30 to 60 seconds. Lower your leg back down to the floor. ? Repeat 2 times, or as instructed. ? Switch legs and repeat. Lumbar Extension (Flexibility) ? Lie face down on your belly, forehead on the floor. You can lie on a mat or towel. ? Bend your arms next to your body and lift your upper body up onto your forearms. Your palms and forearms should be flat on the floor. Keep your belly and hips on the floor. ? Hold your upper body up with your forearms for 20 seconds, or as instructed. Then slowly lower back down to the floor. ? Repeat 2 times, or as instructed. Lumbar Flexion (Flexibility) ? Lie on your back on the floor, with your knees bent and your feet flat on the floor. ? Gently pull your knees up toward your chest. Put your hands under your thighs to help pull your knees up. ? Press your low back down to the floor. You should feel a stretch across your back. Hold for 15 seconds, or as instructed. ? Lower your legs back down to the floor and relax. ? Repeat 2 times, or as instructed. Lumbar Rotation ? Lie on your back on the floor, with your knees bent and your feet flat on the floor. Don? t press your neck or lower back to the floor. ? Lean both of your knees to one side. Turn your head in the opposite direction. Keep your shoulders flat on the floor. Be gentle and don? t push through pain. ? Hold for 20 seconds, or as instructed. Then slowly move your knees and head in the other direction. ? Repeat 2 to 5 times, or as instructed. [email or web address] Not available 11/03/2024 10:32:24 Reason for Referral None Reported. Results Created Date Observation Date Name Description Value Unit Range Abnormal Flag Note LastModifiedBy Organization Detail LastModifiedTime 05/21/20 24 05/21/2024 xr lumba r spine [...] Arechiga MD [facility] Report review ed and signed by : Dr. Fernando Arechiga on 024 10:54 AM. Workst ation Name - [place] READ04 Pt compla ins of lower back pain. Pt had surger y last Tuesda y ( 4) and believ es the pain could be becaus e of it. Pt had a button on pants as seen in latera l XR. [facility] ([facility]) [address] [facility], [place], [address], 06/02/2024 10:44:30 05/26/20 24 05/24/2024 MRI, lumba [...] Kelley MD on 024 10:48 AM. Workst [facility] Name - [facility] READ01 ARRAY( 0x58e6 4eb0) ARRAY( 0x58db 1058) ARRAY( 6b2162 2af8) ARRAY( 0x78b6 9de8) ARRAY( 5j451w b3b0) ARRAY( 0x58dc 2980) ARRAY( 0x6e7c c0d8) ARRAY( 0x78ae 0b68) ARRAY( 5e598x b7e8) ARRAY( 1l8950 dc70) [address] ([facility]) [address] [place], [address], 05/26/2024 15:23:09 05/29/20 24 05/26/2024 fluor oscop y less than one hour Exam is non-re portab le. 0.27 3.9 mGy ARRAY( 0x5a3e c7b8) ARRAY( 0x76c1 e788) ARRAY( 9n9035 2018) ARRAY( 0x5b4b 1230) ARRAY( 0x5a37 c6e8) ARRAY( 0x5a46 6478) ARRAY( 9l2311 b968) ARRAY( 0x5a4a cad0) ARRAY( 0x5a45 7c38) [address] ([facility]) [address] [place], [address], 06/02/2024 10:44:31 05/29/20 24 05/26/2024 xr lumba [...] Armando Louis on 024 3:31 PM. Workst [facility] Name - RAHRHI CREAD0 1 ARRAY( 0x7b35 1518) ARRAY( 0j7314 6488) ARRAY( 0x7ae5 ca18) ARRAY( 8b0383 1368) ARRAY( 1z9138 88d8) ARRAY( 0x7b72 82b8) ARRAY( 6f2407 ece0) ARRAY( 0x5b1a 1e00) ARRAY( 6k510h c098) [address] ([facility]) [address] [place], [address], 06/02/2024 10:44:31 07/18/20 24 05/10/2024 MRI, lumba r spine , w/o contr ast No observ ation record ed. [email or web address] [facility] ([facility]) [address] [place] [address], [place], [address], 07/18/2024 12:53:39 07/29/20 24 07/29/2024 fluor oscop y less than one hour Exam is non-re portab le. 0.[address] ([facility]) [address] [place], [address], 08/11/2024 10:19:16 07/29/20 24 07/29/2024 xr lumba [...] on 024 4:01 PM. Workst ation Name Tyler SIDDIQI [address] ([facility]) [address] [place], [address], 08/11/2024 10:19:17 07/29/20 24 07/29/2024 CT airo lumba r spine witho ut IV contr ast See notes tab of Epic Chart Review for Final Report . [address] ([facility]) [address] [place], [address], 08/11/2024 10:19:17 07/30/20 24 07/29/2024 xr lumba r spine AP & lat TECHNI QUE:Ratna page hospital spine 2 views HISTOR Y: Status post [...] 11:26 AM. Workst ation Name - CHINEDU [id number] [address] ([facility]) [address] [place], [address], 08/11/2024 10:19:18 07/30/20 24 07/29/2024 xr chest [...] : Dr. Luis Armando Louis on 024 2:08 PM. Workst ation Name - CHINEDU CREAD0 1 [facility] ([facility]) [address] [facility], [place], [address], 08/11/2024 10:19:18 07/31/20 24 07/29/2024 CT, abdom [...] 1:33 PM. Workst ation Name - 005RAH [facility] ([facility]) [address] [place], [address], 08/11/2024 10:19:19 07/31/20 24 07/29/2024 CT pelvi [...] ions) adjace nt to the left psoas, transportation dispatcher ior to the left kidney , tracki [...] 024 5:01 PM. Workst ation Name - [facility]-7P [id number] [facility] ([facility]) [address] [place], [address], 08/11/2024 10:19:19 08/25/20 24 08/25/2024 xr lumba r spine AP & lat EXAM: XR LUMBAR SPINE AP & LAT HISTOR Y: Arthro desis status FINDIN GS: Examin ation of the lumbar spine compar ed to prior study. There is been a transportation dispatcher ior fusion L2-L4. Surgic al hardwa re [...] ation Name - DESKTO P-8MUF LUQ [facility] ([facility]) [address] [place], [address], 08/27/2024 14:06:24 11/03/20 24 11/03/2024 XR, lumba r spine No observ ation record ed. [facility] ([facility]) [address] [address], [place], [address], 11/06/2024 12:55:32 Result Notes None recorded. Problems Name Problem SNOMED Code Status Onset Date Resolution Date Notes Provider Name and Address Organization Details Recorded Time History of lumbar fusion 8075609013742 6 Active 2023 Rafael Estevez MD [address] [place] [address], [address], [place] [facility] 10:14:25 Spinal stenosis of lumbar region 42373487 Active 2023 Rafael Estevez MD [address] [place] [address], [address] 4, [place] [facility] 4 09:14:48 Compression fracture of thoracic vertebra 3726704720166 Active 2023 Rafael Estevez MD [address] [place] [address], [address], [place] [facility] 09:14:50 Back problem 973853694 Active 2023 Rafael Estevez MD [address] [place] [address], [address], [place] [facility] 09:14:51 Degeneratio n of lumbar interverteb ral disc 07808720 Active 2023 Rafael Estevez MD [address] [place] [address], [address] 4, [place] [facility] 09:14:55 Compression fracture of lumbar spine 864260126 Active 2023 Rafael Estevez MD [address] [place] [address], [address], [place] [facility] 09:14:59 Problem Notes None recorded. Procedures Surgical History Date Name Laterality Status Provider Name and Address Organization Details Recorded Time lumbar spinal fusion completed Rafael Estevez MD [address] [place] [address], [address], [place] [facility] 08/25/2024 10:13:01 coronary artery bypass graft completed Rafael Estevez MD [address] [place] [address], [address], [place] [facility] 05/21/2024 09:05:22 appendectomy completed Rafael Estevez MD [address] [place] [address], [address], [place] [facility] 05/21/2024 09:05:30 balloon kyphoplasty of fracture of spine completed Rafael Estevez MD [address] [place] [address], [place], [address], [place] [facility] 05/21/2024 09:06:04 Imaging Results Imaging Date Name Status LastModified by Organiz ation Details LastModified Time 05/21/2024 xr lumbar spine AP & lat completed [address] ([facility]) [address] [place], [address], 06/02/2024 10:44:30 05/24/2024 MRI, lumbar spine, w/o contrast completed [address] ([facility]) [address] [place], [address], 05/26/2024 15:23:09 05/26/2024 fluoroscopy less than one hour completed [address] ([facility]) [address] [place], [address], 06/02/2024 10:44:31 05/26/2024 xr lumbar spine AP & lat completed [address] ([facility]) [address] [place], [address], 06/02/2024 10:44:31 05/10/2024 MRI, lumbar spine, w/o contrast completed [email or web address] [facility] ([facility]) [address] [place] [address], [address], 07/18/2024 12:53:39 07/29/2024 fluoroscopy less than one hour completed [address] ([facility]) [address] [place], [address], 08/11/2024 10:19:16 07/29/2024 xr lumbar spine AP & lat completed [address] ([facility]) [address] [place], [address], 08/11/2024 10:19:17 07/29/2024 CT airo lumbar spine without IV contrast completed [address] ([facility]) [address] [place], [address], 08/11/2024 10:19:17 07/29/2024 xr lumbar spine AP & lat completed [address] ([facility]) [address] [place], [address], 08/11/2024 10:19:18 07/29/2024 xr chest AP and lat completed [address] ([facility]) [address] [place], [address], 08/11/2024 10:19:18 07/29/2024 CT, abdomen, w/o contrast completed [address] ([facility]) [address] [place], [address], 08/11/2024 10:19:19 07/29/2024 CT pelvis without contrast (IV or oral) completed [address] ([facility]) [address] [place], [address], 08/11/2024 10:19:19 08/25/2024 xr lumbar spine AP & lat completed [address] ([facility]) [address] [place], [address], 08/27/2024 14:06:24 11/03/2024 XR, lumbar spine [place] [address] [facility] ([facility]) [address], [address], 11/06/2024 12:55:32 Procedure Notes None recorded. Medical Equipment None Reported. Allergies Allergen ID Allergen Name Allergen Category Reaction Reaction Severity Criticality Documentation Date Start Date Code Code System Note Provider Name and Address Organization Details Recorded Time 681 aspirin medicatio n angioedem a Not available Not available 05/21/2024 1191 RxNorm Rafael Estevez MD [address] [place] [address], [address] [facility] 4 [...] Not Available prednisone 10 mg tablet TAKE 4 TAB/DAY 3 DAYS, 3 TAB/DAY X 3 DAYS, 2 TAB/DAY X 3 DAYS, 1 TAB/DAY X 3 DAYS DIRECTED active Not Available Not Available No t Available doxycycline hyclate 100 mg capsule TAKE 1 CAPSULE BY MOUTH EVERY 12 HOURS active Not Available Not Available No t Available azithromycin 250 mg tablet TAKE PER PACKAGE INSTRUCTION S active Not Available Not Available No t [...] active Not Available Not Available Not Available ketorolac 0.5 % eye drops INSTILL ONE DROP TO OPERATIVE EYE TWICE A DAY STARTING AFTER SURGERY active Not Available Not Available No t Available hydromorphon e 2 mg tablet TAKE [...] Not Available Not Available No t Available scopolamine 1 mg over 3 days transdermal patch APPLY 1 PATCH TO SKIN EVERY THREE DAYS active Not Available Not Available N ot Available methylpredni solone 4 mg tablets in a dose pack TAKE PER PACKAGE INSTRUCTION S active Not Available Not Available No t Available albuterol sulfate HFA 90 mcg/actuatio n aerosol inhaler 2 PUFSF INHALED EVERY 6 HOURS NEEDED FOR SHORTNESS OF BREATH OR WHEEZING FOR 30 DAYS active Not Available Not Available Not Available timolol maleate 0.5 % eye drops LOCATION: LEFT EYE. 1 DROP TWICE DAILY TO THE LEFT EYE active Not Available Not Available No t Available ipratropium bromide 42 mcg (0.06 %) nasal spray INSTILL 1 SPRAY INTO EACH NOSTRIL THREE TIMES DAILY active Not Available Not Available No t Available colchicine 0.6 mg tablet TAKE 1 [...] Not Available Not Available No t Available amoxicillin 875 mg-potassium clavulanate 125 mg tablet TAKE 1 TABLET BY MOUTH EVERY 12 HOURS active Not [...] Updated DateTime 06/18/2024 170.18 cm 26.6 kg/m2 25389.7 g Rafael Estevez MD [address] [place] [address], [address], [place] [facility] 06/18/2024 10:32:51 Date Recorded Body height Body mass index (BMI) Body weight Provider Name and Address Organization Details Last Updated DateTime 07/02/2024 170.18 cm 26.6 kg/m2 27888.7 g Rafael Estevez MD [address] [place] [address], [address], [place] [facility] 07/02/2024 11:13:56 Date Recorded Body height Body mass index (BMI) Body weight Provider Name and Address Organization Details Last Updated DateTime 08/25/2024 170.18 cm 26.6 kg/m2 19291.7 daniel Estevez MD [address] [place] [address], [address], [place] [facility] 08/25/2024 10:12:40 Date Recorded Body height Body mass index (BMI) Body weight Provider Name and Address Organization Details Last Updated DateTime 11/03/2024 170.18 cm 26.6 kg/m2 49352.7 daniel Estevez MD [address] [place] [address], [address], [place] [facility] 11/03/2024 10:26:55 Date Recorded Body height Body mass index (BMI) Body weight Provider Name and Address Organization Details Last Updated DateTime 02/18/2025 170.18 cm 26.6 kg/m2 69520.7 daniel Estevez MD [address] [place] [address], [address], [place] [facility] 02/18/2025 09:18:04 Social History Question Answer Notes LastModified by Organizat ion Details LastModified Time Tobacco Smoking Status Former Smoker Rafael Estevez MD [address] [place] [address], [address], [place] [facility] 05/21/2024 [...] available 05/21/2024 What Is Your Occupation? Retired [email or web address] Information not available 05/21/2024 When Did You Quit Smoking? 16+yearsmichelle oliver Information not available 05/21/2024 What Was The Date Of Your Most Recent Tobacco Screening? 02/18/2025 Information not available 02/18/2025 Do You Or Have You Ever Used Any Nicotine-free Cigarettes, Vape, Or Chewing Tobacco? No Information not available 05/21/2024 What Is Your Current Pack Years? 10packyears Information not available 05/21/2024 Have You Ever Been Counseled For Unhealthy Alcohol Use? Yes Information not available 02/18/2025 How Much Tobacco Do You Smoke? No Information not available 05/21/2024 Has Tobacco Cessation Counseling Been Provided? Yes Information not available 05/21/2024 On What Date Was Tobacco Cessation Counseling Provided? 02/18/2025 Information not available 02/18/2025 How Many Years Have You Smoked Tobacco? 10 Information not available 05/21/2024 Are You Currently In School? No Information not available 05/21/2024 Do You Or Have You Ever Used Any Other Forms Of Tobacco Or Nicotine? No Information not available 05/21/2024 Sex: Unknown Functional Status Question Answer Note LastModified by Organizat ion Details LastModified Time Do you have difficulty walking or climbing stairs? No Information not available 02/18/2025 Do you have transportation difficulties? Yes Information not available 05/21/2024 Are you able to walk? YESASSIST Information not available 05/21/2024 Do you have difficulty doing errands alone? No Information not available 05/21/2024 Are you able to care for yourself? No Information not available 05/21/2024 Do you have difficulty dressing or bathing? No Information not available 02/18/2025 Mental Status Question Answer Note LastModified by Organization D etails LastModified Time Do you have difficulty concentrating, remembering or making decisions? No Information no t available 05/21/2024 Family History Nothing Reported. Medical History Condition Response Diabetes Y Coronary Artery Disease Y Heart Problems Y Anxiety/Depression Y Gout Y Arthritis Y High Cholesterol Y Cancer Y Hypertension Y Osteoporosis Y Kidney Disease Y Past Encounters Encounter ID Performer Location Encounter Start Date Encounter Closed Date Diagnosis/Indication Diagnosis SNOMED-CT Code Diagnosis ICD10 Code Diagnosis Note [id number] Rafael Estevez MD Main Office [address] [place], [place] [phone] 05/21/2024 08:07:25 05/30/2024 08:51:41 Back problem 162431304 M53.9 Degenerati on of lumbar intervertebral disc 59457618 M51.36 Compressio n fracture of lumbar spine 274965480 M48.56XD Compressio n fracture of thoracic vertebra 6154823549 104 M48.54XD Spinal fabio nosis of lumbar region 05547998 M48.062 [id number] Rafael Estevez MD Main Office [address] [place], [place] [phone] 06/02/2024 09:35:40 06/04/2024 09:42:53 Spinal stenosis of lumbar region 20140826 M48.062 Degenerati on of lumbar intervertebral disc 25696079 M51.36 Back problem 894548657 M 53.9 Compressio n fracture of lumbar spine 902945994 M48.56XD Isthmic spondylolisthesis 521675485 M43.10 [id number] Rafael Estevez MD Main Office [address] [place], [place] [phone] 06/18/2024 10:10:40 07/02/2024 09:44:28 Spinal stenosis of lumbar region 27733637 M48.062 Degenerati on of lumbar intervertebral disc 70769348 M51.36 Back problem 398761497 M 53.9 [id number] Rafael Estevez MD Main Office [address] [place] [phone] 4 07/02/2024 09:52:20 09/29/2024 15:26:11 Spinal stenosis of lumbar region 22780421 M48.062 Degenerati on of lumbar intervertebral disc 79530635 M51.36 Back problem 989138470 M 53.9 [id number] Rafael Estevez MD Main Office [address] [place] [id number] 4 08/25/2024 09:59:13 08/26/2024 17:21:08 Spinal stenosis of lumbar region 77627050 M48.062 Degenerati on of lumbar intervertebral disc 33872320 M51.369 History of lumbar fusion 0103770634 9106 Z98.1 [id number] Rafael Estevez MD Main Office [address] [place] [id number] 4 11/03/2024 10:09:44 11/04/2024 09:46:47 Spinal stenosis of lumbar region 48118133 M48.062 Degenerati on of lumbar intervertebral disc 69966744 M51.369 Back problem 837665766 M 53.9 [id number] Rafael Estevez MD Main Office [address] [place] [id number] 4 02/18/2025 08:39:47 02/19/2025 16:42:15 Spinal stenosis of lumbar region 64967993 M48.062 Degenerati on of lumbar intervertebral disc 72319857 M51.369 Back problem 689360404 M 53.9 Lumbar Spine Exercises Lumbar Stretch (Flexibili ty) ? Lie on your back on the floor, with your knees bent and your feet flat on the floor. Don? t press your neck or lower back to the floor. ? Pull one knee up toward your chest. Clasp your hands under your thigh to help pull. ? Hold for 30 to 60 seconds. Lower your leg back down to the floor. ? Repeat 2 times, or as instructed . ? Switch legs and repeat. Lumbar Extension (Flexibili ty) ? Lie face down on your belly, forehead on the floor. You can lie on a mat or towel. ? Bend your arms next to your body and lift your upper body up onto your forearms. Your palms and forearms should be flat on the floor. Keep your belly and hips on the floor. ? Hold your upper body up with your forearms for 20 seconds, or as instructed . Then slowly lower back down to the floor. ? Repeat 2 times, or as instructed . Lumbar Flexion (Flexibili ty) ? Lie on your back on the floor, with your knees bent and your feet flat on the floor. ? Gently pull your knees up toward your chest. Put your hands under your thighs to help pull your knees up. ? Press your low back down to the floor. You should feel a stretch across your back. Hold for 15 seconds, or as instructed . ? Lower your legs back down to the floor and relax. ? Repeat 2 times, or as instructed . Lumbar Rotation ? Lie on your back on the floor, with your knees bent and your feet flat on the floor. Don? t press your neck or lower back to the floor. ? Lean both of your knees to one side. Turn your head in the opposite direction. Keep your shoulders flat on the floor. Be gentle and don? t push through pain. ? Hold for 20 seconds, or as instructed . Then slowly move your knees and head in the other direction. ? Repeat 2 to 5 times, or as instructed . Health Concerns Section Related Observation LastModified by Organization Detai ls LastModified Time None Recorded Concern Status LastModified by Organization Details LastModified Time None Recorded Advance Directives Directive None Recorded Payers Encounter Date Sequence Insurance Name Policy Number Policy Kirkpatrick Covered Member ID Kirkpatrick Member ID Guarantor Name 06/18/2024 1 [facility] (MEDICARE REPLACEMENT/A DVANTAGE - HMO) [id number] Chuck Harmon [id number] Chuck Harmon 07/02/2024 1 [facility] (MEDICARE REPLACEMENT/A DVANTAGE - HMO) [id number] Chuck Harmon [id number] Chuck Harmon 08/25/2024 1 [facility] (MEDICARE REPLACEMENT/A DVANTAGE - HMO) [id number] Chuck Harmon [id number] Chuck Harmon 11/03/2024 1 [facility] (MEDICARE REPLACEMENT/A DVANTAGE - HMO) [id number] Chuck Harmon [id number] Chuck Harmon 02/18/2025 1 [facility] (MEDICARE REPLACEMENT/A DVANTAGE - HMO) [id number] Chuck Harmon [id number] Chuck Harmon Notes Date Note Type Note Provider Name and Address Organization Details Recorded Time 06/18/2024 text/html This is a 78-year-old gentleman status post kyphoplasty of thoracic and [...] any new neurologic symptoms Rafael Estevez MD [address] [place] [address], [phone], [place] [facility] 06/18/2024 10:37:48 07/02/2024 text/html This is a 78-year-old gentleman with a history of midline back [...] any new neurologic symptoms. Rafael Estevez MD [address] [place] [address], [phone], [place] [facility] 07/02/2024 16:24:17 08/25/2024 text/html This is a 78-year-old gentleman status approximately a month from L2-3 and L3-4 lateral lumbar interbody fusion. He is doing very well after the surgery his pain has gone away and he is needing minimal pain medications. Rafael Estevez MD [address] [place] [address], [phone], [place] [facility] 08/25/2024 10:17:22 11/03/2024 text/html This is a 78-year-old gentleman status 3 months from his L2-3 and L3-4 lateral lumbar interbody fusion and posterior decompression and fusion. He is doing very well and his pain has significantly improved. He occasionally has pain when he is standing for a long time. He does not report any new neurologic symptoms since his last visit. Rafael Estevez MD [address] [place] [address], [phone], [place] [facility] 11/03/2024 10:40:33 02/18/2025 text/html This is a 79-year-old gentleman with a history of L2-3 and L3-4 lumbar fusion surgery. He also had a couple of kyphoplasties before that. He has done well and is having minimal to no pain. He does not report any new neurologic symptoms since his last visit. Rafael Estevez MD [address] [place] [address], [phone], [place] [facility] 02/18/2025 09:20:56
--- OUTSIDE RECORDS SUMMARY | 2025-02-24 11:31 | XMS_ITS | Encounter Summary ---
Author Organization [facility] Address [address] [place] [address] Care Team Providers Care Geriatric Social Work Professor Name Role Phone Ben Goldsmith Md, MD Primary Care Provider Unav ailable Reason for Visit * Reason Onset Date Comments Orders Call 09/02/2018 APPOINTMENT 09/02/2018 Encounter Details Date Type Department Care Team Description 09/02/2018 Telephone Pulmonology - [address] [place] [address] Matthew Fonseca MD Orders Call; [...] will just have the Ct done at [facility].Is that still scheduled? * Telephone Encounter - Beatriz Amezquita - 09/04/2018 9:25 AM EDT Called pt to schedule the cat scan and ultrasound. Orders for the ultrasound should be external perultrasound tech. Will call pat in pulmonary to discuss and confirm this. Thank you * Telephone Encounter - Malathi Healy - 09/03/2018 1:02 PM EDT Received call from Radiology dept in [facility] - Beatriz [phone] Spoke with patient regarding ct scan - patient did not know anything about the ct scan, however, knew about U/S order U/S order is for external, questioning this order as it is stated EXTERNAL Please review and call back to Beatriz at [phone] - [facility] * Telephone Encounter - Nita Castellanos M.A. [...] Patient must contact our radiology department in [place] to schedule. They should have contacted the patient to schedule a while ago. * Telephone Encounter - Nita Castellanos M.A. - 09/02/2018 9:40 AM EDT Orders are in system. * Telephone Encounter - Christian Cruz - 09/02/2018 8:49 AM EDT Please call either [phone] or [phone] * Telephone Encounter - Christian Cruz - 09/02/2018 8:48 AM EDT Chuck is calling in, states that he has been waiting for someone to call about making ultrasound and CT Scan. documented in this encounter Plan of Treatment Not on file documented as of this encounter Visit Diagnoses Not on filedocumented in this encounter Care Teams Geriatric Social Work Professor Relationship Specialty Start Date End Date Ben Goldsmith MD, MD PCP - General Internal Medicine 04/03/18 documented as of this encounter
--- OUTSIDE RECORDS SUMMARY | 2025-02-24 11:31 | XMS_ITS | Clinical Summary ---
Author Organization [facility] Address [address] [place] [address] Care Team Providers Care Sock Liner Name Role Phone Ben Goldsmith MD Primary Care Provider [phone] Tee Dean MD Unavailable [phone] Rafael Estevez MD Unavailable [phone] Allergies Active Allergy Reactions Criticality Noted Date Comments Aspirin Angioedema,Swelling High 09/18/2014 Lip swelling Medications acetaminophen (TYLENOL) 325 MG tablet Take 2 tablets (650 mg total) by mouth as needed. 07/17/20 20 Active cholecalciferol (VITAMIN D3) 1000 units capsule Vitamin D-3 1000 UNIT Oral Capsule TAKE 1 CAPSULE DAILY Refills: 0 Active Active escitalopram (LEXAPRO) 10 MG tablet Take 1 tablet (10 mg total) by mouth daily. 04/20/20 21 Active albuterol (PROVENTIL HFA; VENTOLIN HFA) 108 (90 Base) MCG/ACT inhaler 2 INH INHALED EVERY 6 HOURS NEEDED FOR SHORTNESS OF BREATH OR WHEEZING FOR 30 DAYS 08/22/20 23 Active metoPROLOL TARTRATE (LOPRESSOR) 25 MG tabletIndication s:Essential hypertension TAKE 1 TABLET BY MOUTH TWICE DAILY 200 tablet 3 04/02/20 24 Active amLODIPine (NORVASC) 10 MG tabletIndication s:Essential hypertension TAKE 1 TABLET BY MOUTH DAILY 100 tablet 3 04/02/20 24 Active Symbicort 160-4.5 MCG/ACT inhaler 2 PUFF INHALED 2 TIMES A DAY FOR 30 DAYS 09/01/20 24 Active Trelegy Ellipta 200-62.5-25 MCG/ACT inhaler Inhale 1 puff daily. 10/14/20 24 Active clopidogrel (PLAVIX) 75 MG tabletIndication s:Hx of CABG TAKE 1 TABLET BY MOUTH DAILY 100 tablet 3 01/20/20 25 Active atorvastatin (LIPITOR) 80 MG tabletIndication s:Hx of CABG TAKE 1 TABLET BY MOUTH IN THE EVENING 90 tablet 3 01/27/20 25 Active allopurinol (ZYLOPRIM) 100 mg tabletIndication s:Inflammatory polyarthritis (HCC) TAKE 1 TABLET BY MOUTH DAILY 90 tablet 2 01/31/20 25 Active methoTREXate (RHEUMATREX) 2.5 mg tabletIndication s:Inflammatory polyarthritis (HCC) TAKE 6 TABLETS BY MOUTH WEEKLY 72 tablet 01/31/20 25 Active folic acid (FOLVITE) 1 MG tabletIndication s:Inflammatory polyarthritis (HCC) 1 mg po qd 90 tablet 3 01/31/20 25 Active atorvastatin (LIPITOR) 80 MG tabletIndication s:Hx of CABG TAKE 1 TABLET BY MOUTH IN THE EVENING 90 tablet 3 01/04/20 24 025 Discontinued methoTREXate (RHEUMATREX) 2.5 mg tabletIndication s:Inflammatory polyarthritis (HCC) TAKE 6 TABLETS BY MOUTH WEEKLY 72 tablet 10/24/20 24 025 Discontinued(R eorder) folic acid (FOLVITE) 1 MG tabletIndication s:Inflammatory polyarthritis (HCC) 1 mg po qd 90 tablet 3 10/24/20 24 025 Discontinued(R eorder) allopurinol (ZYLOPRIM) 100 mg tabletIndication s:Inflammatory polyarthritis (HCC) TAKE 1 TABLET BY MOUTH DAILY 90 tablet 2 10/24/20 24 025 Discontinued(R eorder) Active Problems Problem Noted Date Diagnosed Date Immunosuppression 07/13/2023 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 07/09/2020 at [place] CAD, multiple vessel 07/06/2020 AVD (aortic valve disease) 12/06/2017 Thoracic ascending aortic aneurysm 03/23/2017 Hypertension 09/18/2014 Overview (07/13/2021): Hypertensive disorder Obstructive sleep apnea syndrome 09/18/2014 Overview (07/13/2021): Obstructive sleep apnea syndrome Encounters Date Type Department Care Team Description 01/30/2025 9:20 AM EDT Office Visit [facility] Department of Rheumatology [address] [place] [phone] Natasha Allred MD Inflammatory polyarthritis (HCC) (Primary Dx); High risk medication use; Still disease (HCC); Interstitial lung disease (HCC); Immunosuppression; Chronic myelomonocytic leukemia in remission (HCC) 01/30/2025 Orders Only [facility] Department of Rheumatology [address] [place] [phone] Natasha Allred MD Inflammatory polyarthritis (HCC); High risk medication use 01/26/2025 Refill [facility] [address] [phone] Tee Dean MD Medication Refill 01/18/2025 Refill [facility] [address] [phone] Ling Obrien APRN Medication Refill 11/27/2024 1:20 PM EST Office Visit [facility] [address] [place] [phone] Tee Dean MD WEBER (dyspnea on exertion) (Primary Dx); Hx of CABG; Aortic valve insufficiency, etiology of cardiac valve disease unspecified; Essential hypertension; Fatigue, unspecified type; Abnormal computed tomography angiography (CTA); Resistant hypertension; Aneurysm of ascending aorta without rupture; Pre-op exam 11/27/2024 Travel from Last 3 Months Social History Tobacco [...] Sign Reading Time Taken Comments Blood Pressure 132/64 01/30/2025 9:25 AM EDT Pulse 52 01/30/2025 9:25 AM EDT Temperature 36.7 ??C (98 ??F) 01/30/2025 9:25 AM EDT Respiratory Rate 1 09/17/2024 10:12 AM EST Oxygen Saturation 92% 01/30/2025 9:25 AM EDT Inhaled Oxygen Concentration - - Weight 90 kg (198 lb 6.4 oz) 01/30/2025 9:25 AM EDT Height 165.1 cm (5' 5 ) 01/30/2025 9:25 AM EDT Body Mass Index 33.02 01/30/2025 9:25 AM EDT Plan of Treatment Upcoming Encounters Date Type Department Care Team (Late st Contact Info) Description 03/12/2025 11:20 AM EDT Office Visit [facility] [address] [place] [address] [facility] [address] [place] [phone] Tee Dean MD [address] [place] [phone] 04/17/2025 1:40 PM EDT Office Visit [facility] Department of Rheumatology [address] [facility] [address] [place] [phone] Natasha Allred MD [address] [facility] [address] [place] [address] Health Maintenance Due Date Last Done Comments Hepatitis C Virus Screening 1945 DTaP/Tdap/Td Vaccines (1 - Tdap) 1966 Pneumococcal Vaccines 50+ (1 of 2 - PCV) 1966 Zoster (Shingles) Vaccine (1 of 2) 1966 RSV Vaccine 60 years and older and Patients (1 - 1-dose 75+ series) 2022 Influenza Vaccine 06/05/2024 08/01/2021, , 07/23/2020, Additional history exists COVID-19 Vaccine ( season) 2024 08/23/2023, 08/15/2022, 07/15/2021, Additional history exists Hepatitis B Vaccines Aged Out No long er eligible based on patient's age to complete this topic Procedures Procedure Name Priority Date/Time Associated Diagnosis Comments MANUAL DIFFERENTIAL Routine 01/26/2025 1 0:48 AM EDT VITAMIN D, 25-HYDROXY Routine 01/26/2025 10:48 AM EDT Vitamin D insufficiency URIC ACID Routine 01/26/2025 10:48 AM EDT Still's disease (HCC) Inflammatory polyarthritis (HCC) C-REACTIVE PROTEIN Routine 01/26/2025 10 :48 AM EDT Still's disease (HCC) Inflammatory polyarthritis (HCC) ERYTHROCYTE SEDIMENTATION RATE (ESR) Routine 01/26/2025 10:48 AM EDT Still's disease (HCC) Inflammatory polyarthritis (HCC) COMPREHENSIVE METABOLIC PANEL Routine 01/26/2025 10:48 AM EDT High risk medication use COMPLETE BLOOD COUNT, WITH DIFFERENTIAL Routine 01/26/2025 10:48 AM EDT Still's disease (HCC) Inflammatory polyarthritis (HCC) ECG 12-LEAD Routine 11/27/2024 1:18 PM EST Pre-op exam from Last 3 Months Results * (ABNORMAL) Complete Blood Count, with Differential (01/26/2025 10:48 AM EDT) WBC 39.17(HH) 4.00 - 11.00 Thousand/ uL [facility] Comment:CRITICAL RESULT CALL ED TO AND READ BACK BY DR HAGAN 01/26/25 5:28PM BY ESPERANZA RBC 3.93(L) 4.69 - 6.13 Million/u L [facility] Hemoglobin 11.6(L) 13.3 - 17.0 g/dL [facility] Hematocrit 36.3(L) 42.1 - 50.5 % [facility] MCV 92.4 80.0 - 97.0 fL [facility] MCH 29.5 27.0 - 31.2 pg [facility] MCHC 32.0 31.8 - 35.4 g/dL [facility] RDW-CV 19.5(H) 11.6 - 14.8 % [facility] Platelet Count 142.0 142.0 - 424.0 Thousand/ uL [facility] MPV Analyzer unable to report MPV. 8.0 - 13.0 fL [facility] Neutrophil % 28.8(L) 37.0 - 80.0 % [facility] Lymph % 6.3(L) 10.0 - 50.0 % [facility] Monocytes % 61.0(H) 1.0 - 11.9 % [facility] Eosinophils, % 0.0 0.0 - 6.9 % [facility] Basophils, % 0.2 0.0 - 2.4 % [facility] Absolute Neutrophil Count 11.3(H) 2.0 - 6.9 Thousand/ uL [facility] Absolute Lymphocytes 2.5 0.6 - 3.4 Thousand/ uL [facility] Absolute Monocytes 23.9(H) 0.1 - 0.8 Thousand/ uL [facility] Absolute Eosinophils 0.0 0.0 - 0.6 Thousand/ uL [facility] Absolute Basophils 0.1 0.0 - 0.1 Thousand/ uL [facility] Immature Granulocytes 3.700(H) 0.001 - 0.900 % [facility] Abs Immature Granulocytes 1.4600(H) 0.0000 - 0.0700 Thousand/ uL [facility] Nucleated RBCS (%) 0.0 0.0 - 0.2 % [facility] NRBC, Absolute 0.000 0.000 - 0.012 Thousand/ uL [facility] Blood Blood specimen / Unknown 01/26/2025 10:48 AM EDT 01/26/2025 4:46 PM EDT Narrative [facility] - 01/26/2025 5:10 PM EDT Copy to patient and Dr. Ben Goldsmith Natasha Allred MD LAB BLOOD ORDERABLES Final R esult Performing Organization Address City/[facility]/ZIP Co de Phone Number [facility] [address] [place] [address] * (ABNORMAL) VITAMIN D, 25-HYDROXY (01/26/2025 10:48 AM EDT) [facility] Vitamin D, 25 OH, Total 29(L) 30 - 100 ng/mL [facility] Blood Blood specimen / Unknown 01/26/2025 10:48 AM EDT 01/26/2025 4:46 PM EDT Narrative [facility] - 01/26/2025 5:32 PM EDT Copy to patient and Dr. Ben Goldsmith Natasha Allred MD LAB BLOOD ORDERABLES Final R esult Performing Organization Address City/[facility] Co de Phone Number [facility] [address] [place] [address] * (ABNORMAL) Manual Differential (01/26/2025 10:48 AM EDT) [facility] WBC 39.17(HH) 4.00 - 11.00 Thousand/ uL [facility] Comment:Results verified; cr itical value previously called. Segmented Neutrophils 32.0(L) 37.0 - 80.0 % [facility] Bands 3.0 <5.0 % [facility] Myelocytes 1.0(H) 0.0 - 0.9 % [facility] Lymphocyte % 7.0(L) 10.0 - 50.0 % [facility] % Monocytes 55.0(H) 1.0 - 12.0 % [facility] Atypical Lymphocytes 2.0 0.0 - 3.0 % [facility] Schistocytes 1+(A) [facility] Anisocytosis 2+(A) [facility] OVALOCYTES 1+(A) [facility] Platelet Estimate APPEAR NORMAL [facility] Abs Neutrophils Count (ANC) 12.53(H) 2.00 - 6.90 [facility] 01/26/2025 10:4 8 AM EDT 01/26/2025 4:46 PM EDT Natasha Allred MD LAB BLOOD ORDERABLES Final R esult Performing Organization Address [facility] Co de Phone Number [address] * Erythrocyte Sedimentation Rate (ESR) (01/26/2025 10:48 AM EDT) Sedimentation Rate 24.0 0.0 - 30.0 mm/Hr [facility] Blood Blood specimen / Unknown 01/26/2025 10:48 AM EDT 01/26/2025 4:46 PM EDT Narrative [facility] - 01/26/2025 5:17 PM EDT Copy to patient and Dr. Ben Goldsmith Natasha Allred MD LAB BLOOD ORDERABLES Final R esult Performing Organization Address [facility] Co de Phone Number [address] * (ABNORMAL) C-REACTIVE PROTEIN (01/26/2025 10:48 AM EDT) C-Reactive Protein 29.9(H) <5.0 mg/L [facility] Blood Blood specimen / Unknown 01/26/2025 10:48 AM EDT 01/26/2025 4:46 PM EDT Narrative [facility] - 01/26/2025 5:32 PM EDT Copy to patient and Dr. Ben Goldsmith Natasha Allred MD LAB BLOOD ORDERABLES Final R esult Performing Organization Address [facility] Co de Phone Number [address] * URIC ACID (01/26/2025 10:48 AM EDT) Pathologist [facility] Uric Acid 6.5 3.4 - 7.0 mg/dL [facility] Blood Blood specimen / Unknown 01/26/2025 10:48 AM EDT 01/26/2025 4:46 PM EDT Narrative [facility] - 01/26/2025 5:32 PM EDT Copy to patient and Dr. Ben Goldsmith us Natasha Allred MD LAB BLOOD ORDERABLES Final R esult [facility] [address] [place] [address], * (ABNORMAL) Comprehensive Metabolic Panel (01/26/2025 10:48 AM EDT) Pathologist [facility] Glucose 107(H) 70 - 99 mg/dL [facility] Blood Urea Nitrogen 29(H) 7 - 22 mg/dL [facility] Creatinine, Ser 1.7(H) 0.5 - 1.2 mg/dL [facility] Bun / Creat Ratio 17 11 - 30 [facility] Sodium 136 133 - 145 mmol/L [facility] Potassium 3.8 3.3 - 5.1 mmol/L [facility] Chloride 97 96 - 108 mmol/L [facility] CO2 24 22 - 31 mmol/L [facility] Anion Gap 15 3 - 19 mmol/L [facility] Calcium 8.8 8.8 - 10.6 mg/dL [facility] Total Protein 8.7(H) 6.0 - 8.3 g/dL [facility] Albumin 3.9 3.2 - 4.8 g/dL [facility] Globulin 4.8(H) 2.0 - 3.5 g/dL [facility] Albumin/Globulin Ratio 0.8(L) 1.0 - 5.0 [facility] Aspartate Aminotrans (AST) 15 8 - 37 IU/L [facility] Alanine Aminotrans (ALT) 13 5 - 40 IU/L [facility] Alkaline Phosphatase 92 35 - 140 IU/L [facility] Bilirubin, Total 0.9 0.0 - 1.0 mg/dL [facility] GFR Estimated (calculated) 41(L) >60 [facility] Comment: As of 2021, the [facility] has updated the creatinine- based estimated glomerular filtration rate (eGFRcr) to the updated CKD-EPI 2020 equation. ??This change removes the race coefficient of the older calculation, and was made based on recommendations from the National Kidney Foundation and the [place] Society [employer] Nephrology's Task Force. ??The new eGFRcr has similar overall performance characteristics to the older equation and has been assessed to not have potential consequences that disproportionately affect any one group of individuals. ??However, some mild variation from the older eGFR equation can be expected especially in younger age patients and at higher eGFRcr values. Blood Blood specimen / Unknown 01/26/2025 10:48 AM EDT 01/26/2025 4:46 PM EDT Narrative [facility] - 01/26/2025 5:32 PM EDT Copy to patient and Dr. Ben Goldsmith us Natasha Allred MD LAB BLOOD ORDERABLES Final R esult Performing Organization Address City/State/[facility] [place] [address], * ECG 12 lead (11/27/2024 1:18 PM EST) Ventricular rate 61 BPM EKG [facility] Atrial rate 61 BPM EKG [facility] P-R interval 166 ms EKG [facility] QRS duration 108 ms EKG [facility] Q-T interval 492 ms EKG [facility] QTC calculation (Bazett) 496 ms EKG [facility] P axis 9 degrees EKG [facility] R axis -15 degrees EKG [facility] T axis 19 degrees EKG [facility] 11/27/2024 1:18 PM EST [facility]/27[facility] 1:35 PM EST Sinus rhythm [...] 1:35:12 PM Tee Dean MD ECG ORDERABLES Final Result EKG [facility] from Last 3 Months Insurance MEDICARE MEDICARE Care Teams Sock Liner Relationship Specialty Start Date End Date Ben Goldsmith MD [address] [place] [address] PCP - General Internal Medicine 07/12/21 Tee Dean MD [address] [place] [address] Primary Taxi Dancer Cardiovascular Disease 12/24/23 Rafael Estevez MD [address] [place] [id number] Surgeon Surgery, Orthopedic 07/25/24
--- OUTSIDE RECORDS SUMMARY | 2025-02-24 11:31 | XMS_ITS | Encounter Summary ---
Author Organization [facility] Address [address] [place] [address] Care Team Providers Care Director Database Name Role Phone Ben Goldsmith Md, MD Primary Care Provider Unav ailable Reason for Visit * Reason Onset Date Comments Prior Authorization 09/18/2018 lesly appr bulmaro Encounter Details Date Type Department Care Team Description 09/18/2018 Telephone Rheumatology - [address] [address] Elfego Alaniz MD Prior Authorization (kineret approved) Social History Tobacco Use Types Packs/Day Years Used Date Smoking Tobacco: Former Cigarettes 0.5 40 Smokeless Tobacco: Never Alcohol Use Standard Drinks/Week Comments No 0 (1 standard drink = 0.6 oz pur e alcohol) Sex Assigned at Date Recorded Not on file documented as of this encounter Miscellaneous Notes * Telephone Encounter - Tessa Ravi L.P.N. - 09/18/2018 10:00 AM EST kineret approved from today until 11/04/19 Pa # [id number] Pt made aware Script sent to [facility] documented in this encounter Plan of Treatment Not on file documented as of this encounter Visit Diagnoses Not on filedocumented in this encounter Care Teams Director Database Relationship Specialty Start Date End Date Ben Goldsmith MD, MD PCP - General Internal Medicine 04/03/18 documented as of this encounter
--- OUTSIDE RECORDS SUMMARY | 2025-02-24 11:31 | XMS_ITS ---
Author Organization [facility] Address [address] [place] [address] Care Team Providers Care Wastewater Plant Operator Name Role Phone CHENVIELKA DANGELO Unavailable [phone] PROBLEMS Problem Type ICD Code Onset Dates Problem Status W/U Status Risk SNOMED Code Notes Problem Diabetes mellitus without complication (E11.9) Active confirmed Type II diabete s mellitus without complication (977231262) Problem 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 (C93.10) Active confirmed Chronic myelomonocytic leukemia (disorder) (948013698) Problem Monoclonal gammopathy (D47.2) Active confirmed Monoclonal gammopathy (31042912) Problem Coronary artery disease without angina pectoris, unspecified vessel or lesion type, unspecified whether chitina or transplanted heart (I25.10) Active confirmed Atherosclerot ic heart disease of chitina coronary artery without angina pectoris (234529159925857) Problem Hyperlipidemia (E78.5) Active confirmed Hyperlipidemia (13726774) Problem Spinal stenosis at L4-L5 level (M48.061) Active confirmed Spinal stenosis of lumbar region (27058949) Problem Compression fracture of L1 vertebra, sequela (S32.010S) Active confirmed Late effect of fracture of spine AND/OR trunk without spinal cord lesion (9371541) Problem Gout, unspecified (M10.9) Active confirmed Gout (08462469) Problem 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 (695687850) Problem Pulmonary fibrosis (J84.10) Active confirmed Pulmonary fibrosis (17532580) Problem Overweight (E66.3) Active confirmed Overweight (905234008) Encounters Encounter Location Date Provider Diagnosis [facility] [address] [place] [address] 06/16/2024 VIELKA CHEN PLAN OF TREATMENT No Information Progress Notes * Wes HOU:1945 (79 yo M)Acc No.[id number]:06/16/2024 Progress Notes Patient:??Chuck HOU Account Number: Provider:??Vielka Chen MD :1945?Age:78 Y?Sex:Ma le Date:06/16/2024 Address:[address] [place] [address] , [id number] Subjective: * Chief Complaints: * ? * Medical History:?? Objective: Assessment: Plan: * Treatment: * Images: Billing Information: * Visit Code:?? * Procedure Codes:?? * Sign off status: Pending * Provider:??Vielka Chen MD Date:??06/16
--- OUTSIDE RECORDS SUMMARY | 2025-02-24 11:31 | XMS_ITS | Encounter Summary ---
Author Organization [facility] Address [address] [place] [address] Care Team Providers Care Utility Agent Name Role Phone Ben Goldsmith MD Primary Care Provider [phone] Encounter Details Date Type Department Care Team [...] Care Team (Latest Contact Info) Description 02/27/2025 [facility] Hematology Oncology [address] [place] [phone] Wilton Crawford MD [address] [place] [address] 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 ([facility]/HCC V24, [facility]/HCC V28); MGUS (monoclonal gammopathy of unknown significance) 06/22/2025 9:00 AM EDT Office Visit [facility] Hematology Oncology [address] [place] [phone] Wilton Crawford MD [address] [place] [address] documented as of this encounter [...] on 08/25/2024 4:39PM. Workstation Name - [id number] us Rafael Estevez MD IMG XR PROCEDURES Final Resul t documented in this encounter Visit Diagnoses Diagnosis Arthrodesis status 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 (CMS/[facility] V24, [facility] V28) MGUS (monoclonal gammopathy of unknown significance) Monoclonal paraproteinemia documented in this encounter Care Teams Utility Agent Relationship Specialty Start Date End Date Ben Goldsmith MD [address] [place] [address] [place] [id number] PCP - General Internal Medicine 04/03/18 documented as of this encounter
--- OUTSIDE RECORDS SUMMARY | 2025-02-24 11:31 | XMS_ITS | Clinical Summary ---
Author Organization [facility] Address [address] [place] [phone] Phone Care Team Providers Care Ophthalmic Medical Technologist Name Role Phone Ben Goldsmith MD Primary Care Provider Allergies Active Allergy Reactions Criticality Noted Date Comments Aspirin Swelling High 09/18/2014 Lip swelling Lip swelling Medications glucose blood test strip FREESTYLE LITE For Home blood glucose monitoring 4 Active freestyle 28 gauge lancets For blood glucose monitoring to prick finger 4 Active acetaminophen (TYLENOL) 325 mg tablet Take 3 tablets (975 mg total) by mouth 3 times daily as needed (pain). 4 Active allopurinoL (ZYLOPRIM) 100 mg tablet Take 1 tablet (100 mg total) by mouth 1 (one) time each day. Active amLODIPine (NORVASC) 10 mg tablet Take 1 tablet (10 mg total) by mouth 1 (one) time each day. 1 Active atorvastatin (LIPITOR) 80 mg tablet Take 1 tablet (80 mg total) by mouth 1 (one) time each day in the evening. 1 Active cholecalciferol (VITAMIN D-3) 25 mcg (1,000 unit) capsule Take 1 capsule (1,000 Units total) by mouth 1 (one) time each day. Active clopidogreL (PLAVIX) 75 mg tablet Take 1 tablet (75 mg total) by mouth 1 (one) time each day. 1 Active escitalopram (LEXAPRO) 10 mg tablet Take 1 tablet (10 mg total) by mouth 1 (one) time each day. Active folic acid (FOLVITE) 1 mg tablet Take 1 tablet (1 mg total) by mouth 1 (one) time each day. 1 Active methotrexate 2.5 mg tablet Take 6 tablets (15 mg total) by mouth every 7 days. 1 Active metoprolol tartrate (LOPRESSOR) 25 mg tablet Take 1 tablet (25 mg total) by mouth 2 (two) times a day. 0 Active polyethylene glycol (MIRALAX) 17 gram packet Take 17 g by mouth 1 (one) time each day if needed for constipation. 4 Active senna-docusate (PERICOLACE) 8.6-50 mg per tablet Take 1 tablet by mouth 2 times daily as needed for constipation. 4 Active budesonide-form oteroL (SYMBICORT) 160-4.5 mcg/actuation inhaler 2 PUFF INHALED 2 TIMES A DAY FOR 30 DAYS 4 Active fluticasone-ume clidinium-vilan terol (TRELEGY ELLIPTA) 200-62.5-25 mcg inhaler 4 Active Active Problems Problem Noted Date Diagnosed Date Erectile disorder due to medical condition in ma le patient 07/21/2024 Tinnitus 07/21/2024 Nocturia 07/21/2024 Type 2 diabetes mellitus ([facility] V24, [facility] V 28) 07/21/2024 Gout 07/21/2024 Hyperlipidemia 07/21/2024 Inflammatory arthritis 07/21/2024 Interstitial lung disease ([facility] V24, [facility] V28) 07/21/2024 Back pain 05/26/2024 Intractable pain 05/26/2024 Acute midline low back pain without sciatica 04/2024 Back pain of thoracolumbar region 05/10/2024 Gynecomastia, male 04/14/2022 Weight loss 04/15/2021 Acute diastolic (congestive) heart failure ([facility] V24, [facility] V28) 07/11/2020 Stage 3 chronic kidney disease ([facility] V24, [facility] V28) 07/11/2020 Acute respiratory failure wi th hypoxia ([facility] V24, [facility] V28) 07/09/2020 History of coronary artery bypass graft x 3 02/2020 CAD, multiple vessel 07/06/2020 Anemia in stage 3 chronic ki dney disease ([facility] V24, [facility] V28) 04/30/2020 Obstructive sleep apnea 10/31/2019 Adult Still's disease ([facility] V24, [facility] V28) 06/26/2018 Overview (07/21/2024): 03/22 Epistaxis 02/19/2018 AVD (aortic valve disease) 12/06/2017 Pneumonitis 09/24/2017 Overview (07/21/2024): Onset March 2018: synovitis in hands, pleuritis, pulmonary infiltrates, fever, pericarditis. Pos BRIT - negative ANCA, anti-DS DNA, anti-RYDER, Lyme Ab Prednisone and hydroxychloroquine started 05/22 Methotrexate started 03/23 Aneurysm of thoracic aorta ([facility] V24) 017 Lung nodule 02/14/2017 Bilateral hand swelling 12/21/2016 Abnormal blood chemistry 03/25/2015 CMML (chronic myelomonocytic leukemia) ([facility] V24, [facility] V28) 03/25/2015 Overview (07/21/2024): Dx ~ 2013. No treatment needed so far Disorder of skin and subcutaneous tissue 015 Impotence of organic origin 03/25/2015 Hypertension 03/25/2015 Impaired fasting glucose 03/25/2015 MGUS (monoclonal gammopathy of unknown significa nce) 03/25/2015 Encounters Date Type Department Care Team Description 01/30/2025 Telephone [facility] Hematology Oncology [address] [place] [phone] Yoli Urbano [place] 12/22/2024 10:15 AM EST Office Visit [facility] Hematology Oncology [address] [place] [phone] SubWilton Poole MD 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 ([facility] V24, [facility] V28) (Primary Dx); MGUS (monoclonal gammopathy of unknown significance); Back pain of thoracolumbar region; Interstitial lung disease (CMS/HCC V24, [facility] V28); Obstructive sleep apnea 12/05/2024 Lab [facility] Hematology Oncology [address] [place] [phone] Wilton Doyle MD 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 ([facility] V24, [facility] V28); MGUS (monoclonal gammopathy of unknown significance) from Last 3 Months Immunizations Name Administration Dates Next Due Pfizer SARS-CoV-2 COVID-19, mRNA, LNP-S, preservative free 07/15/2021 Surgical History Surgery Date Site/Laterality Comments APPENDECTOMY 1956 PROCEDURE:APPENDECTOMY COLONOSCOPY 08/24/2016 N/A PROCEDURE:COLONOSCOPY;COMMENT :Procedure: COLONOSCOPY; Surgeon: Dirk Pereyra MD; Location: [facility] END[facility]COPY; Service: Gastroenterology; Laterality: N/A; CARDIAC CATHETERIZATION 07/06/2020 Right PROCEDURE:CARDIAC CATHETERIZATION;COMMENT:Proce dure: LEFT HEART CATHETERIZATION; Surgeon: Mike Martínez MD; Location: [facility] CARDIAC OPERATING SYSTEM PROGRAMMER; Service: Cardiology; Laterality: Right; CARDIAC CATHETERIZATION 07/06/2020 Right PROCEDURE:CARDIAC CATHETERIZATION;COMMENT:Proce dure: CARDIAC CATHETERIZATION; Surgeon: Mike Martínez MD; Location: [facility] CARDIAC OPERATING SYSTEM PROGRAMMER; Service: Cardiology; Laterality: Right; CORONARY ARTERY BYPASS GRAFT 07/09/2020 Anterior PROCEDURE:CORONARY ARTERY BYPASS GRAFT;COMMENT:Procedure: CORONARY ARTERY BYPASS GRAFTING - ON PUMP X3 STERNOTOMY, RUELAS; Surgeon: Mata Amaral MD; Location: [facility] CARDIAC OPERATING ROOM; Service: Cardiovascular; Laterality: Anterior; OTHER SURGICAL HISTORY 07/09/2020 N/A PROCEDURE:TRANSESOPHAGEAL ECHOCARDIOGRAM (ENID) (CONTRAST/3D PRN);COMMENT:Procedure: TRANSESOPHAGEAL ECHOCARDIOGRAPHY; Surgeon: Mata Amaral MD; Location: [facility] CARDIAC OPERATING ROOM; Service: Cardiovascular; Laterality: N/A; VEIN SURGERY 07/09/2020 Right PROCEDURE:VEIN SURGERY;COMMENT:Procedure: HARVEST SAPHENOUS VEIN Endoscopic; Surgeon: Mata Amaral MD; Location: [facility] CARDIAC OPERATING ROOM; Service: Cardiovascular; Laterality: Right; KYPHOSIS SURGERY 05/13/2024 N/A PROCEDURE:KYPHOSIS SURGERY;COMMENT:Procedure: L 1 KYPHOPLASTY LUMBAR SPINE 1 VERTEBRAL BODY; Surgeon: Rafael Estevez MD; Location: [facility]); Service: Spine; Laterality: N/A; LUMBAR FUSION 05/29/2024 PROCEDURE:LUMBAR FUSION;COMMENT:PLANS TO BE DONE ON 07/29/24 Procedure: L 2-3, L3-4 FUSION SPINE LUMBAR POSTERIOR 2 LEVELS; Surgeon: Rafael Estevez MD; Location: [facility] [place] ([facility]); Service: Spine;; LUMBAR FUSION 05/29/2024 PROCEDURE:LUMBAR FUSION;COMMENT:PLANS TO BE DONE ON 07/29/24 KYPHOSIS SURGERY 05/29/2024 Posterior PROCEDURE:KYPHOSIS SURGERY;COMMENT:Procedure: L 5 KYPHOPLASTY LUMBAR SPINE 1 VERTEBRAL BODY; Surgeon: Rafael Estevez MD; Location: [facility] [place] ([facility]); Service: Spine; Laterality: Posterior; CERVICAL LAMINECTOMY 05/29/2024 PROCEDURE:CERVICAL LAMINECTOMY;COMMENT:PATIENT STATES HE HAS NEVER HAD NECK SURGERY. Procedure: LAMINECTOMY, FACETECTOMY, AND FORAMINOTOMY ADDITIONAL VERTEBRAL SEGMENT CERVICAL; Surgeon: Rafael Estevez MD; Location: [facility] [place] ([facility]); Service: Spine;; AUTOGRAFT/SPINE SURGERY 05/29/2024 N/A PROCEDURE:AUTOGRAFT/SPINE SURGERY;COMMENT:Procedure: AUTOGRAFT BONE SPINE; Surgeon: Rafael Estevez MD; Location: [facility] [place] ([facility]); Service: Spine; Laterality: N/A; LUMBAR FUSION 07/29/2024 Left Lateral PROCEDURE:LUMBAR FUSION;COMMENT:Procedure: L2-3, L3-4 FUSION SPINE LUMBAR - DLIF 2 INTERSPACES; Surgeon: Rafael Estevez MD; Location: [facility] ([facility]); Service: Spine; Laterality: Left Lateral; LUMBAR FUSION 07/29/2024 Posterior PROCEDURE:LUMBAR FUSION;COMMENT:Procedure: L2-3, L3-4 FUSION SPINE LUMBAR POSTERIOR MINIMALLY INVASIVE; Surgeon: Rafael Estevez MD; Location: [facility] [place] ([facility]); Service: Spine; Laterality: Posterior; LUMBAR LAMINECTOMY 07/29/2024 Posterior PROCEDURE:LUMBAR LAMINECTOMY;COMMENT:Procedure : L2 - L4 LAMINECTOMY / DECOMPRESSION POSTERIOR LUMBAR 2 LEVELS MINIMALLY INVASIVE; Surgeon: Rafael Estevez MD; Location: [facility] [place] ([facility]); Service: Spine; Laterality: Posterior; Medical History Medical History Date Comments Hypertension DX:Hypertension 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 DX: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 Tinnitus DX:Tinnitus Leukemia ([facility] V24, [facility] V28) 08/18/2014 DX:Leukemia ([facility]);COMMENT:CMML-2 Vitamin D deficiency DX:Vitamin D deficiency Depression DX:Depression Abnormal ECG DX:Abnormal ECG Aneurysm ([facility] V24) DX:Aneury sm ([facility]) Arrhythmia DX:Arrhythmia Coronary artery disease DX:Coron kari artery disease Hyperlipidemia DX:Hyperlipidemi a Sleep apnea DX:Sleep apnea;C OMMENT:not usiing does use mouth peice at night Nocturia DX:Nocturia Interstitial lung disease ([facility] V24, [facility] V28) 07/20/2024 DX:Interstitial lung disease (HCC) Gout 07/20/2024 DX:Gout Type 2 diabetes mellitus ([facility] V24, [facility] V28) 07/20/2024 DX:Type 2 diabetes mellitus (HCC) Family History Medical History Relation Name Comments [...] Team (Latest Contact Info) Description 02/27/2025 Lab [facility] Hematology Oncology [address] [place] [phone] Wilton Crawford MD [address] [place] [phone] 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 V24, CMS/HCC V28); MGUS (monoclonal gammopathy of unknown significance) 06/22/2025 9:00 AM EDT Office Visit [facility] Hematology Oncology [address] [place] [phone] Wilton Crawford MD [address] [place] [phone] Health Maintenance Due Date Last Done Comments Diabetes: Annual Foot Exam 1957 Diabetes: Annual Retina Eye Exam 1955 DTaP,Tdap,and Td Vaccines (1 - Tdap) 1966 Pneumococcal Vaccine: 50+ Years (1 of 2 - PCV) 1966 Zoster Vaccines (1 of 2) 1966 Depression Screening 10/12/2022 Falls Risk Assessment 10/12/2022 Medicare Annual Wellness Visit 10/12/2022 Social Influencers of Health Screening 10/12/2022 RSV Immunization Adult Patients (1 - 1-dose 75+ series) 2022 COVID-19 Vaccine ( season) 2024 04/26/2022, 07/15/2021, 12/09/2020, Additional history exists Diabetes: Annual Urine Albumin-Creatinine Ratio (uACR) 07/21/2024 Diabetes: Blood Sugar Control Test (HGBA1C) 01/19/2025 07/22/2024, 07/22/2024, 05/11/2024, Additional history exists Influenza Vaccine (Season Ended) 2025 07/23/2020, 08/28/2019 Diabetes: Annual GFR (Glomerular Filtration Rate) 02/13/2026 02/13/2025, 12/17/2024, 08/27/2024, Additional history exists Hypertension/CHF/CAD Annual BMP Blood Test 02/13/2026 02/13/2025, 12/17/2024, 08/27/2024, Additional history exists Cholesterol Screening (Lipid Panel) [...] age to complete this topic Meningococcal B Vaccine Aged Out No l onger eligible based on patient's age to complete this topic RSV Immunization Patients Under 20 months Aged Out No longer eligible based on patient's age to complete this topic Varicella Vaccines Aged Out No longer eligible based on patient's age to complete this topic Medical Devices Implanted Type Area Curtain Supervisor Device Identifier Shelf Expiration Date Model / Serial / Lot Surgiflo Hemostatic Matrix [id number] Implanted:Qty: 1 on 07/29/2024 by Rafael Estevez MD Implants Left: Spine Lumbar [facility] [employer] 01/17/2026 [id number] / / [id number] ++Dnu+Disc Use [id number] Hemostat Absorb 2x14in Surgicel [facility]-Ethi 538 Implanted:Qty: 1 on 07/29/2024 by Rafael Estevez MD Implants Left: Spine Lumbar [facility] [employer] 05/04/2026 1951 / / [id number] Device Angio-Seal Vip .035in 70cm 6fr Valuelink Guidewire - [id number] Implanted:11/2019 (Quantity not on file) [facility] [id number] / / Plate Sternalock Chris Jl 8 Hole Bone Sternum Primary Closure - [id number] Implanted:Qty: 1 on 07/09/2020 by Mata Amaral MD N/A: Chest BIOMET - MICRO FIXATION 73-2645 / / Plate Sternalock Chris 8 Hole Bone Sternum - [id number] Implanted:Qty: 2 on 07/09/2020 by Mata Amaral MD N/A: Chest BIOMET - MICRO FIXATION 73-2623 / / Screw Sternalock Chris 14mm Gold 2.4mm Self Drill Lock Bone - [id number] Implanted:Qty: 13 on 07/09/2020 by Mata Amaral MD N/A: Sternum BIOMET - MICRO FIXATION 73-2414 / / Screw Sternalock Chris 16mm Gold 2.4mm Self Drill Lock Bone - [id number] Implanted:Qty: 11 on 07/09/2020 by Mata Amaral MD N/A: Sternum BIOMET - MICRO FIXATION 73-2416 / / Cement Bone Kyphx Hv-R Medt-Kyph [id number] Implanted:Qty: 1 on 05/13/2024 by Rafael Estevez MD N/A: Spine Lumbar [employer] KYPHON 11/04/2026 [id number] / / [id number] Cement Bone Kyphx Hv-R Medt-Kyph [id number] Implanted:Qty: 1 on 05/29/2024 by Rafael Estevez MD N/A: Spine Lumbar [employer] KYPHON 01/02/2027 C01A / / [id number] 22 X 50x 10x 8 Degree Aleutian Spacer Implanted:Qty: 1 on 07/29/2024 by Rafael Estevez MD N/A: Spine Lumbar MANDEEP SPINE [id number] / / Disc Rick Implanted:Qty: 1 on 07/29/2024 by Rafael Estevez MD N/A: Spine Lumbar MANDEEP SPINE [id number] / / Screw Set [place] Stry-K2m [id number] Implanted:Qty: 6 on 07/29/2024 by Rafael Estevez MD N/A: Spine Lumbar MANDEEP SPINE [id number] / / Screw Suzanne Polyaxial Extended Tab 6.5x50mm Stry-K2m [id number] Implanted:Qty: 6 on 07/29/2024 by Rafael Estevez MD N/A: Spine Lumbar MANDEEP SPINE [id number] / / Clarence Contr Blt Hex 5.5x80mm Stry-K2m [id number] Implanted:Qty: 2 on 07/29/2024 by Rafael Estevez MD N/A: Spine Lumbar MANDEEP SPINE [id number] / / Vesuvius 100 Dbm Bone Putty 10 Stry-K2m [id number] - [id number] Implanted:Qty: 1 on 07/29/2024 by Rafael Estevez MD N/A: Spine Lumbar MANDEEP SPINE 02/02/2027 [id number] DP / [id number] / [id number] 8A Bone Alrgft Can Chip 1-8 15cc Stry-Obio [id number] - [id number] Implanted:Qty: 1 on 07/29/2024 by Rafael Estevez MD N/A: Spine Lumbar [employer] 07/03/2028 [id number] / [id number] / Vesuvius 100 Dbm Bone Putty 10 Stry-K2m [id number] - [id number] Implanted:Qty: 1 on 07/29/2024 by Rafael Estevez MD Left: Spine Lumbar MANDEEP SPINE 03/04/2027 [id number] DP / [id number] / [id number] 22 X 50 X 12 X 8 Degree Aleutian Spacer Implanted:Qty: 1 on 07/29/2024 by Rafael Estevez MD N/A: Spine Lumbar MANDEEP SPINE [id number] / / Procedures Procedure Name Priority Date/Time Associated Diagnosis Comments MANUAL DIFFERENTIAL - SYSMEX WAM Routine 02/13/2025 8:48 AM EDT 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 V24, CMS/HCC V28) MGUS (monoclonal gammopathy of unknown significance) LA PROTEIN ELECTROPHORETIC FRACTIONATION & QUANTITATION SERUM Routine 02/13/2025 8:48 AM EDT 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 V24, CMS/HCC V28) MGUS (monoclonal gammopathy of unknown significance) LA IMMUNOFIXATION ELECTROPHORESIS SERUM Routine 02/13/2025 8:48 AM EDT MGUS (monoclonal gammopathy of unknown significance) Gammopathy, monoclonal IMMUNOGLOBULINS IGG, IGA, IGM Routine 02/13/2025 8:48 AM EDT MGUS (monoclonal gammopathy of unknown significance) Gammopathy, monoclonal IMMUNOFIXATION ELECTROPHORESIS Routine 02/13/2025 8:48 AM EDT MGUS (monoclonal gammopathy of unknown significance) Gammopathy, monoclonal IMMUNOFIXATION ELECTROPHORESIS Routine 02/13/2025 8:48 AM EDT MGUS (monoclonal gammopathy of unknown significance) Gammopathy, monoclonal PROTEIN, TOTAL Routine 02/13/2025 8:48 AM EDT 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 V24, CMS/HCC V28) MGUS (monoclonal gammopathy of unknown significance) CBC WITH AUTO DIFFERENTIAL Routine 02/13/2025 8:48 AM EDT 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 V24, CMS/HCC V28) MGUS (monoclonal gammopathy of unknown significance) KAPPA-LAMBDA QUANTITATIVE FREE LIGHT CHAINS Routine 02/13/2025 8:48 AM EDT Gammopathy, monoclonal CBC AND DIFFERENTIAL Routine 02/13/2025 8:48 AM EDT 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 V24, CMS/HCC V28) MGUS (monoclonal gammopathy of unknown significance) COMPREHENSIVE METABOLIC PANEL Routine 02/13/2025 8:48 AM EDT 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 V24, CMS/HCC V28) MGUS (monoclonal gammopathy of unknown significance) LACTATE DEHYDROGENASE Routine 02/13/2025 8:48 AM EDT 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 V24, CMS/HCC V28) MGUS (monoclonal gammopathy of unknown significance) PROTEIN ELECTROPHORESIS, SERUM Routine 02/13/2025 8:48 AM EDT 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 V24, CMS/HCC V28) MGUS (monoclonal gammopathy of unknown significance) LA PROTEIN ELECTROPHORETIC FRACTIONATION & QUANTITATION SERUM Routine 12/17/2024 11:25 AM EST 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 V24, CMS/HCC V28) MGUS (monoclonal gammopathy of unknown significance) RBC MORPHOLOGY REVIEW Routine 12/17/2024 11:25 AM EST 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 V24, CMS/HCC V28) MGUS (monoclonal gammopathy of unknown significance) PROTEIN, TOTAL Routine 12/17/2024 11:25 AM EST 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 V24, CMS/HCC V28) MGUS (monoclonal gammopathy of unknown significance) CBC WITH AUTO DIFFERENTIAL Routine 12/17/2024 11:25 AM EST 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 V24, CMS/HCC V28) MGUS (monoclonal gammopathy of unknown significance) KAPPA-LAMBDA QUANTITATIVE FREE LIGHT CHAINS Routine 12/17/2024 11:25 AM EST Gammopathy, monoclonal CBC AND DIFFERENTIAL Routine 12/17/2024 11:25 AM EST 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 V24, CMS/HCC V28) MGUS (monoclonal gammopathy of unknown significance) COMPREHENSIVE METABOLIC PANEL Routine 12/17/2024 11:25 AM EST 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 V24, CMS/HCC V28) MGUS (monoclonal gammopathy of unknown significance) LACTATE DEHYDROGENASE Routine 12/17/2024 11:25 AM EST 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 V24, CMS/HCC V28) MGUS (monoclonal gammopathy of unknown significance) PROTEIN ELECTROPHORESIS, SERUM Routine 12/17/2024 11:25 AM EST 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 V24, CMS/HCC V28) MGUS (monoclonal gammopathy of unknown significance) HEMOGLOBIN A1C Routine 05/11/2024 LIPID PANEL Routine 09/11/2023 HEPATITIS C SCREENING Routine 09/11/2018 from Last 3 Months or Most Recently Relevant to Health Maintenance Results * Pathologist Review Immunofixation (02/13/2025 8:48 AM EDT) Pathologist Interpretation Reviewed by Maria Kelly MD 02/17/2025 1:54 PM EDT [facility] ([facility]) [facility] Blood Venous blood specimen / Unknown Venipuncture / Unknown 02/13/2025 8:48 AM EDT 02/13/2025 12:36 PM EDT Subramciro Crawford MD LAB BLOOD ORDERABLE S Final Result Performing Organization Address City/[facility]/ZIP Co de Phone Number [facility] [address] [place] [address], [place] [phone] * PATHOLOGIST REVIEW PROTEIN ELECTROPHORESIS (02/13/2025 8:48 AM EDT) Only the most recent of2 resultswithin the time period is included. Pathologist Interpretation Reviewed by Maria Kelly MD 02/17/2025 1:53 PM EDT [facility] Blood Venous blood specimen / Unknown Venipuncture / Unknown 02/13/2025 8:48 AM EDT 02/13/2025 12:36 PM EDT Subramciro Crawford MD LAB BLOOD ORDERABLE S Final Result Performing Organization Address [facility]/ZIP Co de Phone Number [facility] [address] [place] [address], [place] [phone] * (ABNORMAL) Manual differential (02/13/2025 8:48 AM EDT) Pathologist [facility] Neutrophils % 35.0 % LAB HEMETOLOGY METHOD 5 1:36 PM EDT [facility] Bands % 2.0 % LAB HEMETOLOGY METHOD 5 1:36 PM EDT [facility] Lymphocytes % 5.0 % LAB HEMETOLOGY METHOD 5 1:36 PM EDT [facility] Reactive Lymphocyte 5.00 % LAB HEMETOLOGY METHOD 5 1:36 PM EDT [facility] Monocytes % 50.0 % LAB HEMETOLOGY METHOD 5 1:36 PM EDT [facility] Eosinophils % 0.0 % LAB HEMETOLOGY METHOD 5 1:36 PM EDT [facility] Basophils % 0.0 % LAB HEMETOLOGY METHOD 5 1:36 PM EDT [facility] Metamyelocytes % 2.0(H) % LAB HEMETOLOGY METHOD 5 1:36 PM EDT [facility] Myelocytes % 1.0(H) % LAB HEMETOLOGY METHOD 5 1:36 PM EDT [facility] Promyelocytes % 1.0(H) % LAB HEMETOLOGY METHOD 5 1:36 PM EDT [facility] Neutrophils Absolute Manual 8.93(H) 1.50 - 7.00 K/mcL LAB HEMETOLOGY METHOD 5 1:36 PM EDT [facility] Bands Absolute Manual 0.51(H) 0.00 - 0.00 K/mcL [facility] Lymphocytes Absolute 1.28 1.00 - 5.00 K/mcL LAB HEMETOLOGY METHOD 5 1:36 PM [facility] Reactive Lymph Abs Manual 1.28(H) 0.00 - 0.00 lym LAB HEMETOLOGY METHOD 5 1:36 PM EDT [facility] Monocytes Absolute Manual 12.75(H) 0.20 - 1.00 K/mcL LAB HEMETOLOGY METHOD 5 1:36 PM EDT [facility] Eosinophils Absolute Manual 0.00 0.00 - 0.50 K/mcL LAB HEMETOLOGY METHOD 5 1:[facility] Basophils Absolute Manual 0.00 0.00 - 0.20 K/mcL LAB HEMETOLOGY METHOD 5 1:36 PM EDT [facility] [facility] Metamyelocytes Absolute Manual 0.51(H) 0.00 - 0.00 K/mcL LAB HEMETOLOGY METHOD 5 1:36 PM EDT [facility] Myelocytes Absolute Manual 0.26(H) 0.00 - 0.00 K/mcL LAB HEMETOLOGY METHOD 5 1:36 PM EDT [facility] Promyelocytes Absolute Manual 0.26(H) 0.00 - 0.00 K/mcL LAB HEMETOLOGY METHOD 5 1:36 PM EDT [facility] Rbc Morphology Consistent with indices Consistent with indices, Normal for LAB HEMETOLOGY METHOD 5 1:36 PM EDT [facility] Platelet Morphology - WAM See Note(A) Normal [facility]36 PM EDT [facility] Comment:PLT: Normal Blood Venous blood specimen / Unknown Venipuncture / Unknown 02/13/2025 8:48 AM EDT 02/13/2025 12:37 PM EDT Wilton Crawford MD LAB BLOOD ORDERABLE S Final Result [facility] [address] [place] [address], * (ABNORMAL) [place]-lambda free light chains, quantitative (02/13/2025 8:48 AM EDT) Only the most recent of2 resultswithin the time period is included. [place] Free Light Chain 4.54(H) 0.33 - 1.94 mg/dL 02/16/2025 2:42 PM EDT [facility] Lambda Free Light Chain 7.36(H) 0.57 - 2.63 mg/dL 02/16/2025 2:42 PM EDT [facility] [place]/Lambda FLC Ratio 0.62 0.26 - 1.65 02/16/2025 2:42 PM EDT [facility] Comment: Test performed at [facility], [address], [place], [place] ??[address] ? [phone] Valeria Ny MD, PhD - Rice Field Worker Blood Venous blood specimen / Unknown Venipuncture / Unknown 02/13/2025 8:48 AM EDT 02/13/2025 12:36 PM EDT Subramony Yvette ISAAC LAB BLOOD ORDERABLE S Final Result [facility] [address] [place] [address] * (ABNORMAL) CBC auto differential (02/13/2025 8:48 AM EDT) Only the most recent of2 resultswithin the time period is included. WBC 25.5(H) 4.8 - 10.8 K/mcL LAB HEMETOLOGY METHOD 02/13/2025 1:36 PM EDT [facility] RBC 4.00(L) 4.50 - 5.50 M/mcL LAB HEMETOLOGY METHOD 02/13/2025 1:36 PM EDT [facility] Hemoglobin 11.6(L) 13.5 - 17.5 g/dL LAB HEMETOLOGY METHOD 02/13/2025 1:36 PM EDT [facility] Hematocrit 37.5(L) 42.0 - 54.0 % LAB HEMETOLOGY METHOD 02/13/2025 1:36 PM EDT [facility] MCV 94.2 79.0 - 98.0 FL LAB HEMETOLOGY METHOD 02/13/2025 1:36 PM [facility] MCH 29.1 27.0 - 32.0 pcg LAB HEMETOLOGY METHOD 02/13/2025 1:[facility] MCHC 30.9(L) 32.0 - 37.0 g/dL LAB HEMETOLOGY METHOD 02/13/2025 1:36 PM EDT [facility] RDW 19.5(H) 11.0 - 15.0 % LAB HEMETOLOGY METHOD 02/13/2025 1:36 PM EDT [facility] Platelets 88(L) 130 - 400 K/mcL LAB HEMETOLOGY METHOD 02/13/2025 1:36 PM EDT [facility] Comment:reviewed by slide MPV LAB HEMETOLOGY METHOD 02/13/2025 1:36 PM EDT [facility] Comment:Not Measured NRBC 0.0 <1.0 % LAB HEMETOLOGY METHOD 02/13/2025 1:36 PM EDT [facility] NRBC Absolute 0.00 <0.10 K/mcL LAB HEMETOLOGY METHOD 02/13/2025 1:36 PM EDT [facility] Blood Venous blood specimen / Unknown Venipuncture / Unknown 02/13/2025 8:48 AM EDT 02/13/2025 12:37 PM EDT us Wilton Crawford MD LAB BLOOD ORDERABLE S Final Result [facility] [address] [place] [address], * Immunofixation electrophoresis serum (02/13/2025 8:48 AM EDT) Immunofixation Result, Serum IgG Lambda monoclonal immunoglobulins detected. LAB CHEMISTRY METHOD 02/17/2025 1:54 PM EDT [facility] Blood Venous blood specimen / Unknown Venipuncture / Unknown 02/13/2025 8:48 AM EDT 02/13/2025 12:36 PM EDT us Wilton Crawford MD LAB BLOOD ORDERABLE S Final Result [facility] [address] [place] [address], * (ABNORMAL) Immunoglobulins IgG, IgA, IgM (02/13/2025 8:48 AM EDT) Total IgG 2,960(H) 549 - 1,584 mg/dL LAB CHEMISTRY METHOD 02/16/2025 9:34 PM EDT [facility] IgA 154 61 - 348 mg/dL LAB CHEMISTRY METHOD 02/16/2025 9:34 PM EDT [facility] IgM 152 23 - 259 mg/dL LAB CHEMISTRY METHOD 02/16/2025 9:34 PM EDT [facility] Blood Venous blood specimen / Unknown Venipuncture / Unknown 02/13/2025 8:48 AM EDT 02/13/2025 12:36 PM EDT Wilton Crawford MD LAB BLOOD ORDERABLE S Final Result Performing Organization Address [facility] Co de Phone Number [facility] [address] [place] [address], [place] [phone] * (ABNORMAL) Protein electrophoresis, serum (02/13/2025 8:48 AM EDT) Only the most recent of2 resultswithin the time period is included. Total Protein 8.8(H) 6.0 - 8.0 g/dL LAB CHEMISTRY METHOD 02/17/2025 1:53 PM EDT [facility] Albumin, Serum 3.8 2.9 - 4.1 g/dL LAB CHEMISTRY METHOD 02/17/2025 1:53 PM EDT [facility] Alpha 1 Globulin (g/dL) 0.2 0.1 - 0.5 g/dL LAB CHEMISTRY METHOD 02/17/2025 1:53 PM EDT [facility] Alpha 2 Globulin (g/dL) 0.7 0.7 - 1.5 g/dL LAB CHEMISTRY METHOD 02/17/2025 1:53 PM EDT [facility] Beta (g/dL) 0.8 0.7 - 1.5 g/dL LAB CHEMISTRY METHOD 02/17/2025 1:53 PM EDT [facility] Gamma Globulin (g/dL) 3.3(H) 0.7 - 1.9 g/dL LAB CHEMISTRY METHOD 02/17/2025 1:53 PM EDT [facility] PARAPROTEIN 1.3 g/dL LAB CHEMISTRY METHOD 02/17/2025 1:53 PM EDT [facility] SPEP Interpretation Monoclonal gammopathy Abnormal pattern with M-spike of gamma globulin mobility. Serum Immunofixation performed on this specimen demonstrated IgG Lambda monoclonal protein. LAB CHEMISTRY METHOD 02/17/2025 1:53 PM EDT [facility] Blood Venous blood specimen / Unknown Venipuncture / Unknown 02/13/2025 8:48 AM EDT 02/13/2025 12:36 PM EDT Wilton Crawford MD LAB BLOOD ORDERABLE S Final Result [facility] [address] [place] [address], * (ABNORMAL) Protein, total (02/13/2025 8:48 AM EDT) Only the most recent of2 resultswithin the time period is included. Total Protein 8.8(H) 6.0 - 8.0 g/dL LAB CHEMISTRY METHOD 02/13/2025 2:15 PM EDT [facility] Blood Venous blood specimen / Unknown Venipuncture / Unknown 02/13/2025 8:48 AM EDT 02/13/2025 12:36 PM EDT us Wilton Crawford MD LAB BLOOD ORDERABLE S Final Result Performing Organization Address [facility]/ZIP Co de Phone Number [facility] [address] [place] [address], [place] [phone] * (ABNORMAL) Lactate dehydrogenase (02/13/2025 8:48 AM EDT) Only the most recent of2 resultswithin the time period is included. [facility] LDH 267(H) 120 - 246 unit/L LAB CHEMISTRY METHOD 02/13/2025 2:06 PM EDT [facility] Blood Venous blood specimen / Unknown Venipuncture / Unknown 02/13/2025 8:48 AM EDT 02/13/2025 12:36 PM EDT us Wilton Crawford MD LAB BLOOD ORDERABLE S Final Result Performing Organization Address [facility] Co de Phone Number [facility] [address] [place] [address], [place] [phone] * (ABNORMAL) Comprehensive metabolic panel (02/13/2025 8:48 AM EDT) Only the most recent of2 resultswithin the time period is included. [facility] Sodium 137 133 - 145 mmol/L LAB CHEMISTRY METHOD 02/13/2025 2:13 PM EDT [facility] Potassium 4.1 3.5 - 5.5 mmol/L LAB CHEMISTRY METHOD 02/13/2025 2:13 PM EDT [facility] Chloride 104 96 - 110 mmol/L LAB CHEMISTRY METHOD 02/13/2025 2:13 PM EDT [facility] CO2 28 21 - 32 mmol/L LAB CHEMISTRY METHOD 02/13/2025 2:13 PM EDT [facility] Anion Gap 5 3 - 11 LAB CHEMISTRY METHOD 02/13/2025 2:13 PM EDT [facility] Glucose 147(H) 70 - 100 mg/dL LAB CHEMISTRY METHOD 02/13/2025 2:13 PM [facility] BUN 30(H) 5 - 25 mg/dL LAB CHEMISTRY METHOD 02/13/2025 2:13 PM [facility] Creatinine 1.65(H) 0.70 - 1.30 mg/dL LAB CHEMISTRY METHOD 02/13/2025 2:13 PM [facility] eGFR 43(L) >=60 mL/min/1. 73m2 LAB CHEMISTRY METHOD 02/13/2025 2:13 PM [facility] Comment:Calculation based on the??Chronic Kidney Disease Epidemiology Collaboration (CKD-EPI) equation refit??without adjustment for race. BUN/Creatinine Ratio 18.2 LAB CHEMISTRY METHOD 02/13/2025 2:13 PM [facility] Calcium 9.0 8.5 - 10.5 mg/dL LAB CHEMISTRY METHOD 02/13/2025 2:13 PM [facility] AST (SGOT) 19 10 - 42 unit/L LAB CHEMISTRY METHOD 02/13/2025 2:13 PM [facility] ALT (SGPT) 25 10 - 60 unit/L LAB CHEMISTRY METHOD 02/13/2025 2:13 PM [facility] Alkaline Phosphatase 84 42 - 121 unit/L LAB CHEMISTRY METHOD 02/13/2025 2:13 PM [facility] Total Protein 8.7(H) 6.0 - 8.0 g/dL LAB CHEMISTRY METHOD 02/13/2025 2:13 PM [facility] Albumin 3.6 3.2 - 5.0 g/dL LAB CHEMISTRY METHOD 02/13/2025 2:13 PM [facility] Total Bilirubin 0.4 0.0 - 1.4 mg/dL LAB CHEMISTRY METHOD 02/13/2025 2:13 PM [facility] Blood Venous blood specimen / Unknown Venipuncture / Unknown 02/13/2025 8:48 AM EDT 02/13/2025 12:36 PM EDT Wilton Crawford MD LAB BLOOD ORDERABLE S Final Result Performing Organization Address [facility] Co de Phone Number [facility] [address] [place] [address], * (ABNORMAL) RBC morphology review (12/17/2024 11:25 AM EST) Pathologist [facility] Rbc Morphology Consistent with indices Consistent with indices, Normal for [place] LAB HEMETOLOGY METHOD 12/17/2024 2:21 PM EST [facility] Platelet Morphology - WAM See Note(A) Normal LAB HEMETOLOGY METHOD 12/17/2024 2:21 PM EST [facility] Comment:PLT: Large platelets seen Blood Venous blood specimen / Unknown Venipuncture / Unknown 12/17/2024 11:25 AM EST 12/17/2024 1:39 PM EST Wilton Crawford MD LAB BLOOD ORDERABLE S Final Result Performing Organization Address [facility] Co de Phone Number [facility] [address] [place] [address], * (ABNORMAL) Hemoglobin A1c (05/11/2024) Pathologist [facility] Hemoglobin A1C 9.2(A) <=5.7 % Blood Venous blood specimen / Unknown Historical Provider LAB BLOOD ORDERABLES Nicole l Result * Lipid panel (09/11/2023) Pathologist [facility] Triglycerides 0 mg/dL Comment:Outside System Cholesterol 0 [...] Maintenance Insurance [employer] MED[employer]ARE Care Teams Ophthalmic Medical Technologist Relationship Specialty Start Date End Date Ben Goldsmith MD [address] [address] PCP - General Internal Medicine 04/03/18
--- OUTSIDE RECORDS SUMMARY | 2025-02-24 11:31 | XMS_ITS | Encounter Summary ---
Author Organization [facility] Address [address] [place] [address] Care Team Providers Care Spike Driver Name Role Phone Ben Goldsmith MD Primary Care Provider [phone] Tee Dean MD Unavailable [phone] Rafael Estevez MD Unavailable [phone] Reason for Visit * Reason Comments Medication Refill Encounter Details Date Type Department Care Team (Late Contact Info) Description 02/15/2023 Refill [facility] Department of [facility]umatology [place] [address] [place] [phone] Natasha Allred MD [address] [facility] [address] [place] [address] Inflammatory polyarthritis (HCC) (Primary Dx) Social History [...] 11:20 AM EDT Office Visit [facility] [place] [address] [place] [phone] Tee Dean MD [address] [place] [address] 04/17/2025 1:40 PM EDT Office Visit [facility] Physicians Department of Rheumatology [place] [address] [place] [address] Natasha Allred MD [address] [place] [address] documented as of this encounter Visit Diagnoses Diagnosis Inflammatory polyarthritis (HCC)- Primary Unspecified inflammatory polyarthropathy documented in this encounter Care Teams Spike Driver Relationship Specialty Start Date End Date Ben Goldsmith MD [address] [place] [address] PCP - General Internal Medicine 07/12/21 Tee Dean MD [address] [place] [address] Primary Independent Living Specialist Cardiovascular Disease 12/24/23 Rafael Estevez MD [address] [place] [address] Surgeon Surgery, Orthopedic 07/25/24 documented as of this encounter
--- OUTSIDE RECORDS SUMMARY | 2025-02-24 11:31 | XMS_ITS | Encounter Summary ---
Author Organization [facility] Address [address] [place] [address] Care Team Providers Care Short Haul Driver Name Role Phone Ben Goldsmith Md, MD Primary Care Provider Unav ailable Reason for Visit * Reason Comments E-prescribe Rx Request Encounter Details Date Type Department Care Team Description 11/30/2018 Refill Pulmonology - [address] [place] [address] Matthew Fonseca MD E-prescribe Rx [...] NO Patients current insurance carrier is: Payor: [facility] / Plan: [facility] MEDICARE COMPLETE $15/$45 [facility] [id number] / Product Type: PPO [id number] documented in this encounter Plan of Treatment Not on file documented as of this encounter Visit Diagnoses Not on filedocumented in this encounter Care Teams Short Haul Driver Relationship Specialty Start Date End Date Ben Goldsmith MD, MD PCP - General Internal Medicine 04/03/18 documented as of this encounter
--- OUTSIDE RECORDS SUMMARY | 2025-02-24 11:31 | XMS_ITS | Encounter Summary ---
Author Organization [facility] Address [address] [place] [address] Care Team Providers Care Landfill Gas Collection Operator Name Role Phone Damon Kirk MD Primary Care Provider Ben Cancino Md, MD Primary Care Provider Unav ailable Encounter Details Date Type Department Care Team Description 12/10/2017 Electronics Supervisor Report Medical Records [address] [place] [address] Rehab., [place] Social History Tobacco Use Types Packs/Day Years Used Date Smoking Tobacco: Former Cigarettes 0.5 42 Sex Assigned at Date Recorded Not on file documented as of this encounter Plan of Treatment Not on file documented as of this encounter Visit Diagnoses Not on filedocumented in this encounter Care Teams Landfill Gas Collection Operator Relationship Specialty Start Date End Date Damon Kirk MD PCP - General Family Practice 09/21/17 04/02/18 Ben Goldsmith MD, PCP - General Internal Medicine 04/03/18 documented as of this encounter
--- OUTSIDE RECORDS SUMMARY | 2025-02-24 11:31 | XMS_ITS | Encounter Summary ---
Author Organization [facility] Address [address] [place] [address] Care Team Providers Care Nutrition Aides Teacher Name Role Phone Ben Goldsmith Md, MD Primary Care Provider Unav ailable Encounter Details Date Type Department Care Team Description 06/13/2019 Telephone Adult [address] [address] Elfego Alaniz MD Social History Tobacco Use [...] on filedocumented in this encounter Care Teams Nutrition Aides Teacher Relationship Specialty Start Date End Date Ben Goldsmith MD, MD PCP - General Internal Medicine 04/03/18 documented as of this encounter
--- OUTSIDE RECORDS SUMMARY | 2025-02-24 11:31 | XMS_ITS | Encounter Summary ---
Author Organization [facility] Address [address] [place] [address] Care Team Providers Care Binder Caser Name Role Phone Ben Goldsmith Md, MD Primary Care Provider Unav ailable Encounter Details Date Type Department Care Team Description 02/26/2019 Cement Finishing Supervisor Report Medical Records [address] [place] [address] Hospital, [facility] Social History Tobacco Use Types Packs/Day [...] on filedocumented in this encounter Care Teams Binder Caser Relationship Specialty Start Date End Date Ben Goldsmith MD, MD PCP - General Internal Medicine 04/03/18 documented as of this encounter
--- OUTSIDE RECORDS SUMMARY | 2025-02-24 11:31 | XMS_ITS | Encounter Summary ---
Author Organization [facility] Address [address] [place] [address] Care Team Providers Care Field Support Specialist Name Role Phone Ben Goldsmith MD Primary Care Provider [phone] Tee Dean MD Unavailable [phone] Rafael Estevez MD Unavailable [phone] Encounter Details Date Type Department Care Team (Late st Contact Info) Description 10/31/2023 Scanned Document [facility] Department Of Rheumatology [address] [place] [address] Natasha Allred MD [address] [facility] [address] [place], [place] [phone] Social History Tobacco Use Types Packs/Day Years [...] Description 03/12/2025 11:20 AM EDT Office Visit [facility] [place] [address] [facility] [address] [place] [phone] Tee Dean MD [address] [place] [address] 04/17/2025 1:40 PM EDT Office Visit [facility]icians Department of Rheumatology [place] [address] [place] [phone] Natasha Allred MD [address] [place] [address] documented as of this encounter Visit Diagnoses Not on filedocumented in this encounter Care Teams Field Support Specialist Relationship Specialty Start Date End Date Ben Goldsmith MD [address] [place] [address] PCP - General Internal Medicine 07/12/21 Tee Dean MD [address] [place] [address] Department Cardiovascular Disease 12/24/23 Rafael Estevez MD [address] [place] [address] Surgeon Surgery, Orthopedic 07/25/24 documented as of this encounter
--- OUTSIDE RECORDS SUMMARY | 2025-02-24 11:31 | XMS_ITS | Clinical Summary ---
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 CABG 07/09/2020 at [place] 07/2020: failed steress test. 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 07/09/2020 at [place] CAD, multiple vessel 07/06/2020 Anemia in stage [...] this topic Medical Devices Implanted Type Area Dialysis Biomed Technician Device Identifier Shelf Expiration Date Model / Serial / Lot Surgiflo Hemostatic Matrix [employer]DataRank 2991-906853 - [id number] Implanted:Qty : 1 on 07/29/2024 by Rafael Estevez MD at [facility] Hemostatic Agent Left Lateral: Spine Lumbar [employer] INC 01/17/2026 2991 / / [id number] ++Dnu+Disc Use [id number] Hemostat Absorb 2x14in Surgicel [employer]DataRank [id number] - [id number] Implanted:Qty : 1 on 07/29/2024 by Rafael Estevez MD at [facility] Hemostatic Agent Left Lateral: Spine Lumbar Ludesi INC 05/04/2026 1951 / / [id number] Device Angio-Seal Vip .035in 70cm 6fr Valuelink Guidewire - [id number] - [id number] Implanted:11/2019 at [facility] (Quantity not on file) [facility] [id number] / / Plate Sternalock Chris Jl 8 Hole Bone Sternum Primary Closure - [id number] - [id number] Implanted:Qty : 1 on 07/09/2020 by Mata Amaral MD at [facility] Anterior: Chest BIOMET MICRO FIXATION 73-9048 / / Plate Sternalock Chris 8 Hole Bone Sternum - [id number] - [id number] Implanted:Qty : 2 on 07/09/2020 by Mata Amaral MD at [facility] Anterior: Chest BIOMET MICRO FIXATION 73-4130 / / Screw Sternalock Chris 14mm Gold 2.4mm Self Drill Lock Bone - 556011 - [id number] Implanted:Qty : 13 on 07/09/2020 by Mata Amaral MD at [facility] Anterior: Sternum BIOMET MICRO FIXATION 73-2414 / / Screw Sternalock Chris 16mm Gold 2.4mm Self Drill Lock Bone - [id number] - [id number] Implanted:Qty : 11 on 07/09/2020 by Mata Amaral MD at [facility] Anterior: Sternum BIOMET MICRO FIXATION 73-2416 / / Cement Bone Kyphx Hv-R Medt-Kyph [id number] - [id number] Implanted:Qty : 1 on 05/13/2024 by Rafael Estevez MD at [facility] Posterior: Spine Lumbar MEDTRONIC KYPHON 11/04/2026 C01A / / [id number] Cement Bone Kyphx Hv-R Medt-Kyph L08j-012314 - [id number] Implanted:Qty : 1 on 05/29/2024 by Rafael Estevez MD at [facility] Posterior: Spine Lumbar [employer] KYPHON 01/02/2027 C01A / / [id number] 22 X 50 X 12 X 8 Degree Aleutian Spacer Implanted:Qty : 1 on 07/29/2024 by Rafael Estevez MD at [facility] Anterior/ Posterior: Spine Lumbar MANDEEP SPINE [id number] / / 22 X 50x 10x 8 Degree Aleutian Spacer Implanted:Qty : 1 on 07/29/2024 by Rafael Estevez MD at [facility] Anterior/ Posterior: Spine Lumbar MANDEEP SPINE [id number] ML / / Disc Rick Implanted:Qty : 1 on 07/29/2024 by Rafael Estevez MD at [facility] Anterior/ Posterior: Spine Lumbar MANDEEP SPINE [id number] / / Screw Set Mesa Stry-K2m [id number] 7771 - [id number] Implanted:Qty : 6 on 07/29/2024 by Rafael Estevez MD at [facility] Posterior: Spine Lumbar MANDEEP SPINE 7794-2998 1 / / Screw Suzanne Polyaxial Extended Tab 6.5x50mm Stry-K2m L6193-02665-4 96184 - [id number] Implanted:Qty : 6 on 07/29/2024 by Rafael Estevez MD at [facility] Posterior: Spine Lumbar MANDEEP SPINE [id number] / / Clarence Contr Blt Hex 5.5x80mm Stry-K2m 7187-I3541-40 8142 - [id number] Implanted:Qty : 2 on 07/29/2024 by Rafael Estevez MD at [facility] Posterior: Spine Lumbar MANDEEP SPINE 1001-E558 0 / / Vesuvius 100 Dbm Bone Putty 10 Stry-K2m 4104-[id number]- [id number] - [id number] Implanted:Qty : 1 on 07/29/2024 by Rafael Estevez MD at [facility] Posterior: Spine Lumbar MANDEEP SPINE 02/02/2027 4104-K510 0DP / [id number] / [id number] Bone Alrgft Can Chip 1-8 15cc Stry-Obio [id number] 8 - [id number] Implanted:Qty : 1 on 07/29/2024 by Rafael Estevez MD at [facility] Posterior: Spine Lumbar [employer] 07/03/2028 [id number] / [id number] / Vesuvius 100 Dbm Bone Putty 10 Stry-K2m 4104-[id number]- [id number] - [id number] Implanted:Qty : 1 on 07/29/2024 by Rafael Estevez MD at [facility] Left Lateral: Spine Lumbar MANDEEP SPINE 03/04/2027 4104-K510 0DP / [id number] / [id number] 02A Explanted Type Area Dialysis Biomed Technician Device Identifier Shelf Expiration Date Model / Serial / Lot 18 X 50 X 10 X 8 Degree Aleutian Spacer Explanted:Qty: 1 on 07/29/2024 by Rafael Estevez MD at [facility] Anterior/ Posterior: Spine Lumbar MANDEEP SPINE [id number] / / Pin Loop Sd 5f552is Hlf 30thrd Yoni-Steve [id number] 929 - [id number] Explanted:Qty: 1 on 07/29/2024 by Rafael Estevez MD at [facility] Right Posterior: Iliac Crest [facility] 5023-3-120 / / Advance Directives For more information, please contact: [phone] Documents on File Type Date Recorded Patient Manager Center Expl anation Advance Directive and Living Will [...] way: discussion with patient . Care Teams Geotechnical Department Manager Relationship Specialty Start Date End Date Ben Goldsmith MD PCP - General Internal Medicine 04/03/18
--- OUTSIDE RECORDS SUMMARY | 2025-02-24 11:31 | XMS_ITS | Encounter Summary ---
Author Organization [facility] Address [address] [place] [address] Care Team Providers Care Fitter Placer Name Role Phone Ben Goldsmith Md, MD Primary Care Provider Unav ailable Reason for Visit * Reason Onset Date Comments Medication 08/25/2018 Encounter Details Date Type Department Care Team Description 08/25/2018 Telephone Pulmonology - [address] [place] [address] Matthew Fonseca MD Medication Social History Tobacco Use Types Packs/Day Years Used Date Smoking Tobacco: Former Cigarettes 0.5 40 Smokeless Tobacco: Never Alcohol Use Standard Drinks/Week Comments No 0 (1 standard drink = 0.6 oz pur e alcohol) Sex Assigned at Date Recorded Not on file documented as of this encounter Miscellaneous Notes * Telephone Encounter - Matthew Fonseca MD - 08/25/2018 9:18 PM EDT Chuck is still having pleuritic chest pain. He is on the prednisone 10 daily and plaquenil 200mg BID. Is there a role for increasing the plaquenil? He had an eye test and it was ok. In the mean time I gave him some gabapentin. Planning to do a chest US to look for an effusion. Marichuy Castro documented in this encounter Plan of Treatment Not on file documented as of this encounter Visit Diagnoses Not on filedocumented in this encounter Care Teams Fitter Placer Relationship Specialty Start Date End Date Ben Goldsmith MD, MD PCP - General Internal Medicine 04/03/18 documented as of this encounter
--- OUTSIDE RECORDS SUMMARY | 2025-02-24 11:31 | XMS_ITS | Encounter Summary ---
Author Organization [facility] Address [address] [place] [address] Care Team Providers Care Investigator Claims Name Role Phone Ben Goldsmith Md, MD Primary Care Provider Unav ailable Encounter Details Date Type Department Care Team Description 02/26/2019 Lifter/Driver Report Medical Records [address] [place] [address] Abstract, Provider Social History Tobacco Use Types [...] on filedocumented in this encounter Care Teams Investigator Claims Relationship Specialty Start Date End Date Ben Goldsmith MD, MD PCP - General Internal Medicine 04/03/18 documented as of this encounter
--- OUTSIDE RECORDS SUMMARY | 2025-02-24 11:31 | XMS_ITS | Encounter Summary ---
Author Organization [facility] Address [address] [place] [address] Care Team Providers Care Casualty Insurance Claim Adjuster Name Role Phone Ben Goldsmith Md, MD Primary Care Provider Unav ailable Reason for Visit * Reason Onset Date Comments Medication 05/27/2018 Encounter Details Date Type Department Care Team Description 05/27/2018 Telephone Rheumatology - [address] [address] Elfego Alaniz MD Medication Social History Tobacco [...] on filedocumented in this encounter Care Teams Casualty Insurance Claim Adjuster Relationship Specialty Start Date End Date Ben Goldsmith MD, MD PCP - General Internal Medicine 04/03/18 documented as of this encounter
--- OUTSIDE RECORDS SUMMARY | 2025-02-24 11:32 | XMS_ITS | Encounter Summary ---
Author Organization [facility] Address [address] [place] [address] Care Team Providers Care Brazer Crawler Torch Name Role Phone Damon Kirk MD Primary Care Provider Ben Cancino Md, MD Primary Care Provider Unav ailable Encounter Details Date Type Department Care Team Description 12/18/2017 Video Game Creator Report Medical Records [address] [place] [address] [facility] [place] Social History Tobacco Use Types Packs/Day Years Used Date Smoking Tobacco: Former Cigarettes 0.5 40 Sex Assigned at Date Recorded Not on file documented as of this encounter Plan of Treatment Not on file documented as of this encounter Visit Diagnoses Not on filedocumented in this encounter Care Teams Brazer Crawler Torch Relationship Specialty Start Date End Date Damon Kirk MD PCP - General Family Practice 09/21/17 04/02/18 Ben Goldsmith MD, PCP - General Internal Medicine 04/03/18 documented as of this encounter
--- OUTSIDE RECORDS SUMMARY | 2025-02-24 11:32 | XMS_ITS | Encounter Summary ---
Author Organization [facility] Address [address] [place] [address] Care Team Providers Care Nurse Practitioner Physician Assistant Name Role Phone Damon Kirk MD Primary Care Provider Ben Cancino Md, MD Primary Care Provider Unav ailable Encounter Details Date Type Department Care Team Description 03/23/2018 [facility] Medical Records [address] [place] [address] Wilton Crawford MD Social History Tobacco Use [...] on filedocumented in this encounter Care Teams Nurse Practitioner Physician Assistant Relationship Specialty Start Date End Date Damon Kirk MD PCP - General Family Practice 09/21/17 04/02/18 Ben Goldsmith MD, MD PCP - General Internal Medicine 04/03/18 documented as of this encounter
--- OUTSIDE RECORDS SUMMARY | 2025-02-24 11:32 | XMS_ITS | Encounter Summary ---
Author Organization [facility] Address [address] [place] [address] Care Team Providers Care Software Integration Developer Name Role Phone Damon Kirk MD Primary Care Provider Ben Cancino Md, MD Primary Care Provider Unav ailable Reason for Visit * Reason Onset Date Comments other 03/19/2018 Encounter Details Date Type Department Care Team Description 03/19/2018 Telephone Pulmonology - [address] [place] [address] Matthew Fonseca MD other Social History Tobacco Use Types Packs/Day Years Used Date Smoking Tobacco: Former Cigarettes 0.5 40 Sex Assigned at Date Recorded Not on file documented as of this encounter Miscellaneous Notes * Telephone Encounter - Nita Castellanos M.A. - 03/19/2018 9:07 AM EDT FYI * Telephone Encounter - Akila Mabry - 03/19/2018 8:56 AM EDT Pts spouse is calling to inform Dr Fonseca that her spouse is currenty hospitalized with pneumonia. He just had a CT done, so she wanted Dr Fonseca to know that she has canceled the one that he orderd which was for scheduled for 03/29. Any question please call her back. documented in this encounter Plan of Treatment Not on file documented as of this encounter Visit Diagnoses Not on filedocumented in this encounter Care Teams Software Integration Developer Relationship Specialty Start Date End Date Damon Kirk MD PCP - General Family Practice 09/21/17 04/02/18 Ben Goldsmith MD, PCP - General Internal Medicine 04/03/18 documented as of this encounter
--- OUTSIDE RECORDS SUMMARY | 2025-02-24 11:32 | XMS_ITS | Encounter Summary ---
Author Organization [facility] Address [address] [place] [address] Care Team Providers Care Sulfuric Acid Plant Supervisor Name Role Phone Damon Kirk MD Primary Care Provider Ben Cancino Md, MD Primary Care Provider Unav ailable Reason for Visit * Reason Onset Date Comments Testing 03/12/2018 Encounter Details Date Type Department Care Team Description 03/12/2018 Telephone Radiology - [address] [address] Matthew Fonseca MD Testing Social History Tobacco [...] unspecified documented in this encounter Care Teams Sulfuric Acid Plant Supervisor Relationship Specialty Start Date End Date Damon Kirk MD PCP - General Family Practice 09/21/17 04/02/18 Ben Goldsmith MD, MD PCP - General Internal Medicine 04/03/18 documented as of this encounter
== END ==
LOC: HO.SL 10:06
PROVIDERS: PCP Internal Medicine; Visit Provider Hospitalist
DX: G47.33 Obstructive sleep apnea (adult) (pediatric) (principal); J98.4 Other disorders of lung; R91.8 Other nonspecific abnormal finding of lung field; J84.9 Interstitial pulmonary disease, unspecified; R06.00 Dyspnea, unspecified; M06.1 Adult-onset Still's disease; I26.99 Other pulmonary embolism without acute cor pulmonale; J04.0 Acute laryngitis; H66.90 Otitis media, unspecified, unspecified ear
CPT/HCPCS: 95806; 99212

== ENCOUNTER 2025-02-24 10:15 | Outpatient (AMB) | payer MEDICARE, SELFPAY ==
--- NOTE | 2025-02-24 10:17 | A.OFFVIS_ITS ---
Vital Signs 02/24/25 10:18 Height 5 ft 9 in Weight 197 lb 5.019 oz BMI 29.1 BP 124/76 Blood Pressure Location Rt brachial Position Sitting Pulse 67 Pulse Source Pulse Oximeter Pulse Oximetry (%) 96 Oxygen Delivery Method Room Air Intake Visit Reasons: cough Allergies aspirin Allergy (Mild, Verified 02/24/25 10:21) Swollen HPI Comments Details: The patient is a 79-year-old gentleman known CMML in addition to adult onset Still's disease with some underlying interstitial lung disease. He had developed significant pleuritis with a pleural effusion in significant pleuritic pain. At that time he responded well to prednisone. He was then tried on an IL 1 inhibitor. After no significant improvement he was referred to [place]. There he had had a gamma testing including CT scans and PFTs which I do not have the results. But the recommendation was for him to start methotrexate. The patient has been on methotrexate 6 tablets weekly and has felt much better. Recently signs groover runner and he was able to decrease his prednisone from 5 mg to 2.5. The last time that he had a CT scan available that I could appreciate was back in April 2018. It did demonstrate evidence of ground-glass opacities and interstitial lung disease. At this point the patient is re-imaging and further lung testing to assess his lung capacity. His chest pain overall is a lot better. 05/10/2022 the patient is here for a pulmonary follow-up visit. Overall the patient has been doing well. Denies any significant chest discomfort or shortness of breath. Denies any significant coughing. He is hoping to meet his new groover runner soon. He continues on the methotrexate 6 tablets weekly. His primary care doctor has been prescribing it for now. The methotrexate appears to be hoping with the pleuritic discomfort that he had in the past suggesting that it was also related to the inflammatory process. In addition to that he did have a repeat CT scan of the chest done at [facility]. This CT scan was compared to a CT scan had back in July 2021. There appears that he has multiple pulmonary nodules in based on therapies his P has been 2020 there is no significant changes in the pulmonary nodules measuring 7 mm. Initially had a cardiac CT scan demonstrating a pulmonary nodule measuring 8 mm. Therefore likely that this was all related to the technique and the measuring of the nodules. Ideally a volumetric approach we more effective. 05/22/2023 the patient is here for pulmonary follow-up visit. It has been bout a year since we last spoke. The patient describes dyspnea on exertion. Febk-gl-ibjimipy severity. Specially with going up a flight of stairs. He does continue on the methotrexate for his Still's disease. The patient did have crackles before examination he still has not. We did go for brief walking oximetry is oxygen did drop to the low 90s on 91-92% with activity. It quickly improves when he rested. His last CT scan of the chest was done at [facility] demonstrating interstitial changes at the bases. The patient also has pulmonary nodules. Will go ahead and repeat his CT scan now in view of the worsening symptoms. In addition to that will go ahead and request pulmonary function studies to further address his lung capacity at this time. 08/22/2023 the patient is here for pulmonary follow-up visit. The patient continues to be about the same. Still complaining of dyspnea on exertion. Moderate severity. He does not use any inhalers. The patient did undergo pul monary function studies. Demonstrates that he has a slight interval worsening of the restrictive ventilatory defect. He did have a CT scan of the chest demonstrating that his pulmonary fibrosis has not progressed which is reassuring. Still with worsening findings on PFTs need to monitor closely. He is on the methotrexate that he uses for his inflammatory arthritis. No evidence of any methotrexate induced pulmonary toxicity. Then be a component of body habitus as he is gained weight and that possibly is also affecting his total lung capacity. Still the patient will benefit from pulmonary rehabilitation. He is willing to start rehab at this time. Although he is driving from [place] so he rather go to [facility]. Will also provide him with a short- acting beta agonist that he can use as needed. 10/08/2023 the patient is here for hospital follow-up visit. The patient has been doing well. We had evaluated him just in August and he was at baseline. Have been new methotrexate. Unfortunately developed acute respiratory failure. The patient was taken to [facility] where he was admitted to the hospital requiring oxygen. The patient did have a CT scan of the chest demonstrating significant ground-glass opacities consistent with an alveolar filling process. He did undergo an echocardiogram with a dilated left atrium although normal ejection fraction. The patient was evaluated by Pulmonary and also Infectious Disease. The question of Pneumocystis pulmonary infection was brought up. Although felt to be less likely. An LDH was done in a beta D gl ucan was also checked although I do not have those results. The patient was placed on prednisone taper in addition to Levaquin. He was subsequently discharged on room air. He still feels short of breath and winded. During the evaluation he was also noted to be anemic. Therefore he will be following up with his basketball commentator and I believe he is going to undergo a bone marrow biopsy to make sure that there is no worsening of the CMML. on further questioning he was exposed to sick contacts. My suspicion that based on the reports that this is likely viral syndrome that manifested with significant viral pneumonitis. Clinically the patient has been improving. We did go for brief walking oximetry the patient does not require any additional oxygen supplementation at this time I do believe that he is getting better. He does have some lower extremity edema. 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 After the diuresis and additional prednisone I did request the patient get an x-ray done next week. If there is any persistent opacities or any worsening opacities further intervention should take place. Otherwise if things are getting better likely this was just an infectious process that resulted in the acute changes. 01/07/2024 the patient is here for A sick visit apparently couple weeks ago he started developing worsening cough chest congestion. He was seen by his primary care doctor in prescribed prednisone and antibiotics for what was likely lower respiratory infection. Unfortunately symptoms continued to get worse. Started getting some increased shortness of breath chest tightness and he went to the ER. There he had nasal swabs done was positive for influenza A. I do not have the report%. He was given Tamiflu although because of his renal insufficiency was given a low dose and was actually already after the therapeutic window. Therefore he really did not have any significant improvement. He did call the office to be evaluated however, we could not fit him in last week so he is presenting today. Already starting to feel better. His cough significantly better. Chest congestion is better the chest tightness is also improving. He does have dyspnea on exertion mild in severity. He is feels tired weak. He still has some hoarseness. On examination he does have his stable fine rales at the bases. However, appears to have more coarse crackles in the left mid lung area. This suggest a possibility of bronchopneumonia. Based on the fact that he just had flu will go ahead and give him doxycycline to treat him for postviral bacterial infection to treat both staph aureus and Streptococcus. The patient otherwise does not need any additional prednisone which is reassuring. He is reluctant to do so. On further questioning he is dealing with gout. We did go over the low purine diet to minimize on the uric acid buildup. He is also taking medications for. The patient also continues on the methotrexate for his underlying connective tissue disease. In regards of his leukemia appears to be stable although he is going to be referred to [place] to start prophylactic treatment in view of his ongoing findings of anemia and other risk factors. 07/09/2024 the patient is here for a pulmonary follow-up visit. The patient has been complaining of significant back pain. Initially he underwent kyphoplasty but it did not help him. Now he is scheduled to undergo back surgery at [facility] in the coming weeks. In the meantime he was diagnosed with pneumonia several months ago. He did have a chest x-ray as an outpatient. I do not have those results. He was treated as an outpatient and did not have to be admitted to the hospital. He is feeling better although he still having some chest congestion. Also noticed to have some shortness of breath with activity. But a lot of it has to do with deconditioning. He has also lost significant amount of weight because of the back pain. From a hematological standpoint the patient has followed closely with oncology. No evidence of any active issue per report. In regards to the pulmonary fibrosis the patient continues to have crackles on examination which is chronic for him. We did go for brief walking oximetry in the office in his oxygenation was 98% with activity which is extremely reassuring. We will start respiratory inhalers see if this provides some relief prior to surgery. 09/19/2024 the patient is here for a pulmonary follow-up visit. Since we last spoke the patient did undergo kyphoplasty and also a pain stimulator for his back. After this the procedure the patient is started developing worsening shortness of breath. He was initially placed on Symbicort and also rescue inhaler in his breathing did get a little better. Ultimately still had shortness of breath with activity. Moderate severity. He had a full cardiac workup including a transesophageal echo to further address the aortic valve disease. [place] that it was moderate severity but did not need surgery. During the office we did a walking oximetry again in his oxygen did drop to about 94% this time. He did have a CTA done on 09/15/2024. I do not have the images just the report. Appears that he has multiple defects suggesting small peripheral subsegmental pulmonary emboli. Ultimately underwent ultrasounds of the lower extremities ruled out DVT no other evidence of disease. The clots were from to be too small to likely be contributing to his symptoms. Although likely is mu ltifactorial. My suspicion is that he could have had cement related pulmonary emboli from his kyphoplasty. Based on the CTA report was more awake question was not completely clear if indeed that was the case. Therefore will go ahead and request an urgent V/Q scan to better assess if there is any evidence of any significant V/Q mismatch to suggest more inclination to treat him with anticoagulation. If he is treated with anticoagulation would only be for 3 months and then reassess with a repeat V/Q scan. In the meantime since he responded well to the Symbicort will go ahead and add in additional long-acting bronchodilator, Spiriva. I did teach him how to use it. He will start using it to see if this provides some additional relief. He continues on the methotrexate. He has already had issues with compression fractures will hold off on prednisone at this time. 11/12/2024 the patient is here for pulmonary follow-up visit. Overall he is feeling a little better. The patient is using the Trelegy inhaler with good effect. Still has not dyspnea on exertion [id number] severity. He did undergo the V/Q scan which demonstrated low probability for PE. Therefore no evidence of thromboembolic disease to be concerned about at this time. 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 He did undergo pulmonary function study today which we personally reviewed. There appears that his total lung capacity is stable at 65% for him and his diffusing capacities 47%. This is very consistent with the numbers that he had back couple years ago which is very reassuring. He does have underlying daytime drowsiness. His [place] score is elevated 09/28. He has cardiovascular risk factors. The patient has had a history of sleep apnea in the past although he no longer uses PAP therapy. Will go ahead and repeat a sleep study to see if he still has underlying sleep apnea and see the severity. If so, we can talk about different alternative therapies. The patient is wondering about the hypoglossal nerve stimulator. He has also tried mandibular devices in the past. In addition to his PAP therapy. 02/24/2025 the patient is here for a pulmonary follow-up visit. He is still struggling with significant shortness of breath and fatigue. He does have an elevated [place] score of 14/24. He was supposed to have sleep study. He is going to have to repeat it because the 11 05 did not give any information. He is picking it up today. In the meantime he does wake up in the middle the night has a hard time falling asleep CellCept and some trazodone that he can use for that. He can start with 1 tablet and then increase it to 2 tablets if needed to maintain of sleep throughout the night. Hopefully by having a full night's sleep we can get a good sleep study to review. The patient also had a walking oximetry. He maintains a pulse ox of 97% with activity specially doing well even going up a flight of stairs. He did have PFTs which did review from November 2024 demonstrating a total lung capacity 65% which is very much where he was back in 2022, although is slightly less when he was evaluated back in 2020. Will go ahead and request a CT scan of the chest to see if there is any progression of his interstitial lung disease. One option would be to consider switching his methotrexate to mycophenolate specially were concerned for any pulmonary toxicity from the methotrexate. In addition to that we can always consider adding Ofev for progressive interstitial lung disease from his connective tissue disease. The patient also has been complaining of an earache and sore throat. Does have a significant otitis media on the left side and also has some sore throat so therefore will go ahead and start him on doxycycline to treat him for mycoplasma and also strep. The patient did receive Augmentin back about a month ago. I explained to him that in view of his blood dyscrasia and use immunomodulators he is immunosuppressed. 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's disease of adult (~2018) Dyspnea Pulmonary nodules ILD (interstitial lung disease) Surgical History (Updated 02/10/22 @ 11:09 by Aleshia Tejada PA-C) History of coronary artery bypass graft x 3 (~2019) Social History Patient Tobacco Use Status: Former Tobacco user Tobacco use type: Cigarette Years Smoked: 15 years Review of Systems Const Reports fatigue and Denies night sweats ENT Denies change in voice, Reports otalgia, Reports hoarseness, Denies mouth pain, Reports nasal congestion, Reports nasal discharge and Reports sore throat Card Denies chest pain, Reports dyspnea and Reports dyspnea on exertion Resp Reports cough, Denies pain on inspiration, Reports dyspnea and Reports dyspnea on exertion GI Denies abdominal pain Musc Denies no additional complaints Neuro Denies Neuro-related abnormal movements Psych Denies no additional complaints Endo Reports fatigue Chris/Lymph Denies easy bleeding and Denies lymphadenopathy Physical Exam Vital Signs: Last Vital Signs Pulse 67 02/24/25 10:18 BP 124/76 02/24/25 10:18 Pulse Ox 96 02/24/25 10:18 Oxygen Delivery Method Room Air 02/24/25 10:18 BMI result Body Mass Index 29.1 Const General: alert HEENT Ears: TM abnormal bulging on the left, erythematous and with fluid behind the TM Neck Neck: Yes normal visual inspection, Yes full ROM and Yes no lymphadenopathy Chest Chest palpation & inspection: normal inspection of the chest Resp Effort & Inspection: normal respiratory effort Auscultation: crackles on the left in the mid lung rachel, rales bilateral at the base and diminished lung sounds Cardio Rate: regular rate Rhythm: regular rhythm Heart sounds: S1 normal heart sound present and S2 normal heart sound present GI Palpation (GI): Soft to palpation and nontender Auscultation: normal bowel sounds General: Yes no CVA tenderness Back/Spine/Pelvis Back: no CVA tenderness Skin General skin exam: rashes and/or lesions noted Assessment & Plan Assessment & Plan (1) Pneumonitis: Code(s): J98.4 - Other disorders of lung Category: Medical (2) Pulmonary nodules: Code(s): R91.8 - Other nonspecific abnormal finding of lung field Category: Medical (3) ILD (interstitial lung disease): Comment: Interval worsening after his CABG Code(s): J84.9 - Interstitial pulmonary disease, unspecified Category: Medical (4) Dyspnea: Code(s): R06.00 - Dyspnea, unspecified Category: Medical Qualifiers: Dyspnea type: dyspnea on exertion Qualified Code(s): R06.00 - Dyspnea, unspecified (5) Still's disease of adult: Onset Date: ~2017 Code(s): M06.1 - Adult-onset Still's disease Category: Medical (6) Pulmonary emboli: Comment: suspect cement pulmonary emboli Code(s): I26.99 - Other pulmonary embolism without acute cor pulmonale Category: Medical Qualifiers: Acute cor pulmonale presence: without acute cor pulmonale Chronicity: unspecified Pulmonary embolism type: unspecified Qualified Code(s): I26.99 - Other pulmonary embolism without acute cor pulmonale (7) Laryngitis: Code(s): J04.0 - Acute laryngitis Category: Medical (8) Otitis media: Code(s): H66.90 - Otitis media, unspecified, unspecified ear Category: Medical Qualifiers: Otitis media type: unspecified Chronicity: acute Qualified Code(s): H66.90 - Otitis media, unspecified, unspecified ear Plan start Doxycycline Low dose prednisone taper Trazodone 50->100mg for sleep MARQUES as needed continue Trelegy continue immunomodulator therapy F/U with heme/onc re: anemia and CMML PSG pending CT chest in 2 months Follow-up in 2-3 months Orders: Orders CT chest wo IV con 2 Months J98.4 - Other disorders of lung Medications: New doxycycline monohydrate 100 mg PO BID 14 days 28 tabs 0RF prednisone PO daily; Take 2 tabs x 7 days, then 1 tab x 7 days 14 days 21 tabs 0RF trazodone 50 mg PO BEDTIME 30 days PRN 60 tabs 3RF sleep Coding Level of Care Code Est Pt Level 4 (05228) Complex EM visit Add On G2211 Diagnoses Pneumonitis J98.4 Pulmonary nodules R91.8 ILD (interstitial lung disease) J84.9 Dyspnea on exertion R06.00 Dyspnea type: dyspnea on exertion Still's disease of adult M06.1 Pulmonary embolism without acute cor pulmonale, unspecified chronicity, unspecified pulmonary embolism type I26.99 Acute cor pulmonale presence: without acute cor pulmonale Chronicity: unspecified Pulmonary embolism type: unspecified Laryngitis J04.0 Acute otitis media, unspecified otitis media type H66.90 Otitis media type: unspecified Chronicity: acute Time Spent (min) 18
[2025-02-24 10:18] VITALS: BP 124/76; PULSE 67; O2SAT 96; BMI 29.1
== END 2025-02-24 10:50 | disposition home or self-care (01) ==
LOC: HO.HPS 10:15
PROVIDERS: PCP Internal Medicine; Visit Provider Hospitalist
DX: J98.4 Other disorders of lung (principal); R91.8 Other nonspecific abnormal finding of lung field; J84.9 Interstitial pulmonary disease, unspecified; R06.00 Dyspnea, unspecified; M06.1 Adult-onset Still's disease; I26.99 Other pulmonary embolism without acute cor pulmonale; J04.0 Acute laryngitis; H66.90 Otitis media, unspecified, unspecified ear
CPT/HCPCS: 99214; G2211

== ENCOUNTER → 2025-03-16 20:30 | Outpatient (REF) | payer MEDICARE, SELFPAY ==
--- OUTSIDE RECORDS SUMMARY | 2025-03-16 21:14 | XMS_ITS | Encounter Summary ---
Author Organization [facility] Address [address] [place] [address] Care Team Providers Care Corduroy Cutting Supervisor Name Role Phone Ben Goldsmith MD Primary Care Provider + [phone] Tee Dean MD Unavailable [phone] Rafael Estevez MD Unavailable [phone] Encounter Details Date Type Department Care Team (Late st Contact Info) Description 10/09/2022 Scanned Document [facility] Heart & Vascular [address] [phone] Rheumatology, Scan Social History Tobacco Use Types [...] Care Team (Late st Contact Info) Description 04/17/2025 1:40 PM EDT Office Visit [facility] Department of Rheumatology [address] [place] [phone] Natasha Allred MD [address] [facility] [address] [place] [address] 07/30/2025 9:20 AM EDT Office Visit [facility] Heart & Vascular [place] [address] [place] [phone] Tee Dean MD [address] [place] [address] documented as of this encounter Visit Diagnoses Not on filedocumented in this encounter Care Teams Corduroy Cutting Supervisor Relationship Specialty Start Date End Date Ben Goldsmith MD [address] [place] [address] PCP - General Internal Medicine 07/12/21 Tee Dean MD [address] [place] [address] Primary Hospital Fellow Cardiovascular Disease 12/24/23 Rafael Estevez MD [address] [place] [address] Surgeon Surgery, Orthopedic 07/25/24 documented as of this encounter
--- OUTSIDE RECORDS SUMMARY | 2025-03-16 21:14 | XMS_ITS | Encounter Summary ---
Author Organization [facility] Address [address] [place] [address] Care Team Providers Care Roll Contour Grinder Name Role Phone Ben Goldsmith MD Primary Care Provider + [phone] Tee Dean MD Unavailable [phone] Rafael Estevez MD Unavailable [phone] Reason for Visit * Reason Comments Medication Refill Encounter Details Date Type Department Care Team (Late st Contact Info) Description 06/26/2022 Refill [facility] Heart & Vascular [place] [address] [place] [phone] Kay Hernandez, ISAAC [address] [place], [place] [phone] Medication Refill Social History Tobacco Use Types [...] Description 04/17/2025 1:40 PM EDT Office Visit [facility] Department of Rheumatology [address] [place] [phone] Natasha Allred MD [address] [place] [address] 07/30/2025 9:20 AM EDT Office Visit [facility] Heart & Vascular [place] [address] [place] [phone] Tee Dean MD [address] [place] [address] documented as of this encounter Visit Diagnoses Diagnosis Essential hypertension Unspecified essential hypertension documented in this encounter Care Teams Roll Contour Grinder Relationship Specialty Start Date End Date Ben Goldsmith MD [address] [place] [address] PCP - General Internal Medicine 07/12/21 Tee Dean MD [address] [place] [address] Primary Billing Analyst Cardiovascular Disease 12/24/23 Rafael Estevez MD [address] [place] [address] Surgeon Surgery, Orthopedic 07/25/24 documented as of this encounter
--- OUTSIDE RECORDS SUMMARY | 2025-03-16 21:14 | XMS_ITS | Encounter Summary ---
Author Organization [facility] Address [address] [place] [address] Care Team Providers Care Dairy Tester Name Role Phone Ben Goldsmith MD Primary Care Provider + [phone] Tee Dean MD Unavailable [phone] Rafael Estevez MD Unavailable [phone] Reason for Visit * Reason Comments Other Encounter Details Date Type Department Care Team (Late st Contact Info) Description 07/22/2024 Telephone [facility] Heart & Vascular [place] [address] [place] [phone] Tee Dean MD [address] [place] [address] Other Social History Tobacco Use Types Packs/Day [...] the 07/16 note and fax to [facility] [phone] documented in this encounter Plan of Treatment Upcoming Encounters Date Type Department Care Team (Late st Contact Info) Description 04/17/2025 1:40 PM EDT Office Visit [facility] Department of Rheumatology [place] [address] [place] [address] Natasha Allred MD [address] [place] [address] 07/30/2025 9:20 AM EDT Office Visit [facility] Heart & Vascular [place] [address] [place] [phone] Tee Dean MD [address] [place] [address] documented as of this encounter Visit Diagnoses Not on filedocumented in this encounter Care Teams Dairy Tester Relationship Specialty Start Date End Date Ben Goldsmith MD [address] [place] [address] PCP - General Internal Medicine 07/12/21 Tee Dean MD [address] [place] [address] Primary Chief Design Branch Cardiovascular Disease 12/24/23 Rafael Estevez MD [address] [place] [address] Surgeon Surgery, Orthopedic 07/25/24 documented as of this encounter
--- OUTSIDE RECORDS SUMMARY | 2025-03-16 21:15 | XMS_ITS | Patient Health Record ---
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 confirmed Chronic myelomonocytic leukemia (disorder) (998200154) Problem Monoclonal gammopathy (D47.2) Active confirmed Monoclonal gammopathy (26103630) Problem Overweight (E66.3) Active confirmed Overweight (320791234) Problem 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 (800649943) Problem Gout, unspecified (M10.9) Active confirmed Gout (80779604) Problem Coronary artery disease without angina pectoris, unspecified vessel or lesion type, unspecified whether [place] or transplanted heart (I25.10) Active confirmed Atherosclerot ic heart disease of [place] coronary artery without angina pectoris (363222514011071) Problem Pulmonary fibrosis (J84.10) Active confirmed Pulmonary fibrosis (90019251) Problem Compression fracture of L1 vertebra, sequela (S32.010S) Active confirmed Late effect of fracture of spine AND/OR trunk without spinal cord lesion (7314527) Problem Spinal stenosis at L4-L5 level (M48.061) Active confirmed Spinal stenosis of lumbar region (56061084) Problem Hyperlipidemia (E78.5) Active confirmed Hyperlipidemia (85910414) Problem Diabetes mellitus without complication (E11.9) Active confirmed Type II diabete s mellitus without complication (479371235) Encounters Encounter Location Date Provider Diagnosis [facility] [address] [place] [address] 06/16/2024 LALO HERNANDEZ PLAN OF TREATMENT No Information Insurance Providers Payer Name Payer Address Payer Phone Subscriber Number Group Number Insured Name Patient Relationship to Insured Coverage Start Date Coverage End Date [facility] [address] [place] [phone] [id number] Chuck Harmon Self - patient is the insured
--- OUTSIDE RECORDS SUMMARY | 2025-03-16 21:15 | XMS_ITS | Encounter Summary ---
Author Organization [facility] Address [address] [place] [address] Care Team Providers Care Tour Coordinator Name Role Phone Ben Goldsmith MD Primary Care Provider [phone] Tee Dean MD Unavailable [phone] Rafael Estevez MD Unavailable [phone] Reason for Visit * Reason Comments Follow-up Encounter Details Date Type Department Care Team (Latest Contact Info) Description 03/12/2025 11:20 AM EDT Office Visit [facility] [place] [address] [phone] Tee Dean MD [address] [place] [id number] WEBER (dyspnea on exertion) (Primary Dx); Essential hypertension; Resistant hypertension; Hx of CABG; Fatigue, unspecified type; Aneurysm of ascending aorta without rupture; Aortic valve insufficiency, etiology of cardiac valve disease unspecified; Abnormal computed tomography angiography (CTA); Pre-op exam; CON (obstructive sleep apnea); Pure hypercholesterolemia Social History Tobacco Use Types Packs/Day Years [...] Sign Reading Time Taken Comments Blood Pressure 136/80 03/12/2025 11:49 AM EDT Pulse 55 03/12/2025 11:26 AM EDT Temperature - - Respiratory Rate - - Oxygen Saturation 97% 03/12/2025 11: 26 AM EDT Inhaled Oxygen Concentration - - Weight 90.2 kg (198 lb 14.4 oz) 025 11:26 AM EDT Height 172.7 cm (5' 8 ) 03/12/2025 11:2 6 AM EDT Body Mass Index 30.24 03/12/2025 11:26 AM EDT documented in this encounter Progress Notes * eTe Dean MD - 03/12/2025 11:20 AM EDT Images from the original note were not included. Cardiology Office Note Encounter Date:03/12/2025 Referring Physician:Agus Cardiac Diagnosis: 1. WEBER (dyspnea on exertion) ECG 12 lead 2. Essential hypertension ECG 12 lead 3. Resistant hypertension ECG 12 lead 4. Hx of CABG ECG 12 lead Lipid Panel Reflex Direct LDL 5. Fatigue, unspecified type ECG 12 lead 6. Aneurysm of ascending aorta without rupture ECG 12 lead 7. Aortic valve insufficiency, etiology of cardiac valve disease unspecified ECG 12 lead 8. Abnormal computed tomography angiography (CTA) ECG 12 lead 9. Pre-op exam ECG 12 lead 10. CON (obstructive sleep apnea) 11. Pure hypercholesterolemia Lipid Panel Reflex Direct LDL Chief Complaint: Chief Complaint Patient presents with [...] and vasculitis. Patient's hospitalization was reviewed from [facility] in [facility] 03/17/18 Admitting diagnosis community-acquired pneumonia with [...] normal left ventricular systolic function. stress test 05/22/17 exercise 10 minutes standard Karan protocol no [...] He was admitted to the hospital on 07/06, he was admitted to a medical floor [...] DVT. Patient has an appointment with his product sales representative tomorrow Interval history 11/27/2024 Since last visit [...] than a PVC no change in electrocardiogram interval history 03/12/2025 Patient had sleep study with diagnosed sleep apnea he started using CPAP. Past Medical History: Past Medical History: Diagnosis [...] by mouth as needed., Disp: , Rfl: allopurinol (ZYLOPRIM) 100 mg [...] , Rfl: clopidogrel (PLAVIX) 75 MG tablet, TAKE 1 TABLET BY MOUTH DAILY, Disp: 100 tablet, Rfl: 3 escitalopram (LEXAPRO) 10 MG [...] Inhale 1 puff daily., Disp: , Rfl: albuterol (PROVENTIL HFA; VENTOLIN HFA) 108 (90 Base) MCG/ACT inhaler, 2 INH INHALED EVERY 6 HOURS NEEDED FOR SHORTNESS OF BREATH OR WHEEZING FOR 30 DAYS (Patient not taking: Reported on 03/12/2025), Disp: , Rfl: Allergies: Allergies Allergen Reactions Aspirin Angioedema and Swelling Lip swelling Vitals: Vitals: 03/12/25 1149 BP: 136/80 Pulse: SpO2: Weight: Height: Wt Readings from Last 1 Encounters: 03/12/25 90.2 kg (198 lb 14.4 oz) Ht Readings from Last 1 Encounters: 03/12/25 1.727 m (5' 8 ) Body mass index is 30.24 kg/m??. Physical Exam: Gen : Appears pale, [...] Labs: Lab Results Component Value Date WBC 39.17 (HH) 01/26/2025 WBC 39.17 (HH) 01/26/2025 HGB 11.6 (L) 01/26/2025 HCT 36.3 (L) 01/26/2025 PLT 142.0 01/26/2025 CHOL 59 09/10/2023 TRIG 85 09/10/2023 HDL 28 (L) 09/10/2023 ALT 13 01/26/2025 AST 15 01/26/2025 NA 136 01/26/2025 K 3.8 01/26/2025 CL 97 01/26/2025 CREAT 1.60 (H) 08/27/2024 BUN 29 (H) 01/26/2025 CO2 24 01/26/2025 TSH 1.47 08/27/2024 HGBA1C 5.9 (H) 07/22/2024 Cholesterol, Total <200 mg/dL 59 HDL Cholesterol > OR = 40 mg/dL 31Low Triglycerides <150 mg/dL 67 LDL-Cholesterol mg/dL (calc) 14 Comment: Reference range: <100 ECG: Recent Results (from the past 8760 hours) ECG 12 lead Collection Time: 03/12/25 11:25 AM Result Value Status Ventricular rate 55 Final Atrial rate 55 Final P-R interval 172 Final QRS duration 110 Final Q-T interval 472 Final QTC calculation (Bazett) 451 Final P axis 11 Final R axis -13 Final T axis -8 Final Narrative Sinus bradycardia Moderate voltage criteria for LVH, may be normal variant ( R in aVL , Roggen product ) Poor R wave progression Cannot exclude Anterior infarct , age undetermined Abnormal ECG When compared with ECG of 27-Nov-2024 13:18, Premature ventricular complexes are no longer Present Poor R wave progression is now present Confirmed by MD Dean Vincent ([id number]) on 03/12/2025 11:37:24 AM ECG was repeated lead placement was adjusted there was better R wave progression. Poor R wave progression was likely related to lead placement. ECG is not consistent with a anterior infarct and unchanged compared with previous ECG. ECHO: Interpretation Summary 03/06/2024 There is mild [...] CABG. The heart is mildly enlarged. The [place] coronary vessels are severely calcified. There is [...] your patient to us, Nomi Chang MD [phone] (Electronically Signed - 02/05/2022 19:40) Previous CT [...] care patient will also be seeing a product sales representative according to thepatient he was called today [...] Addressed This Visit Cardiovascular and Mediastinum Hypertension Relevant Orders ECG 12 lead (Completed) Thoracic ascending aortic aneurysm Relevant Orders ECG 12 lead (Completed) Other Visit Diagnoses WEBER (dyspnea on exertion) - Primary Relevant Orders ECG 12 lead (Completed) Essential hypertension Relevant Orders ECG 12 lead (Completed) Hx of CABG Relevant Orders ECG 12 lead (Completed) Lipid Panel Reflex Direct LDL Fatigue, unspecified type Relevant Orders ECG 12 lead (Completed) Aortic valve insufficiency, etiology of cardiac valve disease unspecified Relevant Orders ECG 12 lead (Completed) Abnormal computed tomography angiography (CTA) Relevant Orders ECG 12 lead (Completed) Pre-op exam Relevant Orders ECG 12 lead (Completed) OCN (obstructive sleep apnea) Pure hypercholesterolemia Relevant Orders Lipid Panel Reflex Direct LDL Assessment: Preop for cataract surgery Patient is [...] post coronary bypass graft surgery x3 07/09/20 Newly diagnosed obstructive sleep apnea given CPAP ECG unchanged with the exception of 1 [...] For follow-up echocardiogram for aortic root size 03/28 unchanged 4.5 cm CMML Interstitial lung disease Essential hypertension BP compensated on present meds Hypercholesterolemia Lipid levels very low continue present meds Recheck lipids prior to next visit History of Thrombocytopenia with chronic CML History of Aspirin Allergy with lip swelling On antiplatelet therapy with Plavix Plan: Continue present meds Encouraged to use CPAP Office visit 6 months recheck lipids prior to next visit Tee Dean MD [facility] [address] [place] [address] documented in this encounter Plan of Treatment Upcoming Encounters Date Type Department Care Team (Late st Contact Info) Description 04/17/2025 1:40 PM EDT Office Visit [facility] [place] [address] [place] [phone] Natasha Allred MD [address] [place] [address] 07/30/2025 9:20 AM EDT Office Visit [facility] [place] [address] [place] [phone] Tee Dean MD [address] [place] [address] Scheduled Orders Name Type Priority Associated Diagnoses Orde r Schedule Lipid Panel Reflex Direct LDL Lab Routine Hx of CABG Pure hypercholesterolemia Ordered: 03/12/2025 documented as of this encounter Procedures Procedure Name Priority Date/Time Associated Diagnosis Comments ECG 12-LEAD Routine 03/12/2025 11:25 AM EDT WEBER (dyspnea on exertion) Essential hypertension Resistant hypertension Hx of CABG Fatigue, unspecified type Aneurysm of ascending aorta without rupture Aortic valve insufficiency, etiology of cardiac valve disease unspecified Abnormal computed tomography angiography (CTA) Pre-op exam documented in this encounter Results * ECG 12 lead (03/12/2025 11:25 AM EDT) Ventricular rate 55 BPM EKG [facility] 172 ms [facility] QRS [facility] 110 ms [facility] Q-T interval 472 ms EKG [facility] QTC calculation (Bazett) 451 ms EKG [facility] P axis 11 degrees EKG [facility] R axis -13 degrees [facility] T axis -8 degrees [facility] 03/12/2025 11:2 5 AM EDT Narrative EKG [facility] - 03/12/2025 11:37 AM EDT Sinus bradycardia Moderate voltage criteria for LVH, may be normal variant ( R in aVL , Robin product ) Poor R wave progression Cannot exclude Anterior infarct , age undetermined Abnormal ECG When compared with ECG of 27-Nov-2024 13:18, Premature ventricular complexes are no longer Present Poor R wave progression is now present Confirmed by MD Dean Vincent ([id number]) on 03/12/2025 11:37:24 AM Procedure Note Tee Dean MD - 03/12/2025 Sinus bradycardia Moderate voltage criteria for LVH, may be normal variant ( R in aVL ,Roggen product ) Poor R wave progression Cannot exclude Anterior infarct , age undetermined Abnormal ECG When compared with ECG of 27-Nov-2024 13:18, Premature ventricular complexes are no longer Present Poor R wave progression is now present Confirmed by MD Dean Vincent ([id number]) on 03/12/2025 11:37:24 AM us Tee Dean MD ECG ORDERABLES Final Result EKG [facility] documented in this encounter Visit Diagnoses Diagnosis WEBER (dyspnea on exertion)- Primary Other dyspnea and respiratory abnormality Essential hypertension Unspecified essential hypertension Resistant hypertension Hx of CABG Postsurgical aortocoronary bypass status Fatigue, unspecified type Aneurysm of ascending aorta without rupture Aortic valve insufficiency, etiology of cardiac valve disease unspecified Abnormal computed tomography angiography (CTA) Pre-op exam CON (obstructive sleep apnea) Obstructive sleep apnea (adult) (pediatric) Pure hypercholesterolemia documented in this encounter Care Teams Tour Coordinator Relationship Specialty Start Date End Date Ben Goldsmith MD [address] [place] [address] PCP - General Internal Medicine 07/12/21 Tee Dean MD [address] [place] [address] Primary [employer]ipe Fittings Molder Cardiovascular Disease 12/24/23 Rafael Estevez MD [address] [place] [id number] Surgeon Surgery, Orthopedic 07/25/24 documented as of this encounter
--- OUTSIDE RECORDS SUMMARY | 2025-03-16 21:15 | XMS_ITS | Data Portability ---
Author Organization [facility], Main Office Address [address] [place] [address] Care Team Providers Care Soccer Commentator Name Role Phone CHRISTELMATTHEW MASCORROUR Primary Care [...] Imaging XR, lumbar spine 024 11/03/20 24 [facility] ([facility]), [address] [facility], [address], [place], [address], 4 09:46:47 XR, lumbar spine 024 08/25/20 24 [place] [address] [facility] ([facility]), [address] [facility], [place], [address], 4 17:21:09 Medication Orders None recorded . [...] pants as seen in latera l XR. [facility] ([facility]) [address] [facility], [place], [address], 06/02/2024 10:44:30 05/26/20 24 05/24/2024 MRI, lumba [...] Kelley MD on 024 10:48 AM. [facility] Name - [facility] READ01 ARRAY( 0x58e6 4eb0) ARRAY( 0x58db 1058) ARRAY( 7g1977 2af8) ARRAY( 0x78b6 9de8) ARRAY( 5k743q b3b0) ARRAY( 0x58dc 2980) ARRAY( 0x6e7c c0d8) ARRAY( 0x78ae 0b68) ARRAY( 2n092s b7e8) ARRAY( 9a3608 dc70) [address] ([facility]) [address] [place], [address], 05/26/2024 15:23:09 05/29/20 24 05/26/2024 fluor oscop y less than one hour Exam is non-re portab le. 0.27 3.9 mGy ARRAY( 0x5a3e c7b8) ARRAY( 0x76c1 e788) ARRAY( 0d8580 2018) ARRAY( 0x5b4b 1230) ARRAY( 0x5a37 c6e8) ARRAY( 0x5a46 6478) ARRAY( 4g7955 b968) ARRAY( 0x5a4a cad0) ARRAY( 0x5a45 7c38) [address] ([facility]) [address] [place], [address], 06/02/2024 10:44:31 05/29/20 24 05/26/2024 xr lumba [...] Armando Louis on 024 3:31 PM. [facility] Name - RAHRHI CREAD0 1 ARRAY( 0x7b35 1518) ARRAY( 5z4258 6488) ARRAY( 0x7ae5 ca18) ARRAY( 1n6416 1368) ARRAY( 7i2954 88d8) ARRAY( 0x7b72 82b8) ARRAY( 5f9185 ece0) ARRAY( 0x5b1a 1e00) ARRAY( 5y634u c098) [address] ([facility]) [address] [place], [address], 06/02/2024 10:44:31 07/18/20 24 05/10/2024 MRI, lumba r spine , w/o contr ast No observ ation record ed. [email or web address] [facility] ([facility]) [address] [place] [address], [place], [address], 07/18/2024 12:53:39 07/29/20 24 07/29/2024 fluor oscop y less than one hour Exam is non-re portab le. 0.[address] ([facility]) [address] [place], [address], 08/11/2024 10:19:16 07/29/20 24 07/29/2024 xr lumba [...] PM. Workst ation Name Tyler SIDDIQI [address] ([facility]) [address] [place], [address], 08/11/2024 10:19:17 07/29/20 24 07/29/2024 CT airo lumba r spine witho ut IV contr ast See notes tab of Epic Chart Review for Final Report . [address] ([facility]) [address] [place], [address], 08/11/2024 10:19:17 07/30/20 24 07/29/2024 xr lumba r spine AP & lat TECHNI QUE:[facility] spine 2 views HISTOR Y: Status post [...] Workst ation Name - CHINEDU [id number] [address] ([facility]) [address] [place], [address], 08/11/2024 10:19:18 07/30/20 24 07/29/2024 xr chest [...] Workst ation Name - CHINEDU CREAD0 1 [facility] ([facility] Radiology) [address] [facility], [place], [address], 08/11/2024 10:19:18 07/31/20 24 07/29/2024 CT, abdom [...] 1:33 PM. Workst ation Name - 005RAH [facility] ([facility]) [address] [place], [address], 08/11/2024 10:19:19 07/31/20 24 07/29/2024 CT pelvi [...] ions) adjace nt to the left psoas, drafter electromechanical ior to the left kidney , tracki [...] 024 5:01 PM. Workst ation Name - [facility]-7P [id number] [facility] ([facility]) [address] [place], [address], 08/11/2024 10:19:19 08/25/20 24 08/25/2024 xr lumba r spine AP & lat EXAM: XR LUMBAR SPINE AP & LAT HISTOR Y: Arthro desis status FINDIN GS: Examin ation of the lumbar spine compar ed to prior study. There is been a drafter electromechanical ior fusion L2-L4. Surgic al hardwa re [...] Workst ation Name - DESKTO P-8MUF LUQ [facility] ([facility]) [address] [place], [address], 08/27/2024 14:06:24 11/03/20 24 11/03/2024 XR, lumba r spine No observ ation record ed. [facility] ([facility]) [address] [address], [place], [address], 11/06/2024 12:55:32 Result Notes None recorded. Problems Name Problem SNOMED Code Status Onset Date Resolution Date Notes Provider Name and Address Organization Details Recorded Time History of lumbar fusion 6376380861618 6 Active 2023 Rafael Estevez MD [address] [place] [address], [address], [place] [facility] 10:14:25 Spinal stenosis of lumbar region 06844607 Active 2023 Rafael Estevez MD [address] [place] [address], [address], [place] [facility] 4 09:14:48 Compression fracture of thoracic vertebra 6146048282163 Active 2023 Rafael Estevez MD [address] [place] [address], [address], [place] [facility] 09:14:50 Back problem 612820075 Active 2023 Rafael Estevez MD [address] [place] [address], [address], [place] [facility] 09:14:51 Degeneratio n of lumbar interverteb ral disc 67873059 Active 2023 Rafael Estevez MD [address] [place] [address], [address] 4, [place] [facility] 09:14:55 Compression fracture of lumbar spine 134048428 Active 2023 Rafael Estevez MD [address] [place] [address], [address], [place] [facility] 09:14:59 Problem Notes None recorded. Procedures Surgical History Date Name Laterality Status Provider Name and Address Organization Details Recorded Time lumbar spinal fusion completed Rafael Estevez MD [address] [place] [address], [address], [place] [facility] 08/25/2024 10:13:01 coronary artery bypass graft completed Rafael Estevez MD [address] [place] [address], [address], [place] [facility] 05/21/2024 09:05:22 appendectomy completed Rafael Estevez MD [address] [place] [address], [address], [place] [facility] 05/21/2024 09:05:30 balloon kyphoplasty of fracture of spine completed Rafael Estevez MD [address] [place] [address], [place], [address], [place] [facility] 05/21/2024 09:06:04 Imaging Results Imaging Date Name Status LastModified by Organiz ation Details LastModified Time 05/21/2024 xr lumbar spine AP & lat completed [address] ([facility]) [address] [place], [address], 06/02/2024 10:44:30 05/24/2024 MRI, lumbar spine, w/o contrast completed [address] ([facility]) [address] [place], [address], 05/26/2024 15:23:09 05/26/2024 fluoroscopy less than one hour completed [address] ([facility]) [address] [place], [address], 06/02/2024 10:44:31 05/26/2024 xr lumbar spine AP & lat completed [address] ([facility]) [address] [place], [address], 06/02/2024 10:44:31 05/10/2024 MRI, lumbar spine, w/o contrast completed [email or web address] [facility] ([facility]) [address] [place] [address], [address], 07/18/2024 12:53:39 07/29/2024 fluoroscopy less than one hour completed [address] ([facility]) [address] [place], [address], 08/11/2024 10:19:16 07/29/2024 xr lumbar spine AP & lat completed [address] ([facility]) [address] [place], [address], 08/11/2024 10:19:17 07/29/2024 CT airo lumbar spine without IV contrast completed [address] ([facility]) [address] [place], [address], 08/11/2024 10:19:17 07/29/2024 xr lumbar spine AP & lat completed [address] ([facility]) [address] [place], [address], 08/11/2024 10:19:18 07/29/2024 xr chest AP and lat completed [address] ([facility]) [address] [place], [address], 08/11/2024 10:19:18 07/29/2024 CT, abdomen, w/o contrast completed [address] ([facility]) [address] [place], [address], 08/11/2024 10:19:19 07/29/2024 CT pelvis without contrast (IV or oral) completed [address] ([facility]) [address] [place], [address], 08/11/2024 10:19:19 08/25/2024 xr lumbar spine AP & lat completed [address] ([facility]) [address] [place], [address], 08/27/2024 14:06:24 11/03/2024 XR, lumbar spine completed [place] [address] [facility] ([facility]) [address], [address], 11/06/2024 12:55:32 Procedure Notes None recorded. Medical Equipment None Reported. Allergies Allergen ID Allergen Name Allergen Category Reaction Reaction Severity Criticality Documentation Date Start Date Code Code System Note Provider Name and Address Organization Details Recorded Time 681 aspirin medicatio n angioedem a Not available Not available 05/21/2024 1191 RxNorm Rafael Estevez MD [address] [place] [address], [address] [email or web address] 4 [...] Updated DateTime 06/18/2024 170.18 cm 26.6 kg/m2 86095.7 g Rafael Estevez MD [address] [place] [address], [address], [place] [facility] 06/18/2024 10:32:51 Date Recorded Body height Body mass index (BMI) Body weight Provider Name and Address Organization Details Last Updated DateTime 07/02/2024 170.18 cm 26.6 kg/m2 69020.7 g Rafael Estevez MD [address] [place] [address], [address], [place] [facility] 07/02/2024 11:13:56 Date Recorded Body height Body mass index (BMI) Body weight Provider Name and Address Organization Details Last Updated DateTime 08/25/2024 170.18 cm 26.6 kg/m2 30005.7 daniel Estevez MD [address] [place] [address], [address], [place] [facility] 08/25/2024 10:12:40 Date Recorded Body height Body mass index (BMI) Body weight Provider Name and Address Organization Details Last Updated DateTime 11/03/2024 170.18 cm 26.6 kg/m2 87114.7 daniel Estevez MD [address] [place] [address], [address], [place] [facility] 11/03/2024 10:26:55 Date Recorded Body height Body mass index (BMI) Body weight Provider Name and Address Organization Details Last Updated DateTime 02/18/2025 170.18 cm 26.6 kg/m2 94023.7 daniel Estevez MD [address] [place] [address], [address], [place] [facility] 02/18/2025 09:18:04 Social History Question Answer Notes LastModified by Organizat ion Details LastModified Time Tobacco Smoking Status Former Smoker Rafael Estevez MD [address] [place] [address], [address], [place] [facility] 05/21/2024 09:04:47 Are You Blind Or Do You Have Difficulty Seeing? No Information not available 05/21/2024 Are You Deaf Or Do You Have Serious Difficulty Hearing? No Information not available 05/21/2024 When Did You Quit Smoking? 16+yearssinc elastcigaret te Information not available 05/21/2024 What Was The Date Of Your Most Recent Tobacco Screening? 02/18/2025 Information not available 02/18/2025 What Is Your Current Pack Years? 10packyears [...] In School? No Information not available 05/21/2024 Sex: Unknown Functional Status Question Answer Note LastModified by Organizat ion Details LastModified Time How many times per week do you consume alcohol? Less than 1 time per week Information not available 05/21/2024 Do you or have you ever used any other forms of tobacco or nicotine? No Information not available 05/21/2024 What is your level of alcohol consumption? Occasional Information not available 05/21/2024 Are you currently employed? No Information not available 05/21/2024 Do you have difficulty walking or climbing stairs? No Information not available 02/18/2025 Do you have transportation difficulties? Yes Information not available 05/21/2024 Are you able to walk? YESASSIST Information not available 05/21/2024 Do you have difficulty doing errands alone? No Information not available 05/21/2024 Are you able to care for yourself? No Information n ot available 05/21/2024 What is your occupation? Retired [email or web address] Information not available 05/21/2024 Do you have difficulty dressing or bathing? No Information not available 02/18/2025 Do you or have you ever used any nicotine-free cigarettes, vape, or chewing tobacco? No Information not available 05/21/2024 Mental Status Question Answer Note LastModified by Organization D etails LastModified Time Do you have difficulty concentrating, remembering or making decisions? No Information no t available 05/21/2024 Family History Nothing Reported. Medical History Condition Response Diabetes Y Heart Problems Y Coronary Artery Disease Y Gout Y Anxiety/Depression Y Arthritis Y High Cholesterol Y Cancer Y Hypertension Y Osteoporosis Y Kidney Disease Y Past Encounters Encounter ID Performer Location Encounter Start Date Encounter Closed Date Diagnosis/Indication Diagnosis SNOMED-CT Code Diagnosis ICD10 Code Diagnosis Note [id number] Rafael Estevez MD Main Office [address] [place], [place] [address] 05/21/2024 08:07:25 05/30/2024 08:51:41 Back problem 760952963 M53.9 Degenerati on of lumbar intervertebral disc 74720252 M51.36 Compressio n fracture of lumbar spine 463249642 M48.56XD Compressio n fracture of thoracic vertebra 5157581453 104 M48.54XD Spinal fabio nosis of lumbar region 24996179 M48.062 [id number] Rafael Estevez MD Main Office [address] [place], [place] [address] 06/02/2024 09:35:40 06/04/2024 09:42:53 Spinal stenosis of lumbar region 71879255 M48.062 Degenerati on of lumbar intervertebral disc 19353598 M51.36 Back problem 001561961 M 53.9 Compressio n fracture of lumbar spine 383417272 M48.56XD Isthmic spondylolisthesis 562383394 M43.10 [id number] Rafael Estevez MD Main Office [address] [place], [place] [address] 06/18/2024 10:10:40 07/02/2024 09:44:28 Spinal stenosis of lumbar region 88901085 M48.062 Degenerati on of lumbar intervertebral disc 38625974 M51.36 Back problem 388305352 M 53.9 [id number] Rafael Estevez MD Main Office [address] [place], [place] [address] 07/02/2024 09:52:20 09/29/2024 15:26:11 Spinal stenosis of lumbar region 51679955 M48.062 Degenerati on of lumbar intervertebral disc 46487608 M51.36 Back problem 195054817 M 53.9 [id number] Rafael Estevez MD Main Office [address] [place] [address] 08/25/2024 09:59:13 08/26/2024 17:21:08 Spinal stenosis of lumbar region 12639410 M48.062 Degenerati on of lumbar intervertebral disc 80843243 M51.369 History of lumbar fusion 0587178554 9106 Z98.1 [id number] Rafael Estevez MD Main Office [address] [place] [address] 4 11/03/2024 10:09:44 11/04/2024 09:46:47 Spinal stenosis of lumbar region 38699865 M48.062 Degenerati on of lumbar intervertebral disc 43397599 M51.369 Back problem 616281761 M 53.9 [id number] Rafael Estevez MD Main Office [address] [place] [address] 4 02/18/2025 08:39:47 02/19/2025 16:42:15 Spinal stenosis of lumbar region 94057910 M48.062 Degenerati on of lumbar intervertebral disc 25682122 M51.369 Back problem 778479413 M 53.9 Lumbar Spine Exercises Lumbar Stretch [...] Kirkpatrick Member ID Guarantor Name 06/18/2024 1 [facility] [facility] (MEDICARE REPLACEMENT/A DVANTAGE - HMO) [id number] Chuck Harmon [id number] Chuck Harmon 07/02/2024 1 [facility] [facility] (MEDICARE REPLACEMENT/A DVANTAGE - HMO) [id number] Chuck Harmon [id number] Chuck Harmon 08/25/2024 1 [facility] [facility] (MEDICARE REPLACEMENT/A DVANTAGE - HMO) [id number] Chuck Harmon [id number] Chuck Harmon 11/03/2024 1 [facility] [facility] (MEDICARE REPLACEMENT/A DVANTAGE - HMO) [id number] Chuck Harmon [id number] Chuck Harmon 02/18/2025 1 [facility] (MEDICARE REPLACEMENT/A DVANTAGE - HMO) [id number] Chuck Harmon [id number] Chuck Harmon Notes Date Note Type Note [...] any new neurologic symptoms Rafael Estevez MD [address] [place] [address], [address], [place] [facility] 06/18/2024 10:37:48 07/02/2024 text/html This is a [...] any new neurologic symptoms. Rafael Estevez MD [address] [place] [address], [address], [place] [facility] 07/02/2024 16:24:17 08/25/2024 text/html This is a 78-year-old gentleman status approximately a month from L2-3 and L3-4 lateral lumbar interbody fusion. He is doing very well after the surgery his pain has gone away and he is needing minimal pain medications. Rafael Estevez MD [address] [place] [address], [address], [place] [facility] 08/25/2024 10:17:22 11/03/2024 text/html This is a [...] since his last visit. Rafael Estevez MD [address] [place] [address], [address], [place] [facility] 11/03/2024 10:40:33 02/18/2025 text/html This is a 79-year-old gentleman with a history of L2-3 and L3-4 lumbar fusion surgery. He also had a couple of kyphoplasties before that. He has done well and is having minimal to no pain. He does not report any new neurologic symptoms since his last visit. Rafael Estevez MD [address] [place] [address], [address], [place] [facility] 02/18/2025 09:20:56
--- OUTSIDE RECORDS SUMMARY | 2025-03-16 21:15 | XMS_ITS ---
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) Active confirmed Chronic myelomonocytic leukemia (disorder) (083037248) Problem Monoclonal gammopathy (D47.2) Active confirmed Monoclonal gammopathy (40273528) Problem Coronary artery disease without angina pectoris, unspecified vessel or lesion type, unspecified whether [place] or transplanted heart (I25.10) Active confirmed Atherosclerot ic heart disease of [place] coronary artery without angina pectoris (635300057899867) Problem Hyperlipidemia (E78.5) Active confirmed Hyperlipidemia (86804269) Problem Spinal stenosis at L4-L5 level (M48.061) Active confirmed Spinal stenosis of lumbar region (90853215) Problem Compression fracture of L1 vertebra, sequela (S32.010S) Active confirmed Late effect of fracture of spine AND/OR trunk without spinal cord lesion (1841923) Problem Gout, unspecified (M10.9) Active confirmed Gout (76679835) Problem 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 (312365731) Problem Pulmonary fibrosis (J84.10) Active confirmed Pulmonary fibrosis (22409254) Problem Overweight (E66.3) Active confirmed Overweight (403308891) Encounters Encounter Location Date Provider Diagnosis [facility] [address] [place] [address] 06/16/2024 VIELKA CHEN PLAN OF TREATMENT No Information Progress Notes * Wes HOU:1945 (79 yo M)Acc No.[id number]:06/16/2024 Progress Notes Patient:??Chuck HOU Account Number: Provider:??Vielka Chen MD :1945?Age:78 Y?Sex:Ma le Date:06/16/2024 Address:[address] [place] [address] , [id number] Subjective: * Chief Complaints: * ? * Medical History:?? Objective: Assessment: Plan: * Treatment: * Images: Billing Information: * Visit Code:?? * Procedure Codes:?? * Sign off status: Pending * Provider:??Vielka Chen MD Date:??06/16
--- OUTSIDE RECORDS SUMMARY | 2025-03-16 21:15 | XMS_ITS | Encounter Summary ---
Author Organization [facility] Address [address] [place] [address] Care Team Providers Care Piano Sounding Board Matcher Name Role Phone Ben Goldsmith MD Primary Care Provider [phone] Encounter Details Date Type Department Care Team [...] Care Team (Late st Contact Info) Description 06/22/2025 9:00 AM EDT Office Visit [facility] Hematology Oncology [address] [place] [phone] Wilton Crawford MD [address] [place] [phone] documented as of this encounter Procedures Procedure [...] Arechiga on 08/26/2024 9:44 AM.Workstation Name - Jobs [employer] Word[employer] Tee Dean MD IMG XR PROCEDURES Final Resu lt documented in this encounter Visit Diagnoses Diagnosis Other forms of dyspnea documented in this encounter Care Teams Piano Sounding Board Matcher Relationship Specialty Start Date End Date Ben Goldsmith MD [address] [address] PCP - General Internal Medicine 04/03/18 documented as of this encounter
--- OUTSIDE RECORDS SUMMARY | 2025-03-16 21:15 | XMS_ITS | Clinical Summary ---
Author Organization [facility] Address [address] [place] [address] Care Team Providers Care Cleaning Maid Name Role Phone Ben Goldsmith MD Primary Care Provider + [phone] Tee Dean MD Unavailable [phone] Rafael Estevez MD Unavailable [phone] Allergies Active Allergy Reactions Criticality Noted Date Comments Aspirin Angioedema,Swelling High 09/18/2014 Lip swelling Medications acetaminophen (TYLENOL) 325 MG tablet Take 2 tablets (650 mg total) by mouth as needed. 0 Active cholecalciferol (VITAMIN D3) 1000 units capsule Vitamin D-3 1000 UNIT Oral Capsule TAKE 1 CAPSULE DAILY Refills: 0 Active Active escitalopram (LEXAPRO) 10 MG tablet Take 1 tablet (10 mg total) by mouth daily. 1 Active albuterol (PROVENTIL HFA; VENTOLIN HFA) 108 (90 Base) MCG/ACT inhaler 2 INH INHALED EVERY 6 HOURS NEEDED FOR SHORTNESS OF BREATH OR WHEEZING FOR 30 DAYS 3 Active metoPROLOL TARTRATE (LOPRESSOR) 25 MG tabletIndications: Essential hypertension TAKE 1 TABLET BY MOUTH TWICE DAILY 200 tablet 3 4 Active amLODIPine (NORVASC) 10 MG tabletIndications: Essential hypertension TAKE 1 TABLET BY MOUTH DAILY 100 tablet 3 4 Active Symbicort 160-4.5 MCG/ACT inhaler 2 PUFF INHALED 2 TIMES A DAY FOR 30 DAYS 4 Active Trelegy Ellipta 200-62.5-25 MCG/ACT inhaler Inhale 1 puff daily. 4 Active clopidogrel (PLAVIX) 75 MG tabletIndications: Hx of CABG TAKE 1 TABLET BY MOUTH DAILY 100 tablet 3 5 Active atorvastatin (LIPITOR) 80 MG tabletIndications: Hx of CABG TAKE 1 TABLET BY MOUTH IN THE EVENING 90 tablet 3 5 Active allopurinol (ZYLOPRIM) 100 mg tabletIndications: Inflammatory polyarthritis (HCC) TAKE 1 TABLET BY MOUTH DAILY 90 tablet 2 5 Active methoTREXate (RHEUMATREX) 2.5 mg tabletIndications: Inflammatory polyarthritis (HCC) TAKE 6 TABLETS BY MOUTH WEEKLY 72 tablet 5 Active folic acid (FOLVITE) 1 MG tabletIndications: Inflammatory polyarthritis (HCC) 1 mg po qd 90 tablet 3 5 Active Active Problems Problem Noted Date Diagnosed Date Immunosuppression 07/13/2023 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 07/09/2020 at [place] CAD, multiple vessel 07/06/2020 AVD (aortic valve disease) 12/06/2017 Thoracic ascending aortic aneurysm 03/23/2017 Hypertension 09/18/2014 Overview (07/13/2021): Hypertensive disorder Obstructive sleep apnea syndrome 09/18/2014 Overview (07/13/2021): Obstructive sleep apnea syndrome Encounters Date Type Department Care Team Description 03/12/2025 11:20 AM EDT Office Visit [facility] Heart & [facility] [place] [address] [phone] Tee Dean MD WEBER (dyspnea on exertion) (Primary Dx); Essential hypertension; Resistant hypertension; Hx of CABG; Fatigue, unspecified type; Aneurysm of ascending aorta without rupture; Aortic valve insufficiency, etiology of cardiac valve disease unspecified; Abnormal computed tomography angiography (CTA); Pre-op exam; CON (obstructive sleep apnea); Pure hypercholesterolemia 03/12/2025 Travel 01/30/2025 9:20 AM EDT Office Visit [facility] Department of Rheumatology [place] [address] [place] [address] Natasha Allred MD Inflammatory polyarthritis (HCC) (Primary Dx); High risk medication use; Still disease (HCC); Interstitial lung disease (HCC); Immunosuppression; Chronic myelomonocytic leukemia in remission (HCC) 01/30/2025 Orders Only [facility] Department of Rheumatology [place] [address] [place] [address] Natasha Allred MD Inflammatory polyarthritis (HCC); High risk medication use 01/26/[address] [facility] & [facility] [address] [place] [address] Tee Dean MD Medication Refill 01/18/2025 Refill Formerly named [facility] Vascular [address] [address] Ling Obrien APRN Medication Refill from Last 3 Months Social History Tobacco [...] Pulse 55 03/12/2025 11:26 AM EDT Temperature 36.7 ??C (98 ??F) 01/30/2025 9:25 AM EDT Respiratory Rate 1 09/17/2024 10:1 2 AM EST Oxygen Saturation 97% 03/12/2025 11: 26 AM EDT Inhaled Oxygen Concentration - - Weight 90.2 kg (198 lb 14.4 oz) 025 11:26 AM EDT Height 172.7 cm (5' 8 ) 03/12/2025 11:2 6 AM EDT Body Mass Index 30.24 03/12/2025 11:26 AM EDT Plan of Treatment Upcoming Encounters Date Type Department Care Team (Late st Contact Info) Description 04/17/2025 1:40 PM EDT Office Visit [facility] Department of Rheumatology [place] [address] [place] [phone] Natasha Allred MD [address] [place] [address] 07/30/2025 9:20 AM EDT Office Visit [facility] [place] [address] [place] [phone] Tee Dean MD [address] [place] [phone] Health Maintenance Due Date Last Done Comments Hepatitis C Virus Screening 1945 DTaP/Tdap/Td Vaccines (1 - Tdap) 1966 Pneumococcal Vaccines 50+ (1 of 2 - PCV) 1966 Zoster (Shingles) Vaccine (1 of 2) 1966 RSV Vaccine 60 years and older and Patients (1 - 1-dose 75+ series) 2022 COVID-19 Vaccine ( season) 2024 08/23/2023, 08/15/2022, 07/15/2021, Additional history exists Influenza Vaccine 06/05/2025 08/01/2021, , 07/23/2020, Additional history exists Hepatitis B Vaccines Aged [...] Abnormal computed tomography angiography (CTA) Pre-op exam MANUAL DIFFERENTIAL Routine 01/26/2025 1 0:48 AM [...] EDT Still's disease (HCC) Inflammatory polyarthritis (HCC) from Last 3 Months Results * ECG 12 lead (03/12/2025 11:25 AM EDT) Ventricular rate 55 BPM EKG [facility] Atrial rate 55 BPM EKG [facility] P-R interval [address] [facility] QRS duration [address] [facility] Q-T interval [address] [facility] QTC calculation (Bazett) 451 ms EKG [facility] P axis 11 degrees EKG [facility] R axis -13 degrees EKG [facility] T axis -8 degrees EKG [facility] 03/12/2025 11:2 5 AM EDT Narrative EKG [facility] - 03/12/2025 11:37 AM EDT Sinus bradycardia Moderate voltage criteria for LVH, may be normal variant ( R in aVL , [place]ajas product ) Poor R wave progression Cannot [...] be normal variant ( R in aVL ,Lajas product ) Poor R wave progression Cannot exclude Anterior infarct , age undetermined Abnormal ECG When compared with ECG of 27-Nov-2024 13:18, Premature ventricular complexes are no longer Present Poor R wave progression is now present Confirmed by MD Dean Vincent ([id number]) on 03/12/2025 11:37:24 AM us Tee Dean MD ECG ORDERABLES Final Result EKG [facility] * (ABNORMAL) Complete Blood Count, with Differential [...] AM EDT 01/26/2025 4:46 PM EDT Narrative [facility] - 01/26/2025 5:10 PM EDT Copy to patient and Dr. Ben Goldsmith us Natasha Allred MD LAB BLOOD ORDERABLES Final R esult [facility] [address] [place] [id number] [place] [address] * (ABNORMAL) VITAMIN D, 25-HYDROXY (01/26/2025 10:48 AM EDT) Vitamin D, 25 OH, Total 29(L) 30 - 100 ng/mL [facility] Blood Blood specimen / Unknown 01/26/2025 10:48 AM EDT 01/26/2025 4:46 PM EDT Narrative [facility] - 01/26/2025 5:32 PM EDT Copy to patient and Dr. Ben Goldsmith Natasha Allred MD LAB BLOOD ORDERABLES Final R esult Performing Organization Address City/[facility]/ZIP Co de Phone Number [facility] [address] [place] [address], * (ABNORMAL) Manual Differential (01/26/2025 10:48 AM EDT) WBC 39.17(HH) [...] ORDERABLES Final R esult Performing Organization Address City/[facility]/ZIP Co de Phone Number [facility] [address] [place] [address], * Erythrocyte Sedimentation Rate (ESR) (01/26/2025 10:48 AM EDT) Sedimentation Rate 24.0 0.0 - 30.0 mm/Hr [facility] Blood Blood specimen / Unknown 01/26/2025 10:48 AM EDT 01/26/2025 4:46 PM EDT Narrative [facility] - 01/26/2025 5:17 PM EDT Copy to patient and Dr. Ben Goldsmith Natasha Allred MD LAB BLOOD ORDERABLES Final R esult Performing Organization Address City/[facility]/ZIP Co de Phone Number [address] * (ABNORMAL) C-REACTIVE PROTEIN (01/26/2025 10:48 AM EDT) C-Reactive Protein 29.9(H) <5.0 mg/L [facility] Blood Blood specimen / Unknown 01/26/2025 10:48 AM EDT 01/26/2025 4:46 PM EDT Narrative [facility] - 01/26/2025 5:32 PM EDT Copy to patient and Dr. Ben Goldsmith Natasha Allred MD LAB BLOOD ORDERABLES Final R esult Performing Organization Address City/[facility]/ZIP Co de Phone Number [address] * URIC ACID (01/26/2025 10:48 AM EDT) Uric Acid 6.5 3.4 - 7.0 mg/dL [facility] Blood Blood specimen / Unknown 01/26/2025 10:48 AM EDT 01/26/2025 4:46 PM EDT Narrative [facility] - 01/26/2025 5:32 PM EDT Copy to patient and Dr. Ben Goldsmith Natasha Allred MD LAB BLOOD ORDERABLES Final R esult [address] * (ABNORMAL) Comprehensive Metabolic Panel (01/26/2025 10:48 AM EDT) Glucose 107(H) 70 - 99 mg/dL [facility] [...] Alkaline Phosphatase 92 35 - 140 IU/L [facility] Bilirubin, Total 0.9 0.0 - 1.0 mg/dL [facility] GFR Estimated (calculated) 41(L) >60 [facility] Comment: As of 2021, the [facility] has updated the creatinine- based estimated glomerular filtration rate (eGFRcr) to the updated CKD-EPI 2020 equation. ??This change removes the race coefficient of the older calculation, and was made based on recommendations from the National Kidney Foundation and the [place] [employer]ph[employer]'s Task Force. ??The new [...] AM EDT 01/26/2025 4:46 PM EDT Narrative [facility] - 01/26/2025 5:32 PM EDT Copy to patient and Dr. Ben Goldsmith us Natasha Allred MD LAB BLOOD ORDERABLES Final R esult [facility] [address] [place] [phone], from Last 3 Months Insurance Care Teams Cleaning Maid Relationship Specialty Start Date End Date Ben Goldsmith MD [address] [place] [address] PCP - General Internal Medicine 07/12/21 Tee Dean MD [address] [place] [address] Primary Napkin Band Wrapper Cardiovascular Disease 12/24/23 Rafael Estevez MD [address] [place] [address] Surgeon Surgery, Orthopedic 07/25/24
--- OUTSIDE RECORDS SUMMARY | 2025-03-16 21:15 | XMS_ITS | Clinical Summary ---
Author Organization [employer] Address [address] [place] [address] Care Team Providers Care Direct Entry Midwife Name Role Phone Ben Goldsmith MD Primary [...] patient's age to complete this topic Insurance [place] [id number] Care Teams Direct Entry Midwife Relationship Specialty Start Date End Date Ben Goldsmith MD [address] [address] PCP - General Internal Medicine 06/12/20
--- OUTSIDE RECORDS SUMMARY | 2025-03-16 21:15 | XMS_ITS | Encounter Summary ---
Author Organization [facility] Address [address] [place] [address] Care Team Providers Care Key Punch Teacher Name Role Phone Ben Goldsmith MD Primary [...] Upcoming Encounters Date Type Department Care Team ( st Contact Info) Description 06/22/2025 9:00 AM EDT Office Visit [facility] Hematology Oncology [address] [place] [phone] Wilton Crawford MD [address] [place] [phone] documented as of this encounter Procedures Procedure [...] on 08/25/2024 4:39 PM. Workstation Name - [id number] Procedure Note Dustin Ovalle MD - 09/01/2024 [...] MD on 08/25/2024 4:39PM. Workstation Name - The Huffington [email or web address] Rafael Estevez MD IMG XR PROCEDURES Final Resul t documented in this encounter Visit Diagnoses Diagnosis Arthrodesis status documented in this encounter Care Teams Key Punch Teacher Relationship Specialty Start Date End Date Ben Goldsmith MD [address] [address] PCP - General Internal Medicine 04/03/18 documented as of this encounter
--- OUTSIDE RECORDS SUMMARY | 2025-03-16 21:15 | XMS_ITS | Clinical Summary ---
Author Organization [facility] Address [address] [place] [address] Care Team Providers Care Billing Customer Service Representative Name Role Phone Ben Goldsmith MD Primary [...] 4 07/30/2024 Atherosclerotic heart diseas e of [place] coronary artery without angina pectoris 07/30/2024 07/30/2024 [...] vessel CAD on cath. CABG 07/09/2020 at [place] 07/2020: failed steress test. 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 07/09/2020 at [place] CAD, multiple vessel 07/06/2020 Anemia in stage [...] this topic Medical Devices Implanted Type Area Nuclear Pharmacist Device Identifier Shelf Expiration Date Model / Serial / Lot Surgiflo Hemostatic Matrix Broadchoice-Prelert [id number] - [id number] Implanted:Qty : 1 on 07/29/2024 by Rafael Estevez MD at [facility] Hemostatic Agent Left Lateral: Spine Lumbar [employer] INC 01/17/2026 2991 / / [id number] ++Dnu+Disc Use [id number] Hemostat Absorb 2x14in Surgicel Broadchoice-Prelert 1-411320 - [id number] Implanted:Qty : 1 on 07/29/2024 by Rafael Estevez MD at [facility] Hemostatic Agent Left Lateral: Spine Lumbar Jennerex [employer] INC 05/04/2026 1951 / / [id number] Device Angio-Seal Vip .035in 70cm 6fr Valuelink Guidewire - [id number] - [id number] Implanted:11/2019 at [facility] (Quantity not on file) ST MARII,DAIG DIVISION [id number] / / Plate Sternalock Chris Jl 8 Hole Bone Sternum Primary Closure - 034566 - [id number] Implanted:Qty : 1 on 07/09/2020 by Mata Amaral MD at [facility] Anterior: Chest BIOMET MICRO FIXATION 73-6605 / / Plate Sternalock Chris 8 Hole Bone Sternum - 091292 - [id number] Implanted:Qty : 2 on 07/09/2020 by Mata Amaral MD at [facility] Anterior: Chest BIOMET MICRO FIXATION 73-6408 / / Screw Sternalock Chris 14mm Gold 2.4mm Self Drill Lock Bone - 097258 - [id number] Implanted:Qty : 13 on 07/09/2020 by Mata Amaral MD at [facility] Anterior: Sternum BIOMET MICRO FIXATION 73-2414 / / Screw Sternalock Chris 16mm Gold 2.4mm Self Drill Lock Bone - 886149 - [id number] Implanted:Qty : 11 on 07/09/2020 by Mata Amaral MD at [facility] Anterior: Sternum BIOMET MICRO FIXATION 73-2416 / / Cement Bone Kyphx Hv-R Medt-Kyph B98e-[id number] - [id number] Implanted:Qty : 1 on 05/13/2024 by Rafael Estevez MD at [facility] Posterior: Spine Lumbar MEDTRONIC KYPHON 11/04/2026 C01A / / [id number] Cement Bone Kyphx Hv-R Medt-Kyph S20y-[id number] - [id number] Implanted:Qty : 1 on 05/29/2024 by Rafael Estevez MD at [facility] Posterior: Spine Lumbar [employer] KYPHON 01/02/2027 C01A / / [id number] 22 X 50 X 12 X 8 Degree Aleutian Spacer Implanted:Qty : 1 on 07/29/2024 by Rafael Estevez MD at [facility] Anterior/ Posterior: Spine Lumbar MANDEEP SPINE [id number] / / 22 X 50x 10x 8 Degree Aleutian Spacer Implanted:Qty : 1 on 07/29/2024 by Rafael Estevez MD at [facility] Anterior/ Posterior: Spine Lumbar MANDEEP SPINE [id number] / / Disc Rick Implanted:Qty : 1 on 07/29/2024 by Rafael Estevez MD at [facility] Anterior/ Posterior: Spine Lumbar MANDEEP SPINE [id number] / / Screw Set Hancock Stry-K2m [id number] 7771 - [id number] Implanted:Qty : 6 on 07/29/2024 by Rafael Estevez MD at [facility] Posterior: Spine Lumbar MANDEEP SPINE 9849-5741 1 / / Screw Suzanne Polyaxial Extended Tab 6.5x50mm Stry-K2m C4497-50384-8 94669 - [id number] Implanted:Qty : 6 on 07/29/2024 by Rafael Estevez MD at [facility] Posterior: Spine Lumbar MANDEEP SPINE [id number] 50 / / Clarence Contr Blt Hex 5.5x80mm Stry-K2m 7351-[id number] 8142 - [id number] Implanted:Qty : 2 on 07/29/2024 by Rafael Estevez MD at [facility] Posterior: Spine Lumbar MANDEEP SPINE 1001-E558 0 / / Vesuvius 100 Dbm Bone Putty 10 Stry-K2m [id number]-[id number]- [id number] - [id number] Implanted:Qty : 1 on 07/29/2024 by Rafael Estevez MD at [facility] Posterior: Spine Lumbar MANDEEP SPINE 02/02/2027 4104-K510 0DP / [id number] / [id number] Bone Alrgft Can Chip 1-8 15cc Stry-Obio [id number] 8 - [id number] Implanted:Qty : 1 on 07/29/2024 by Rafael Estevez MD at [facility] Posterior: Spine Lumbar [employer] 07/03/2028 [id number] / [id number] / Vesuvius 100 Dbm Bone Putty 10 Stry-K2m 4104-[id number]- [id number] - [id number] Implanted:Qty : 1 on 07/29/2024 by Rafael Estevez MD at [facility] Left Lateral: Spine Lumbar MANDEEP SPINE 03/04/2027 4104-K510 0DP / [id number] / [id number] Explanted Type Area Nuclear Pharmacist Device Identifier Shelf Expiration Date Model / Serial / Lot 18 X 50 X 10 X 8 Degree Aleutian Spacer Explanted:Qty: 1 on 07/29/2024 by Rafael Estevez MD at [facility] Anterior/ Posterior: Spine Lumbar MANDEEP SPINE [id number] / / Pin [place] [id number] Hlf 30thrd Yoni-Steve [id number] 929 - [id number] Explanted:Qty: 1 on 07/29/2024 by Rafael Estevez MD at [facility] Right Posterior: Iliac Crest [employer] 5023-3-120 / / Advance Directives For more information, please contact: [phone] Documents on File Type Date Recorded Patient Lead Laying And Gluing Machine Operator Expl anation Advance Directive and Living [...] way: discussion with patient . Care Teams Billing Customer Service Representative Relationship Specialty Start Date End Date Ben Goldsmith MD PCP - General Internal Medicine 04/03/18
--- OUTSIDE RECORDS SUMMARY | 2025-03-16 21:15 | XMS_ITS | Encounter Summary ---
Author Organization [facility] Address [address] [place] [address] Care Team Providers Care Crop Or Grain Farmer Name Role Phone Ben Goldsmith MD Primary Care Provider + [phone] Tee Dean MD Unavailable [phone] Rafael Estevez MD Unavailable [phone] Encounter Details Date Type Department Care Team (Latest Contact Info) Description 03/12/2025 Travel Social History Tobacco Use Types Packs/Day [...] Office Visit [facility] Department of Rheumatology [place] [address] [place] [phone] Natasha Allred MD [address] [place] [address] 07/30/2025 9:20 AM EDT Office Visit [facility] Heart & V[facility] [place] [address] [place] [address] Tee Dean MD [address] [place] [address] documented as of this encounter Visit Diagnoses Not on filedocumented in this encounter Care Teams Crop Or Grain Farmer Relationship Specialty Start Date End Date Ben Goldsmith MD [address] [place] [address] PCP - General Internal Medicine 07/12/21 Tee Dean MD [address] [place] [address] Primary Sandwich Maker Cardiovascular Disease 12/24/23 Rafael Estevez MD [address] [place] [address] Surgeon Surgery, Orthopedic 07/25/24 documented as of this encounter
--- OUTSIDE RECORDS SUMMARY | 2025-03-16 21:15 | XMS_ITS | Clinical Summary ---
Author Organization [facility] Address [address] [place] [phone] Phone Care Team Providers Care Control Clerk Auditing Name Role Phone Ben Goldsmith MD Primary [...] 07/21/2024 Nocturia 07/21/2024 Type 2 diabetes mellitus ([facility] V24, [facility] V 28) 07/21/2024 Gout 07/21/2024 Hyperlipidemia 07/21/2024 Inflammatory arthritis 07/21/2024 Interstitial lung disease ([facility] V24, [facility] V28) 07/21/2024 Back pain 05/26/2024 Intractable pain 05/26/2024 Acute midline low back pain without sciatica 04/2024 Back pain of thoracolumbar region 05/10/2024 Gynecomastia, male 04/14/2022 Weight loss 04/15/2021 Acute diastolic (congestive) heart failure ([facility] V24, [facility] V28) 07/11/2020 Stage 3 chronic kidney disease ([facility] V24, [facility] V28) 07/11/2020 Acute respiratory failure wi th hypoxia ([facility] V24, [facility] V28) 07/09/2020 History of coronary artery bypass graft x 3 02/2020 CAD, multiple vessel 07/06/2020 Anemia in stage 3 chronic ki dney disease ([facility] V24, [facility] V28) 04/30/2020 Obstructive sleep apnea 10/31/2019 Adult Still's disease ([facility] V24, [facility] V28) 06/26/2018 Overview (07/21/2024): 03/22 Epistaxis 02/19/2018 AVD (aortic valve disease) 12/06/2017 Pneumonitis 09/24/2017 Overview (07/21/2024): Onset March 2018: synovitis in hands, pleuritis, pulmonary infiltrates, fever, pericarditis. Pos BRIT - negative ANCA, anti-DS DNA, anti-RYDER, Lyme Ab Prednisone and hydroxychloroquine started 05/22 Methotrexate started 03/23 Aneurysm of thoracic aorta ([facility] V24) 017 Lung nodule 02/14/2017 Bilateral hand swelling 12/21/2016 Abnormal blood chemistry 03/25/2015 CMML (chronic myelomonocytic leukemia) ([facility] V24, [facility] V28) 03/25/2015 Overview (07/21/2024): Dx ~ 2013. No treatment needed so far Disorder of skin and subcutaneous tissue 015 Impotence of organic origin 03/25/2015 Hypertension 03/25/2015 Impaired fasting glucose 03/25/2015 MGUS (monoclonal gammopathy of unknown significa nce) 03/25/2015 Encounters Date Type Department Care Team Description 02/27/2025 Lab [facility] Hematology Oncology [address] [place] [phone] Wilton Doyle MD 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 ([facility] V24, [facility] V28); MGUS (monoclonal gammopathy of unknown significance) 01/30/2025 Telephone [facility] Hematology Oncology [address] [place] [phone] Yoli Urbano [place] 12/22/2024 10:15 AM EST Office Visit [facility] Hematology Oncology [address] [place] [phone] Wilton Doyle MD 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 ([facility] V24, [facility] V28) (Primary Dx); MGUS (monoclonal gammopathy of unknown significance); Back pain of thoracolumbar region; Interstitial lung disease ([facility] V24, [facility] V28); Obstructive sleep apnea from Last 3 Months Immunizations Name Administration Dates Next Due Pfizer SARS-CoV-2 COVID-19, mRNA, LNP-S, preservative free 07/15/2021 Surgical History Surgery Date Site/Laterality Comments APPENDECTOMY 1956 PROCEDURE:APPENDECTOMY COLONOSCOPY 08/24/2016 N/A PROCEDURE:COLONOSCOPY;COMMENT :Procedure: COLONOSCOPY; Surgeon: Dirk Pereyra MD; Location: [facility]; Service: Gastroenterology; Laterality: N/A; CARDIAC CATHETERIZATION 07/06/2020 Right PROCEDURE:CARDIAC CATHETERIZATION;COMMENT:Proce dure: LEFT HEART CATHETERIZATION; Surgeon: Mike Martínez MD; Location: [facility]RICAL [facility]PL[facility] SERV[facility]; Service: Cardiology; Laterality: Right; CARDIAC CATHETERIZATION 07/06/2020 Right PROCEDURE:CARDIAC CATHETERIZATION;COMMENT:Proce dure: CARDIAC CATHETERIZATION; Surgeon: Mike Martínez MD; Location: [facility] CARDIAC [facility]LECTRICAL APPLIANCE SERVIC[facility]; Service: Cardiology; Laterality: Right; CORONARY ARTERY BYPASS GRAFT 07/09/2020 Anterior PROCEDURE:CORONARY ARTERY BYPASS GRAFT;COMMENT:Procedure: CORONARY ARTERY BYPASS GRAFTING - ON PUMP X3 STERNOTOMY, RUELAS; Surgeon: Mata Amaral MD; Location: [facility] CARDIAC OPERATING ROOM; Service: Cardiovascular; Laterality: Anterior; OTHER SURGICAL HISTORY 07/09/2020 N/A PROCEDURE:TRANSESOPHAGEAL ECHOCARDIOGRAM ([facility]) (CONTRAST/3D PRN);COMMENT:Procedure: TRANSESOPHAGEAL ECHOCARDIOGRAPHY; Surgeon: Mata Amaral MD; Location: [facility] CARDIAC OPERATING ROOM; Service: Cardiovascular; Laterality: N/A; VEIN SURGERY 07/09/2020 Right PROCEDURE:VEIN SURGERY;COMMENT:Procedure: HARVEST SAPHENOUS VEIN Endoscopic; Surgeon: Mata Amaral MD; Location: [facility] CARDIAC OPERATING ROOM; Service: Cardiovascular; Laterality: Right; KYPHOSIS SURGERY 05/13/2024 N/A PROCEDURE:KYPHOSIS SURGERY;COMMENT:Procedure: L 1 KYPHOPLASTY LUMBAR SPINE 1 VERTEBRAL BODY; Surgeon: Rafael Estevez MD; Location: [facility] ([facility]); Service: Spine; Laterality: N/A; LUMBAR FUSION 05/29/2024 PROCEDURE:LUMBAR FUSION;COMMENT:PLANS TO BE DONE ON 07/29/24 Procedure: L 2-3, L3-4 FUSION SPINE LUMBAR POSTERIOR 2 LEVELS; Surgeon: Rafael Estevez MD; Location: [facility] ([facility]); Service: Spine;; LUMBAR FUSION 05/29/2024 PROCEDURE:LUMBAR FUSION;COMMENT:PLANS TO BE DONE ON 07/29/24 KYPHOSIS SURGERY 05/29/2024 Posterior PROCEDURE:KYPHOSIS SURGERY;COMMENT:Procedure: L 5 KYPHOPLASTY LUMBAR SPINE 1 VERTEBRAL BODY; Surgeon: Rafael Estevez MD; Location: [facility] ([facility]); Service: Spine; Laterality: Posterior; CERVICAL LAMINECTOMY 05/29/2024 PROCEDURE:CERVICAL LAMINECTOMY;COMMENT:PATIENT STATES HE HAS NEVER HAD NECK SURGERY. Procedure: LAMINECTOMY, FACETECTOMY, AND FORAMINOTOMY ADDITIONAL VERTEBRAL SEGMENT CERVICAL; Surgeon: Rafael Estevez MD; Location: [facility] ([facility]); Service: Spine;; AUTOGRAFT/SPINE SURGERY 05/29/2024 N/A PROCEDURE:AUTOGRAFT/SPINE SURGERY;COMMENT:Procedure: AUTOGRAFT BONE SPINE; Surgeon: Rafael Estevez MD; Location: [facility] ([facility]); Service: Spine; Laterality: N/A; LUMBAR FUSION 07/29/2024 Left Lateral PROCEDURE:LUMBAR FUSION;COMMENT:Procedure: L2-3, L3-4 FUSION SPINE LUMBAR - DLIF 2 INTERSPACES; Surgeon: Rafael Estevez MD; Location: [facility] ([facility]); Service: Spine; Laterality: Left Lateral; LUMBAR FUSION 07/29/2024 Posterior PROCEDURE:LUMBAR FUSION;COMMENT:Procedure: L2-3, L3-4 FUSION SPINE LUMBAR POSTERIOR MINIMALLY INVASIVE; Surgeon: Rfaael Estevez MD; Location: [facility] ([facility]); Service: Spine; Laterality: Posterior; LUMBAR LAMINECTOMY 07/29/2024 Posterior PROCEDURE:LUMBAR LAMINECTOMY;COMMENT:Procedure : L2 - L4 LAMINECTOMY / DECOMPRESSION POSTERIOR LUMBAR 2 LEVELS MINIMALLY INVASIVE; Surgeon: Rafael Estevez MD; Location: [facility] ([facility]); Service: Spine; Laterality: Posterior; Medical History Medical History Date Comments Hypertension DX:Hypertension 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 DX: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 Tinnitus DX:Tinnitus Leukemia ([facility] V24, [facility] V28) 08/18/2014 DX:Leukemia ([facility]);COMMENT:CMML-2 Vitamin D deficiency DX:Vitamin D deficiency Depression DX:Depression Abnormal ECG DX:Abnormal ECG Aneurysm ([facility] V24) DX:Aneury sm ([facility]) Arrhythmia DX:Arrhythmia Coronary artery disease DX:Coron kari artery disease Hyperlipidemia DX:Hyperlipidemi a Sleep apnea DX:Sleep apnea;C OMMENT:not usiing does use mouth peice at night Nocturia DX:Nocturia Interstitial lung disease ([facility] V24, [facility] V28) 07/20/2024 DX:Interstitial lung disease (HCC) Gout 07/20/2024 DX:Gout Type 2 diabetes mellitus ([facility] V24, [facility] V28) 07/20/2024 DX:Type 2 diabetes mellitus (HCC) [...] Description 06/22/2025 9:00 AM EDT Office Visit [facility] Hematology Oncology [address] [place] [phone] Idalia-Wilton Corado MD [address] [place] [address] Health Maintenance Due Date Last [...] this topic Medical Devices Implanted Type Area Attorney Law Clerk Device Identifier Shelf Expiration Date Model / Serial / Lot Surgiflo Hemostatic Matrix [facility] [id number] Implanted:Qty: 1 on 07/29/2024 by Rafael Estevez MD Implants Left: Spine Lumbar [employer] 01/17/2026 [id number] / / [id number] ++Dnu+Disc Use [id number] Hemostat Absorb 2x14in Surgicel [facility] [id number] Implanted:Qty: 1 on 07/29/2024 by Rafael Estevez MD Implants Left: Spine Lumbar [place] [employer] 05/04/2026 195 / / [id number] Device Angio-Seal Vip .035in 70cm 6fr Valuelink Guidewire - [id number] Implanted:11/2019 (Quantity not on file) [facility] [id number] / / Plate Sternalock Chris Jl 8 Hole Bone Sternum Primary Closure - [id number] Implanted:Qty: 1 on 07/09/2020 by Mata Amaral MD N/A: Chest BIOMET - MICRO FIXATION 73-2645 / / Plate Sternalock Chris 8 Hole Bone Sternum - [id number] Implanted:Qty: 2 on 07/09/2020 by Mata Amaral MD N/A: Chest BIOMET - MICRO FIXATION 73-2623 / / Screw Sternalock Chris 14mm Gold 2.4mm Self Drill Lock Bone - [id number] Implanted:Qty: 13 on 07/09/2020 by Mata Amaral MD N/A: Sternum BIOMET - MICRO FIXATION 73-2414 / / Screw Sternalock Chris 16mm Gold 2.4mm Self Drill Lock Bone - [id number] Implanted:Qty: 11 on 07/09/2020 by Mata Amaral MD N/A: Sternum BIOMET - MICRO FIXATION 73-2416 / / Cement Bone Kyphx Hv-R Medt-Kyph [id number] Implanted:Qty: 1 on 05/13/2024 by Rafael Estevez MD N/A: Spine Lumbar [employer] KYPHON 11/04/2026 C01A / / [id number] Cement Bone Kyphx Hv-R Medt-Kyph [id number] Implanted:Qty: 1 on 05/29/2024 by Rafael Estevez MD N/A: Spine Lumbar [employer] KYPHON 01/02/2027 C01A / / [id number] 22 X 50x 10x 8 Degree Aleutian Spacer Implanted:Qty: 1 on 07/29/2024 by Rafael Estevez MD N/A: Spine Lumbar MANDEEP SPINE [id number] / / Disc Rick Implanted:Qty: 1 on 07/29/2024 by Rafael Estevez MD N/A: Spine Lumbar MANDEEP SPINE [id number] / / Screw Set Kellogg Stry-K2m [id number] Implanted:Qty: 6 on 07/29/2024 by Rafael Estevez MD N/A: Spine Lumbar MANDEEP SPINE [id number] / / Screw Suzanne Polyaxial Extended Tab 6.5x50mm Stry-K2m [id number] Implanted:Qty: 6 on 07/29/2024 by Rafael Estevez MD N/A: Spine Lumbar MANDEEP SPINE [id number] / / Clarence Contr Blt Hex 5.5x80mm Stry-K2m [id number] Implanted:Qty: 2 on 07/29/2024 by Rafael Estevez MD N/A: Spine Lumbar MANDEEP SPINE [id number] / / Vesuvius 100 Dbm Bone Putty 10 Stry-K2m [id number] - [id number] Implanted:Qty: 1 on 07/29/2024 by Rafael Estevez MD N/A: Spine Lumbar MANDEEP SPINE 02/02/2027 [id number] DP / [id number] / [id number] 8A Bone Alrgft Can Chip 1-8 15cc Stry-Obio [id number] - [id number] Implanted:Qty: 1 on 07/29/2024 by Rafael Estevez MD N/A: Spine Lumbar [employer] 07/03/2028 [id number] / [id number] / Vesuvius 100 Dbm Bone Putty 10 Stry-K2m [id number] - [id number] Implanted:Qty: 1 on 07/29/2024 by Rafael Estevez MD Left: Spine Lumbar MANDEEP SPINE 03/04/2027 [id number] DP / [id number] / [id number] 2A 22 X 50 X 12 X 8 Degree Aleutian Spacer Implanted:Qty: 1 on 07/29/2024 by Rafael Estevez MD N/A: Spine Lumbar MANDEEP SPINE [id number] / / Procedures Procedure Name Priority Date/Time Associated Diagnosis Comments MANUAL DIFFERENTIAL - SYSMEX WAM Routine 02/13/2025 8:48 AM EDT 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 V24, CMS/HCC V28) MGUS (monoclonal gammopathy of unknown significance) ME PROTEIN ELECTROPHORETIC FRACTIONATION & QUANTITATION SERUM Routine 02/13/2025 8:48 AM EDT 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 V24, CMS/HCC V28) MGUS (monoclonal gammopathy of unknown significance) ME IMMUNOFIXATION ELECTROPHORESIS SERUM Routine 02/13/2025 8:48 AM [...] 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 ([facility]/HCC V24, CMS/HCC V28) MGUS (monoclonal gammopathy of [...] V28) MGUS (monoclonal gammopathy of unknown significance) ME PROTEIN ELECTROPHORETIC FRACTIONATION & QUANTITATION SERUM Routine [...] Maria Kelly MD 02/17/2025 1:54 PM EDT [facility] Blood Venous blood specimen / Unknown Venipuncture / Unknown 02/13/2025 8:48 AM EDT 02/13/2025 12:36 PM EDT us Wilton Crawford MD LAB BLOOD ORDERABLE S Final Result [facility] [address] [place] [address], * PATHOLOGIST REVIEW PROTEIN ELECTROPHORESIS (02/13/2025 8:48 AM EDT) Only the most recent of2 resultswithin the time period is included. Pathologist Interpretation Reviewed by Maria Kelly MD 02/17/2025 1:53 PM EDT [facility] Blood Venous blood specimen / Unknown Venipuncture / Unknown 02/13/2025 8:48 AM EDT 02/13/2025 12:36 PM EDT Submary Crawford MD LAB BLOOD ORDERABLE S Final Result [facility] [address] [place] [address], * (ABNORMAL) Manual differential (02/13/2025 8:48 AM EDT) Neutrophils % 35.0 % LAB HEMETOLOGY METHOD 5 1:36 PM EDT [facility] Bands % 2.0 % LAB HEMETOLOGY METHOD 5 1:36 PM EDT [facility] Lymphocytes % 5.0 % LAB HEMETOLOGY METHOD 5 1:36 PM EDT [facility] Reactive Lymphocyte 5.00 % LAB HEMETOLOGY METHOD 5 1:36 PM EDT [facility] Monocytes % 50.0 % LAB HEMETOLOGY METHOD 5 1:36 PM EDT [facility] Eosinophils % 0.0 % LAB HEMETOLOGY METHOD 5 1:36 PM EDT [facility] Basophils % 0.0 % LAB HEMETOLOGY METHOD 5 1:36 PM EDT [facility] Metamyelocytes % 2.0(H) % LAB HEMETOLOGY METHOD 5 1:36 PM EDT [facility] Myelocytes % 1.0(H) % LAB HEMETOLOGY METHOD 5 1:36 PM EDT [facility] Promyelocytes % 1.0(H) % LAB HEMETOLOGY METHOD 5 1:36 PM EDT [facility] Neutrophils Absolute Manual 8.93(H) 1.50 - 7.00 K/mcL LAB HEMETOLOGY METHOD 5 1:36 PM EDT [facility] Bands Absolute Manual 0.51(H) 0.00 - 0.00 K/mcL LAB HEMETOLOGY METHOD 5 1:36 PM EDT [facility] Lymphocytes Absolute 1.28 1.00 - 5.00 K/mcL LAB HEMETOLOGY METHOD 5 1:36 PM EDT [facility] Reactive Lymph Abs Manual 1.28(H) 0.00 - 0.00 lym LAB HEMETOLOGY METHOD 5 1:36 PM EDT [facility] Monocytes Absolute Manual 12.75(H) 0.20 - 1.00 K/mcL LAB HEMETOLOGY METHOD 5 1:36 PM EDT [facility] Eosinophils Absolute Manual 0.00 0.00 - 0.50 K/mcL LAB HEMETOLOGY METHOD 5 1:36 PM EDT [facility] Basophils Absolute Manual 0.00 0.00 - 0.20 K/mcL LAB HEMETOLOGY METHOD 5 1:36 PM EDT [facility] Metamyelocytes Absolute Manual 0.51(H) 0.00 - 0.00 K/mcL LAB HEMETOLOGY METHOD 5 1:36 PM EDT [facility] Myelocytes Absolute Manual 0.26(H) 0.00 - 0.00 K/mcL LAB HEMETOLOGY METHOD 5 1:36 PM EDT [facility] Promyelocytes Absolute Manual 0.26(H) 0.00 - 0.00 K/mcL LAB HEMETOLOGY METHOD 1:36 PM EDT [facility] Rbc Morphology Consistent with indices Consistent with indices, Normal for LAB HEMETOLOGY METHOD 1:36 PM EDT [facility] Platelet Morphology - WAM See Note(A) Normal LAB HEMETOLOGY METHOD 1:36 PM EDT [facility] Comment:PLT: Normal Blood Venous blood specimen / Unknown Venipuncture / Unknown 02/13/2025 8:48 AM EDT 02/13/2025 12:37 PM EDT us Wilton Crawford MD LAB BLOOD ORDERABLE S Final Result [facility] [address] [place] [address], * (ABNORMAL) [place]-lambda free light chains, quantitative (02/13/2025 8:48 AM EDT) Only the most recent of2 resultswithin the time period is included. [place] Free Light Chain 4.54(H) 0.33 - 1.94 mg/dL 02/16/2025 2:42 PM EDT [facility] Lambda Free Light Chain 7.36(H) 0.57 - 2.63 mg/dL 02/16/2025 2:42 PM EDT [facility] [place]/Lambda FLC Ratio 0.62 0.26 - 1.65 02/16/2025 2:42 PM EDT [facility] Comment: Test performed at [facility], [address] [facility], [place], [place] ??[address] ? [phone] Valeria Ny MD, PhD - Barrel Handler Blood Venous blood specimen / Unknown Venipuncture / Unknown 02/13/2025 8:48 AM EDT 02/13/2025 12:36 PM EDT Wilton Crawford MD LAB BLOOD ORDERABLE S Final Result [place] [address] * (ABNORMAL) CBC auto differential (02/13/2025 8:48 AM EDT) Only the most recent of2 resultswithin the time period is included. WBC 25.5(H) 4.8 - 10.8 K/mcL LAB HEMETOLOGY METHOD 02/13/2025 1:36 PM EDT [facility] RBC 4.00(L) 4.50 - 5.50 M/mcL LAB HEMETOLOGY METHOD 02/13/2025 1:36 PM EDT [facility] Hemoglobin 11.6(L) 13.5 - 17.5 g/dL LAB HEMETOLOGY METHOD 02/13/2025 1:36 PM EDT [facility] Hematocrit 37.5(L) 42.0 - 54.0 % LAB HEMETOLOGY METHOD 02/13/2025 1:36 PM EDT [facility] MCV 94.2 79.0 - 98.0 FL LAB HEMETOLOGY METHOD 02/13/2025 1:36 PM EDT [facility] MCH 29.1 27.0 - 32.0 pcg LAB HEMETOLOGY METHOD 02/13/2025 1:36 PM EDT [facility] MCHC 30.9(L) 32.0 - 37.0 g/dL LAB HEMETOLOGY METHOD 02/13/2025 1:36 PM EDT [facility] RDW 19.5(H) 11.0 - 15.0 % LAB HEMETOLOGY METHOD 02/13/2025 1:36 PM EDT [facility] Platelets 88(L) 130 - 400 K/mcL LAB HEMETOLOGY METHOD 02/13/2025 1:36 PM EDT [facility] Comment:reviewed by slide ETIENNE LAB HEMETOLOGY METHOD 02/13/2025 1:36 PM EDT [facility] Comment:Not Measured NRBC 0.0 <1.0 % LAB HEMETOLOGY METHOD 02/13/2025 1:36 PM EDT [facility] NRBC Absolute 0.00 <0.10 K/mcL LAB HEMETOLOGY METHOD 02/13/2025 1:36 PM EDT [facility] Blood Venous blood specimen / Unknown Venipuncture / Unknown 02/13/2025 8:48 AM EDT 02/13/2025 12:37 PM EDT us Wilton Crawford MD LAB BLOOD ORDERABLE S Final Result Performing Organization Address City/[facility]/ZIP Co de Phone Number [facility] [address] [place] [address], [place] [phone] * Immunofixation electrophoresis serum (02/13/2025 8:48 AM EDT) [facility] Immunofixation Result, Serum IgG Lambda monoclonal immunoglobulins detected. LAB CHEMISTRY METHOD 02/17/2025 1:54 PM EDT [facility] Blood Venous blood specimen / Unknown Venipuncture / Unknown 02/13/2025 8:48 AM EDT 02/13/2025 12:36 PM EDT us Wilton Crawford MD LAB BLOOD ORDERABLE S Final Result [facility] [address] [place] [address], [place] [phone] * (ABNORMAL) Immunoglobulins IgG, IgA, IgM (02/13/2025 8:48 AM EDT) [facility] Total IgG 2,960(H) 549 - 1,584 mg/dL LAB CHEMISTRY METHOD 02/16/2025 9:34 PM EDT [facility] IgA 154 61 - 348 mg/dL LAB CHEMISTRY METHOD 02/16/2025 9:34 PM EDT [facility] IgM 152 23 - 259 mg/dL LAB CHEMISTRY METHOD 02/16/2025 9:34 PM EDT [facility] Blood Venous blood specimen / Unknown Venipuncture / Unknown 02/13/2025 8:48 AM EDT 02/13/2025 12:36 PM EDT us Subramciro Crawford MD LAB BLOOD ORDERABLE S Final Result [facility] [address] [place] [address], [place] [phone] * (ABNORMAL) Protein electrophoresis, serum (02/13/2025 8:48 AM EDT) Only the most recent of2 resultswithin the time period is included. Total Protein 8.8(H) 6.0 - 8.0 g/dL LAB CHEMISTRY METHOD 02/17/2025 1:53 PM EDT [facility] Albumin, Serum 3.8 2.9 - 4.1 g/dL LAB CHEMISTRY METHOD 02/17/2025 1:53 PM EDT [facility] Alpha 1 Globulin (g/dL) 0.2 0.1 - 0.5 g/dL LAB CHEMISTRY METHOD 02/17/2025 1:53 PM EDT [facility] Alpha 2 Globulin (g/dL) 0.7 0.7 - 1.5 g/dL LAB CHEMISTRY METHOD 02/17/2025 1:53 PM EDT [facility] Beta (g/dL) 0.8 0.7 - 1.5 g/dL LAB CHEMISTRY METHOD 02/17/2025 1:53 PM EDT [facility] Gamma Globulin (g/dL) 3.3(H) 0.7 - 1.9 g/dL LAB CHEMISTRY METHOD 02/17/2025 1:53 PM EDT [facility] PARAPROTEIN 1.3 g/dL LAB CHEMISTRY METHOD 02/17/2025 1:53 PM EDT [facility] SPEP Interpretation Monoclonal gammopathy Abnormal pattern with M-spike of gamma globulin mobility. Serum Immunofixation performed on this specimen demonstrated IgG Lambda monoclonal protein. LAB CHEMISTRY METHOD 02/17/2025 1:53 PM EDT [facility] Blood Venous blood specimen / Unknown Venipuncture / Unknown 02/13/2025 8:48 AM EDT 02/13/2025 12:36 PM EDT us Wilton Crawford MD LAB BLOOD ORDERABLE S Final Result Performing Organization Address [facility]/ZIP Co de Phone Number [facility] [address] [place] [address], [place] [phone] * (ABNORMAL) Protein, total (02/13/2025 8:48 AM EDT) Only the most recent of2 resultswithin the time period is included. Total Protein 8.8(H) 6.0 - 8.0 g/dL LAB CHEMISTRY METHOD 02/13/2025 2:15 PM EDT [facility] Blood Venous blood specimen / Unknown Venipuncture / Unknown 02/13/2025 8:48 AM EDT 02/13/2025 12:36 PM EDT us Wilton Crawford MD LAB BLOOD ORDERABLE S Final Result [facility] [address] [place] [address], [place] [phone] * (ABNORMAL) Lactate dehydrogenase (02/13/2025 8:48 AM EDT) Only the most recent of2 resultswithin the time period is included. Pathologist [facility] LDH 267(H) 120 - 246 unit/L LAB CHEMISTRY METHOD 02/13/2025 2:06 PM T [facility] Blood Venous blood specimen / Unknown Venipuncture / Unknown 02/13/2025 8:48 AM EDT 02/13/2025 12:36 PM EDT Wilton Crawford MD LAB BLOOD ORDERABLE S Final Result [facility] [address] [place] [address], [place] [phone] * (ABNORMAL) Comprehensive metabolic panel (02/13/2025 8:48 AM EDT) Only the most recent of2 resultswithin the time period is included. [facility] Sodium 137 133 - 145 mmol/L LAB CHEMISTRY METHOD 02/13/2025 2:13 PM [facility] Potassium 4.1 3.5 - 5.5 mmol/L LAB CHEMISTRY METHOD 02/13/2025 2:13 PM [facility] Chloride 104 96 - 110 mmol/L LAB CHEMISTRY METHOD 02/13/2025 2:13 PM [facility] CO2 28 21 - 32 mmol/L LAB CHEMISTRY METHOD 02/13/2025 2:13 PM [facility] Anion Gap 5 3 - 11 LAB CHEMISTRY METHOD 02/13/2025 2:13 PM [facility] Glucose 147(H) 70 - 100 mg/dL LAB CHEMISTRY METHOD 02/13/2025 2:13 PM [facility] BUN 30(H) 5 - 25 mg/dL LAB CHEMISTRY METHOD 02/13/2025 2:13 PM [facility] Creatinine 1.65(H) 0.70 - 1.30 mg/dL LAB CHEMISTRY METHOD 02/13/2025 2:13 PM [facility] eGFR 43(L) >=60 mL/min/1. 73m2 LAB CHEMISTRY METHOD 02/13/2025 2:13 PM [facility]T [facility] Comment:Calculation based on the??Chronic Kidney Disease Epidemiology Collaboration (CKD-EPI) equation refit??without adjustment for race. BUN/Creatinine Ratio 18.2 LAB CHEMISTRY METHOD 02/13/2025 2:13 PM EDT [facility] Calcium 9.0 8.5 - 10.5 mg/dL LAB CHEMISTRY METHOD 02/13/2025 2:13 PM [facility] AST (SGOT) 19 10 - 42 unit/L LAB CHEMISTRY METHOD 02/13/2025 2:13 PM [facility] ALT (SGPT) 25 10 - 60 unit/L LAB CHEMISTRY METHOD 02/13/2025 2:13 PM [facility] Alkaline Phosphatase 84 42 - 121 unit/L LAB CHEMISTRY METHOD 02/13/2025 2:13 PM T [facility] Total Protein 8.7(H) 6.0 - 8.0 g/dL LAB CHEMISTRY METHOD 02/13/2025 2:13 PM [facility] Albumin 3.6 3.2 - 5.0 g/dL LAB CHEMISTRY METHOD 02/13/2025 2:13 PM [facility] Total Bilirubin 0.4 0.0 - 1.4 mg/dL LAB CHEMISTRY METHOD 02/13/2025 2:13 PM T [facility] Blood Venous blood specimen / Unknown Venipuncture / Unknown 02/13/2025 8:48 AM EDT 02/13/2025 12:36 PM EDT Wilton Crawford MD LAB BLOOD ORDERABLE S Final Result [facility] [address] [place] [address], * (ABNORMAL) RBC morphology review (12/17/2024 11:25 AM EST) Pathologist [facility] Rbc Morphology Consistent with indices Consistent with indices, Normal for [place] LAB HEMETOLOGY METHOD 12/17/2024 2:21 PM EST [facility] Platelet Morphology - WAM See Note(A) Normal LAB HEMETOLOGY METHOD 12/17/2024 2:21 PM EST [facility] Comment:PLT: Large platelets seen Blood Venous blood specimen / Unknown Venipuncture / Unknown 12/17/2024 11:25 AM EST 12/17/2024 1:39 PM EST Wilton Crawford MD LAB BLOOD ORDERABLE S Final Result [facility] [address] [place] [address], * (ABNORMAL) Hemoglobin A1c (05/11/2024) Pathologist [facility] Hemoglobin A1C 9.2(A) <=5.7 % Blood Venous blood specimen / Unknown Result [facility] Historical Provider LAB BLOOD ORDERABLES Nicole l Result * Lipid panel (09/11/2023) Pathologist [facility] Triglycerides 0 mg/dL Comment:Outside System Cholesterol 0 mg/dL Comment:Outside System HDL 0 mg/dL Comment:Outside System LDL Cholesterol 0 mg/dL Comment:Outside System Blood Venous blood specimen / Unknown Historical Provider LAB BLOOD ORDERABLES Nicole l Result * Hepatitis C Screening (09/11/2018) Pathologist [facility] Hepatitis C Screening Abstracted Historical Provider HEALTH MAINTENANCE Final Result from Last 3 Months or Most Recently Relevant to Health Maintenance Insurance [employer]ARE Care Teams Control Clerk Auditing Relationship Specialty Start Date End Date Ben Goldsmith MD [address] [place] [address] [place] [id number] PCP - General Internal Medicine 04/03/18
--- OUTSIDE RECORDS SUMMARY | 2025-03-16 21:16 | XMS_ITS | Encounter Summary ---
Author Organization [facility] Address [address] [place] [id number] Care Team Providers Care Lead Front Desk Agent Name Role Phone Ben Goldsmith MD Primary Care Provider [phone] Tee Dean MD Unavailable [phone] Rafael Estevez MD Unavailable Encounter Details Date Type Department Care Team (Late st Contact Info) Description 10/31/2023 Scanned Document [facility] Department Of Rheumatology [address] [place] [phone] Natasha Allred MD [address] [id number] Social History Tobacco Use Types Packs/Day Years [...] Description 04/17/2025 1:40 PM EDT Office Visit [facility] Department of Rheumatology [place] [address] [place] [phone] Natasha Allred MD [address] [place] [address] 07/30/2025 9:20 AM EDT Office Visit [facility] [place] [address] [place] [phone] Tee Dean MD [address] [place] [address] documented as of this encounter Visit Diagnoses Not on filedocumented in this encounter Care Teams Lead Front Desk Agent Relationship Specialty Start Date End Date Ben Goldsmith MD [address] [place] [phone] PCP - General Internal Medicine 07/12/21 Tee Dean MD [address] [place] [id number] Primary Press Tender [employer] Goods Cardiovascular Disease 12/24/23 Rafael Estevez MD [address] [place] [address] Surgeon Surgery, Orthopedic 07/25/24 documented as of this encounter
--- OUTSIDE RECORDS SUMMARY | 2025-03-16 21:16 | XMS_ITS | Encounter Summary ---
Author Organization [facility] Address [address] [place] [address] Care Team Providers Care Heel Seam Rubber Name Role Phone Ben Goldsmith MD Primary Care Provider [phone] Tee Dean MD Unavailable [phone] Rafael Estevez MD Unavailable [phone] Reason for Visit * Reason Comments Medication Refill Encounter Details Date Type Department Care Team (Late Contact Info) Description 02/15/2023 Refill [facility] Department of Rheumatology [address] [phone] Natasha Allred MD [address] [phone] Inflammatory polyarthritis (HCC) (Primary Dx) Social History [...] Office Visit [facility] Department of Rheumatology [place] [address] [place] [phone] Natasha Allred MD [address] [place] [address] 07/30/2025 9:20 AM EDT Office Visit [facility] [place] [address] [place] [phone] Tee Dean MD [address] [place] [address] documented as of this encounter Visit Diagnoses Diagnosis Inflammatory polyarthritis (HCC)- Primary Unspecified inflammatory polyarthropathy documented in this encounter Care Teams Heel Seam Rubber Relationship Specialty Start Date End Date Ben Goldsmith MD [address] [place] [address] PCP - General Internal Medicine 07/12/21 Tee Dean MD [address] [place] [id number] Primary Chest Painting Leader Cardiovascular Disease 12/24/23 Rafael Estevez MD [address] [place] [address] Surgeon Surgery, Orthopedic 07/25/24 documented as of this encounter
== END ==
LOC: HO.SL 20:30
PROVIDERS: PCP Internal Medicine; Visit Provider Hospitalist
DX: G47.33 Obstructive sleep apnea (adult) (pediatric) (principal)
CPT/HCPCS: 95811

== ENCOUNTER → 2025-03-16 20:30 | Outpatient (BNV) | payer MEDICARE, SELFPAY | PROVIDERS: PCP Internal Medicine; Visit Provider Internal Medicine | DX: G47.33 Obstructive sleep apnea (adult) (pediatric) (principal); G47.61 Periodic limb movement disorder | CPT/HCPCS: 95811 ==

== ENCOUNTER 2025-07-14 10:59 | Outpatient (AMB) | payer MEDICARE, SELFPAY ==
--- NOTE | 2025-07-14 11:01 | MHC.OFFVIS ---
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 He had developed significant pleuritis with a pleural effusion in significant pleuritic pain. At that time he responded well to prednisone. He was then tried on an IL 1 inhibitor. After no significant improvement he was referred to [place]. There he had had a gamma testing including CT scans and PFTs which I do not have the results. But the recommendation was for him to start methotrexate. The patient has been on methotrexate 6 tablets weekly and has felt much better. 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 The last time that he had a CT scan available that I could appreciate was back in April 2018. It did demonstrate evidence of ground-glass opacities and interstitial lung disease. At this point the patient is re-imaging and further lung testing to assess his lung capacity. His chest pain overall is a lot better. 05/10/2022 the patient is here for a pulmonary follow-up visit. Overall the patient has been doing well. Denies any significant chest discomfort or shortness of breath. Denies any significant coughing. He is hoping to meet his new service cashier soon. He continues on the methotrexate 6 tablets weekly. His primary care doctor has been prescribing it for now. The methotrexate appears to be hoping with the pleuritic discomfort that he had in the past suggesting that it was also related to the inflammatory process. In addition to that he did have a repeat CT scan of the chest done at [facility]. This CT scan was compared to a CT scan had back in July 2021. There appears that he has multiple pulmonary nodules in based on therapies his P has been 2020 there is no significant changes in the pulmonary nodules measuring 7 mm. Initially had a cardiac CT scan demonstrating a pulmonary nodule measuring 8 mm. Therefore likely that this was all related to the technique and the measuring of the nodules. Ideally a volumetric approach we more effective. 05/22/2023 the patient is here for pulmonary follow-up visit. It has been bout a year since we last spoke. The patient describes dyspnea on exertion. [id number] severity. Specially with going up a flight of stairs. He does continue on the methotrexate for his Still's disease. The patient did have crackles before examination he still has not. We did go for brief walking oximetry is oxygen did drop to the low 90s on 91-92% with activity. It quickly improves when he rested. His last CT scan of the chest was done at [facility] demonstrating interstitial changes at the bases. The patient also has pulmonary nodules. Will go ahead and repeat his CT scan now in view of the worsening symptoms. In addition to that will go ahead and request pulmonary function studies to further address his lung capacity at this time. 08/22/2023 the patient is here for pulmonary follow-up visit. The patient continues to be about the same. Still complaining of dyspnea on exertion. Moderate severity. He does not use any inhalers. The patient did undergo pulmonary function studies. Demonstrates that he has a slight interval worsening of the restrictive ventilatory defect. He did have a CT scan of the chest demonstrating that his pulmonary fibrosis has not progressed which is reassuring. Still with worsening findings on PFTs need to monitor closely. He is on the methotrexate that he uses for his inflammatory arthritis. No evidence of any methotrexate induced pulmonary toxicity. Then be a component of body habitus as he is gained weight and that possibly is also affecting his total lung capacity. Still the patient will benefit from pulmonary rehabilitation. He is willing to start rehab at this time. Although he is driving from [place] so he rather go to [facility]. Will also provide him with a short-acting beta agonist that he can use as needed. 10/08/2023 the patient is here for hospital follow-up visit. The patient has been doing well. We had evaluated him just in August and he was at baseline. Have been new methotrexate. Unfortunately developed acute respiratory failure. The patient was taken to [facility] where he was admitted to the hospital requiring oxygen. The patient did have a CT scan of the chest demonstrating significant ground-glass opacities consistent with an alveolar filling process. He did undergo an echocardiogram with a dilated left atrium although normal ejection fraction. The patient was evaluated by Pulmonary and also Infectious Disease. The question of Pneumocystis pulmonary infection was brought up. Although felt to be less likely. An LDH was done in a beta D glucan was also checked although I do not have those results. The patient was placed on prednisone taper in addition to Levaquin. He was subsequently discharged on room air. He still feels short of breath and winded. During the evaluation he was also noted to be anemic. Therefore he will be following up with his wire transfer clerk and I believe he is going to undergo a bone marrow biopsy to make sure that there is no worsening of the CMML. on further questioning he was exposed to sick contacts. My suspicion that based on the reports that this is likely viral syndrome that manifested with significant viral pneumonitis. Clinically the patient has been improving. We did go for brief walking oximetry the patient does not require any additional oxygen supplementation at this time I do believe that he is getting better. He does have some lower extremity edema. 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 After the diuresis and additional prednisone I did request the patient get an x-ray done next week. If there is any persistent opacities or any worsening opacities further intervention should take place. Otherwise if things are getting better likely this was just an infectious process that resulted in the acute changes. 01/07/2024 the patient is here for A sick visit apparently couple weeks ago he started developing worsening cough chest congestion. He was seen by his primary care doctor in prescribed prednisone and antibiotics for what was likely lower respiratory infection. Unfortunately symptoms continued to get worse. Started getting some increased shortness of breath chest tightness and he went to the ER. There he had nasal swabs done was positive for influenza A. I do not have the report%. He was given Tamiflu although because of his renal insufficiency was given a low dose and was actually already after the therapeutic window. Therefore he really did not have any significant improvement. He did call the office to be evaluated however, we could not fit him in last week so he is presenting today. Already starting to feel better. His cough significantly better. Chest congestion is better the chest tightness is also improving. He does have dyspnea on exertion mild in severity. He is feels tired weak. He still has some hoarseness. On examination he does have his stable fine rales at the bases. However, appears to have more coarse crackles in the left mid lung area. This suggest a possibility of bronchopneumonia. Based on the fact that he just had flu will go ahead and give him doxycycline to treat him for postviral bacterial infection to treat both staph aureus and Streptococcus. The patient otherwise does not need any additional prednisone which is reassuring. He is reluctant to do so. On further questioning he is dealing with gout. We did go over the low purine diet to minimize on the uric acid buildup. He is also taking medications for. The patient also continues on the methotrexate for his underlying connective tissue disease. In regards of his leukemia appears to be stable although he is going to be referred to [place] to start prophylactic treatment in view of his ongoing findings of anemia and other risk factors. 07/09/2024 the patient is here for a pulmonary follow-up visit. The patient has been complaining of significant back pain. Initially he underwent kyphoplasty but it did not help him. Now he is scheduled to undergo back surgery at [facility] in the coming weeks. In the meantime he was diagnosed with pneumonia several months ago. He did have a chest x-ray as an outpatient. I do not have those results. He was treated as an outpatient and did not have to be admitted to the hospital. He is feeling better although he still having some chest congestion. Also noticed to have some shortness of breath with activity. But a lot of it has to do with deconditioning. He has also lost significant amount of weight because of the back pain. From a hematological standpoint the patient has followed closely with oncology. No evidence of any active issue per report. In regards to the pulmonary fibrosis the patient continues to have crackles on examination which is chronic for him. We did go for brief walking oximetry in the office in his oxygenation was 98% with activity which is extremely reassuring. We will start respiratory inhalers see if this provides some relief prior to surgery. 09/19/2024 the patient is here for a pulmonary follow-up visit. Since we last spoke the patient did undergo kyphoplasty and also a pain stimulator for his back. After this the procedure the patient is started developing worsening shortness of breath. He was initially placed on Symbicort and also rescue inhaler in his breathing did get a little better. Ultimately still had shortness of breath with activity. Moderate severity. He had a full cardiac workup including a transesophageal echo to further address the aortic valve disease. [place] that it was moderate severity but did not need surgery. During the office we did a walking oximetry again in his oxygen did drop to about 94% this time. He did have a CTA done on 09/15/2024. I do not have the images just the report. Appears that he has multiple defects suggesting small peripheral subsegmental pulmonary emboli. Ultimately underwent ultrasounds of the lower extremities ruled out DVT no other evidence of disease. The clots were from to be too small to likely be contributing to his symptoms. Although likely is multifactorial. My suspicion is that he could have had cement related pulmonary emboli from his kyphoplasty. Based on the CTA report was more awake question was not completely clear if indeed that was the case. Therefore will go ahead and request an urgent V/Q scan to better assess if there is any evidence of any significant V/Q mismatch to suggest more inclination to treat him with anticoagulation. If he is treated with anticoagulation would only be for 3 months and then reassess with a repeat V/Q scan. In the meantime since he responded well to the Symbicort will go ahead and add in additional long-acting bronchodilator, Spiriva. I did teach him how to use it. He will start using it to see if this provides some additional relief. He continues on the methotrexate. He has already had issues with compression fractures will hold off on prednisone at this time. 11/12/2024 the patient is here for pulmonary follow-up visit. Overall he is feeling a little better. The patient is using the Trelegy inhaler with good effect. Still has not dyspnea on exertion pqpm-xj-[id number] severity. He did undergo the V/Q scan which demonstrated low probability for PE. Therefore no evidence of thromboembolic disease to be concerned about at this time. 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 He did undergo pulmonary function study today which we personally reviewed. There appears that his total lung capacity is stable at 65% for him and his diffusing capacities 47%. This is very consistent with the numbers that he had back couple years ago which is very reassuring. He does have underlying daytime drowsiness. His [place] score is elevated 09/28. He has cardiovascular risk factors. The patient has had a history of sleep apnea in the past although he no longer uses PAP therapy. Will go ahead and repeat a sleep study to see if he still has underlying sleep apnea and see the severity. If so, we can talk about different alternative therapies. The patient is wondering about the hypoglossal nerve stimulator. He has also tried mandibular devices in the past. In addition to his PAP therapy. 02/24/2025 the patient is here for a pulmonary follow-up visit. He is still struggling with significant shortness of breath and fatigue. He does have an elevated [place] score of 14/24. He was supposed to have sleep study. He is going to have to repeat it because the 11 05 did not give any information. He is picking it up today. In the meantime he does wake up in the middle the night has a hard time falling asleep CellCept and some trazodone that he can use for that. He can start with 1 tablet and then increase it to 2 tablets if needed to maintain of sleep throughout the night. Hopefully by having a full night's sleep we can get a good sleep study to review. The patient also had a walking oximetry. He maintains a pulse ox of 97% with activity specially doing well even going up a flight of stairs. He did have PFTs which did review from November 2024 demonstrating a total lung capacity 65% which is very much where he was back in 2022, although is slightly less when he was evaluated back in 2020. Will go ahead and request a CT scan of the chest to see if there is any progression of his interstitial lung disease. One option would be to consider switching his methotrexate to mycophenolate specially were concerned for any pulmonary toxicity from the methotrexate. In addition to that we can always consider adding Ofev for progressive interstitial lung disease from his connective tissue disease. The patient also has been complaining of an earache and sore throat. Does have a significant otitis media on the left side and also has some sore throat so therefore will go ahead and start him on doxycycline to treat him for mycoplasma and also strep. The patient did receive Augmentin back about a month ago. I explained to him that in view of his blood dyscrasia and use immunomodulators he is immunosuppressed. 07/14/2025 the patient is here for pulmonary follow-up visit. Overall he is doing better from a sleep standpoint. The patient started the PAP therapy in his been very affecting beneficial. AHI is down to 2 and his average pressure is around 7 cm of water. The patient is tolerating mask well. He is sleeping very well and he is using the machine more than 4 hours a night. The therapy has not very effective he is going to continue for now. He is not having to use the trazodone for sleep any longer. The patient also is still complaining of dyspnea on exertion. He did lose some weight which is reassuring. He does have the persistent scarring of the bases. He continues on the methotrexate for the connective tissue disease. He does have a cardiac murmur he is going to follow-up with cardiology soon. At this point he does take Trelegy and appears to be effective. No need for any additional therapies at this time. Will go ahead and reschedule his CAT scan that he was supposed to have before this visit. Will have to investigate and assess the fibrosis to make sure that is not gotten any worse. If indeed there is any progression of the fibrosis will consider antifibrotic agents at that time. Therefore the patient will undergo the CAT scan and will touch base. Otherwise will follow-up in the springtime of 2025. 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's disease of adult (~2018) Dyspnea Pulmonary nodules ILD (interstitial lung disease) Surgical History (Updated 02/10/22 @ 11:09 by Aleshia Tejada PA-C) History of coronary artery bypass graft x 3 (~2019) Social History Patient Tobacco Use Status: Former Tobacco user Tobacco use type: Cigarette Years Smoked: 15 years Review of Systems Const Reports fatigue and Denies night sweats ENT Denies change in voice, Denies mouth pain, Reports nasal congestion and Reports nasal discharge Card Denies chest pain, Reports dyspnea and Reports dyspnea on exertion Resp Reports cough, Denies pain on inspiration, Reports dyspnea and Reports dyspnea on exertion GI Denies abdominal pain Musc Denies no additional complaints Neuro Denies Neuro-related abnormal movements Psych Denies no additional complaints Endo Reports fatigue Chris/Lymph Denies easy bleeding and Denies lymphadenopathy Physical Exam Vital Signs: Last Vital Signs Pulse 60 07/14/25 11:02 BP 110/54 L 07/14/25 11:02 Pulse Ox 96 07/14/25 11:02 Oxygen Delivery Method Room Air 07/14/25 11:02 BMI result Body Mass Index 28.2 Const General: alert HEENT Ears: TM abnormal bulging on the left, erythematous and with fluid behind the TM Neck Neck: Yes normal visual inspection, Yes full ROM and Yes no lymphadenopathy Chest Chest palpation & inspection: normal inspection of the chest Resp Effort & Inspection: normal respiratory effort Auscultation: crackles on the left in the mid lung rachel, rales bilateral at the base and diminished lung sounds Cardio Rate: regular rate Rhythm: regular rhythm Heart sounds: S1 normal heart sound present and S2 normal heart sound present GI Palpation (GI): Soft to palpation and nontender Auscultation: normal bowel sounds General: Yes no CVA tenderness Back/Spine/Pelvis Back: no CVA tenderness Skin General skin exam: rashes and/or lesions noted Assessment & Plan Assessment & Plan (1) Pneumonitis: Code(s): J98.4 - Other disorders of lung Category: Medical (2) Pulmonary nodules: Code(s): R91.8 - Other nonspecific abnormal finding of lung field Category: Medical (3) ILD (interstitial lung disease): Comment: Interval worsening after his CABG Code(s): J84.9 - Interstitial pulmonary disease, unspecified Category: Medical (4) Dyspnea: Code(s): R06.00 - Dyspnea, unspecified Category: Medical Qualifiers: Dyspnea type: dyspnea on exertion Qualified Code(s): R06.00 - Dyspnea, unspecified (5) Still's disease of adult: Onset Date: ~2017 Code(s): M06.1 - Adult-onset Still's disease Category: Medical (6) Pulmonary emboli: Comment: suspect cement pulmonary emboli Code(s): I26.99 - Other pulmonary embolism without acute cor pulmonale Category: Medical Qualifiers: Acute cor pulmonale presence: without acute cor pulmonale Chronicity: unspecified Pulmonary embolism type: unspecified Qualified Code(s): I26.99 - Other pulmonary embolism without acute cor pulmonale Plan MARQUES as needed continue Trelegy continue immunomodulator therapy (MTX) F/U with heme/onc re: anemia and CMML continue APAP 6-12 CT chest (not done) prefers [facility] start Benzonates as needed for cough Follow-up in 6-8 months Medications: New benzonatate 200 mg PO BID PRN 30 caps 6RF cough 30 days benzonatate 200 mg PO BID PRN 30 caps 6RF cough 30 days Coding Level of Care Code Est Pt Level 4 (94916) Complex EM visit Add On G2211 Diagnoses Pneumonitis J98.4 Pulmonary nodules R91.8 ILD (interstitial lung disease) J84.9 Dyspnea on exertion R06.00 Dyspnea type: dyspnea on exertion Still's disease of adult M06.1 Pulmonary embolism without acute cor pulmonale, unspecified chronicity, unspecified pulmonary embolism type I26.99 Acute cor pulmonale presence: without acute cor pulmonale Chronicity: unspecified Pulmonary embolism type: unspecified Time Spent (min) 17
[2025-07-14 11:02] VITALS: BP 110/54; PULSE 60; O2SAT 96; BMI 28.2
== END 2025-07-14 11:43 | disposition home or self-care (01) ==
LOC: HO.HPS 10:59
PROVIDERS: PCP Internal Medicine; Visit Provider Hospitalist
DX: J98.4 Other disorders of lung (principal); R91.8 Other nonspecific abnormal finding of lung field; J84.9 Interstitial pulmonary disease, unspecified; R06.00 Dyspnea, unspecified; M06.1 Adult-onset Still's disease; I26.99 Other pulmonary embolism without acute cor pulmonale
CPT/HCPCS: 99214; G2211

== ENCOUNTER → 2025-07-14 10:59 | Outpatient (BNVA) | payer MEDICARE, SELFPAY | PROVIDERS: PCP Internal Medicine; Visit Provider Hospitalist | DX: I26.99 Other pulmonary embolism without acute cor pulmonale (principal); R06.00 Dyspnea, unspecified; M06.1 Adult-onset Still's disease; J98.4 Other disorders of lung; R91.8 Other nonspecific abnormal finding of lung field; J84.9 Interstitial pulmonary disease, unspecified; G47.33 Obstructive sleep apnea (adult) (pediatric); Z99.89 Dependence on other enabling machines and devices | CPT/HCPCS: 99212 ==